=== PATIENT | male | born 1965 | race African-American/Black ===

== ENCOUNTER 2017-04-12 17:33 | Inpatient (IN) | payer MEDICAID, SELFPAY ==
[2017-04-12] VITALS (10 sets, daily range): BP systolic 148–202; BP diastolic 91–112; PULSE 58–74; RESP 14–17; TEMP 36.7; O2SAT 99; BMI 26.9; BMI 26.3
--- NOTE | 2017-04-12 17:58 | EKG12_ITS ---
Test Reason : CP Blood Pressure : / mmHG Vent. Rate : 074 BPM Atrial Rate : 074 BPM P-R Int : 180 ms QRS Dur : 100 ms QT Int : 406 ms P-R-T Axes : 053 004 128 degrees QTc Int : 450 ms Sinus rhythm with Premature atrial complexes in a pattern of bigeminy ST & T wave abnormality, consider lateral ischemia Abnormal ECG Confirmed by SILVIA ZENDEJAS ([id number]), supervising film or videotape editor MARYAM CATHERINE ([id number]) on 04/16/2017 1:00:53 PM Referred By: IVELISSE/RBIE Confirmed By:SILVIA ZENDEJAS
--- NOTE | 2017-04-12 17:59 | EKG12_ITS ---
Test Reason : REPEAT CP Blood Pressure : / mmHG Vent. Rate : 068 BPM Atrial Rate : 068 BPM P-R Int : 182 ms QRS Dur : 102 ms QT Int : 418 ms P-R-T Axes : 047 002 142 degrees QTc Int : 444 ms Sinus rhythm with marked sinus arrhythmia ST & T wave abnormality, consider lateral ischemia Abnormal ECG Confirmed by SILVIA ZENDEJAS ([id number]), market editor MARYAM CATHERINE ([id number]) on 04/16/2017 1:05:13 PM Referred By: IVELISSE Confirmed By:SILVIA ZENDEJAS
--- NOTE | 2017-04-12 18:00 | RAD_ITS ---
STUDY: X-RAY CHEST REASON FOR EXAM: Male, 51 years old. Chest pain TECHNIQUE: Frontal view of the chest COMPARISON: None. FINDINGS: The lungs are clear. There are no pleural effusions. There is no pneumothorax. The heart is normal in size. The visualized osseous structures are within normal limits. RAD/Chest 1 View (Portable) IMPRESSION: No acute thoracic pathology. Electronically Signed: Bam Wilson, at 18:28 EST Tel , Service support ,
[2017-04-12 18:08] LABS: Absolute Lymphocyte Count 1.59 X10^3/ul (0.83-4.51); Basophil# 0.02 X10^3/uL; Basophil% 0.2 % (0-1); Eosinophil# 0.17 X10^3/uL; Eosinophils% 2.1 % (0-5); Hematocrit 39.3 % (40-54); Hemoglobin 13.4 g/dl (13.0-16.5); Lymphocyte # 1.59 X10^3/ul (4.0); Lymphocyte % 19.2 % (19-41); Mean Corp Hgb Conc 34.1 g/gl (32-36); Mean Corpuscular Hgb 32.6 pg (27.0-32.0); Mean Corpuscular Volume 95.6 fL (80-94); Mean Platelet Vol. 11.8 fl (6.2-12.0); Monocyte# 0.47 X10^3/uL; Monocyte% 5.7 % (0-10); Neutrophil % 72.7 % (47-70); Platelet Count 173 K/mm3 (150-450); RBC Distribution Width CV 12.2 % (11.6-14.6); RBC Distribution Width SD 41.9 fl (35.1-43.9); Red Blood Count 4.11 M/mm3 (4.6-6.2); White Blood Count 8.3 K/mm3 (4.4-11.0)
[2017-04-12 18:09] LABS: POSITIVE COUNT NO; POSITIVE DIFFERENTIAL NO; POSITIVE MORPHOLOGY NO
[2017-04-12] MEDS: 0.9% Normal Saline 1,000 ML 150 ML IV (18:25)
[2017-04-12 18:26] LABS: Anion Gap 7 (5-15); BUN 17 mg/dL (7-18); BUN/Creat Ratio 13.6 RATIO (10-20); Calcium,Total 8.5 mg/dL (8.5-10.1); Chloride 102 mmol/L (98-107); Creatinine, Serum 1.25 mg/dL (0.70-1.30); EST Glomerular Filtration Rate 65 mL/min (>60); Est Glom Filt Rate - Afr Amer 78 mL/min (>60); Estimated Creatinine Clearance 81.29 ml/min; Glucose 185 mg/dL (74-106); Potassium 3.5 mmol/L (3.5-5.1); Sodium Level 138 mmol/L (136-145)
--- NOTE | 2017-04-12 19:26 | ED.RN ---
PT WITH CONTINUED HYPERTENSION, DR. OVIEDO INFORMED. AWAITING FURTHER ORDERS.
[2017-04-12] MEDS: cloNIDine HCl 0.1 MG Tablet PO (19:31)
--- NOTE | 2017-04-12 19:31 | ED.VISSUMM ---
- ER Visit Summary Date of Service: 04/12/17 Chief Complaint: Chest pain History of Present Illness: The patient is a 51 M with history of prior stroke, [place], diabetes, hypertension, and high cholesterol. He has 2 prior cardiac stents placed in 2010 in [place]. Patient states that he developed chest pain after climbing steps today. He also had a headache. He does report recent problems with hypertension and was seen at the right was starts him in clinic yesterday. His medications were changed at that time. Patient states he has been having some intermittent chest pain but today started after exertion. EMS was called. Patient states chest pain had resolved prior to being given aspirin and nitroglycerin. On arrival here he denies chest pain but does continue to have headache. Physical Examination: Blood pressure is 190/112, temperature 98.1, heart rate 74, respiratory rate 16, pulse ox 99% on room air. Patient sitting upright in bed no acute distress. Head neck examination is normal. Heart is regular rate and rhythm. Lung sounds are clear. Abdomen is soft nontender. Neuro exam is normal. Test Results: Chest x-ray reveals no acute thoracic pathology. EKG is sinus at 74 with lateral T inversions and 1/[address] depression. Repeat EKG is unchanged. CBC and chemistry studies are significant only for glucose of 185. Troponin is 0.05. Emergency Department Course and Treatment: Patient was ordered morphine and Zofran here but declined. As advised by nursing staff that blood pressure has remained elevated with systolic pressures in the 180s. At this time he is ordered clonidine 0.1 mg. He will be admitted for further treatment and cardiac evaluation. Treatment Plan: [] Disposition: Admit Impression: 1. Chest pain 2. Hypertension This note was generated with [employer] dictation software. It may contain incorrect words, spelling, and punctuation that were not noted in review of the chart prior to signing ED Disposition - Plan for ED Patient: Chief Complaint: Chest Pain Referrals: Korina Brown [Primary Care Provider] -
--- NOTE | 2017-04-12 19:34 | ED.DCSUM_ITS ---
- ER Visit Summary Date of Service: 04/12/17 Chief Complaint: Chest pain History of Present Illness: The patient is a 51 M with history of prior stroke, [place], diabetes, hypertension, and high cholesterol. He has 2 prior cardiac stents placed in 2010 in [place]. Patient states that he developed chest pain after climbing steps today. He also had a headache. He does report recent problems with hypertension and was seen at the right was starts him in clinic yesterday. His medications were changed at that time. Patient states he has been having some intermittent chest pain but today started after exertion. EMS was called. Patient states chest pain had resolved prior to being given aspirin and nitroglycerin. On arrival here he denies chest pain but does continue to have headache. Physical Examination: Blood pressure is 190/112, temperature 98.1, heart rate 74 , respiratory rate 16, pulse ox 99% on room air. Patient sitting upright in bed no acute distress. Head neck examination is normal. Heart is regular rate and rhythm. Lung sounds are clear. Abdomen is soft nontender. Neuro exam is normal. Test Results: Chest x-ray reveals no acute thoracic pathology. EKG is sinus at 74 with lateral T inversions and 1/[address] depression. Repeat EKG is unchanged. CBC and chemistry studies are significant only for glucose of 185. Troponin is 0.05. Emergency Department Course and Treatment: Patient was ordered morphine and Zofran here but declined. As advised by nursing staff that blood pressure has remained elevated with systolic pressures in the 180s. At this time he is ordered clonidine 0.1 mg. He will be admitted for further treatment and cardiac evaluation. Treatment Plan: [] Disposition: Admit Impression: 1. Chest pain 2. Hypertension This note was generated with [employer] dictation software. It may contain incorrect words, spelling, and punctuation that were not noted in review of the chart prior to signing ED Disposition - Plan for ED Patient: Chief Complaint: Chest Pain Referrals: Korina Brown [Primary Care Provider] -
--- NOTE | 2017-04-12 20:13 | PCM.HP.STD ---
Problem List (1) Chest pain Status: Acute (2) HTN (hypertension) Status: Chronic (3) DM II (diabetes mellitus, type II), controlled Status: Acute History of Present Illness Date of Admission: 04/12/17 Chief Complaint: Chest pain The patient is a 51 year old male w/ h/o stroke, DMII, HTN, and CAD admitted for chest pain. Pt has been having chest pain for the past few months. Chest pain would last for a few minutes and was associated with exertion. Today during lunch, pt went down stair to do the laundry and went to the rest room. After the restroom, he felt immediately diaphoretic, and had palpitation. He had tightness around his sternum and felt as if an elephant was sitting on his chest. Pain was severe and sudden. Nothing made it better or worse. No radiation of pain. Pain lasted until paramedics came and gave him nitro. He has no other complaint. Past Medical History Past Medical History (Chronic Problems): Chronic Problems HTN (hypertension) (Chronic) Allergies Sulfa (Sulfonamide Antibiotics) Allergy (Verified 04/12/17 17:34) Hives Home Medications: Ambulatory Orders Medication Instructions Recorded Amlodipine [Norvasc] 10 mg PO DAILY 04/12/17 Aspirin [Aspirin, Baby] 81 mg PO DAILY@0800 04/12/17 Metformin HCl 500 mg PO DAILY 04/12/17 Metoprolol Succinate 25 mg PO QHS 04/12/17 Lives: With Family Smoking Status: Light Smoker (<10/day) Alcohol: None Drugs: None - *Family History Maternal History Items: Heart Disease, Hypertension, Stroke Review of Systems Constitutional: Denies: Chills, Fever, Weight Change HEENT: Denies: Head Aches, Sinus Congestion, Sinus Drainage Cardiovascular: Reports: Chest Pain, Chest Pressure, Chest Tightness, Palpitations Respiratory: Denies: Cough, Shortness of breath at rest, Sputum production Gastrointestinal: Denies: Abdominal Pain, Nausea, Vomiting Genitourinary: Denies: Dysuria Musculoskeletal: Denies: Joint Pain, Joint Tenderness Skin: Denies: Rash, Wounds Neurological: Denies: Numbness, Tingling, Focal weakness Psychiatric: Denies: Anxiety, Depression, Homicidal Ideations, Suicidal Ideations Hematologic/ Lymphatic: Denies: Easy Bruising, Easy Bleeding VTE Information - Inpt Only VTE Present on Admission: No VTE Mechan Device Prophylaxis: SCD's VTE Pharm Prophylaxis ordered?: Yes Patient Problems: Active and Suspected Problems Chest pain (Acute) DM II (diabetes mellitus, type II), controlled (Acute) - Physical Exam General: Alert, Oriented x3, Cooperative HEENT: Atraumatic, PERRLA, EOMI, Normocephalic Neck: Supple, No JVD, Negative Carotid Bruits Lungs: Clear to auscultation, Normal air movement Cardiovascular: Regular rate, No murmurs Abdomen: Bowel Sounds Present, Soft, Non Tender Extremities: No edema, Capillary Refill Less than 3 Seconds Skin: No rashes, No breakdown Musculoskeletal: No Tenderness to Palpation of Joints or Extremities Neurological: Cranial nerves II-XII grossly intact Psych/Mental Status: Normal Affect, Appropriate Vital Signs Temp Pulse Resp BP Pulse Ox 98.1 F 64 17 188/103 H 99 04/12/17 19:38 04/12/17 19:38 04/12/17 19:38 04/12/17 19:38 04/12/17 19:38 Oxygen Delivery Method Room Air Weight: 95.2 kg Body Mass Index (BMI) 26.9 Laboratory Tests Past 24 Hrs 04/12/17 04/12/17 17:45 17:45 WBC 8.3 RBC 4.11 L Hgb 13.4 Hct 39.3 L MCV 95.6 H MCH 32.6 H MCHC 34.1 RDW 12.2 RDW Differential 41.9 Plt Count 173 MPV 11.8 Immature Gran % (Auto) 0.100 Neut % (Auto) 72.7 H Lymph % (Auto) 19.2 [place] % (Auto) 5.7 Eos % (Auto) 2.1 Baso % (Auto) 0.2 Absolute Neuts (auto) 6.0 Absolute Lymphs (auto) 1.59 Total Counted Not Reportable Sodium 138 Potassium 3.5 Chloride 102 Carbon Dioxide 29.0 Anion Gap 7 BUN 17 Creatinine 1.25 Estim Creat Clear Calc 81.29 Est GFR (MDRD) Af Amer 78 Est GFR (MDRD) Non-Af 65 BUN/Creatinine Ratio 13.6 Glucose 185 H Calcium 8.5 Troponin I 0.05 Assessment/Plan Active and Suspected Problems Chest pain (Acute) DM II (diabetes mellitus, type II), controlled (Acute) 51 year old male w/ h/o stroke, DMII, HTN, and CAD admitted for chest pain. 1) Chest pain: Heart score 6. H/o 2 prior cardiac stents placed in [place] in 2010. Mother had heart attack in her early 50s. First trop negative. EKG disclosed sinus with rate of 74 with lateral T wave inversion and 1/[address] depression. Will get serial trops. ECHO in AM. Stress test in AM. FLP and A1C pending. Start lipitor / PADDY. Resume home meds. 2) HTN: SBP 190s. Will resume home meds. Appears hypovolemic. Will get orthostatic. Will also start ACEI. Monitor. 3) DMII: Resume home meds. A1C pending. 4) Prophylaxis: SCD / heparin.
[2017-04-12] MEDS: Metoprolol(XL)Succ 25 MG Tablet PO (21:54)
[2017-04-12] MEDS: Acetaminophen 500 MG Tablet PO (21:54)
[2017-04-12] MEDS: Atorvastatin Calcium 40 MG Tablet PO (21:54)
[2017-04-12 22:55] LABS: Amphetamine Urine VISTA NEGATIVE (<1000 ng/mL); Barbiturate Urine VISTA NEGATIVE (< 200 ng/mL); Benzodiazepine Urine VISTA NEGATIVE (< 200 ng/mL); Cocaine Urine VISTA NEGATIVE (< 300 ng/mL); Ecstacy Urine VISTA NEGATIVE (< 500 ng/mL); Methadone Urine VISTA NEGATIVE (< 300 ng/mL); PCP Urine VISTA NEGATIVE (< 25 ng/mL); THC Urine VISTA NEGATIVE (< 50 ng/mL); Vista UDS pH Range 7
[2017-04-13] VITALS (15 sets, daily range): BP systolic 130–170; BP diastolic 60–103; PULSE 52–88; RESP 16; TEMP 36.6–36.9; O2SAT 95–98
[2017-04-13] MEDS: Acetaminophen 500 MG Tablet PO ×4 (02:19→21:15)
[2017-04-13] MEDS: 0.9% NaCl Peripheral Flush Adult/Peds IV ×2 (02:47→08:51)
[2017-04-13] MEDS: Aspirin 81 MG TAB.CHEW PO (05:36)
[2017-04-13] MEDS: Lisinopril 10 MG Tablet PO (05:36)
--- NOTE | 2017-04-13 05:55 | ECHOD_ITS ---
Reason For Study: CHEST PAIN Procedure This was a 2D Doppler, Color Flow transthoracic echocardiogram. Exam performed portable in patient room. Left Ventricle Severe concentric left ventricular hypertrophy. The estimated ejection fraction is 75 %. Stage 1 diastolic dysfunction. No regional wall motion abnormalities noted. Right Ventricle Normal size and thickness. Normal systolic function. Atria Normal left atrium. Normal right atrium. Normal atrial septum. Mitral Valve The mitral valve is structurally normal. No prolapse or stenosis seen. Tricuspid Valve Normal tricuspid valve. Trivial tricuspid valve insufficiency. Unable to estimate RV systolic pressure/pulmonary artery pressure due to technically difficult study. Aortic Valve Normal aortic valve. Trisinus/trileaflet aortic valve. Pulmonic Valve Normal pulmonic valve. Great Vessels Normal aortic root. Normal arch. Normal inferior vena cava. Inferior vena cava collapse with sniff. Pericardium/Pleural No pericardial effusion. MMode/2D Measurements & Calculations LVIDd: 4.6 cm IVSd: 1.7 cm Ao root diam: 3.2 cm LVIDs: 2.8 cm LVPWd: 1.7 cm LA dimension: 4.2 cm RVDd: 3.7 cm FS: 39.4 % LAV(MOD-bp): 71.1 ml LVAd ap4: 33.3 cm2 SV(MOD-sp4): 70.8 ml LAV(MOD-bp) Indexed: 32.4 ml/m2 EDV(MOD-sp4): 106.7 ml LAV(MOD-sp2): 61.8 ml EDV(sp4-el): 107.2 ml LAV(MOD-sp4): 69.9 ml LVAs ap4: 18.1 cm2 ESV(MOD-sp4): 36.0 ml ESV(sp4-el): 36.1 ml EF(MOD-sp4): 66.3 % EF(sp4-el): 66.4 % SV(sp4-el): 71.1 ml LA A4 area: 22.8 cm2 RA A4 area: 14.9 cm2 Doppler Measurements & Calculations MV E max nannette: 68.0 cm/sec Ao V2 max: 170.6 cm/sec LV V1 max: 109.4 cm/sec MV A max nannette: 83.1 cm/sec Ao max P.6 mmHg LV V1 max P.8 mmHg MV E/A: 0.82 Interpretation Summary Severe concentric left ventricular hypertrophy. The estimated ejection fraction is 75 %. Stage 1 diastolic dysfunction. Unable to estimate RV systolic pressure/pulmonary artery pressure due to technically difficult study. There is no comparison study available. Ordering Physician: Manuel Regan Referring Physician: YECENIA SAUCEDO [facility] Performed By: Isabella Corrigan RDCS, RVT
--- NOTE | 2017-04-13 05:55 | EKG12_ITS ---
Test Reason : AM EKG Blood Pressure : / mmHG Vent. Rate : 062 BPM Atrial Rate : 062 BPM P-R Int : 198 ms QRS Dur : 100 ms QT Int : 462 ms P-R-T Axes : 054 006 152 degrees QTc Int : 468 ms Normal sinus rhythm ST & T wave abnormality, consider lateral ischemia Prolonged QT Abnormal ECG When compared with ECG of 12-APR-2017 18:19, MANUAL COMPARISON REQUIRED, DATA IS UNCONFIRMED Confirmed by RAMILA CHATTERJEE, ARIELLE ([id number]), graphics editor MARYAM CATHERINE ([id number]) on 04/17/2017 2:41:00 PM Referred By: RIVERA HUNTER Confirmed By:ARIELLE MCGRATH MD
[2017-04-13 07:49] LABS: Absolute Lymphocyte Count 2.03 X10^3/ul (0.83-4.51); Absolute Neutrophil Count 5.1 X10^3/uL (2.0-7.7); Basophil# 0.03 X10^3/uL; Basophil% 0.4 % (0-1); Eosinophils% 2.5 % (0-5); Hematocrit 39.4 % (40-54); Hemoglobin 13.4 g/dl (13.0-16.5); Lymphocyte # 2.03 X10^3/ul (4.0); Lymphocyte % 25.8 % (19-41); Mean Corpuscular Hgb 32.4 pg (27.0-32.0); Mean Corpuscular Volume 95.4 fL (80-94); Mean Platelet Vol. 11.6 fl (6.2-12.0); Monocyte# 0.53 X10^3/uL; Monocyte% 6.7 % (0-10); Neutrophil # 5.06 X10^3/uL (2.7-7.7); Neutrophil % 64.5 % (47-70); POSITIVE COUNT NO; POSITIVE DIFFERENTIAL NO; POSITIVE MORPHOLOGY NO; Platelet Count 166 K/mm3 (150-450); RBC Distribution Width CV 12.4 % (11.6-14.6); RBC Distribution Width SD 42.7 fl (35.1-43.9); Red Blood Count 4.13 M/mm3 (4.6-6.2); White Blood Count 7.9 K/mm3 (4.4-11.0)
[2017-04-13 07:57] LABS: Prothrombin Time (Protime)PT. 12.9 SECONDS (11.7-14.9)
[2017-04-13 07:58] LABS: Partial Thromboplast Time 35.2 Seconds (24.1-36.2)
[2017-04-13 08:11] LABS: AST(SGOT) 12 U/L (15-37); Alanine Aminotransfer ALT/SGPT 29 U/L (16-61); Albumin, Serum 3.4 g/dL (3.2-5.0); Alkaline Phosphatase 81 U/L (45-117); Anion Gap 6 (5-15); BUN 12 mg/dL (7-18); BUN/Creat Ratio 11.9 RATIO (10-20); Calcium,Total 8.1 mg/dL (8.5-10.1); Chloride 105 mmol/L (98-107); Cholesterol 207 mg/dL (200); Creatinine, Serum 1.01 mg/dL (0.70-1.30); EST Glomerular Filtration Rate 83 mL/min (>60); Est Glom Filt Rate - Afr Amer 100 mL/min (>60); Globulin 3.3 g/dL (2.2-4.2); Glucose 153 mg/dL (74-106); High Density Lipoprotein 38 mg/dL; Potassium 3.7 mmol/L (3.5-5.1); Protein, Total 6.7 g/dL (6.4-8.2); Sodium Level 137 mmol/L (136-145); Thyroid Stim Hormone (TSH) 1.68 uIU/mL (0.358-3.74); Triglycerides 151 mg/dL; Very Low Density Lipoprotein 30 mg/dL (5-40)
--- NOTE | 2017-04-13 08:16 | PCM.PROGNOTE ---
Patient Problems: Active and Suspected Problems Chest pain (Acute) Subjective: Chief complaint: Follow-up after admission for chest pain with EKG changes, probable unstable angina as well as highly elevated blood pressure. Patient seen and examined. No acute events overnight. He has been complaining of headache, improved this morning. He has no more chest pain. He described it typical presentation of chest pain with left-sided chest pain, sharp, associated with shortness of breath, dizziness and sweating, lasted for 20 minutes. Overnight, blood pressure was highly elevated. This morning, he has been afebrile, blood pressure is down to 149/99, pulse ox is normal. - Physical Exam General: Alert, Oriented x3, Cooperative, No apparent distress HEENT: Atraumatic, PERRLA, EOMI Oral: Moist Mucosa, No Gingival or Mucosal Lesions/ Ulcerations Neck: Supple, No JVD, Negative Carotid Bruits, Trachea Midline, Thyroid Normal Size and Texture Lungs: Clear to auscultation, No rhonchi, No wheeze, No rales, Diminished Cardiovascular: Regular rate, Regular Rhythm, Normal S1, Normal S2, No murmurs, PMI Normal Abdomen: Bowel Sounds Present, Soft, Non Tender, Non-Distended, No Hepato-splenomegaly Extremities: No clubbing, No cyanosis, No edema Skin: No rashes, No breakdown Lymphatic: No Cervical, Supraclavicular, or Inguinal Adenopathy Neurological: Cranial nerves II-XII grossly intact, Motor Exam 5/5 strength throughout Psych/Mental Status: Normal Affect, Appropriate, Alert and oriented to time, place, person, mood and affect Vital Signs Temp Pulse Resp BP Pulse Ox 97.8 F 67 16 149/99 H 98 04/13/17 05:33 04/13/17 05:33 04/13/17 05:33 04/13/17 05:33 04/13/17 05:33 Oxygen Delivery Method Room Air Weight: 205 lb 4.006 oz Body Mass Index (BMI) 26.3 Orthostatic Vital Signs Start: 04/12/17 21:50 Freq: X1 Status: Active Protocol: Activity Type Activity Date Activity User E-Sign Co-Sign Detail Recorded Client Recorded Date Recorded By Document 04/12/17 22:05 ESTERK [id number] 04/12/17 22:05 JOSLYN 04/12/17 22:05 Orthostatic Vitals Standing -Blood Pressure (90/60-120/80) 160/91 H -Extremity Use Right Arm -Pulse Rate (60-100) 62 Sitting -Blood Pressure (90/60-120/80) 148/99 H -Extremity Use Right Arm -Pulse Rate (60-100) 60 Lying -Blood Pressure (90/60-120/80) 155/96 H -Extremity Use Right Arm -Pulse Rate (60-100) 58 L Intake and Output for Last 24 Hours 04/11/17 04/12/17 04/13/17 23:59 23:59 23:59 Intake Total 610 / 610 100 / 100 Balance 610 / 610 100 / 100 Laboratory Tests Past 24 Hrs 04/12/17 04/12/17 04/13/17 21:44 21:50 01:43 WBC RBC Hgb Hct MCV MCH MCHC RDW RDW Differential Plt Count MPV Immature Gran % (Auto) Neut % (Auto) Lymph % (Auto) [place] % (Auto) Eos % (Auto) Baso % (Auto) Absolute Neuts (auto) Absolute Lymphs (auto) Total Counted PT INR APTT Sodium Potassium Chloride Carbon Dioxide Anion Gap BUN Creatinine Estim Creat Clear Calc Est GFR (MDRD) Af Amer Est GFR (MDRD) Non-Af BUN/Creatinine Ratio Glucose Hemoglobin A1c Calcium Magnesium Total Bilirubin AST ALT Alkaline Phosphatase Troponin I 0.10 H 0.10 H Total Protein Albumin Globulin Albumin/Globulin Ratio Triglycerides Cholesterol LDL Cholesterol VLDL Cholesterol HDL Cholesterol TSH Urine Opiates Screen NEGATIVE Urine Methadone Screen NEGATIVE Ur Barbiturates Screen NEGATIVE Ur Phencyclidine Scrn NEGATIVE Ur Amphetamines Screen NEGATIVE U Methamphetamin-MDMA NEGATIVE U Benzodiazepines Scrn NEGATIVE Urine Cocaine Screen NEGATIVE U Cannabinoids Screen NEGATIVE Ur Drug Screen Comment 04/13/17 04/13/17 04/13/17 07:40 07:40 07:40 WBC 7.9 RBC 4.13 L Hgb 13.4 Hct 39.4 L MCV 95.4 H MCH 32.4 H MCHC 34.0 RDW 12.4 RDW Differential 42.7 Plt Count 166 MPV 11.6 Immature Gran % (Auto) 0.100 Neut % (Auto) 64.5 Lymph % (Auto) 25.8 [place] % (Auto) 6.7 Eos % (Auto) 2.5 Baso % (Auto) 0.4 Absolute Neuts (auto) 5.1 Absolute Lymphs (auto) 2.03 Total Counted Not Reportable PT INR APTT Sodium 137 Potassium 3.7 Chloride 105 Carbon Dioxide 26.0 Anion Gap 6 BUN 12 Creatinine 1.01 Estim Creat Clear Calc 100.60 Est GFR (MDRD) Af Amer 100 Est GFR (MDRD) Non-Af 83 BUN/Creatinine Ratio 11.9 Glucose 153 H Hemoglobin A1c Pending Calcium 8.1 L Magnesium 2.0 Total Bilirubin 0.60 AST 12 L ALT 29 Alkaline Phosphatase 81 Troponin I Total Protein 6.7 Albumin 3.4 Globulin 3.3 Albumin/Globulin Ratio 1.0 Triglycerides 151 Cholesterol 207 H LDL Cholesterol 139 H VLDL Cholesterol 30 HDL Cholesterol 38 L TSH 1.68 Urine Opiates Screen Urine Methadone Screen Ur Barbiturates Screen Ur Phencyclidine Scrn Ur Amphetamines Screen U Methamphetamin-MDMA U Benzodiazepines Scrn Urine Cocaine Screen U Cannabinoids Screen Ur Drug Screen Comment 04/13/17 04/13/17 07:40 07:40 WBC RBC Hgb Hct MCV MCH MCHC RDW RDW Differential Plt Count MPV Immature Gran % (Auto) Neut % (Auto) Lymph % (Auto) [place] % (Auto) Eos % (Auto) Baso % (Auto) Absolute Neuts (auto) Absolute Lymphs (auto) Total Counted PT 12.9 INR 1.0 APTT 35.2 Sodium Potassium Chloride Carbon Dioxide Anion Gap BUN Creatinine Estim Creat Clear Calc Est GFR (MDRD) Af Amer Est GFR (MDRD) Non-Af BUN/Creatinine Ratio Glucose Hemoglobin A1c Calcium Magnesium Total Bilirubin AST ALT Alkaline Phosphatase Troponin I 0.06 Total Protein Albumin Globulin Albumin/Globulin Ratio Triglycerides Cholesterol LDL Cholesterol VLDL Cholesterol HDL Cholesterol TSH Urine Opiates Screen Urine Methadone Screen Ur Barbiturates Screen Ur Phencyclidine Scrn Ur Amphetamines Screen U Methamphetamin-MDMA U Benzodiazepines Scrn Urine Cocaine Screen U Cannabinoids Screen Ur Drug Screen Comment Clinical Impression(s) from Imaging Studies Chest X-Ray 04/12/17 18:00 IMPRESSION: No acute thoracic pathology. Electronically Signed: Bam Wilson, at 18:28 EST Tel , Service support , Assessment/Plan Active and Suspected Problems Chest pain (Acute) This is a 51 years old male patient admitted because of chest pain, found to have EKG changes and indeterminate troponin and he is undergoing evaluation #1 chest pain/EKG changes/indeterminate troponin: This morning, patient is chest pain-free. EKG revealed T-wave inversion in lateral chest leads. Troponin is borderline elevated at 0.10. Blood pressure improved but still on the higher side. Other vital signs are stable. Chest x-ray showed no acute findings. Patient is on aspirin, statins, beta blockers and lisinopril. Plan: We will start Nitropaste, cardiology consult, cancel stress test this morning. #2 uncontrolled hypertension: Blood pressure has been very high, slightly improved this morning. Patient is on Norvasc, lisinopril and metoprolol as well as IV hydralazine as needed. Plan for close monitoring, adjust medication if needed. #3 type 2 diabetes mellitus: ADA diet, Accu-Cheks, start insulin sliding scale, keep holding metformin. #4 CAD: Status post stents. Plan as above, continue aspirin, statins, lisinopril and metoprolol. #5 DVT prophylaxis: Subcu heparin. This note was generated with [employer] dictation software. It may contain incorrect words, spelling, and punctuation that were not noted in checking the note before signing. Code Visit OBSV E&M: 87636 Subsequent observation care L2
[2017-04-13 08:31] LABS: Hemoglobin A1c 6.3 % (4.2-6.3)
[2017-04-13] MEDS: 0.9% Normal Saline 1,000 ML 75 ML IV ×2 (08:44→22:21)
[2017-04-13] MEDS: Clopidogrel Bisulfate 300 MG Tablet PO (09:57)
[2017-04-13] MEDS: Nitroglycerin Oint 1 INCH PACKET 0.5 INCH TRANSDERM. ×2 (10:00→22:23)
[2017-04-13] MEDS: amLODIPine 10 MG Tablet PO (10:46)
--- NOTE | 2017-04-13 11:45 | PCM.CONS.C ---
Problem List (1) Non-STEMI (non-ST elevated myocardial infarction) Status: Acute (2) Abnormal EKG Status: Acute (3) Coronary artery disease Status: Chronic Comment: Status post stents. (4) Chest pain Status: Acute (5) HTN (hypertension) Status: Chronic Reason for Consult Date of Consultation: 04/13/17 Reason for Consultation: Chest pain, non-STEMI, hypertension, coronary artery disease status post angioplasty and stenting History of Present Illness: The patient is a 51 year old M former smoker quit around 1 year ago after a [id number] smoking history, with diabetes type 2, hypertension, hypercholesterolemia, coronary artery disease status post what sounds like a ST elevation myocardial infarction in 2010. At that time the patient was located in [facility] and underwent emergent angioplasty and stenting ?2 to an unknown artery. 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 The patient recently relocated to the [facility], and has been seeing a PCP locally for blood pressure management. His blood pressure medicines have been adjusted by his PCP to optimize his hypertension. Patient remains on baby aspirin and was on Plavix for one years time and has been discontinued. Last evening the patient developed recurrent severe 9 out of 10 substernal chest pressure as if an elephant was on his chest, with associated diaphoresis, dizziness, and shortness of breath. Patient sought medical attention at [facility] ER where an EKG was performed which showed normal sinus rhythm with upright T waves. Patient was treated with sublingual nitroglycerin and admitted for rule out myocardial infarction. His initial troponin was 0.05, but then increased to 0.11?2 sets. In addition the patient complained of a severe headache which has improved with antihypertensive therapy. His initial blood pressure was found to be 190/112. His chest x-ray was negative. His EKG this morning demonstrates normal sinus rhythm with left ventricular hypertrophy and anterolateral T-wave inversion which is new. Echocardiogram today demonstrates moderate to severe left ventricular hypertrophy, hyperdynamic LV function with an EF of 75%, no valvular abnormalities. No regional wall motion abnormalities. Patient has remained chest pain-free. Telemetry this morning showed normal sinus rhythm, no ventricular ectopy. Stress test was canceled. Patient denies alcohol use, IV drug abuse, illicit substances, or [id number] medications. [] Past Medical History Allergies/Adverse Reactions: Allergies Sulfa (Sulfonamide Antibiotics) Allergy (Verified 04/12/17 17:34) Hives Home Medications: Ambulatory Orders Medication Instructions Recorded Amlodipine [Norvasc] 10 mg PO DAILY 04/12/17 Aspirin [Aspirin, Baby] 81 mg PO DAILY@0800 04/12/17 Metformin HCl 500 mg PO DAILY 04/12/17 Metoprolol Succinate 25 mg PO QHS 04/12/17 Past Medical History (Chronic Problems): Chronic Problems Coronary artery disease (Chronic) Status post stents. Type 2 diabetes mellitus (Chronic) HTN (hypertension) (Chronic) - *Family History Maternal History Items: Heart Disease, Hypertension, Stroke Lives: With Family Smoking Status: Light Smoker (<10/day) Alcohol: None Drugs: None Review of Systems - Review of Systems General: Denies: Fever, Night Sweats, Fatigue Cardiovascular: Reports: Chest Discomfort, Chest Discomfort at Rest, Shortness of Breath, Shortness of Breath at Rest, Lightheadedness, Dizziness. Denies: Orthopnea, PND, Peripheral Edema, Palpitations, Near Syncope, Syncope Respiratory: Denies: Cough, Sputum Production, Hemoptysis Gastrointestinal: Denies: Hematemesis, Hematochezia, Melena Genitourinary: Denies: Dysuria, Hematuria Skin: Denies: Rash Subjectve: Patient laying in bed, no acute distress. Objective: Vital Signs Temp Pulse Resp BP Pulse Ox 98.4 F 60 16 167/103 H 98 04/13/17 10:46 04/13/17 10:46 04/13/17 10:46 04/13/17 10:46 04/13/17 10:46 Oxygen Delivery Method Room Air Weight: 205 lb 4.006 oz Body Mass Index (BMI) 26.3 Orthostatic Vital Signs Start: 04/12/17 21:50 Freq: X1 Status: Active Protocol: Activity Type Activity Date Activity User E-Sign Co-Sign Detail Recorded Client Recorded Date Recorded By Document 04/12/17 22:05 JOSLYN [id number] 04/12/17 22:05 JOSLYN 04/12/17 22:05 Orthostatic Vitals Standing -Blood Pressure (90/60-120/80) 160/91 H -Extremity Use Right Arm -Pulse Rate (60-100) 62 Sitting -Blood Pressure (90/60-120/80) 148/99 H -Extremity Use Right Arm -Pulse Rate (60-100) 60 Lying -Blood Pressure (90/60-120/80) 155/96 H -Extremity Use Right Arm -Pulse Rate (60-100) 58 L Intake and Output for Last 24 Hours 04/11/17 04/12/17 04/13/17 23:59 23:59 23:59 Intake Total 610 / 610 100 / 100 Balance 610 / 610 100 / 100 General: Awake, Alert, Oriented x 3 HEENT: PERRL, EOMI, Sclera Non Icteric Neck: Supple, Good ROM, No Lymph Node Enlargement Lungs: Clear to auscultation Cardiovascular: Regular Rhythm, Normal S1, Normal S2, No Murmurs, No Rubs, No Gallops Vascular: No Carotid Bruits, Normal Femoral Pulses, Normal Radial Pulses, Normal Dorsalis Pedal Pulse, Normal Posterior Tibial Pulses Abdomen: Bowel Sounds Present, Soft, Non Tender, No HSM, No Organomegaly Extremities: No Cyanosis, No Clubbing, No edema Neurological: No Focal Motor or Sensory Deficit 04/12/17 21:50: Troponin I 0.10 H 04/13/17 01:43: Troponin I 0.10 H 04/13/17 07:40: WBC 7.9, RBC 4.13 L, Hgb 13.4, Hct 39.4 L, MCV 95.4 H, MCH 32.4 H, MCHC 34.0, RDW 12.4, RDW Differential 42.7, Plt Count 166, MPV 11.6, Immature Gran % (Auto) 0.100, Neut % (Auto) 64.5, Lymph % (Auto) 25.8, [place] % (Auto) 6.7, Eos % (Auto) 2.5, Baso % (Auto) 0.4, Absolute Neuts (auto) 5.1, Total Counted Not Reportable 04/13/17 07:40: Sodium 137, Potassium 3.7, Chloride 105, Carbon Dioxide 26.0, Anion Gap 6, BUN 12, Creatinine 1.01, Est GFR (MDRD) Af Amer 100, Est GFR (MDRD) Non-Af 83, BUN/Creatinine Ratio 11.9, Glucose 153 H, Calcium 8.1 L, Magnesium 2.0, Total Bilirubin 0.60, Triglycerides 151, Cholesterol 207 H, LDL Cholesterol 139 H, VLDL Cholesterol 30, HDL Cholesterol 38 L 04/13/17 07:40: Hemoglobin A1c 6.3 04/13/17 07:40: Troponin I 0.06 04/13/17 07:40: PT 12.9, INR 1.0, APTT 35.2 Rhythm: EKG: As above ECHO: As above Stress Test: Cardiac Cath: Pending PCI: CT Surgery: Holter monitor: EPS: PPM: CXR: Chest CT Scan: Assessment/Plan 1. Coronary artery disease: The patient presents with recurrent substernal chest pain approximately 7 years after his acute angioplasty and stenting in [facility]. The patient is maintained baby aspirin, and has been struggling with hypertensive blood pressure control over the last several weeks. He now presents with acute severe substernal chest pressure, with dynamic EKG changes and minimally elevated troponins. His LV function is intact by echocardiogram and his symptoms have resolved. This point I recommend continuing baby aspirin, loading him with Plavix 300 mg ?1 now followed by 75 mg a day, switching him from metoprolol to Coreg 6.25 mg p.o. twice daily, discontinuing his lisinopril and switching him to Hyzaar 50/12.5 mg p.o. daily prickly with respect to his high diastolic pressure. In addition I would not recommend stress testing at this time but would rather refer him for direct coronary catheterization this upcoming Saturday to determine if he has any recurrent coronary disease or in-stent restenosis to explain his symptoms. If his catheterization demonstrates widely patent coronaries and widely patent stent, and his symptoms are most likely due to severe uncontrolled hypertension. In addition recommend continuing nitroglycerin paste 1 inch every 6 hours to avoid recurrent hypertensive spikes and to maintain coronary vasodilatation. 2. Hyperlipidemia: His LDL is 139. Apparently he was not on antilipid therapy. I agree with Lipitor 40 mill grams p.o. nightly, and repeat lipid profile in 6 weeks time. 3. Consideration may want to be given to a urinary tox screen to make sure he is not illicit substance positive. 4. Thank you very much for the opportunity to participate in the cardiac care of your patient. Consultation time took place between 9 AM and 9:30 AM. Code Visit Inpatient E&M: [id number] Init Hosp L2
--- NOTE | 2017-04-13 11:55 | CON.PCM_ITS ---
Problem List (1) Non-STEMI (non-ST elevated myocardial infarction) Status: Acute (2) Abnormal EKG Status: Acute (3) Coronary artery disease Status: Chronic Comment: Status post stents. (4) Chest pain Status: Acute (5) HTN (hypertension) Status: Chronic Reason for Consult Date of Consultation: 04/13/17 Reason for Consultation: Chest pain, non-STEMI, hypertension, coronary artery disease status post angioplasty and stenting History of Present Illness: The patient is a 51 year old M former smoker quit around 1 year ago after a 30- pack-year smoking history, with diabetes type 2, hypertension, hypercholesterolemia, coronary artery disease status post what sounds like a ST elevation myocardial infarction in 2010. At that time the patient was located in [facility] and underwent emergent angioplasty and stenting ?2 to an unknown artery. 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 The patient recently relocated to the [facility], and has been seeing a PCP locally for blood pressure management. His blood pressure medicines have been adjusted by his PCP to optimize his hypertension. Patient remains on baby aspirin and was on Plavix for one years time and has been discontinued. Last evening the patient developed recurrent severe 9 out of 10 substernal chest pressure as if an elephant was on his chest, with associated diaphoresis, dizziness, and shortness of breath. Patient sought medical attention at [facility] ER where an EKG was performed which showed normal sinus rhythm with upright T waves. Patient was treated with sublingual nitroglycerin and admitted for rule out myocardial infarction. His initial troponin was 0.05, but then increased to 0.11?2 sets. In addition the patient complained of a severe headache which has improved with antihypertensive therapy. His initial blood pressure was found to be 190/112. His chest x-ray was negative. His EKG this morning demonstrates normal sinus rhythm with left ventricular hypertrophy and anterolateral T-wave inversion which is new. Echocardiogram today demonstrates moderate to severe left ventricular hypertrophy, hyperdynamic LV function with an EF of 75%, no valvular abnormalities. No regional wall motion abnormalities. Patient has remained chest pain-free. Telemetry this morning showed normal sinus rhythm, no ventricular ectopy. Stress test was canceled. Patient denies alcohol use, IV drug abuse, illicit substances, or over-the- counter medications. [] Past Medical History Allergies/Adverse Reactions: Allergies Sulfa (Sulfonamide Antibiotics) Allergy (Verified 04/12/17 17:34) Hives Home Medications: Ambulatory Orders Medication Instructions Recorded Amlodipine [Norvasc] 10 mg PO DAILY 04/12/17 Aspirin [Aspirin, Baby] 81 mg PO DAILY@0800 04/12/17 Metformin HCl 500 mg PO DAILY 04/12/17 Metoprolol Succinate 25 mg PO QHS 04/12/17 Past Medical History (Chronic Problems): Chronic Problems Coronary artery disease (Chronic) Status post stents. Type 2 diabetes mellitus (Chronic) HTN (hypertension) (Chronic) - *Family History Maternal History Items: Heart Disease, Hypertension, Stroke Lives: With Family Smoking Status: Light Smoker (<10/day) Alcohol: None Drugs: None Review of Systems - Review of Systems General: Denies: Fever, Night Sweats, Fatigue Cardiovascular: Reports: Chest Discomfort, Chest Discomfort at Rest, Shortness of Breath, Shortness of Breath at Rest, Lightheadedness, Dizziness. Denies: Orthopnea, PND, Peripheral Edema, Palpitations, Near Syncope, Syncope Respiratory: Denies: Cough, Sputum Production, Hemoptysis Gastrointestinal: Denies: Hematemesis, Hematochezia, Melena Genitourinary: Denies: Dysuria, Hematuria Skin: Denies: Rash Subjectve: Patient laying in bed, no acute distress. Objective: Vital Signs Temp Pulse Resp BP Pulse Ox 98.4 F 60 16 167/103 H 98 04/13/17 10:46 04/13/17 10:46 04/13/17 10:46 04/13/17 10:46 04/13/17 10:46 Oxygen Delivery Method Room Air Weight: 205 lb 4.006 oz Body Mass Index (BMI) 26.3 Orthostatic Vital Signs Start: 04/12/17 21:50 Freq: X1 Status: Active Protocol: Activity Type Activity Date Activity User E-Sign Co-Sign Detail Recorded Client Recorded Date Recorded By Document 04/12/17 22:05 JOSLYN [id number] 04/12/17 22:05 JOSLYN 04/12/17 22:05 Orthostatic Vitals Standing -Blood Pressure (90/60-120/80) 160/91 H -Extremity Use Right Arm -Pulse Rate (60-100) 62 Sitting -Blood Pressure (90/60-120/80) 148/99 H -Extremity Use Right Arm -Pulse Rate (60-100) 60 Lying -Blood Pressure (90/60-120/80) 155/96 H -Extremity Use Right Arm -Pulse Rate (60-100) 58 L Intake and Output for Last 24 Hours 04/11/17 04/12/17 04/13/17 23:59 23:59 23:59 Intake Total 610 / 610 100 / 100 Balance 610 / 610 100 / 100 General: Awake, Alert, Oriented x 3 HEENT: PERRL, EOMI, Sclera Non Icteric Neck: Supple, Good ROM, No Lymph Node Enlargement Lungs: Clear to auscultation Cardiovascular: Regular Rhythm, Normal S1, Normal S2, No Murmurs, No Rubs, No Gallops Vascular: No Carotid Bruits, Normal Femoral Pulses, Normal Radial Pulses, Normal Dorsalis Pedal Pulse, Normal Posterior Tibial Pulses Abdomen: Bowel Sounds Present, Soft, Non Tender, No HSM, No Organomegaly Extremities: No Cyanosis, No Clubbing, No edema Neurological: No Focal Motor or Sensory Deficit 04/12/17 21:50: Troponin I 0.10 H 04/13/17 01:43: Troponin I 0.10 H 04/13/17 07:40: WBC 7.9, RBC 4.13 L, Hgb 13.4, Hct 39.4 L, MCV 95.4 H, MCH 32.4 H, MCHC 34.0, RDW 12.4, RDW Differential 42.7, Plt Count 166, MPV 11.6, Immature Gran % (Auto) 0.100, Neut % (Auto) 64.5, Lymph % (Auto) 25.8, [place] % ( Auto) 6.7, Eos % (Auto) 2.5, Baso % (Auto) 0.4, Absolute Neuts (auto) 5.1, Total Counted Not Reportable 04/13/17 07:40: Sodium 137, Potassium 3.7, Chloride 105, Carbon Dioxide 26.0, Anion Gap 6, BUN 12, Creatinine 1.01, Est GFR (MDRD) Af Amer 100, Est GFR (MDRD ) Non-Af 83, BUN/Creatinine Ratio 11.9, Glucose 153 H, Calcium 8.1 L, Magnesium 2.0, Total Bilirubin 0.60, Triglycerides 151, Cholesterol 207 H, LDL Cholesterol 139 H, VLDL Cholesterol 30, HDL Cholesterol 38 L 04/13/17 07:40: Hemoglobin A1c 6.3 04/13/17 07:40: Troponin I 0.06 04/13/17 07:40: PT 12.9, INR 1.0, APTT 35.2 Rhythm: EKG: As above ECHO: As above Stress Test: Cardiac Cath: Pending PCI: CT Surgery: Holter monitor: EPS: PPM: CXR: Chest CT Scan: Assessment/Plan 1. Coronary artery disease: The patient presents with recurrent substernal chest pain approximately 7 years after his acute angioplasty and stenting in [facility]. The patient is maintained baby aspirin, and has been struggling with hypertensive blood pressure control over the last several weeks. He now presents with acute severe substernal chest pressure, with dynamic EKG changes and minimally elevated troponins. His LV function is intact by echocardiogram and his symptoms have resolved. This point I recommend continuing baby aspirin, loading him with Plavix 300 mg ? 1 now followed by 75 mg a day, switching him from metoprolol to Coreg 6.25 mg p.o. twice daily, discontinuing his lisinopril and switching him to Hyzaar 50/ 12.5 mg p.o. daily prickly with respect to his high diastolic pressure. In addition I would not recommend stress testing at this time but would rather refer him for direct coronary catheterization this upcoming Saturday to determine if he has any recurrent coronary disease or in-stent restenosis to explain his symptoms. If his catheterization demonstrates widely patent coronaries and widely patent stent, and his symptoms are most likely due to severe uncontrolled hypertension. In addition recommend continuing nitroglycerin paste 1 inch every 6 hours to avoid recurrent hypertensive spikes and to maintain coronary vasodilatation. 2. Hyperlipidemia: His LDL is 139. Apparently he was not on antilipid therapy. I agree with Lipitor 40 mill grams p.o. nightly, and repeat lipid profile in 6 weeks time. 3. Consideration may want to be given to a urinary tox screen to make sure he is not illicit substance positive. 4. Thank you very much for the opportunity to participate in the cardiac care of your patient. Consultation time took place between 9 AM and 9:30 AM. Code Visit Inpatient E&M: [id number] Init Hosp L2
[2017-04-13 12:51] LABS: Bedside Glucose 139 mg/dL (70-110)
--- NOTE | 2017-04-13 13:50 | CASEMGMT ---
Social Work Note - PCU Referral: Per RN CM, patient is self pay. Chart reviewed: Noted patient is connected with a congregational called [employer]. Reported social alcohol use, no reported drug use or mental health history. Met with patient in room, introducing to social work role and reason for visit. Summary: Patient reports to live with girlfriend, but reports this is about to end soon (per patient's choice) so will need to look for a new place to live. Patient reports will continue in same home situation until finds new housing. Patient connected with [facility], reportedly just approved for food stamps and patient believes medical as well. Patient has also applied for transportation assistance through [employer]. Patient reports has also signed up for work programs with [facility]. Denies and substance abuse or dependence issues. 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 Patient denying any needs for home going, denied need for food or meal listing for the area. Patient was interested in apartment lists this proposal writer offered, and accepted list. PLAN: Anticipate patient to return to usual living arrangements. Patient denies any needs or concerns for home going at this time. Patient reports belief that has medicaid. Updated RN CM to patient's reports. Social work does remain available should further needs arise. -ION Cao, VISUAL AND STOCK ASSOCIATE
[2017-04-13 16:35] LABS: Bedside Glucose 169 mg/dL (70-110)
[2017-04-13] MEDS: Atorvastatin Calcium 40 MG Tablet PO (22:22)
[2017-04-13] MEDS: Carvedilol 6.25 MG Tablet PO (22:29)
[2017-04-13 22:31] LABS: Bedside Glucose 178 mg/dL (70-110)
[2017-04-14] VITALS (13 sets, daily range): BP systolic 144–164; BP diastolic 77–91; PULSE 56–88; RESP 16–18; TEMP 36.6–37; O2SAT 97–100
[2017-04-14] MEDS: Acetaminophen 500 MG Tablet PO ×2 (03:31→16:45)
[2017-04-14] MEDS: 0.9% NaCl Peripheral Flush Adult/Peds IV (03:31)
--- NOTE | 2017-04-14 04:24 | NURSING ---
Pt expressed chest pain. Pt recently given tylenol for headache. Pt also recently given hydraulzine for bp over 160. BP under 160 - 145/89. Expressed tightness. Vitals taken and stable. SR on tele. Pt then had several large belches and denies further pressure/tightness. Will continue to monitor.
[2017-04-14 06:55] LABS: Bedside Glucose 184 mg/dL (70-110)
--- NOTE | 2017-04-14 07:56 | CT_ITS ---
STUDY: CT BRAIN WITHOUT CONTRAST REASON FOR EXAM: Male, 51 years old. Headaches RADIATION DOSAGE (If Supplied By Facility): CTDIvol = ( 44.99 ) mGy, DLP = ( 796.11 ) mGycm TECHNIQUE: Transaxial CT imaging of the brain was performed without administration of intravenous contrast material. Individualized dose optimization techniques were used for this CT. COMPARISON: None. FINDINGS: No evidence for shift of midline structures, mass effect or compression of the ventricles noted. No acute intra or extra-axial hemorrhage is seen. No abnormal intracranial fluid collection. Scattered foci of low-attenuation in the periventricular and subcortical white matter which are nonspecific in imaging appearance however likely related with chronic small vessel disease. Chronic left basal ganglia lacunar infarct. No discrete mass in the posterior fossa. The basal cisterns are patent. Asymmetric enlargement of the right medial rectus muscle. However this is not well assessed on the current exam. Calvarium is intact Chronic deformity of the medial right orbital wall Intracranial vascular calcifications. CT/Brain/Head without Contrast IMPRESSION: No evidence for acute intracranial hemorrhage, mass effect or acute large territory infarcts. Chronic small vessel disease. 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
--- NOTE | 2017-04-14 08:02 | PN_ITS ---
Patient Problems: Active and Suspected Problems Non-STEMI (non-ST elevated myocardial infarction) (Acute) Abnormal EKG (Acute) Chest pain (Acute) Subjective: Follow-up after admission for chest pain with EKG changes as well as uncontrolled hypertension. Patient seen and examined. Overnight, he had an episode of chest pain, became dizzy and had significant headache. This morning, he still complained of headache and dizziness. He was started on Nitropaste yesterday. He is afebrile , blood pressure has been on the higher side, other vital signs are stable. - Physical Exam General: Alert, Oriented x3, Cooperative, No apparent distress HEENT: Atraumatic, PERRLA, EOMI Oral: Moist Mucosa, No Gingival or Mucosal Lesions/ Ulcerations Neck: Supple, No JVD, Negative Carotid Bruits, Trachea Midline, Thyroid Normal Size and Texture Lungs: Clear to auscultation, No rhonchi, No wheeze, No rales, Diminished Cardiovascular: Regular rate, Regular Rhythm, Normal S1, Normal S2, No murmurs, PMI Normal Abdomen: Bowel Sounds Present, Soft, Non Tender, Non-Distended, No Hepato- splenomegaly Extremities: No clubbing, No cyanosis, No edema Skin: No rashes, No breakdown Lymphatic: No Cervical, Supraclavicular, or Inguinal Adenopathy Neurological: Cranial nerves II-XII grossly intact, Motor Exam 5/5 strength throughout Psych/Mental Status: Normal Affect, Appropriate, Alert and oriented to time, place, person, mood and affect Vital Signs Temp Pulse Resp BP Pulse Ox 98.5 F 88 18 145/89 H 98 04/14/17 04:06 04/14/17 04:06 04/14/17 04:06 04/14/17 04:23 04/14/17 04:06 Oxygen Delivery Method Room Air Weight: 205 lb 4.006 oz Body Mass Index (BMI) 26.3 Intake and Output for Last 24 Hours 04/12/17 04/13/17 04/14/17 23:59 23:59 23:59 Intake Total 610 / 610 1496 / 1496 18790 Balance 610 / 610 1496 / 1496 1879 Laboratory Tests Past 24 Hrs 04/13/17 04/13/17 04/13/17 07:40 07:40 07:40 PT INR APTT Sodium 137 Potassium 3.7 Chloride 105 Carbon Dioxide 26.0 Anion Gap 6 BUN 12 Creatinine 1.01 Estim Creat Clear Calc 100.60 Est GFR (MDRD) Af Amer 100 Est GFR (MDRD) Non-Af 83 BUN/Creatinine Ratio 11.9 Glucose 153 H Hemoglobin A1c 6.3 Calcium 8.1 L Magnesium 2.0 Total Bilirubin 0.60 AST 12 L ALT 29 Alkaline Phosphatase 81 Troponin I 0.06 Total Protein 6.7 Albumin 3.4 Globulin 3.3 Albumin/Globulin Ratio 1.0 Triglycerides 151 Cholesterol 207 H LDL Cholesterol 139 H VLDL Cholesterol 30 HDL Cholesterol 38 L TSH 1.68 04/13/17 07:40 PT 12.9 INR 1.0 APTT 35.2 Sodium Potassium Chloride Carbon Dioxide Anion Gap BUN Creatinine Estim Creat Clear Calc Est GFR (MDRD) Af Amer Est GFR (MDRD) Non-Af BUN/Creatinine Ratio Glucose Hemoglobin A1c Calcium Magnesium Total Bilirubin AST ALT Alkaline Phosphatase Troponin I Total Protein Albumin Globulin Albumin/Globulin Ratio Triglycerides Cholesterol LDL Cholesterol VLDL Cholesterol HDL Cholesterol TSH POC Glucose 04/14/17 04/13/17 04/13/17 06:45 22:18 16:31 POC Glucose 184 H 178 H 169 H 04/13/17 12:30 POC Glucose 139 H Assessment/Plan Active and Suspected Problems Non-STEMI (non-ST elevated myocardial infarction) (Acute) Abnormal EKG (Acute) Chest pain (Acute) This is a 51 years old male patient admitted because of chest pain, found to have EKG changes and indeterminate troponin and he is undergoing evaluation #1 chest pain/EKG changes/indeterminate troponin: He had an episode of chest pain last night. Troponin is back to normal. EKG revealed T-wave inversion in lateral chest leads. He was started on Nitropaste yesterday but he has been complaining of headache and dizziness before the Nitropaste. He is on aspirin, statins, Coreg, Plavix and Cozaar. Cardiology consulted, plan for cardiac catheterization tomorrow morning. #2 intractable headache/dizziness: Patient has been complaining of headache since yesterday, not improving. It was started because he was started on Nitropaste. Reported intermittent dizziness as well. Denies focal deficit. Blood pressure has been on the higher side. Plan: CT scan brain without contrast. #3 uncontrolled hypertension: Blood pressure has been fluctuating. He is on Norvasc, Coreg, HCTZ and Cozaar as well as IV hydralazine as needed. Plan for close monitoring. #4 type 2 diabetes mellitus: Blood sugar stable, continue ADA diet, Accu-Cheks, start insulin sliding scale, keep holding metformin. #5 CAD: Status post stents. Plan as above, continue aspirin, Plavix, statins, Cozaar and metoprolol. #6 DVT prophylaxis: Subcu heparin. This note was generated with [employer]altalk[employer] software. It may contain incorrect words, spelling, and punctuation that were not noted in checking the note before signing. Code Visit OBSV E&M: 95774 Subsequent observation care L2
[2017-04-14] MEDS: amLODIPine 10 MG Tablet PO (09:31)
[2017-04-14] MEDS: HYDROCHLOROTHIAZIDE 12.5 MG CAPSULE PO (09:31)
[2017-04-14] MEDS: Aspirin 81 MG TAB.CHEW PO (09:31)
[2017-04-14] MEDS: Losartan Potassium 50 MG Tablet PO (09:31)
[2017-04-14] MEDS: Clopidogrel Bisulfate 75 MG Tablet PO (09:31)
[2017-04-14] MEDS: Carvedilol 6.25 MG Tablet PO ×2 (09:31→22:23)
--- NOTE | 2017-04-14 09:38 | PN.CARD_ITS ---
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 Other than that no acute bleed. Telemetry overnight showed normal sinus rhythm with rare PVCs. No chest pain. Objective: Vital Signs Temp Pulse Resp BP Pulse Ox 98.5 F 88 18 145/89 H 98 04/14/17 04:06 04/14/17 04:06 04/14/17 04:06 04/14/17 04:23 04/14/17 04:06 Oxygen Delivery Method Room Air Weight: 205 lb 4.006 oz Body Mass Index (BMI) 26.3 Intake and Output for Last 24 Hours 04/12/17 04/13/17 04/14/17 23:59 23:59 23:59 Intake Total 610 / 610 1496 / 1496 1879 Balance 610 / 610 1496 / 1496 1879 General: Awake, Alert, Oriented x 3 HEENT: PERRL, EOMI, Sclera Non Icteric Neck: Supple, Good ROM, No Lymph Node Enlargement Lungs: Clear to auscultation Cardiovascular: Regular Rhythm, Normal S1, Normal S2, No Murmurs, No Rubs, No Gallops Vascular: No Carotid Bruits, Normal Femoral Pulses, Normal Radial Pulses, Normal Dorsalis Pedal Pulse, Normal Posterior Tibial Pulses Abdomen: Bowel Sounds Present, Soft, Non Tender, No HSM, No Organomegaly Extremities: No Cyanosis, No Clubbing, No edema Neurological: No Focal Motor or Sensory Deficit Rhythm: EKG: ECHO: Stress Test: Cardiac Cath: PCI: CT Surgery: Holter monitor: EPS: PPM: CXR: Chest CT Scan: Assessment/Plan 1. Coronary artery disease: The patient presents with recurrent substernal chest pain approximately 7 years after his acute angioplasty and stenting in [facility]. The patient is maintained baby aspirin, and has been struggling with hypertensive blood pressure control over the last several weeks. He now presents with acute severe substernal chest pressure, with dynamic EKG changes and minimally elevated troponins. His LV function is intact by echocardiogram and his symptoms have resolved. This point I recommend continuing baby aspirin,followed by 75 mg a day, switching him from metoprolol to Coreg 6.25 mg p.o. twice daily and titrating up from there, discontinuing his lisinopril and switching him to Hyzaar 50/12.5 mg p.o. daily prickly with respect to his high diastolic pressure. In addition I would not recommend stress testing at this time but would rather refer him for direct coronary catheterization Saturday to determine if he has any recurrent coronary disease or in-stent restenosis to explain his symptoms. If his catheterization demonstrates widely patent coronaries and widely patent stent, and his symptoms are most likely due to severe uncontrolled hypertension, and we can discontinue his Plavix and continue baby aspirin. Recommend discontinuation of nitroglycerin paste given his headache. 2. Hyperlipidemia: His LDL is 139. Apparently he was not on antilipid therapy. I agree with Lipitor 40 mill grams p.o. nightly, and repeat lipid profile in 6 weeks time. 3. Urine tox screen is negative for amphetamines and cocaine. 4. Thank you very much for the opportunity to participate in the cardiac care of your patient. Left her catheterization scheduled for tomorrow morning. Code Visit Inpatient E&M: 04199 Subs Hosp L2
[2017-04-14 12:10] LABS: Bedside Glucose 185 mg/dL (70-110)
[2017-04-14] MEDS: 0.9% Normal Saline 1,000 ML 75 ML IV (15:29)
[2017-04-14 17:05] LABS: Bedside Glucose 118 mg/dL (70-110)
[2017-04-14] MEDS: Atorvastatin Calcium 40 MG Tablet PO (22:24)
[2017-04-14 22:31] LABS: Bedside Glucose 172 mg/dL (70-110)
[2017-04-14 23:50] LABS: Bacteria 0 SEEN /hpf (None Seen); Mucous, Urine 0 SEEN /hpf (<or=2+); Red Blood Cells-Urine 0 SEEN /hpf (0-5); Squamous Epithelial Cells - UA 0 SEEN /hpf (0-5); White Blood Cells 0 SEEN /hpf (0-5)
[2017-04-15] VITALS (15 sets, daily range): BP systolic 137–160; BP diastolic 66–94; PULSE 62–73; RESP 16; TEMP 36.6–37.2; O2SAT 98–100
[2017-04-15 00:03] LABS: Color, Urine Straw (Yellow); Glucose, Dipstick 50 mg/dl (Normal); Ketone-Dipstick Negative (Negative); Leukocyte Esterase-Dipstick Negative /ul (Negative); Nitrite-Dipstick Negative (Negative); Occult Blood-Urine Negative /ul (Negative); Protein-Dipstick Negative (Negative); Specific Gravity, Urine 1.005 (1.002-1.030); Urine Bilirubin Dipstick Negative (Negative); Urine Clarity Clear (Clear); Urine Urobilinogen Normal (Normal)
[2017-04-15] MEDS: 0.9% NaCl Peripheral Flush Adult/Peds IV (00:08)
[2017-04-15] MEDS: 0.9% Normal Saline 1,000 ML 75 ML IV ×2 (02:41→16:25)
--- NOTE | 2017-04-15 05:55 | EKG12_ITS ---
Test Reason : AM EKG Blood Pressure : / mmHG Vent. Rate : 061 BPM Atrial Rate : 061 BPM P-R Int : 196 ms QRS Dur : 098 ms QT Int : 440 ms P-R-T Axes : 060 013 140 degrees QTc Int : 442 ms Normal sinus rhythm ST & T wave abnormality, consider lateral ischemia Abnormal ECG When compared with ECG of 13-APR-2017 05:02, MANUAL COMPARISON REQUIRED, DATA IS UNCONFIRMED Confirmed by RAMILA CHATTERJEE, ARIELLE ([id number]), editorial specialist MARYAM CATHERINE ([id number]) on 04/17/2017 2:44:00 PM Referred By: DANIELLA Confirmed By:ARIELLE MCGRATH MD
[2017-04-15 06:30] LABS: Absolute Neutrophil Count 4.7 X10^3/uL (2.0-7.7); Basophil# 0.03 X10^3/uL; Basophil% 0.4 % (0-1); Eosinophil# 0.32 X10^3/uL; Eosinophils% 4.2 % (0-5); Hematocrit 39.5 % (40-54); Hemoglobin 13.2 g/dl (13.0-16.5); Lymphocyte % 23.9 % (19-41); Mean Corp Hgb Conc 33.4 g/gl (32-36); Mean Corpuscular Hgb 32.1 pg (27.0-32.0); Mean Corpuscular Volume 96.1 fL (80-94); Mean Platelet Vol. 12.1 fl (6.2-12.0); Monocyte# 0.64 X10^3/uL; Monocyte% 8.5 % (0-10); Neutrophil # 4.73 X10^3/uL (2.7-7.7); Neutrophil % 62.9 % (47-70); Platelet Count 165 K/mm3 (150-450); RBC Distribution Width CV 12.3 % (11.6-14.6); RBC Distribution Width SD 42.4 fl (35.1-43.9); Red Blood Count 4.11 M/mm3 (4.6-6.2); White Blood Count 7.5 K/mm3 (4.4-11.0)
[2017-04-15 06:34] LABS: POSITIVE COUNT NO; POSITIVE DIFFERENTIAL NO; POSITIVE MORPHOLOGY NO
[2017-04-15] MEDS: Carvedilol 6.25 MG Tablet PO (06:34)
[2017-04-15] MEDS: Clopidogrel Bisulfate 75 MG Tablet PO (06:34)
[2017-04-15] MEDS: Aspirin 81 MG TAB.CHEW PO (06:34)
[2017-04-15] MEDS: Losartan Potassium 50 MG Tablet PO (06:34)
[2017-04-15] MEDS: amLODIPine 10 MG Tablet PO (06:35)
[2017-04-15] MEDS: DiphenhydrAMINE 25 MG Capsule 50 MG PO (06:41)
[2017-04-15 06:44] LABS: Prothrombin Time (Protime)PT. 12.8 SECONDS (11.7-14.9)
[2017-04-15 06:45] LABS: Partial Thromboplast Time 38.5 Seconds (24.1-36.2)
[2017-04-15 06:54] LABS: Anion Gap 8 (5-15); BUN 19 mg/dL (7-18); BUN/Creat Ratio 16.2 RATIO (10-20); Calcium,Total 8.3 mg/dL (8.5-10.1); Chloride 103 mmol/L (98-107); Creatinine, Serum 1.17 mg/dL (0.70-1.30); EST Glomerular Filtration Rate 70 mL/min (>60); Est Glom Filt Rate - Afr Amer 84 mL/min (>60); Estimated Creatinine Clearance 86.84 ml/min; Glucose 165 mg/dL (74-106); Potassium 3.9 mmol/L (3.5-5.1); Sodium Level 138 mmol/L (136-145)
[2017-04-15 06:56] LABS: Bedside Glucose 163 mg/dL (70-110)
--- NOTE | 2017-04-15 07:22 | NURSING ---
Called quality assurance lab technician and gave report on patient to Marcell at this time. Pt taken down by Jeannine Hughes at this time. Report given in room to KEE Perez.
--- NOTE | 2017-04-15 08:47 | CL.D_ITS ---
Patient Name: JONO MURRY Study Date: 04/15/2017 Performing: Juvenal Frausto MD Ht: 74.01 inches 188 cm : 1965 Wt: 205.03 lbs 93 kg Age: 51 Gender: male BSA: 2.2 PROCEDURE(S) PERFORMED FP85-CKP/COR/LV CLINICAL PROFILE AND INDICATIONS INDICATIONS: Unstable Angina Stress/Imaging Stress/Image Study Performed: No Angina Classification Anginal Classification w/in 2 Weeks: CCS IV CAD Presentations: Unstable angina. Non-STEMI. Symptom onset Date/Time: 04/12/2017 Time Not Availa ble Comorbidities/Risk Factors: Hypertension Dyslipidemia Prior PCI CONCLUSIONS Segmented LV systolic dysfunction- Moderate Non obstructive coronary arteries Single vessel CAD of the OM#1 RECOMMENDATIONS Elective PCI of OM#1 and distal LCX, possibly with bifucating stents once pt's BP has been optimized and pt demonstrates compliance with asa/plavix and anti-HTN meds. Increase cozaar to 100mg po daily, cont HCTZ, increase coreg to 12.5 mg bid. BP check in 2 weeks D/w Dr Gilbert. DESCRIPTION OF PROCEDURE The patient arrived to the procedure lab. The risks and benefits of the procedure as well as a full d escription of our services here and current unavailability of surgical backup were fully explained to the patient and/or their significant other prior to the catheterization. The Timeout was completed, verifying the correct patient and procedure. The patient's procedural site was prepped and draped in the usual fashion. Local anesthetic was given subcutaneously to right groin region with Lidocaine 2%. Using a modified Seldinger technique, arterial access was obtained via the right femoral artery, a 4 Fr sheath was inserted Left Coronary Artery selective angiography was performed in multiple views us ing a 4 Fr. JL5 catheter. Right Coronary Artery selective angiography was then performed in multiple views using a 4 Fr. 3DRC catheter. Left Ventriculography was performed in BAIRES projection using a 4 Fr . Pigtail catheter. LV to AO pullback pressures were then recorded.The arterial sheath was pulled and manual compression applied until hemostasis is achieved. CORONARY ANGIOGRAPHY DOMINANCE: Right Dominant LEFT HEART ASSESSMENT Left Ventricular Ejection Fraction: by LV Gram 50 % Inferior Mid Hypokinesis - Moderate Elevated Left Ventricular End Diastolic Pressure LEFT MAIN: Angiographically normal LEFT ANTERIOR DECENDING ARTERY: Mild luminal irregularities less than 30% DIAGONAL 1: Proximal - 60 prox, 80% distal % Stenosis CIRCUMFLEX ARTERY: PROX CIRC: Mild luminal irregularities less than 30% DISTAL CIRC: 60 % Stenosis OM 1: Proximal - 75 % Stenosis RIGHT CORONARY ARTERY: MID RCA: 60 % Stenosis RT PDA: Ostial - Moderate luminal irregularities up to 50% COMPLICATIONS No Complications PROCEDURE MEDICATIONS Oxygen: 2 L/min via nasal cannula SUMMARY OF HEMODYNAMIC DATA Time AIR REST AO 159/94 (123) SA 08:19:32 LV 173/-9, 20 08:27:17 LVp 174/-14, 19 08:28:40 AOp 170/82 (116) 08:28:45 Signed By Juvenal Frausto MD On 04/15/2017 8:47:26 AM Juvenal Frausto MD
[2017-04-15] MEDS: HYDROCHLOROTHIAZIDE 12.5 MG CAPSULE PO (10:18)
[2017-04-15] MEDS: Carvedilol 12.5 MG Tablet PO (10:18)
[2017-04-15] MEDS: Losartan Potassium 100 MG Tablet PO (10:18)
--- NOTE | 2017-04-15 13:21 | NURSING ---
Patient's bedrest complete at 1245. He has two visitors and has requested to ambulate when they are done visiting.
--- NOTE | 2017-04-15 14:10 | PCM.PN.HOSP ---
Patient Problems: Active and Suspected Problems Non-STEMI (non-ST elevated myocardial infarction) (Acute) Abnormal EKG (Acute) Chest pain (Acute) Subjective: 51-year-old gentleman admitted with chest pain with indeterminate troponin. Underwent left heart catheterization by Dr. Frausto on 04/15/2017 significant findings included a 75% lesion in his obtuse marginal 04/15/2017: Patient seen currently denies chest pain blood pressure however still remains significantly elevated Objective: GENERAL:coperative HEENT: Clear conjunctiva, NECK; supple, normal thyroid, CHEST: Diminished to auscultation bilaterally, HEART: Regular S1 S2, no audible murmurs ABDOMEN: soft, normoactive bowel sounds, RECTAL: deferred EXTREMITIES: No edema, no clubbing, no cyanosis. [employer]: Awake, no lateralizing signs. SKIN: No rash Vitals/I&O's: Vital Signs Temp Pulse Resp BP Pulse Ox 98.2 F 73 16 144/83 H 100 04/15/17 12:45 04/15/17 12:45 04/15/17 12:45 04/15/17 12:45 04/15/17 12:45 Oxygen Delivery Method Room Air Weight: 93.1 kg Body Mass Index (BMI) 26.3 Intake and Output for Last 24 Hours 04/13/17 04/14/17 04/15/17 23:59 23:59 23:59 Intake Total 1496 / 1496 3640 / 3640 2298 / 2298 Output Total 2850 / 2850 Balance 1496 / 1496 3640 / 3640 -552 / -552 Laboratory Results 04/14/17 16:35: POC Glucose 118 H 04/14/17 22:14: Urine Color Straw, Urine Clarity Clear, Urine pH 7.0, Ur Specific [place] 1.005, Urine Protein Negative, Urine Glucose (UA) 50 H, Urine Ketones Negative, Urine Occult Blood Negative, Urine Nitrite Negative, Urine Bilirubin Negative, Urine Urobilinogen Normal, Ur Leukocyte Esterase Negative, Urine RBC 0 SEEN, Urine WBC 0 SEEN, Ur Squamous Epith Cells 0 SEEN, Urine Bacteria 0 SEEN, Urine Mucus 0 SEEN 04/14/17 22:20: POC Glucose 172 H 04/15/17 05:43: WBC 7.5, RBC 4.11 L, Hgb 13.2, Hct 39.5 L, MCV 96.1 H, MCH 32.1 H, MCHC 33.4, RDW 12.3, RDW Differential 42.4, Plt Count 165, MPV 12.1 H, Immature Gran % (Auto) 0.100, Neut % (Auto) 62.9, Lymph % (Auto) 23.9, [place] % (Auto) 8.5, Eos % (Auto) 4.2, Baso % (Auto) 0.4, Absolute Neuts (auto) 4.7, Absolute Lymphs (auto) 1.80, Total Counted Not Reportable 04/15/17 05:43: PT 12.8, INR 1.0, APTT 38.5 H 04/15/17 05:43: Sodium 138, Potassium 3.9, Chloride 103, Carbon Dioxide 27.0, Anion Gap 8, BUN 19 H, Creatinine 1.17, Estim Creat Clear Calc 86.84, Est GFR (MDRD) Af Amer 84, Est GFR (MDRD) Non-Af 70, BUN/Creatinine Ratio 16.2, Glucose 165 H, Calcium 8.3 L 04/15/17 06:43: POC Glucose 163 H Current Medications Acetaminophen (Tylenol) 500 mg PO Q4H PRN PRN PRN Reason: PAIN Last Admin: 04/14/17 16:45 Dose: 500 mg Amlodipine Besylate (Norvasc) 10 mg PO DAILY [facility] Last Admin: 04/15/17 06:35 Dose: 10 mg Aspirin (Aspirin, Baby) 81 mg PO DAILY@0800 [facility] Last Admin: 04/15/17 06:34 Dose: 81 mg Atorvastatin Calcium (Lipitor) 40 mg PO QHS [facility] Last Admin: 04/14/17 22:24 Dose: 40 mg Carvedilol (Coreg) 12.5 mg PO BID [facility] Last Admin: 04/15/17 10:18 Dose: 12.5 mg Clopidogrel Bisulfate (Plavix) 75 mg PO DAILY [facility] Last Admin: 04/15/17 06:34 Dose: 75 mg Dextrose (D50w Syringe) 0 gm IV X1 PRN; Protocol PRN Reason: Hypoglycemia Glucagon () 1 mg IM .X1 PRN PRN Reason: Hypoglycemia Heparin Sodium (Porcine) (Heparin Na) 5,000 unit SC Q8 [facility] Last Admin: 04/15/17 11:11 Dose: Not Given Hydralazine HCl (Apresoline) 10 mg IV Q4H PRN PRN PRN Reason: hypertension Last Admin: 04/14/17 03:32 Dose: 10 mg Hydrochlorothiazide (Hydrochlorothiazide) 12.5 mg PO DAILY [facility] Last Admin: 04/15/17 10:18 Dose: 12.5 mg Sodium Chloride () 1,000 mls @ 75 mls/hr IV .[id number] [facility] Last Admin: 04/15/17 02:41 Dose: 75 mls/hr Sodium Chloride () 1,000 mls @ 15 mls/hr IV .Q48H JOVANNY PRN Reason: KVO Last Admin: 04/15/17 07:54 Dose: Not Given Insulin Aspart (Novolog Flexpen (Bkc)) 0 units SC ACHS JOVANNY PRN Reason: Protocol Last Admin: 04/15/17 11:08 Dose: 1 units Losartan Potassium (Cozaar) 100 mg PO DAILY [facility] Last Admin: 04/15/17 10:18 Dose: 100 mg Morphine Sulfate (Morphine) 1 mg IV Q4H PRN PRN PRN Reason: SEVERE PAIN (6-10/10) Sodium Chloride () 5 - 30 ml IV UD PRN PRN Reason: SALINE FLUSH Last Admin: 04/15/17 00:08 Dose: 10 ml Assessment/Plan Active and Suspected Problems Non-STEMI (non-ST elevated myocardial infarction) (Acute) Abnormal EKG (Acute) Chest pain (Acute) 51-year-old gentleman admitted with chest pain with indeterminate troponin. Underwent left heart catheterization by Dr. Frausto on 04/15/2017 significant findings included a 75% lesion in his obtuse marginal 1. Unstable angina: Underwent left heart catheterization by Dr. Frausto on 04/15/2017 significant findings included a 75% lesion in his obtuse marginal Jett recommended optimization of medical therapy for patient to be brought back in 3 weeks once his blood pressure control is optimal for intervention of his lesion 2. Acute hypertensive crisis did continue with home medications with doses adjusted as needed 3. Diabetes mellitus type 2 continue with home regimen in addition to Accu-Cheks before meals and at bedtime with sliding scale coverage 4. CAD with previous stent placement 5. DVT prophylaxis SC heparin Code Visit Inpatient E&M: 84302 Subs Hosp L2
--- NOTE | 2017-04-15 14:20 | NURSING ---
Patient did large lap around hallway without complication. No s/s of bleeding.
[2017-04-15 16:36] LABS: Bedside Glucose 214 mg/dL (70-110)
--- NOTE | 2017-04-15 17:01 | DCINST_ITS ---
- Discharge Diagnoses Current Active Problems: Current Active and Chronic Problems Non-STEMI (non-ST elevated myocardial infarction) (Acute) Abnormal EKG (Acute) Coronary artery disease (Chronic) Status post stents. Type 2 diabetes mellitus (Chronic) Chest pain (Acute) HTN (hypertension) (Chronic) You will use the following diet at home:: Calorie/Carbohydrate Controlled ( specify 1200, 1400, etc) - 1800, Cardiac Your food should be the consistency of: Regular Discharge Activity: Return to Normal Activity Allergies/Adverse Reactions: Allergies Sulfa (Sulfonamide Antibiotics) Allergy (Verified 04/12/17 17:34) Hives Medications to take at Discharge Amlodipine [Norvasc] 10 mg PO DAILY 04/12/17 Aspirin [Aspirin, Baby] 81 mg PO DAILY@0800 04/12/17 Atorvastatin Calcium [Lipitor] 40 mg PO QHS #60 tab 04/15/17 Carvedilol [Coreg (Beta Yonny)] 12.5 mg PO BID #120 tab 04/15/17 Clopidogrel Bisulfate [Plavix] 75 mg PO DAILY #60 tab 04/15/17 Hydrochlorothiazide 12.5 mg PO DAILY #60 cap 04/15/17 Losartan Potassium [Cozaar] 100 mg PO DAILY #60 tab 04/15/17 Metformin HCl 500 mg PO DAILY #0 04/15/17 The following prescriptions were given: Atorvastatin Calcium [Lipitor] 40 mg PO QHS #60 tab Carvedilol [Coreg (Beta Yonny)] 12.5 mg PO BID #120 tab Clopidogrel Bisulfate [Plavix] 75 mg PO DAILY #60 tab Hydrochlorothiazide 12.5 mg PO DAILY #60 cap Losartan Potassium [Cozaar] 100 mg PO DAILY #60 tab Primary Care Physician: Korina Brown [Primary Care Provider] - Please Follow Up With: Juvenal Frausto MD When: please call office for appt and scheduling for intervention Proposed Discharge Date: 04/15/17
--- NOTE | 2017-04-15 17:03 | PCM.DC.SUM ---
Discharge Date and Diagnosis - Problem List Patient Problems: Active and Suspected Problems Non-STEMI (non-ST elevated myocardial infarction) (Acute) Abnormal EKG (Acute) Chest pain (Acute) Date of Admission: 04/12/17 Date of Discharge: 04/15/17 - Primary Discharge Diagnosis Active and Suspected Problems Non-STEMI (non-ST elevated myocardial infarction) (Acute) Abnormal EKG (Acute) Chest pain (Acute) - Secondary Discharge Diagnosis Chronic Problems Coronary artery disease (Chronic) Status post stents. Type 2 diabetes mellitus (Chronic) HTN (hypertension) (Chronic) Hospital Course and Treatment Imaging Results: Clinical Impression(s) from Imaging Studies Chest X-Ray 04/12/17 18:00 IMPRESSION: No acute thoracic pathology. Electronically Signed: Bam Wilson, at 18:28 EST Tel , Service support , Brain CT 04/14/17 07:56 IMPRESSION: No evidence for acute intracranial hemorrhage, mass effect or acute large territory infarcts. Chronic small vessel disease. 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 Underwent left heart catheterization by Dr. Frausto on 04/15/2017 significant findings included a 75% lesion in his obtuse marginal 1. Acute NSTEMI : Underwent left heart catheterization by Dr. Frausto on 04/15/2017 significant findings included a 75% lesion in his obtuse marginal Jett recommended optimization of medical therapy for patient to be brought back in 3 weeks once his blood pressure control is optimal for intervention of his lesion 2. Acute hypertensive crisis did continue with home medications with doses adjusted as needed 3. Diabetes mellitus type 2 continue with home regimen in addition to Accu-Cheks before meals and at bedtime with sliding scale coverage 4. CAD with previous stent placement 5. DVT prophylaxis SC heparin Discharge Diet: Low fat/ Low Cholesterol, 1800 Calorie Control Diet Discharge Activity: Return to Normal Activity Home Medications: Medications to take at Discharge Amlodipine [Norvasc] 10 mg PO DAILY 04/12/17 Aspirin [Aspirin, Baby] 81 mg PO DAILY@0800 04/12/17 Atorvastatin Calcium [Lipitor] 40 mg PO QHS #60 tab 04/15/17 Carvedilol [Coreg (Beta Yonny)] 12.5 mg PO BID #120 tab 04/15/17 Clopidogrel Bisulfate [Plavix] 75 mg PO DAILY #60 tab 04/15/17 Hydrochlorothiazide 12.5 mg PO DAILY #60 cap 04/15/17 Losartan Potassium [Cozaar] 100 mg PO DAILY #60 tab 04/15/17 Metformin HCl 500 mg PO DAILY #0 04/15/17 Following Prescrptions Were Given to Patient: Atorvastatin Calcium [Lipitor] 40 mg PO QHS #60 tab Carvedilol [Coreg (Beta Yonny)] 12.5 mg PO BID #120 tab Clopidogrel Bisulfate [Plavix] 75 mg PO DAILY #60 tab Hydrochlorothiazide 12.5 mg PO DAILY #60 cap Losartan Potassium [Cozaar] 100 mg PO DAILY #60 tab Primary Care Physician: Korina Brown [Primary Care Provider] - Please Follow Up With: Juvenal Frausto MD When: please call office for appt and scheduling for intervention Disposition: Home Minutes spent on discharge:: 45 Patient Condition:: Stable Meaningful Use Info Meaningful Use Diagnoses (Choose all that apply): AMI - AMI Aspirin given w/in 24hrs of arrival?: Yes ASA at discharge?: Yes Statins at discharge?: Yes Trent/ARB at discharge?: Yes Beta Yonny at discharge?: Yes Done w/ Acute CA measure.: Yes Code Visit Inpatient E&M: 86629 Disch Hosp
--- NOTE | 2017-04-15 17:07 | DS.PCM_ITS ---
Discharge Date and Diagnosis - Problem List Patient Problems: Active and Suspected Problems Non-STEMI (non-ST elevated myocardial infarction) (Acute) Abnormal EKG (Acute) Chest pain (Acute) Date of Admission: 04/12/17 Date of Discharge: 04/15/17 - Primary Discharge Diagnosis Active and Suspected Problems Non-STEMI (non-ST elevated myocardial infarction) (Acute) Abnormal EKG (Acute) Chest pain (Acute) - Secondary Discharge Diagnosis Chronic Problems Coronary artery disease (Chronic) Status post stents. Type 2 diabetes mellitus (Chronic) HTN (hypertension) (Chronic) Hospital Course and Treatment Imaging Results: Clinical Impression(s) from Imaging Studies Chest X-Ray 04/12/17 18:00 IMPRESSION: No acute thoracic pathology. Electronically Signed: Bam Wilson, at 18:28 EST Tel , Service support , Brain CT 04/14/17 07:56 IMPRESSION: No evidence for acute intracranial hemorrhage, mass effect or acute large territory infarcts. Chronic small vessel disease. 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 Underwent left heart catheterization by Dr. Frausto on 04/15/2017 significant findings included a 75% lesion in his obtuse marginal 1. Acute NSTEMI : Underwent left heart catheterization by Dr. Frausto on 2017 significant findings included a 75% lesion in his obtuse marginal Jett recommended optimization of medical therapy for patient to be brought back in 3 weeks once his blood pressure control is optimal for intervention of his lesion 2. Acute hypertensive crisis did continue with home medications with doses adjusted as needed 3. Diabetes mellitus type 2 continue with home regimen in addition to Accu- Cheks before meals and at bedtime with sliding scale coverage 4. CAD with previous stent placement 5. DVT prophylaxis SC heparin Discharge Diet: Low fat/ Low Cholesterol, 1800 Calorie Control Diet Discharge Activity: Return to Normal Activity Home Medications: Medications to take at Discharge Amlodipine [Norvasc] 10 mg PO DAILY 04/12/17 Aspirin [Aspirin, Baby] 81 mg PO DAILY@0800 04/12/17 Atorvastatin Calcium [Lipitor] 40 mg PO QHS #60 tab 04/15/17 Carvedilol [Coreg (Beta Yonny)] 12.5 mg PO BID #120 tab 04/15/17 Clopidogrel Bisulfate [Plavix] 75 mg PO DAILY #60 tab 04/15/17 Hydrochlorothiazide 12.5 mg PO DAILY #60 cap 04/15/17 Losartan Potassium [Cozaar] 100 mg PO DAILY #60 tab 04/15/17 Metformin HCl 500 mg PO DAILY #0 04/15/17 Following Prescrptions Were Given to Patient: Atorvastatin Calcium [Lipitor] 40 mg PO QHS #60 tab Carvedilol [Coreg (Beta Yonny)] 12.5 mg PO BID #120 tab Clopidogrel Bisulfate [Plavix] 75 mg PO DAILY #60 tab Hydrochlorothiazide 12.5 mg PO DAILY #60 cap Losartan Potassium [Cozaar] 100 mg PO DAILY #60 tab Primary Care Physician: Korina Brown [Primary Care Provider] - Please Follow Up With: Juvenal Frausto MD When: please call office for appt and scheduling for intervention Disposition: Home Minutes spent on discharge:: 45 Patient Condition:: Stable Meaningful Use Info Meaningful Use Diagnoses (Choose all that apply): AMI - AMI Aspirin given w/in 24hrs of arrival?: Yes ASA at discharge?: Yes Statins at discharge?: Yes Trent/ARB at discharge?: Yes Beta Yonny at discharge?: Yes Done w/ Acute CT measure.: Yes Code Visit Inpatient E&M: 35621 Disch Hosp
[2017-04-15 21:06] LABS: Bedside Glucose 184 mg/dL (70-110)
== END 2017-04-15 18:35 | disposition home or self-care (01) | DRG 281 ==
LOC: ED 19:21 → PCU 20:19
PROVIDERS: Hospitalist; Internal Medicine Cardiovascular Disease; Admitting Provider Internal Medicine; Emergency Provider Emergency Medicine; Visit Provider Internal Medicine
DX: I21.4 Non-ST elevation (NSTEMI) myocardial infarction (principal); I16.9 Hypertensive crisis, unspecified; E11.9 Type 2 diabetes mellitus without complications; I25.110 Atherosclerotic heart disease of native coronary artery with unstable angina pectoris; Z95.5 Presence of coronary angioplasty implant and graft; I10 Essential (primary) hypertension; F17.210 Nicotine dependence, cigarettes, uncomplicated; Z79.84 Long term (current) use of oral hypoglycemic drugs; Z79.899 Other long term (current) drug therapy
CPT/HCPCS: 36415; 70450; 71045; 80048; 80053; 80061; 80307; 81001; 82962; 83036; 83735; 84443; 84484; 85025; 85610; 85730; 93005; 93306; 93458; 99285; 99406; J7030; A4216; C1769; C1894; J2405; Q9967

== ENCOUNTER → 2017-11-18 21:31 | Emergency (ER) | payer MEDICAID, SELFPAY ==
[2017-11-18 21:32] VITALS: BP 143/87; PULSE 76; RESP 18; TEMP 36.9; O2SAT 99; BMI 25.7
== END ==
DX: R69 Illness, unspecified (principal)

== ENCOUNTER 2018-03-31 21:48 | Inpatient (IN) | payer MEDICAID, SELFPAY ==
[2018-03-31 21:49] VITALS: BP 194/124; PULSE 104; RESP 23; TEMP 36.8; O2SAT 94; BMI 27.1
--- NOTE | 2018-03-31 22:02 | ED.RN ---
RN CALLED FOR EKG, UNABLE TO PRINT OLD EKGS FOR
[2018-03-31 22:03] VITALS: BP 174/108; PULSE 99; RESP 20; O2SAT 98
--- NOTE | 2018-03-31 22:07 | EKG12_ITS ---
Test Reason : CP Blood Pressure : / mmHG Vent. Rate : 098 BPM Atrial Rate : 098 BPM P-R Int : 154 ms QRS Dur : 094 ms QT Int : 386 ms P-R-T Axes : 020 -03 081 degrees QTc Int : 492 ms Normal sinus rhythm Possible Left atrial enlargement Inferior infarct , age undetermined Lateral injury pattern Abnormal ECG Confirmed by RAMILA CHATTERJEE, ARIELLE ([id number]), brands editor MARYAM CATHERINE ([id number]) on 04/04/2018 8:41:06 AM Referred By: Chris Meredith Confirmed By:ARIELLE MCGRATH MD
[2018-03-31 22:09] LABS: Bedside Glucose 268 mg/dL (70-110)
[2018-03-31] MEDS: Ondansetron 4 MG/2 ML Vial IV (22:09)
--- NOTE | 2018-03-31 22:13 | ED.RN ---
pt had two large emesis
[2018-03-31 22:14] LABS: Absolute Lymphocyte Count 2.63 X10^3/ul (0.83-4.51); Absolute Neutrophil Count 6.8 X10^3/uL (2.0-7.7); Basophil# 0.04 X10^3/uL; Basophil% 0.4 % (0-1); Eosinophil# 0.16 X10^3/uL; Eosinophils% 1.6 % (0-5); Hemoglobin 14.2 g/dl (13.0-16.5); Lymphocyte # 2.63 X10^3/ul (4.0); Lymphocyte % 25.9 % (19-41); Mean Corpuscular Hgb 32.3 pg (27.0-32.0); Mean Corpuscular Volume 97.9 fL (80-94); Mean Platelet Vol. 11.3 fl (6.2-12.0); Monocyte# 0.45 X10^3/uL; Monocyte% 4.4 % (0-10); Neutrophil # 6.82 X10^3/uL (2.7-7.7); Neutrophil % 67.3 % (47-70); Platelet Count 193 K/mm3 (150-450); RBC Distribution Width CV 13.2 % (11.6-14.6); RBC Distribution Width SD 47.2 fl (35.1-43.9); Red Blood Count 4.39 M/mm3 (4.6-6.2); White Blood Count 10.1 K/mm3 (4.4-11.0)
[2018-03-31 22:15] LABS: POSITIVE COUNT NO; POSITIVE DIFFERENTIAL NO; POSITIVE MORPHOLOGY NO
--- NOTE | 2018-03-31 22:22 | EKG12_ITS ---
Test Reason : CP REPEAT Blood Pressure : / mmHG Vent. Rate : 099 BPM Atrial Rate : 099 BPM P-R Int : 182 ms QRS Dur : 100 ms QT Int : 362 ms P-R-T Axes : 057 -08 126 degrees QTc Int : 464 ms Normal sinus rhythm ST & T wave abnormality, consider lateral ischemia Prolonged QT Abnormal ECG Confirmed by RAMILA CHATTERJEE, ARIELLE ([id number]), general expeditor MARYAM CATHERINE ([id number]) on 04/04/2018 8:37:57 AM Referred By: Chris Meredith Confirmed By:ARIELLE MCGRATH MD
[2018-03-31] MEDS: proMETHazine 25 MG/ML Syringe 12.5 MG IV (22:27)
[2018-03-31] MEDS: Morphine 4 MG/ML Syringe IV ×2 (22:27→23:11)
[2018-03-31 22:28] VITALS: BP 188/114; PULSE 99; RESP 24; O2SAT 97
--- NOTE | 2018-03-31 22:29 | ED.RN ---
pt had 2 additional large emesis with small amount of blood in each
[2018-03-31 22:30] LABS: Anion Gap 11 (5-15); BUN 12 mg/dL (7-18); BUN/Creat Ratio 8.2 RATIO (10-20); Calcium,Total 7.8 mg/dL (8.5-10.1); Chloride 99 mmol/L (98-107); Creatinine, Serum 1.46 mg/dL (0.70-1.30); EST Glomerular Filtration Rate 54 mL/min (>60); Est Glom Filt Rate - Afr Amer 65 mL/min (>60); Estimated Creatinine Clearance 70.74 ml/min; Glucose 262 mg/dL (74-106); Potassium 3.3 mmol/L (3.5-5.1); Sodium Level 135 mmol/L (136-145)
--- NOTE | 2018-03-31 22:30 | RAD_ITS ---
STUDY: X-RAY CHEST REASON FOR EXAM: Male, 52 years old. Chest pain and headache. TECHNIQUE: Single AP portable view of the chest. COMPARISON: 04/12/2017. FINDINGS: There are hypoventilatory changes. Nodular changes are seen in the left perihilar region likely representing vessels seen end on. No focal infiltrate is seen. There is no demonstrated pleural abnormality. There is mild cardiac enlargement. Normal mediastinum and mathew. Normal visualized pulmonary arteries. There is atherosclerotic tortuosity of the aortic arch and descending thoracic aorta. The thoracic spine is obscured. Normal visualized ribs, clavicles, and shoulders. There is no demonstrated abnormality of the visualized soft tissue structures of the upper abdomen. RAD/Chest 1 View (Portable) IMPRESSION: Mild cardiomegaly. No active pulmonary disease. Electronically Signed: Noel Bach MD at 23:01 EST Tel , Service support ,
--- NOTE | 2018-03-31 22:35 | CT_ITS ---
STUDY: CTA OF THE ABDOMINAL AORTA AND BILATERAL LOWER EXTREMITIES REASON FOR EXAM: Male, 52 years old. Chest pain and shortness of breath. Possible aneurysm. RADIATION DOSAGE (If Supplied By Facility): CTDIvol = ( 18.39 ) mGy, DLP = ( 1056.00 ) mGycm TECHNIQUE: Axial CT angiography multi-detector data acquisition was obtained from the the thoracic to the the common iliac arteries following intravenous administration of 100 ml of Isovue 370 contrast. Axial images and MIP images were reconstructed from the axial data set. Post-processing of the angiographic images was performed, with multiplanar reformation. Individualized dose optimization techniques were used for this CT. TECHNICAL QUALITY: Good COMPARISON: None. Descriptors of Narrowing: None (0%) Mild (< 50%) Moderate (50-70%) Severe (70-90%) Subtotal/Total Occlusion (90-100%) Non-Evaluable (technically non-diagnostic FINDINGS: Abdominal aorta: Mild tortuosity of the abdominal aorta. There is no evidence of dissection. Celiac and superior mesenteric arteries: No demonstrated narrowing. Inferior mesenteric artery: No demonstrated narrowing. Right renal artery(arteries): No demonstrated narrowing. Left renal artery(arteries): No demonstrated narrowing. No focal lesion is seen in the liver on this examination although there is suboptimal enhancement due to arterial phase of scanning. The spleen is unremarkable. The pancreas is within normal limits. There is minimal prominence of the pancreatic duct. The adrenal glands are normal. Both kidneys appear unremarkable without evidence of hydronephrosis. There is no evidence of gallstones. The stomach is somewhat distended. The small bowel loops are normal in caliber. There is fecal retention. The appendix is questionably visualized and appears to be unremarkable. The retroperitoneum demonstrates no evidence of adenopathy. The inferior vena cava is unremarkable. There is a very small umbilical hernia containing fat. The pelvic region is not included on this exam. The bony structures demonstrate mild degenerative changes. CT/CTA Abdomen W/WO Contrast IMPRESSION: 1. No evidence of aortic dissection or aneurysm. 2. No demonstrated acute process. Electronically Signed: Neol Bach MD at 23:14 EST Tel , Service support ,
--- NOTE | 2018-03-31 22:35 | CT_ITS ---
STUDY: CTA CHEST REASON FOR EXAM: Male, 52 years old. Shortness of breath and chest pain. Possible aneurysm. RADIATION DOSAGE (If Supplied By Facility): CTDIvol = ( 18.39 ) mGy, DLP = ( 1056.00 ) mGycm TECHNIQUE: The examination was performed with the intravenous administration of 100 ml of Isovue 370 contrast material. Post-processing of the angiographic images was performed, with multiplanar reformation and 3D reconstruction. Individualized dose optimization techniques were used for this CT. COMPARISON: None. FINDINGS: There is limited enhancement of the main pulmonary artery and right and left pulmonary arteries. There is limited enhancement of the bilateral peripheral pulmonary arteries. The examination is not tailored to rule out pulmonary embolism. There is atherosclerotic tortuosity of the aortic arch and descending thoracic aorta. There is no demonstrated aortic dissection. The heart is mildly enlarged. There may be trace of pericardial effusion. There are few small normal size nodes in the aortopulmonic window. Normal hilar regions. Normal visualized trachea and bronchi. The lungs are well expanded. There is hazy groundglass opacities in the lower lungs which could reflect early pulmonary edema or due to hypoventilation. No focal infiltrate is seen There are no pleural effusions. Normal chest wall structures. There is no demonstrated acute osseous changes. The upper abdomen is reported separately. No acute process is seen. CT/CTA Chest W/WO Contrast IMPRESSION: 1. No evidence of aortic dissection. 2. Mild hazy groundglass opacity/early pulmonary edema in the lower lungs. 3. No focal infiltrate is seen. 4. Mild cardiomegaly. Electronically Signed: Noel Bach MD at 23:18 EST Tel , Service support ,
[2018-03-31 22:39] LABS: Lipase 172 U/L (73-393)
[2018-03-31 22:43] LABS: AST(SGOT) 18 U/L (15-37); Alanine Aminotransfer ALT/SGPT 35 U/L (16-61); Alkaline Phosphatase 81 U/L (45-117); Bilirubin, Direct 0.15 mg/dL (0.00-0.30); Globulin 3.8 g/dL (2.2-4.2); Protein, Total 7.8 g/dL (6.4-8.2)
[2018-03-31 22:48] LABS: Prothrombin Time (Protime)PT. 12.7 SECONDS (11.7-14.9)
[2018-03-31] MEDS: 0.9% Normal Saline 1,000 ML 999 ML IV (23:03)
[2018-03-31 23:11] VITALS: BP 183/107; PULSE 94; RESP 16; O2SAT 94
--- NOTE | 2018-03-31 23:12 | ED.DCSUM_ITS ---
- ER Visit Summary Date of Service: 03/31/18 Chief Complaint: Chest pain History of Present Illness: The patient is a 52 M with history of hypertension, hyperlipidemia, prior coronary vascular disease with stents, and prior stroke presents to the emergency department chest pain, nausea, and vomiting. Patient states he was in his normal state of health. He states that he ate some [place] Citizen. Shortly thereafter, he got a sharp pain in his mid chest that radiated to his back. He states he became acutely nauseated and started to vomit. He states he was also drinking alcohol tonight. He states he does not drink alcohol every day just socially. The patient does admit to noncompliance with his medications. He called squad. On squad arrival, the patient was complaining of chest pain and was vomiting. He was also agitated toward squad. He was brought in for further evaluation. Physical Examination: Vital signs reviewed General: Well-nourished, well-developed Head: Normocephalic, atraumatic Eyes: Pupils equal and reactive, extraocular muscles intact Neck, supple, no lymphadenopathy Heart: Regular rate and rhythm Respiratory: No distress, clear bilaterally Abdomen: Soft, nontender, nondistended, no peritoneal signs Back: Nontender Extremities: Nontender, no edema, no cords Skin: Normal color no rash Neuro: Alert and oriented, no focal or lateralizing deficits Test Results: [] Emergency Department Course and Treatment: The patient was uncomfortable on arrival. His initial EKG and computer over read as a STEMI, but he had significant artifact inferiorly and there was no reciprocal change. The patient was given medications for pain and nausea. Once he was more comfortable, EKG was repeated. He does have some lateral ST changes, but this is unchanged compared to his EKG from a year ago. Patient did have a heart catheterization about a year ago which did show some diffuse disease and he had PCI done. He was to follow-up with Dr. Frausto, but has not followed up. On the patient's last episode of vomiting, he did have some specks of blood in the emesis. There is no further hematemesis. It was not gross blood. My suspicion is that this is likely Allison-Mercer. Screening labs do show mildly indeterminate troponin, but this does appear to be the patient's baseline. His pain was addressed and was improved. I did obtain a CTA of his chest and abdomen to rule out dissection given his hypertension pain. I discussed the patient with Dr. Bah. He is in agreement with plan for admission for cardiac rule out. The patient was discussed with the hospitalist. Treatment Plan: [] Disposition: Admission Impression: 1. Chest pain with history of coronary vascular disease 2. Hypertension 3. Indeterminate troponin III. Nausea and vomiting This note was generated with [employer]AP[employer] dictation software. It may contain incorrect words, spelling, and punctuation that were not noted in review of the chart prior to signing ED Disposition - Plan for ED Patient: Referrals: Grecia Hampton,Korina Gonzales [Primary Care Provider] -
--- NOTE | 2018-03-31 23:33 | PCM.HP.STD ---
Problem List (1) Type 2 diabetes mellitus Status: Chronic (2) Chest pain Status: Acute (3) HTN (hypertension) Status: Chronic (4) Non-STEMI (non-ST elevated myocardial infarction) Status: Inactive (5) Abnormal EKG Status: Chronic History of Present Illness Date of Admission: 03/31/18 Chief Complaint: CHEST PAIN History was predominant taken from emergency department doctor because at the time of history taking patient appeared lethargic and was not answering questions except that he said he came in with a chest pain. The patient is a 52 year old M with a significant history of hypertension; diabetes mellitus; CAD status post stents in March 2017 in his obtuse marginal; alcohol dependency who presented because of chest pain. Per ED doctor patient had some drinks and had [place] food. He had chest pain, nausea and vomiting. At the emergency department patient had high alcohol level and vomited multiple times. After the fourth of episode of vomiting, 3 specks of blood was found in his vomitus. He received Protonix. He was typed and screened. His troponin was found in the intermediate range at 0.49. His EKG was shown to have T wave inversion in the lateral leads but is also unchanged from EKG in March 2017. Past Medical History Past Medical History (Chronic Problems): Chronic Problems Abnormal EKG (Chronic) Coronary artery disease (Chronic) Status post stents. Type 2 diabetes mellitus (Chronic) HTN (hypertension) (Chronic) Allergies latex Allergy (Verified 11/18/17 21:34) Swelling Sulfa (Sulfonamide Antibiotics) Allergy (Verified 11/18/17 21:34) Hives Home Medications: Ambulatory Orders Medication Instructions Recorded Amlodipine [Norvasc] 10 mg PO DAILY 04/12/17 Aspirin [Aspirin, Baby] 81 mg PO DAILY@0800 04/12/17 Atorvastatin Calcium [Lipitor] 40 mg PO QHS #60 tab 04/15/17 Carvedilol [Coreg (Beta Yonny)] 12.5 mg PO BID #120 tab 04/15/17 Clopidogrel Bisulfate [Plavix] 75 mg PO DAILY #60 tab 04/15/17 Losartan Potassium [Cozaar] 100 mg PO DAILY #60 tab 04/15/17 Metformin HCl 500 mg PO DAILY #0 04/15/17 hydroCHLOROthiazide 12.5 mg PO DAILY #60 cap 04/15/17 [Hydrochlorothiazide] Surgical History: - - Coronary stents Lives: - - Unable to obtain because patient is lethargic and is not providing information. Smoking Status: Unknown if ever smoked - lethargic and is not providing information. - *Family History Maternal History Items: Heart Disease, Hypertension, Stroke Review of Systems Unable to obtain accurate/complete ROS d/t: lethargic and is not providing information. VTE Information - Inpt Only VTE Present on Admission: No VTE Mechan Device Prophylaxis: SCD's VTE Pharm Prophylaxis ordered?: No - Physical Exam General: Lethargic HEENT: Atraumatic, - - Lethargic and is not following instructions. Neck: Supple, Trachea Midline Lungs: Clear to auscultation, Normal air movement Cardiovascular: Regular rate, No murmurs Abdomen: Bowel Sounds Present, Soft, Non Tender Extremities: No edema, Capillary Refill Less than 3 Seconds Skin: No rashes, No breakdown Musculoskeletal: No Tenderness to Palpation of Joints or Extremities Neurological: - - Lethargic and is not following instructions. Psych/Mental Status: - - Lethargic and is not following instructions. Vital Signs Temp Pulse Resp BP Pulse Ox 98.3 F 94 16 183/107 H 94 03/31/18 21:49 03/31/18 23:11 03/31/18 23:11 03/31/18 23:11 03/31/18 23:11 Oxygen Delivery Method Room Air Weight: 98.5 kg Body Mass Index (BMI) 27.1 Laboratory Tests Past 24 Hrs 03/31/18 03/31/18 03/31/18 21:55 21:55 21:55 WBC 10.1 RBC 4.39 L Hgb 14.2 Hct 43.0 MCV 97.9 H MCH 32.3 H MCHC 33.0 RDW 13.2 RDW Differential 47.2 H Plt Count 193 MPV 11.3 Immature Gran % (Auto) 0.400 Neut % (Auto) 67.3 Lymph % (Auto) 25.9 Woodson % (Auto) 4.4 Eos % (Auto) 1.6 Baso % (Auto) 0.4 Absolute Neuts (auto) 6.8 Absolute Lymphs (auto) 2.63 Total Counted Not Reportable PT 12.7 INR 1.0 Sodium 135 L Potassium 3.3 L Chloride 99 Carbon Dioxide 25.0 Anion Gap 11 BUN 12 Creatinine 1.46 H Estim Creat Clear Calc 70.74 Est GFR (MDRD) Af Amer 65 Est GFR (MDRD) Non-Af 54 L BUN/Creatinine Ratio 8.2 L Glucose 262 H Calcium 7.8 L Total Bilirubin Direct Bilirubin AST ALT Alkaline Phosphatase Troponin I 0.049 H Total Protein Albumin Globulin Lipase Ethyl Alcohol Blood Type Antibody Screen 03/31/18 03/31/18 03/31/18 21:55 21:55 21:55 WBC RBC Hgb Hct MCV MCH MCHC RDW RDW Differential Plt Count MPV Immature Gran % (Auto) Neut % (Auto) Lymph % (Auto) Woodson % (Auto) Eos % (Auto) Baso % (Auto) Absolute Neuts (auto) Absolute Lymphs (auto) Total Counted PT INR Sodium Potassium Chloride Carbon Dioxide Anion Gap BUN Creatinine Estim Creat Clear Calc Est GFR (MDRD) Af Amer Est GFR (MDRD) Non-Af BUN/Creatinine Ratio Glucose Calcium Total Bilirubin 0.50 Direct Bilirubin 0.15 AST 18 ALT 35 Alkaline Phosphatase 81 Troponin I Total Protein 7.8 Albumin 4.0 Globulin 3.8 Lipase 172 Ethyl Alcohol 223.0 Blood Type Antibody Screen 03/31/18 22:30 WBC RBC Hgb Hct MCV MCH MCHC RDW RDW Differential Plt Count MPV Immature Gran % (Auto) Neut % (Auto) Lymph % (Auto) Woodson % (Auto) Eos % (Auto) Baso % (Auto) Absolute Neuts (auto) Absolute Lymphs (auto) Total Counted PT INR Sodium Potassium Chloride Carbon Dioxide Anion Gap BUN Creatinine Estim Creat Clear Calc Est GFR (MDRD) Af Amer Est GFR (MDRD) Non-Af BUN/Creatinine Ratio Glucose Calcium Total Bilirubin Direct Bilirubin AST ALT Alkaline Phosphatase Troponin I Total Protein Albumin Globulin Lipase Ethyl Alcohol Blood Type O POSITIVE Antibody Screen NEGATIVE POC Glucose 03/31/18 22:01 POC Glucose 268 H Assessment/Plan All Active Problems Chest pain (Acute) The patient is a 52 year old M with a significant history of hypertension; diabetes mellitus; CAD status post stents in March 2017 in his obtuse marginal; alcohol dependency who presented because of chest pain; and was found to have severely elevated alcohol level and appeared intoxicated with noted hematemesis; and elevated troponin. Chest pain Admit to a monitored bed on PCU CXR independently reviewed confirms no acute cardiopulmonary process. EKG independently reviewed confirms t-wave inversion Old records reviewed showed T-wave inversion in March 2017 Patient received aspirin prior to admission. Because of probable Allison-Mercer tear will hold off aspirin at this time. SL NTG 0.4 mg prn as needed for chest pain Morphine as needed for pain We will check lipid panel. High intensity statin x1 dose ordered. Serial cardiac enzymes Stat EKG as needed for chest pain Cardiology consulted. Hypertension On admission his blood pressure was not within goal. On his unverified home medication list is amlodipine; HCTZ; and losartan. Unsure whether patient would will be able to take p.o. at this time due to lethargy. Amlodipine ordered. Labetalol as needed for systolic blood pressure more than 160. In any case we will hold losartan because of [place] I. MARIA DEL CARMEN Creatinine on admission was 1.46 His baseline creatinine is about 1.05. BUN over creatinine is less than 20. Likely prerenal from dehydration or ATN. Gentle IV hydration Avoid nephrotoxic's. We will hold losartan. Trend BMP. Alcohol intoxication Will place on CIWA protocol with thiamine; multivitamins and folic acid. Probable Allison-Mercer tear Repeat H&H Protonix IV twice daily ordered. Hypokalemia On admission he his potassium was mildly elevated at 3.3 Potassium IV replacement and lactated Ringer's infusion. Trend BMP Check Magnesium level Diabetes mellitus on presentation his blood glucose was uncontrolled. On his unverified home med list is metformin. Will hold metformin at this time. Correction scale insulin ordered. DVT prophylaxis No chemoprophylaxis because of hematemesis SCD ordered. Code Visit Inpatient E&M: 05623 Init Hosp L3
[2018-03-31 23:44] VITALS: BP 152/93; PULSE 87; RESP 18; O2SAT 94
[2018-04-01] VITALS (54 sets, daily range): BP systolic 119–171; BP diastolic 64–98; PULSE 65–104; RESP 12–22; TEMP 36.6–37.5; O2SAT 93–98; BMI 26.4; BMI 26.5
--- NOTE | 2018-04-01 00:51 | NURSING ---
Pt arrived to floor combative and yelling. Unable to do admission questions at this time. Pt is intoxicated, uncooperative in answering, and wants to sleep.
--- NOTE | 2018-04-01 01:38 | EKG12_ITS ---
Test Reason : CP ADMIT Blood Pressure : / mmHG Vent. Rate : 068 BPM Atrial Rate : 068 BPM P-R Int : 186 ms QRS Dur : 098 ms QT Int : 442 ms P-R-T Axes : 053 -15 139 degrees QTc Int : 469 ms Normal sinus rhythm Possible Left atrial enlargement ST & T wave abnormality, consider lateral ischemia Prolonged QT Abnormal ECG When compared with ECG of 15-APR-2017 05:19, No significant change was found Confirmed by RAMILA CHATTERJEE, ARIELLE ([id number]), managing editor MARYAM CATHERINE ([id number]) on 04/04/2018 9:25:48 AM Referred By: Chris Meredith Confirmed By:ARIELLE MCGRATH MD
[2018-04-01] MEDS: Lactated Ringers 1,000 ML 100 ML IV (01:50)
[2018-04-01] MEDS: 0.9% NaCl Peripheral Flush Adult/Peds IV (01:50)
[2018-04-01] MEDS: Potassium Chloride 10mEq/100mL 10 MEQ/100 ML IV.SOLN. 100 MEQ IV BOLUS ×4 (01:58→05:06)
[2018-04-01 02:11] LABS: Bedside Glucose 147 mg/dL (70-110)
[2018-04-01 02:16] LABS: Magnesium 1.9 mg/dL (1.6-2.6)
[2018-04-01 05:05] LABS: Hematocrit 39.6 % (40-54); Hemoglobin 13.1 g/dl (13.0-16.5)
[2018-04-01 05:19] LABS: Anion Gap 12 (5-15); BUN 11 mg/dL (7-18); BUN/Creat Ratio 9.3 RATIO (10-20); Calcium,Total 7.4 mg/dL (8.5-10.1); Chloride 107 mmol/L (98-107); Creatinine, Serum 1.18 mg/dL (0.70-1.30); EST Glomerular Filtration Rate 69 mL/min (>60); Est Glom Filt Rate - Afr Amer 83 mL/min (>60); Estimated Creatinine Clearance 85.14 ml/min; Glucose 171 mg/dL (74-106); Potassium 4.1 mmol/L (3.5-5.1); Sodium Level 142 mmol/L (136-145)
[2018-04-01 05:21] LABS: Cholesterol 155 mg/dL (200); High Density Lipoprotein 37 mg/dL; Triglycerides 162 mg/dL; Very Low Density Lipoprotein 32 mg/dL (5-40)
[2018-04-01 06:06] LABS: Bedside Glucose 167 mg/dL (70-110)
[2018-04-01] MEDS: Insulin Lispro 100 UNIT/ML INSULN.PEN SQ ×3 (06:09→21:41)
[2018-04-01] MEDS: Atorvastatin Calcium 80 MG Tablet PO ×2 (06:43→21:41)
--- NOTE | 2018-04-01 08:36 | ECHOD_ITS ---
Reason For Study: CHEST PAIN Procedure This was a 2D Doppler, Color Flow transthoracic echocardiogram. Exam performed portable in ICU/CCU. Left Ventricle Severe concentric left ventricular hypertrophy. The estimated ejection fraction is 75 %. Stage 1 diastolic dysfunction. No regional wall motion abnormalities noted. Right Ventricle Normal size and thickness. Normal systolic function. Atria The left atrium is moderately enlarged. Normal right atrium. Normal atrial septum. Mitral Valve The mitral valve is structurally normal. No prolapse or stenosis seen. Trivial mitral valve insufficiency. Tricuspid Valve Normal tricuspid valve. Trivial tricuspid valve insufficiency. Right ventricular systolic pressure estimated to be 18 mmHg. Aortic Valve Normal aortic valve. Trisinus/trileaflet aortic valve. Pulmonic Valve Normal pulmonic valve. Great Vessels Normal aortic root. Normal arch. Normal inferior vena cava. Inferior vena cava collapse with sniff. Pericardium/Pleural Trivial pericardial effusion. There are no echocardiographic indications of cardiac tamponade. MMode/2D Measurements & Calculations LVIDd: 4.8 cm IVSd: 1.8 cm Ao root diam: 3.0 cm LVIDs: 2.9 cm LVPWd: 1.8 cm RVDd: 3.9 cm FS: 38.3 % LAV(MOD-bp): 83.9 ml LA A4 area: 24.4 cm2 LA dimension(2D): 4.5 cm LAV(MOD-bp) Indexed: 38.1 ml/m2 LAV(MOD-sp2): 78.1 ml LAV(MOD-sp4): 78.4 ml RA A4 area: 17.4 cm2 Time Measurements MV dec time: 0.28 sec Doppler Measurements & Calculations MV E max yong: 69.3 cm/sec Lat Peak E' Yong: 4.5 cm/sec Med Peak E' Yong: 5.9 cm/sec MV A max yong: 82.2 cm/sec E/E' lat: 15.3 E/E' med: 11.8 MV E/A: 0.84 Ao V2 max: 202.8 cm/sec LV V1 max: 135.4 cm/sec PA V2 max: 99.3 cm/sec Ao max P.5 mmHg LV V1 max P.3 mmHg TR max yong: 178.5 cm/sec TR max P.7 mmHg Interpretation Summary Severe concentric left ventricular hypertrophy. The estimated ejection fraction is 75 %. Stage 1 diastolic dysfunction. The left atrium is moderately enlarged. Trivial mitral valve insufficiency. Trivial tricuspid valve insufficiency. Right ventricular systolic pressure estimated to be 18 mmHg. Compared to echo report dated 04/13/2017, no appreciable changes noted. Ordering Physician: Juvenal Frausto Referring Physician: YECENIA CHAVEZ [facility] Performed By: Isabella Corrigan, OBINNA, RVT
[2018-04-01] MEDS: Clopidogrel Bisulfate 75 MG Tablet PO (08:48)
[2018-04-01] MEDS: Aspirin 81 MG TAB.CHEW PO (08:48)
[2018-04-01] MEDS: amLODIPine 10 MG Tablet PO (08:49)
--- NOTE | 2018-04-01 09:27 | CASEMGMT ---
According to the [facility] website, the following are in-network tertiary facilities: [facility], [facility], [facility], [facility], and . [facility]
--- NOTE | 2018-04-01 10:32 | CL.I_ITS ---
Patient Name: JONO MURRY Study Date: 04/01/2018 Performing: Juvenal Frausto MD Ht: 74.02 inches 188 cm : 1965 Wt: 207.23 lbs 94 kg Age: 52 Gender: male BSA: 2.21 PROCEDURE(S) PERFORMED BX47-DRK/COR/LV TW23-WFW W OR WO PTCA, SINGLE CORONARY ARTERY CLINICAL PROFILE AND CO-MORBIDITIES Patient presents with NSTEMI for urgent cardiac cath Indications: ACS <= 24 hrs, New Onset Angina <= 2 months, Stable Known CAD Heart Failure: None Stress/Imaging Stress/Image Study Performed: No Angina Classification Anginal Classification w/in 2 Weeks: CCS IV CAD Presentations: Unstable angina. Non-STEMI. 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 Pt had identical symptoms during stent d eployment as he had at home. RECOMMENDATIONS Referred for immediate PCI Risk factor modification Management as per referring Medical Equipment Sales Elective PCI of distal RCA, ostial PDA and mid PL branch in 3 weeks. Highly recommend quitting all tobacco products Follow up with primary statistical geneticist Risk factor modification ASA Indefinitley Plavix for at least 12 months Routine post interventional care Refer for Outpatient Cardiac Rehab Manual sheath removal per protocol Follow up with Dr. Frausto Elective complex PCI of distal RCA, ostial PDA and PL branch in 3 weeks. Unable to Mynx close due to shallow groin. PPI therapy. DESCRIPTION OF PROCEDURE The patient arrived to the procedure lab. The risks and benefits of the procedure as well as a full d escription of our services here and lack of surgical backup were fully explained to the patient and/o r their significant other prior to the catheterization. The Timeout was completed, verifying the yeison ect patient and procedure. The patient's procedural site was prepped and draped in the usual fashion. Local anesthetic was given subcutaneously to right groin region with Lidocaine 2%. Using a modified Seldinger technique, arterial access was obtained via the right femoral artery, a 4Fr sheath was inse rted. Left Coronary Artery selective angiography was performed in multiple views using a 4 Fr. JL5 c atheter. Right Coronary Artery selective angiography was then performed in multiple views using a 4 F r. 3DRC catheter. Left Ventriculography was performed in BAIRES projection using a 4 Fr. Pigtail cathete r. LV to AO pullback pressures were then recordedThe images were reviewed and options discussed. A decision was then made to proceed with an Intervention, IVUS or other adjunct procedure. Arterial sheath was exchanged for a 6 Fr Sheath. ebu 3.75 Guide catheter was inserted and engaged into the LCA. bmw Guide wire was advanced to the Circumflex. Angiogram performed pre balloon dilatat ion. emerge 2.00 x 12 Balloon catheter was advanced across lesion in the posterior lateral distal PT CA balloon inflated at 8 atms for 10 secs. Angiogram performed post balloon dilatation. synergy 2.5 x 16 Drug Eluting stent was advanced across the lesion in the posterior lateral distal Angiogram perf ormed pre stent deployment. synergy 2.5 x 8 Drug Eluting stent was advanced across the lesion in the left distal posterior lateral distal Angiogram performed post stent deployment. The arterial sheat h was sutured in place and capped CORONARY ANGIOGRAPHY DOMINANCE: Right Dominant LEFT HEART ASSESSMENT Left Ventricular Ejection Fraction: by LV Gram 75 % LVEDP: 30 mmHg Elevated Left Ventricular End Diastolic Pressure Normal LV wall motion LEFT MAIN: Angiographically normal LEFT ANTERIOR DECENDING ARTERY: Mild luminal irregularities less than 30% DISTAL LAD: 75 % Stenosis, at apex; not amenable to PCI. DIAGONAL 1: Proximal - Moderate luminal irregularities up to 50% CIRCUMFLEX ARTERY: MID CIRC: Moderate luminal irregularities up to 50% OM 1: Proximal - is occluded 1ST LEFT PLV: 85 % Stenosis RIGHT CORONARY ARTERY: MID RCA: Previously placed stent is patent DISTAL RCA: Instent restenosis 75% RT PLV: 75 % Stenosis mid, small vessel. RT PDA: Ostial - Non-obstructive, Ostial - Post PCI, OCT showed adequate coverage with desired stent opposition INTERVENTION INFORMATION LESION SITE: PL (1st) Lesion Complexity: Non-High/Non-C, lesion at bifurcation: Yes, thrombus present: No, culprit lesion: Yes Pre Stenosis: 85 % Pre intervention VI flow: 3 Post Stenosis: 0 % Post intervention VI flow: 3 Lesion Devices: Medtronic 6 Fr EBU3.75 100cm Guide Catheter Ledbetter .014 [employer] [place] Straight 190cm Sylvester Sci EMERGE MR 2.00x12 BALLOON Sylvester Sci Synergy MR CASSIE 2.50x16 Sylvester Sci Synergy MR CASSIE 2.50x08 COMPLICATIONS No Complications PROCEDURE MEDICATIONS Fentanyl 25 mcg IV Oxygen: 2 L/min via nasal cannula Heparin 6000 unit(s) IV 04/01/2018 09:36:44 Nitro 200 mcg IC 04/01/2018 09:38:32 Nitro drip started @5mcg/hr ^FreeText^ 04/01/2018 09:39:06 Nitro 200 mcg IC 04/01/2018 09:43:33 Nitro drip increased to 10 mcg ^FreeText^ 04/01/2018 09:52:28 Pepcid 20 mg IV 04/01/2018 10:31:11 SUMMARY OF HEMODYNAMIC DATA Time AIR REST ECG 09:11:34 AO 187/95 (128) SA 09:27:15 LV 180/7, 35 09:34:26 LV 177/-1, 27 09:34:32 LVp 166/0, 21 09:34:38 AOp 195/104 (143) 09:34:43 Signed By Juvenal Frausto MD On 04/22/2018 10:26:44 Juvenal Frausto MD
--- NOTE | 2018-04-01 10:38 | EKG12_ITS ---
Test Reason : CHEST PAIN Blood Pressure : / mmHG Vent. Rate : 100 BPM Atrial Rate : 100 BPM P-R Int : 172 ms QRS Dur : 104 ms QT Int : 364 ms P-R-T Axes : 065 -14 128 degrees QTc Int : 469 ms Normal sinus rhythm ST & T wave abnormality, consider lateral ischemia Prolonged QT Abnormal ECG No previous ECGs available Confirmed by RAMILA CHATTERJEE, ARIELLE ([id number]), index editor MARYAM CATHERINE ([id number]) on 04/04/2018 9:47:21 AM Referred By: Chris Meredith Confirmed By:ARIELLE MCGRATH MD
[2018-04-01 10:41] LABS: ACT Activated Clotting Time 180 sec (74-137)
--- NOTE | 2018-04-01 11:20 | CRPHASE1 ---
Patient Data/Charges Phase II Referral:: [facility] Start Phase II:: FOLLOWING OFFICE VISIT WITH CLIENT PROJECT COORDINATOR Risk Factors/Lifestyle Smoking Status: Former smoker Hx Hypertension: Yes Hx Diabetes Mellitus Type 1: No Hx Diabetes Mellitus Type 2: Yes Hx Metabolic Disorders: Yes Hx Dyslipidemia: Yes Hx Obesity: No Height: 6 ft 2 in - BMI 27.1 Stress: Home/Family ETOH: Yes Risk Factor for Sedentary Lifestyle: Moderate Risk Past Cardiac Illness: Coronary Artery Disease, Previous PCI w/Stent Laboratory Values: Cardiac Rehab Phase I Labs Triglycerides 162 mg/dL (-199) 04/01/18 04:56 Cholesterol 155 mg/dL (200) 04/01/18 04:56 LDL Cholesterol 86 mg/dL (0-130) 04/01/18 04:56 HDL Cholesterol 37 mg/dL (40-) L 04/01/18 04:56 Phase I Education Given On:: Diabetes - Type II Issues Affecting Care:: None Knowledge of Condition:: Yes Learning Preferences: Verbal, Written Hospital Course Presenting Symptoms:: CHEST PAIN Medical/Surgical History [place]:: No CAD:: Yes Diabetes:: Yes Diabetes Type II:: Yes Hypertension:: Yes Dyslipidemia:: Yes PTCA:: Yes - MAR 2017 Discharge/Home/Social Eval Discharge Disposition: Home
[2018-04-01] MEDS: 0.9% Normal Saline 1,000 ML 150 ML IV (11:22)
--- NOTE | 2018-04-01 11:23 | CRPHASE1_ITS ---
Patient Data/Charges Phase II Referral:: [facility] Start Phase II:: FOLLOWING OFFICE VISIT WITH POWER HAIR CLIPPER Risk Factors/Lifestyle Smoking Status: Former smoker Hx Hypertension: Yes Hx Diabetes Mellitus Type 1: No Hx Diabetes Mellitus Type 2: Yes Hx Metabolic Disorders: Yes Hx Dyslipidemia: Yes Hx Obesity: No Height: 6 ft 2 in - BMI 27.1 Stress: Home/Family ETOH: Yes Risk Factor for Sedentary Lifestyle: Moderate Risk Past Cardiac Illness: Coronary Artery Disease, Previous PCI w/Stent Laboratory Values: Cardiac Rehab Phase I Labs Triglycerides 162 mg/dL (-199) 04/01/18 04:56 Cholesterol 155 mg/dL (200) 04/01/18 04:56 LDL Cholesterol 86 mg/dL (0-130) 04/01/18 04:56 HDL Cholesterol 37 mg/dL (40-) L 04/01/18 04:56 Phase I Education Given On:: Diabetes - Type II Issues Affecting Care:: None Knowledge of Condition:: Yes Learning Preferences: Verbal, Written Hospital Course Presenting Symptoms:: CHEST PAIN Medical/Surgical History [place]:: No CAD:: Yes Diabetes:: Yes Diabetes Type II:: Yes Hypertension:: Yes Dyslipidemia:: Yes PTCA:: Yes - MAR 2017 Discharge/Home/Social Eval Discharge Disposition: Home
--- NOTE | 2018-04-01 11:23 | CRPH1.INSTRU ---
General Education CAD and cardiac anatomy and function:: Patient communicates acknowledgment Explanation of diagnoses and procedures:: Patient communicates acknowledgment Sign/Symptoms of NV:: Patient communicates acknowledgment Antiplatelet therapy: Patient communicates acknowledgment Proper use of NTG-SL: Not instructed Emergency procedures and activation of EMS: Patient communicates acknowledgment Compliance of all prescribed medications: Patient communicates acknowledgment Smoking Patient Nicotine/Smoking Risk Factors Are:: Cigarettes Recommendations Include:: Previous smoker; encourage continued cessation Nicotine/Smoking Response Code:: Patient communicates acknowledgment Dyslipidemia Patient Dyslipidemia Risk Factors Are:: Total Cholesterol, Triglycerides, HDL, LDL Recommendations Include:: Lipid profile provided, Reviewed NCEP/ATP guidelines, Therapeutic Lifestyle Change dietary guidelines Dyslipidemia Response Code:: Patient communicates acknowledgment Overweight/Obesity Patient Overweight/Obesity Risk Factors Are:: Overweight = 26-29 Recommendations Include:: Weight loss of 5-10%, Reduced calorie diet, Exercise 5-7 times/week Overweight/Obesity:: Patient communicates acknowledgment Hypertension Recommendations Include:: BP <130/80 if diabetic, DASH dietary guidelines, Decrease/maintain normal body weight, Moderation of ETOH Hypertension:: Patient communicates acknowledgment Heart Disease Patient Heart Disease Risk Factors Are:: Previous cardiac event Heart Disease Response Code:: Patient communicates acknowledgment Diabetes Patient Diabetes Risk Factors Are:: Elevated blood sugars Recommendations Include:: Maintain fasting blood sugars 70-110 md/dL, Maintain HgbA1c of 6% or less, Monitor blood sugar as prescribed, Diabetic dietary guidelines, Decrease/maintain body weight Diabetes:: Patient communicates acknowledgment Metabolic Syndrome Patient Metabolic Syndrome Risk Factors Are [3 of 5]:: Fasting blood sugar > 100 mg/dL, Waist circumference > 35 [female] or 40 [male], High triglyceride >150, Hypertension, Low HDL <40 [male] or < 50 [female] Recommendations Include:: Reinforce compliance to risk factor modifications, Patient is diabetic, Encouraged follow-up with Primary Care Physician Metabolic Syndrome Response Code:: Patient communicates acknowledgment Sedentary Patient Sedentary Risk Factors Are:: Lack of regular exercise Recommendations Include:: Aerobic exercise 5-7 times/week for 20-30 minutes continuously, Benefits of regular exercise, Discussed home walking program, Monitored Outpatient Cardiac Rehab Sedentary Response Code:: Patient communicates acknowledgment Stress Recommendations Include:: Identification of stressors, and assessment of coping skills, Stress management techniques Stress Response Code:: Patient communicates acknowledgment
[2018-04-01 11:31] LABS: Bedside Glucose 108 mg/dL (70-110)
--- NOTE | 2018-04-01 11:53 | CON.PCM_ITS ---
Problem List (1) Non-STEMI (non-ST elevated myocardial infarction) Status: Inactive (2) Abnormal EKG Status: Chronic (3) Coronary artery disease Status: Chronic Comment: Status post stents. (4) Chest pain Status: Acute (5) HTN (hypertension) Status: Chronic Reason for Consult Date of Consultation: 04/01/18 Reason for Consultation: Chest pain, coronary disease, hypertension, diabetes, non-STEMI History of Present Illness: The patient is a 52 year old M, previously seen by me in February 2017, at which time he underwent a left heart catheterization which showed significant disease and a long tapered area of his obtuse marginal #1 as well as disease in his RCA. Patient has a history of known coronary disease status post angioplasty and stenting to his right coronary artery in July 2010 at [facility]. At the time and February 2017 he was supposed to demonstrate medical compliance with baby aspirin and Plavix, followed by elective angioplasty and stenting of his left circumflex however he never returned for follow-up. Patient reports that he continues to smoke tobacco, but states he has been medically compliant with both his aspirin, Plavix, and antihypertensive medications. Patient states that after eating [place] food last evening developed midsternal chest pain, with associated belching. When it did not improve he came to [facility] ER for medical evaluation. His EKG in the emergency room showed normal sinus rhythm, with new inferior lateral ST segment depression and T wave inversion. Patient was treated medically for his hypertension, given aspirin and Plavix, and his symptoms improved. Initial troponin was 0.05, and increased to max of 0.25. Patient underwent repeat left heart catheterization this morning by myself, and demonstrated occlusion of his previously stenosed obtuse marginal branch. He had significant disease in his left codominant posterior lateral branch and underwent angioplasty and drug-eluting stenting x2 to the left posterior lateral branch. We attempted to get access with a wire down his obtuse marginal, however unsuccessful indicating this is most likely now a chronic total occlusion. In addition he had probably significant ostial PDA disease, distal right coronary artery disease, widely patent RCA stents, and probable disease in his mid posterior lateral branch of the right coronary artery. This was left for elective angioplasty several weeks from now. Past Medical History Allergies/Adverse Reactions: Allergies latex Allergy (Verified 04/01/18 03:35) Swelling Sulfa (Sulfonamide Antibiotics) Allergy (Verified 04/01/18 03:35) Hives Home Medications: Ambulatory Orders Medication Instructions Recorded Amlodipine [Norvasc] 10 mg PO DAILY 04/12/17 Aspirin [Aspirin, Baby] 81 mg PO DAILY@0800 04/12/17 Metformin HCl 500 mg PO DAILY #0 04/15/17 Carvedilol [Coreg (Beta Yonny)] 12.5 mg PO BID 04/01/18 Clopidogrel Bisulfate [Plavix] 75 mg PO DAILY 04/01/18 Losartan Potassium [Cozaar] 100 mg PO DAILY 04/01/18 hydroCHLOROthiazide 12.5 mg PO DAILY 04/01/18 [Hydrochlorothiazide] Past Medical History (Chronic Problems): Chronic Problems Abnormal EKG (Chronic) Coronary artery disease (Chronic) Status post stents. Type 2 diabetes mellitus (Chronic) HTN (hypertension) (Chronic) Surgical History: - - Coronary stents - *Family History Maternal History Items: Heart Disease, Hypertension, Stroke Lives: - - Unable to obtain because patient is lethargic and is not providing information. Smoking Status: Former smoker Review of Systems - Review of Systems General: Denies: Fever, Night Sweats, Fatigue Cardiovascular: Reports: Chest Tightness, Chest Heaviness, Shortness of Breath. Denies: Chest Discomfort, Orthopnea, PND, Peripheral Edema, Palpitations, Lightheadedness, Dizziness, Near Syncope, Syncope Respiratory: Denies: Cough, Sputum Production, Hemoptysis Gastrointestinal: Denies: Hematemesis, Hematochezia, Melena Genitourinary: Denies: Dysuria, Hematuria Skin: Denies: Rash Subjectve: Patient asymptomatic at this time. Objective: Vital Signs Temp Pulse Resp BP Pulse Ox 99.5 F H 67 16 140/84 H 97 04/01/18 08:34 04/01/18 08:34 04/01/18 08:34 04/01/18 11:26 04/01/18 08:34 Oxygen Delivery Method Room Air Weight: 206 lb 5.643 oz Body Mass Index (BMI) 26.4 Intake and Output for Last 24 Hours 03/30/18 03/31/18 04/01/18 23:59 23:59 23:59 Intake Total 981 / 981 Output Total 2125 / 2125 Balance -1144 / -1144 General: Awake, Alert, Oriented x 3 HEENT: PERRL, EOMI, Sclera Non Icteric Neck: Supple, Good ROM, No Lymph Node Enlargement Lungs: Clear to auscultation Cardiovascular: Regular Rhythm, Normal S1, Normal S2, No Murmurs, No Rubs, No Gallops Vascular: No Carotid Bruits, Normal Femoral Pulses, Normal Radial Pulses, Normal Dorsalis Pedal Pulse, Normal Posterior Tibial Pulses Abdomen: Bowel Sounds Present, Soft, Non Tender, No HSM, No Organomegaly Extremities: No Cyanosis, No Clubbing, No edema Neurological: No Focal Motor or Sensory Deficit 03/31/18 21:55: WBC 10.1, RBC 4.39 L, Hgb 14.2, Hct 43.0, MCV 97.9 H, MCH 32.3 H , MCHC 33.0, RDW 13.2, RDW Differential 47.2 H, Plt Count 193, MPV 11.3, Immature Gran % (Auto) 0.400, Neut % (Auto) 67.3, Lymph % (Auto) 25.9, [place] % (Auto) 4.4, Eos % (Auto) 1.6, Baso % (Auto) 0.4, Absolute Neuts (auto) 6.8, Total Counted Not Reportable 03/31/18 21:55: PT 12.7, INR 1.0 03/31/18 21:55: Sodium 135 L, Potassium 3.3 L, Chloride 99, Carbon Dioxide 25.0, Anion Gap 11, BUN 12, Creatinine 1.46 H, Est GFR (MDRD) Af Amer 65, Est GFR (MDRD) Non-Af 54 L, BUN/Creatinine Ratio 8.2 L, Glucose 262 H, Calcium 7.8 L, Troponin I 0.049 H 03/31/18 21:55: Total Bilirubin 0.50, Direct Bilirubin 0.15 04/01/18 01:31: Magnesium 1.9, Troponin I 0.093 H 04/01/18 04:56: Troponin I 0.254 H, Triglycerides 162, Cholesterol 155, LDL Cholesterol 86, VLDL Cholesterol 32, HDL Cholesterol 37 L 04/01/18 04:56: Sodium 142, Potassium 4.1, Chloride 107, Carbon Dioxide 23.0, Anion Gap 12, BUN 11, Creatinine 1.18, Est GFR (MDRD) Af Amer 83, Est GFR (MDRD) Non-Af 69, BUN/Creatinine Ratio 9.3 L, Glucose 171 H, Calcium 7.4 L 04/01/18 04:56: Hgb 13.1, Hct 39.6 L Rhythm: EKG:as above ECHO:pending Stress Test: Cardiac Cath: PCI: CT Surgery: Holter monitor: EPS: PPM: CXR: Chest CT Scan: Assessment/Plan 1. Coronary artery disease: The patient had is admitted with acute coronary syndrome, non-STEMI, dynamic EKG changes superimposed on known coronary artery disease. His repeat catheterization demonstrated an occluded obtuse marginal branch with left to left collaterals, a successful angioplasty and drug-eluting stenting x2 to the posterior lateral branch of the distal left circumflex, nonobstructive disease of his LAD and diagonal, and an ostial 85% stenosis of his PDA. At this point I would recommend continuing baby aspirin, Plavix, Coreg, nitroglycerin drip in order to get the sheath out safely, and aggressive antihypertensive therapy with Lipitor 80 mg p.o. nightly. Assuming the patient demonstrates medical compliance, I would have him return in 3 weeks time for elective angioplasty and stenting of his ostial PDA and distal right coronary artery and possibly balloon angioplasty of the midportion of his right posterior lateral branch. 2. Hyperlipidemia: Recommend obtaining a fasting lipid profile. Continue Lipitor 80 mg p.o. nightly and repeat lipid profile in 6 weeks time. 3. Tobacco cessation: I had a long thorough discussion with the patient regarding tobacco cessation, and strongly encouraged him to discontinue all tobacco products. 4. Medical noncompliance: I addressed the patient's medical noncompliance has now caused him to lose his obtuse marginal branch and if he does not follow-up accurately and consistently, he may suffer the same fate and his other coronary arteries. Patient is voiced understanding and has redouble his efforts to maintain medical compliance. 5. Thank you very much for the opportunity to put dissipate in the cardiac care of your patient. Discussed with Dr. Gilbert. Consultation time took place between 845 and 9:15 AM. Code Visit Inpatient E&M: 80461 Init Hosp L2
[2018-04-01 12:25] LABS: ACT Activated Clotting Time 142 sec (74-137)
[2018-04-01] MEDS: Thiamine Hydrochloride 100 MG Tablet PO (14:06)
[2018-04-01] MEDS: Folic Acid 1 MG Tablet PO (14:06)
[2018-04-01] MEDS: hydroCHLOROthiazide 12.5mg 12.5 MG PO (14:06)
[2018-04-01] MEDS: Multivitamins,Ther W-Minerals Tablet 1 TABLET PO (14:06)
[2018-04-01] MEDS: Losartan Potassium 100 MG Tablet PO (14:07)
--- NOTE | 2018-04-01 14:34 | PN_ITS ---
<RamyaAbdoulaye - Last Filed: 04/01/18 14:28> Subjective: Pt seen and examined prior to heart cath. In bed supine NAD. Agreeable to heart cath. No chest pain, palp, LH, dizziness. Hx angioplasty. - Physical Exam General: Alert, Oriented x3, Cooperative HEENT: Atraumatic, PERRLA, EOMI, Normocephalic Neck: Supple, No JVD, Negative Carotid Bruits Lungs: Clear to auscultation, Normal air movement Cardiovascular: Regular rate, Murmur - sytolic 2/6 best at RSB 2nd IC space Abdomen: Bowel Sounds Present, Soft, Non Tender Extremities: No edema, Capillary Refill Less than 3 Seconds Skin: No rashes, No breakdown Musculoskeletal: No Tenderness to Palpation of Joints or Extremities Neurological: Cranial nerves II-XII grossly intact Psych/Mental Status: Normal Affect, Appropriate, Alert and oriented to time, place, person, mood and affect Vital Signs Temp Pulse Resp BP Pulse Ox 98.5 F 75 14 150/80 H 97 04/01/18 12:00 04/01/18 14:15 04/01/18 14:15 04/01/18 14:15 04/01/18 14:15 Oxygen Flow Rate (L/min) 2 Oxygen Delivery Method Room Air Weight: 206 lb 5.643 oz Body Mass Index (BMI) 26.4 Intake and Output for Last 24 Hours 03/30/18 03/31/18 04/01/18 23:59 23:59 23:59 Intake Total 981 / 981 Output Total 2125 / 2125 Balance -1144 / -1144 Laboratory Tests Past 24 Hrs 03/31/18 03/31/18 03/31/18 21:55 21:55 21:55 WBC 10.1 RBC 4.39 L Hgb 14.2 Hct 43.0 MCV 97.9 H MCH 32.3 H MCHC 33.0 RDW 13.2 RDW Differential 47.2 H Plt Count 193 MPV 11.3 Immature Gran % (Auto) 0.400 Neut % (Auto) 67.3 Lymph % (Auto) 25.9 [place] % (Auto) 4.4 Eos % (Auto) 1.6 Baso % (Auto) 0.4 Absolute Neuts (auto) 6.8 Absolute Lymphs (auto) 2.63 Total Counted Not Reportable PT 12.7 INR 1.0 Activated Clotting Time Sodium 135 L Potassium 3.3 L Chloride 99 Carbon Dioxide 25.0 Anion Gap 11 BUN 12 Creatinine 1.46 H Estim Creat Clear Calc 70.74 Est GFR (MDRD) Af Amer 65 Est GFR (MDRD) Non-Af 54 L BUN/Creatinine Ratio 8.2 L Glucose 262 H Calcium 7.8 L Magnesium Total Bilirubin Direct Bilirubin AST ALT Alkaline Phosphatase Troponin I 0.049 H Total Protein Albumin Globulin Triglycerides Cholesterol LDL Cholesterol VLDL Cholesterol HDL Cholesterol Lipase Ethyl Alcohol Blood Type Antibody Screen 03/31/18 03/31/18 03/31/18 21:55 21:55 21:55 WBC RBC Hgb Hct MCV MCH MCHC RDW RDW Differential Plt Count MPV Immature Gran % (Auto) Neut % (Auto) Lymph % (Auto) [place] % (Auto) Eos % (Auto) Baso % (Auto) Absolute Neuts (auto) Absolute Lymphs (auto) Total Counted PT INR Activated Clotting Time Sodium Potassium Chloride Carbon Dioxide Anion Gap BUN Creatinine Estim Creat Clear Calc Est GFR (MDRD) Af Amer Est GFR (MDRD) Non-Af BUN/Creatinine Ratio Glucose Calcium Magnesium Total Bilirubin 0.50 Direct Bilirubin 0.15 AST 18 ALT 35 Alkaline Phosphatase 81 Troponin I Total Protein 7.8 Albumin 4.0 Globulin 3.8 Triglycerides Cholesterol LDL Cholesterol VLDL Cholesterol HDL Cholesterol Lipase 172 Ethyl Alcohol 223.0 Blood Type Antibody Screen 03/31/18 04/01/18 04/01/18 22:30 01:31 04:56 WBC RBC Hgb Hct MCV MCH MCHC RDW RDW Differential Plt Count MPV Immature Gran % (Auto) Neut % (Auto) Lymph % (Auto) [place] % (Auto) Eos % (Auto) Baso % (Auto) Absolute Neuts (auto) Absolute Lymphs (auto) Total Counted PT INR Activated Clotting Time Sodium Potassium Chloride Carbon Dioxide Anion Gap BUN Creatinine Estim Creat Clear Calc Est GFR (MDRD) Af Amer Est GFR (MDRD) Non-Af BUN/Creatinine Ratio Glucose Calcium Magnesium 1.9 Total Bilirubin Direct Bilirubin AST ALT Alkaline Phosphatase Troponin I 0.093 H 0.254 H Total Protein Albumin Globulin Triglycerides 162 Cholesterol 155 LDL Cholesterol 86 VLDL Cholesterol 32 HDL Cholesterol 37 L Lipase Ethyl Alcohol Blood Type O POSITIVE Antibody Screen NEGATIVE 04/01/18 04/01/18 04/01/18 04:56 04:56 09:59 WBC RBC Hgb 13.1 Hct 39.6 L MCV MCH MCHC RDW RDW Differential Plt Count MPV Immature Gran % (Auto) Neut % (Auto) Lymph % (Auto) [place] % (Auto) Eos % (Auto) Baso % (Auto) Absolute Neuts (auto) Absolute Lymphs (auto) Total Counted PT INR Activated Clotting Time 180 H Sodium 142 Potassium 4.1 Chloride 107 Carbon Dioxide 23.0 Anion Gap 12 BUN 11 Creatinine 1.18 Estim Creat Clear Calc 85.14 Est GFR (MDRD) Af Amer 83 Est GFR (MDRD) Non-Af 69 BUN/Creatinine Ratio 9.3 L Glucose 171 H Calcium 7.4 L Magnesium Total Bilirubin Direct Bilirubin AST ALT Alkaline Phosphatase Troponin I Total Protein Albumin Globulin Triglycerides Cholesterol LDL Cholesterol VLDL Cholesterol HDL Cholesterol Lipase Ethyl Alcohol Blood Type Antibody Screen 04/01/18 12:13 WBC RBC Hgb Hct MCV MCH MCHC RDW RDW Differential Plt Count MPV Immature Gran % (Auto) Neut % (Auto) Lymph % (Auto) [place] % (Auto) Eos % (Auto) Baso % (Auto) Absolute Neuts (auto) Absolute Lymphs (auto) Total Counted PT INR Activated Clotting Time 142 H Sodium Potassium Chloride Carbon Dioxide Anion Gap BUN Creatinine Estim Creat Clear Calc Est GFR (MDRD) Af Amer Est GFR (MDRD) Non-Af BUN/Creatinine Ratio Glucose Calcium Magnesium Total Bilirubin Direct Bilirubin AST ALT Alkaline Phosphatase Troponin I Total Protein Albumin Globulin Triglycerides Cholesterol LDL Cholesterol VLDL Cholesterol HDL Cholesterol Lipase Ethyl Alcohol Blood Type Antibody Screen POC Glucose 04/01/18 04/01/18 04/01/18 11:25 06:01 02:02 POC Glucose 108 167 H 147 H 03/31/18 22:01 POC Glucose 268 H Medical Necessity - Tobacco Use Smoking Status: Former smoker Assessment/Plan All Active Problems Chest pain (Acute) 1. Non-STEMI, chest pain 2/2 CAD - heart cath this AM per Dr. Frausto - angioplasty/CASSIE x2 left posterior lateral branch, chronic total occlusion of obtuse marginal. Continue aspirin, statin, Coreg, losartan. Troponin peaked at 0.254. 2. Nicotine abuse-ongoing, cessation encouraged. 3. Type 2 diabetes-Metformin, held for cath, restart in 3 days. 4. Hypertension-mildly elevated, continue to trend and adjust as needed. 5. Hyperlipidemia-statin 6. Hypokalemia-resolved. Mag normal 7. alcohol abuse-ethanol level 223 at admission, continue CIWA protocol with Ativan, Protonix, thiamine and folate. DVT prophylaxis: Held for cath. DC planning likely home tomorrow if no complications. This patient was seen by Abdoulaye Bui PA-C under the supervision of Doctor Vladimir. <Lionel Gilbert - Last Filed: 04/01/18 15:27> - Physical Exam Vital Signs Temp Pulse Resp BP Pulse Ox 98.5 F 75 14 150/80 H 97 04/01/18 12:00 04/01/18 14:15 04/01/18 14:15 04/01/18 14:15 04/01/18 14:15 Oxygen Flow Rate (L/min) 2 Oxygen Delivery Method Room Air Weight: 93.6 kg Body Mass Index (BMI) 26.4 Intake and Output for Last 24 Hours 03/30/18 03/31/18 04/01/18 23:59 23:59 23:59 Intake Total 981 / 981 Output Total 2125 / 2125 Balance -1144 / -1144 Laboratory Tests Past 24 Hrs 03/31/18 03/31/18 03/31/18 21:55 21:55 21:55 WBC 10.1 RBC 4.39 L Hgb 14.2 Hct 43.0 MCV 97.9 H MCH 32.3 H MCHC 33.0 RDW 13.2 RDW Differential 47.2 H Plt Count 193 MPV 11.3 Immature Gran % (Auto) 0.400 Neut % (Auto) 67.3 Lymph % (Auto) 25.9 [place] % (Auto) 4.4 Eos % (Auto) 1.6 Baso % (Auto) 0.4 Absolute Neuts (auto) 6.8 Absolute Lymphs (auto) 2.63 Total Counted Not Reportable PT 12.7 INR 1.0 Activated Clotting Time Sodium 135 L Potassium 3.3 L Chloride 99 Carbon Dioxide 25.0 Anion Gap 11 BUN 12 Creatinine 1.46 H Estim Creat Clear Calc 70.74 Est GFR (MDRD) Af Amer 65 Est GFR (MDRD) Non-Af 54 L BUN/Creatinine Ratio 8.2 L Glucose 262 H Calcium 7.8 L Magnesium Total Bilirubin Direct Bilirubin AST ALT Alkaline Phosphatase Troponin I 0.049 H Total Protein Albumin Globulin Triglycerides Cholesterol LDL Cholesterol VLDL Cholesterol HDL Cholesterol Lipase Ethyl Alcohol Blood Type Antibody Screen 03/31/18 03/31/18 03/31/18 21:55 21:55 21:55 WBC RBC Hgb Hct MCV MCH MCHC RDW RDW Differential Plt Count MPV Immature Gran % (Auto) Neut % (Auto) Lymph % (Auto) [place] % (Auto) Eos % (Auto) Baso % (Auto) Absolute Neuts (auto) Absolute Lymphs (auto) Total Counted PT INR Activated Clotting Time Sodium Potassium Chloride Carbon Dioxide Anion Gap BUN Creatinine Estim Creat Clear Calc Est GFR (MDRD) Af Amer Est GFR (MDRD) Non-Af BUN/Creatinine Ratio Glucose Calcium Magnesium Total Bilirubin 0.50 Direct Bilirubin 0.15 AST 18 ALT 35 Alkaline Phosphatase 81 Troponin I Total Protein 7.8 Albumin 4.0 Globulin 3.8 Triglycerides Cholesterol LDL Cholesterol VLDL Cholesterol HDL Cholesterol Lipase 172 Ethyl Alcohol 223.0 Blood Type Antibody Screen 03/31/18 04/01/18 04/01/18 22:30 01:31 04:56 WBC RBC Hgb Hct MCV MCH MCHC RDW RDW Differential Plt Count MPV Immature Gran % (Auto) Neut % (Auto) Lymph % (Auto) [place] % (Auto) Eos % (Auto) Baso % (Auto) Absolute Neuts (auto) Absolute Lymphs (auto) Total Counted PT INR Activated Clotting Time Sodium Potassium Chloride Carbon Dioxide Anion Gap BUN Creatinine Estim Creat Clear Calc Est GFR (MDRD) Af Amer Est GFR (MDRD) Non-Af BUN/Creatinine Ratio Glucose Calcium Magnesium 1.9 Total Bilirubin Direct Bilirubin AST ALT Alkaline Phosphatase Troponin I 0.093 H 0.254 H Total Protein Albumin Globulin Triglycerides 162 Cholesterol 155 LDL Cholesterol 86 VLDL Cholesterol 32 HDL Cholesterol 37 L Lipase Ethyl Alcohol Blood Type O POSITIVE Antibody Screen NEGATIVE 04/01/18 04/01/18 04/01/18 04:56 04:56 09:59 WBC RBC Hgb 13.1 Hct 39.6 L MCV MCH MCHC RDW RDW Differential Plt Count MPV Immature Gran % (Auto) Neut % (Auto) Lymph % (Auto) [place] % (Auto) Eos % (Auto) Baso % (Auto) Absolute Neuts (auto) Absolute Lymphs (auto) Total Counted PT INR Activated Clotting Time 180 H Sodium 142 Potassium 4.1 Chloride 107 Carbon Dioxide 23.0 Anion Gap 12 BUN 11 Creatinine 1.18 Estim Creat Clear Calc 85.14 Est GFR (MDRD) Af Amer 83 Est GFR (MDRD) Non-Af 69 BUN/Creatinine Ratio 9.3 L Glucose 171 H Calcium 7.4 L Magnesium Total Bilirubin Direct Bilirubin AST ALT Alkaline Phosphatase Troponin I Total Protein Albumin Globulin Triglycerides Cholesterol LDL Cholesterol VLDL Cholesterol HDL Cholesterol Lipase Ethyl Alcohol Blood Type Antibody Screen 04/01/18 12:13 WBC RBC Hgb Hct MCV MCH MCHC RDW RDW Differential Plt Count MPV Immature Gran % (Auto) Neut % (Auto) Lymph % (Auto) [place] % (Auto) Eos % (Auto) Baso % (Auto) Absolute Neuts (auto) Absolute Lymphs (auto) Total Counted PT INR Activated Clotting Time 142 H Sodium Potassium Chloride Carbon Dioxide Anion Gap BUN Creatinine Estim Creat Clear Calc Est GFR (MDRD) Af Amer Est GFR (MDRD) Non-Af BUN/Creatinine Ratio Glucose Calcium Magnesium Total Bilirubin Direct Bilirubin AST ALT Alkaline Phosphatase Troponin I Total Protein Albumin Globulin Triglycerides Cholesterol LDL Cholesterol VLDL Cholesterol HDL Cholesterol Lipase Ethyl Alcohol Blood Type Antibody Screen POC Glucose 04/01/18 04/01/18 04/01/18 11:25 06:01 02:02 POC Glucose 108 167 H 147 H 03/31/18 22:01 POC Glucose 268 H Assessment/Plan This patient was seen in conjunction with Abdoulaye uBi PA-C . I have independently interviewed and examined the patient and reviewed pertinent historical, laboratory, and other data. Please refer to Abdoulaye Bui PA-C note for details of this patient's presentation, findings, and recommendations. I have reviewed Abdoulaye Bui PA-C note and concur with documented findings. In brief, patient is a 2-year-old gentleman with known CAD apparently noncompliant with therapy who presented with chest pain with elevated enzymes consistent with acute non-STEMI admitted to monitored bed cardiology consulted underwent left heart catheterization on 04/01/2018 with PCI/CASSIE Physical Examination: GENERAL: cooperative HEENT: Atraumatic; EYES; Anicteric, NECK; supple, RESPIRATORY: Diminished to auscultation bilaterally, CARDIOVASCULAR: Regular S1 S2, MUSCULOSKELETAL: No Joint Tenderness; PSYCH; Normal affect Assessment: 1. Acute non-STEMI 2. Diabetes mellitus type 2 3. Essential hypertension 4. Dyslipidemia 5. Hypokalemia 6. Chronic alcohol use 7. Tobacco dependence Recommendations: 1. I have discussed the results of my overview and impressions with the patient 2. Options for management were reviewed Code Visit Inpatient E&M: 44518 Subs Hosp L3
[2018-04-01] MEDS: Carvedilol 12.5 MG Tablet PO (16:49)
[2018-04-01 16:56] LABS: Bedside Glucose 199 mg/dL (70-110)
[2018-04-01 21:56] LABS: Bedside Glucose 209 mg/dL (70-110)
[2018-04-02] VITALS (13 sets, daily range): BP systolic 102–172; BP diastolic 53–103; PULSE 61–73; RESP 12–19; TEMP 36.6–36.9; O2SAT 94–98
[2018-04-02 01:06] LABS: Bedside Glucose 137 mg/dL (70-110)
[2018-04-02] MEDS: Labetalol 20 MG/4 ML Vial 10 MG IV (03:46)
[2018-04-02] MEDS: 0.9% NaCl Peripheral Flush Adult/Peds IV ×2 (03:47→03:54)
[2018-04-02 04:08] LABS: Hematocrit 38.8 % (40-54); Mean Corp Hgb Conc 33.5 g/gl (32-36); Mean Corpuscular Hgb 33.2 pg (27.0-32.0); Mean Platelet Vol. 11.2 fl (6.2-12.0); Platelet Count 146 K/mm3 (150-450); RBC Distribution Width SD 46.4 fl (35.1-43.9); Red Blood Count 3.92 M/mm3 (4.6-6.2); White Blood Count 10.9 K/mm3 (4.4-11.0)
[2018-04-02 04:10] LABS: Scan Indicated on CBC? Y/N NO
[2018-04-02 04:24] LABS: ALB/GLOB Ratio 1.1 RATIO (0.9-2.4); AST(SGOT) 16 U/L (15-37); Alanine Aminotransfer ALT/SGPT 26 U/L (16-61); Albumin, Serum 3.3 g/dL (3.2-5.0); Alkaline Phosphatase 65 U/L (45-117); Anion Gap 8 (5-15); BUN 15 mg/dL (7-18); BUN/Creat Ratio 11.4 RATIO (10-20); Calcium,Total 7.8 mg/dL (8.5-10.1); Chloride 107 mmol/L (98-107); Creatinine, Serum 1.32 mg/dL (0.70-1.30); EST Glomerular Filtration Rate 60 mL/min (>60); Est Glom Filt Rate - Afr Amer 73 mL/min (>60); Estimated Creatinine Clearance 76.11 ml/min; Glucose 132 mg/dL (74-106); Potassium 3.7 mmol/L (3.5-5.1); Protein, Total 6.3 g/dL (6.4-8.2); Sodium Level 142 mmol/L (136-145)
[2018-04-02] MEDS: Carvedilol 12.5 MG Tablet PO (04:45)
[2018-04-02] MEDS: amLODIPine 10 MG Tablet PO (04:45)
[2018-04-02] MEDS: chlordiazePOXIDE 25 MG Capsule 50 MG PO (04:45)
[2018-04-02] MEDS: hydroCHLOROthiazide 12.5mg 12.5 MG PO (04:45)
[2018-04-02 07:10] LABS: Bedside Glucose 180 mg/dL (70-110)
[2018-04-02] MEDS: Aspirin 81 MG TAB.CHEW PO (07:50)
[2018-04-02] MEDS: Folic Acid 1 MG Tablet PO (07:50)
[2018-04-02] MEDS: Insulin Lispro 100 UNIT/ML INSULN.PEN SQ (07:50)
[2018-04-02] MEDS: Thiamine Hydrochloride 100 MG Tablet PO (07:50)
[2018-04-02] MEDS: Multivitamins,Therapeutic Tablet 1 TABLET PO (07:50)
[2018-04-02] MEDS: Losartan Potassium 100 MG Tablet PO (07:51)
--- NOTE | 2018-04-02 08:07 | PCM.PN.CARD ---
Subjectve: Patient doing very well this morning, no further chest pain. Does complain of abdominal gassy bloating, relieved with Tums. Right groin is clean/dry/intact, no thrills, bruits or hematoma. EKG shows normal sinus rhythm with resolved lateral T wave inversion. Telemetry negative. Hemoglobin and creatinine within nominal limits. Objective: Vital Signs Temp Pulse Resp BP Pulse Ox 98.2 F 62 14 169/92 H 97 04/02/18 04:00 04/02/18 06:00 04/02/18 06:00 04/02/18 06:00 04/02/18 06:00 Oxygen Flow Rate (L/min) 2 Oxygen Delivery Method Room Air Weight: 206 lb 5.643 oz Body Mass Index (BMI) 26.4 Intake and Output for Last 24 Hours 03/31/18 04/01/18 04/02/18 23:59 23:59 23:59 Intake Total 2228 / 2228 475 / 475 Output Total 2575 / 2575 800 / 800 Balance -347 / -347 -325 / -325 General: Awake, Alert, Oriented x 3 HEENT: PERRL, EOMI, Sclera Non Icteric Neck: Supple, Good ROM, No Lymph Node Enlargement Lungs: Clear to auscultation Cardiovascular: Regular Rhythm, Normal S1, Normal S2, No Murmurs, No Rubs, No Gallops Vascular: No Carotid Bruits, Normal Femoral Pulses, Normal Radial Pulses, Normal Dorsalis Pedal Pulse, Normal Posterior Tibial Pulses Abdomen: Bowel Sounds Present, Soft, Non Tender, No HSM, No Organomegaly Extremities: No Cyanosis, No Clubbing, No edema Neurological: No Focal Motor or Sensory Deficit 04/02/18 04:00: WBC 10.9, RBC 3.92 L, Hgb 13.0, Hct 38.8 L, MCV 99.0 H, MCH 33.2 H, MCHC 33.5, RDW 13.0, RDW Differential 46.4 H, Plt Count 146 L, MPV 11.2 04/02/18 04:00: Sodium 142, Potassium 3.7, Chloride 107, Carbon Dioxide 27.0, Anion Gap 8, BUN 15, Creatinine 1.32 H, Est GFR (MDRD) Af Amer 73, Est GFR (MDRD) Non-Af 60, BUN/Creatinine Ratio 11.4, Glucose 132 H, Calcium 7.8 L, Total Bilirubin 0.90 Rhythm: EKG: ECHO: Stress Test: Cardiac Cath: PCI: CT Surgery: Holter monitor: EPS: PPM: CXR: Chest CT Scan: Medical Necessity - Tobacco Use Smoking Status: Former smoker Assessment/Plan 1. Coronary artery disease: The patient had is admitted with acute coronary syndrome, non-STEMI, dynamic EKG changes superimposed on known coronary artery disease. His repeat catheterization demonstrated an occluded obtuse marginal branch with left to left collaterals, a successful angioplasty and drug-eluting stenting x2 to the posterior lateral branch of the distal left circumflex, nonobstructive disease of his LAD and diagonal, and an ostial 85% stenosis of his PDA. At this point I would recommend continuing baby aspirin, Plavix, Coreg, and aggressive antihypertensive therapy with Lipitor 40 mg p.o. nightly. Assuming the patient demonstrates medical compliance, I would have him return in 3 weeks time for elective angioplasty and stenting of his ostial PDA and distal right coronary artery and possibly balloon angioplasty of the midportion of his right posterior lateral branch. He has been successfully weaned off his nitroglycerin drip. 2. Hyperlipidemia: Recommend obtaining a fasting lipid profile. Continue Lipitor 40 mg p.o. nightly and repeat lipid profile in 6 weeks time. 3. Tobacco cessation: I had a long thorough discussion with the patient regarding tobacco cessation, and strongly encouraged him to discontinue all tobacco products. 4. Medical noncompliance: I addressed the patient's medical noncompliance has now caused him to lose his obtuse marginal branch and if he does not follow-up accurately and consistently, he may suffer the same fate and his other coronary arteries. Patient is voiced understanding and has redouble his efforts to maintain medical compliance. 5. Thank you very much for the opportunity to put dissipate in the cardiac care of your patient. Patient may be discharged home. Code Visit Inpatient E&M: 59911 Subs Hosp L2
[2018-04-02] MEDS: Pantoprazole Sodium 40 MG Tablet PO (09:57)
[2018-04-02] MEDS: Clopidogrel Bisulfate 75 MG Tablet PO (09:57)
--- NOTE | 2018-04-02 10:00 | EKG12_ITS ---
Test Reason : AM EKG Blood Pressure : / mmHG Vent. Rate : 065 BPM Atrial Rate : 065 BPM P-R Int : 188 ms QRS Dur : 098 ms QT Int : 434 ms P-R-T Axes : 034 -13 137 degrees QTc Int : 451 ms Normal sinus rhythm ST & T wave abnormality, consider lateral ischemia Abnormal ECG When compared with ECG of 01-APR-2018 10:29, MANUAL COMPARISON REQUIRED, DATA IS UNCONFIRMED Confirmed by RAMILA CHATTERJEE, ARIELLE ([id number]), offline editor MARYAM CATHERINE ([id number]) on 04/04/2018 9:31:56 AM Referred By: Chris Meredith Confirmed By:ARIELLE MCGRATH MD
--- NOTE | 2018-04-02 10:21 | CASEMGMT ---
RN CM Assessment Presentation: PCI. Pt presented with chest pain, to heart cath. PCI x 2 Intro role of CM and purpose of RN CM assessment to patient in room. Pt is alert, oriented and able to participate in RN CM assessment. PCP: Korina darling. Pt stated he would like to establish with PCP locally. List of local physicians innetwork with [facility] given to pt who is able to initiate call. Discussed importance of follow up with cardiology on discharge. 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 Specialists: Dr. Frausto, Cardiology. Preferred Pharmacy: [facility] Insurance: [facility] Prescription Benefit: yes, through [employer]. Plan is for Plavix on discharge. LNOK: Patsam Ty, significant other Living Arrangements: lives independently, no assistance needed with ADL's. Transportation: pt does not have license to drive. Uses taxi or [employer] for transportation needs. DME: none HHC: none SW Consult: pt voiced concerns over financial difficulties related to his rent. SW consult. DC PLAN: anticipate home on dc. Aidee LOZANO RN ACM
--- NOTE | 2018-04-02 10:28 | DCINST_ITS ---
- Discharge Diagnoses Current Active Problems: Current Active and Chronic Problems (Last Updated 04/01/18 @ 18:21 by Aishwarya William) Stented coronary artery (Chronic 04/01/18) CASSIE of LPL branch: 2.5 X16 Promus Synergy followed immediatley by 2.5 X 8 Promus Synergy. OM1 is occluded. To have staged procedure in 3 weeks for complex PCI of distal RCA, ostial PDA, and PL branch. Atherosclerotic heart disease of [place] coronary artery without angina pectoris (Chronic) CASSIE of LPL branch: 2.5 X16 Promus Synergy followed immediatley by 2.5 X 8 Promus Synergy. OM1 is occluded. To have staged procedure in 3 weeks for complex PCI of distal RCA, ostial PDA, and PL branch. You will use the following diet at home:: Calorie/Carbohydrate Controlled (specify 1200, 1400, etc) - 1800, Cardiac Your food should be the consistency of: Regular Discharge Activity: Return to Normal Activity Allergies/Adverse Reactions: Allergies latex Allergy (Verified 04/01/18 03:35) Swelling Sulfa (Sulfonamide Antibiotics) Allergy (Verified 04/01/18 03:35) Hives Medications to take at Discharge Metformin HCl 500 mg PO DAILY #0 04/15/17 Amlodipine [Norvasc] 10 mg PO DAILY #90 tablet 04/02/18 Aspirin [Aspirin, Baby] 81 mg PO DAILY@0800 #90 tab.chew 04/02/18 Atorvastatin Calcium [Lipitor] 80 mg PO QHS #90 tablet 04/02/18 Carvedilol [Coreg (Beta Yonny)] 12.5 mg PO BID #180 tablet 04/02/18 Clopidogrel Bisulfate [Plavix] 75 mg PO DAILY #90 tablet 04/02/18 Losartan Potassium [Cozaar] 100 mg PO DAILY #90 tablet 04/02/18 Nitroglycerin [Nitrostat] 0.4 mg SUBLINGUAL Q5M PRN #30 tablet 04/02/18 Pantoprazole Sodium [Protonix] 40 mg PO DAILY #90 tablet 04/02/18 hydroCHLOROthiazide [Hydrochlorothiazide] 12.5 mg PO DAILY #90 capsule 04/02/18 The following prescriptions were given: Amlodipine [Norvasc] 10 mg PO DAILY #90 tablet Aspirin [Aspirin, Baby] 81 mg PO DAILY@0800 #90 tab.chew Atorvastatin Calcium [Lipitor] 80 mg PO QHS #90 tablet Carvedilol [Coreg (Beta Yonny)] 12.5 mg PO BID #180 tablet Clopidogrel Bisulfate [Plavix] 75 mg PO DAILY #90 tablet hydroCHLOROthiazide [Hydrochlorothiazide] 12.5 mg PO DAILY #90 capsule Losartan Potassium [Cozaar] 100 mg PO DAILY #90 tablet Nitroglycerin [Nitrostat] 0.4 mg SUBLINGUAL Q5M PRN #30 tablet PRN Reason: Cardiac/Chest Pain Pantoprazole Sodium [Protonix] 40 mg PO DAILY #90 tablet Orders to be completed after discharge: Phase II, Outpatient Cardiac Rehab Location: None Selected Primary Care Physician: Korina Brown [Primary Care Provider] - Test Results: Test results from this visit will be discussed in further detail at your follow- up appointment, if applicable. Please Follow Up With: Juvenal Frausto MD Proposed Discharge Date: 04/02/18
--- NOTE | 2018-04-02 10:42 | DS.PCM_ITS ---
Discharge Date and Diagnosis Date of Admission: 03/31/18 Date of Discharge: 04/02/18 - Primary Discharge Diagnosis Acute non-STEMI - Secondary Discharge Diagnosis Chronic Problems (Last Updated 04/01/18 @ 18:21 by Aishwarya William) Stented coronary artery (Chronic 04/01/18) CASSIE of LPL branch: 2.5 X16 Promus Synergy followed immediatley by 2.5 X 8 Promus Synergy. OM1 is occluded. To have staged procedure in 3 weeks for complex PCI of distal RCA, ostial PDA, and PL branch. Atherosclerotic heart disease of [place] coronary artery without angina pectoris (Chronic) CASSIE of LPL branch: 2.5 X16 Promus Synergy followed immediatley by 2.5 X 8 Promus Synergy. OM1 is occluded. To have staged procedure in 3 weeks for complex PCI of distal RCA, ostial PDA, and PL branch. Abnormal EKG (Chronic) Type 2 diabetes mellitus (Chronic) HTN (hypertension) (Chronic) Hospital Course and Treatment Summary of Care Provided: The patient is a 52 year old M with known history significant CAD who presented with chest pain 1. Acute non-STEMI. Admitted to a monitored bed managed per protocol. Patient underwent left heart catheterization on 03/01/2018 which demonstrate an occluded obtuse marginal branch with left to left collaterals, patient had a successful angioplasty and drug-eluting stenting x2 to the posterior lateral branch of the distal left circumflex, nonobstructive disease of his LAD and diagonal, and an ostial 85% stenosis of his PDA by Dr. Frausto. Patient was advised by Dr. Frausto to return in 3 weeks for elective angioplasty and stenting of his ostial PDA and distal right coronary artery and possibly balloon angioplasty of the midportion of his right posterior lateral branch. 2. Hypertension patient blood pressure control remains labile in the hospital meds were adjusted 3. Diabetes mellitus type II: Controlled patient's oral hypoglycemics held. Placed on Accu-Cheks a.c. and at bedtime and covered with sliding scale insulin 4. Dyslipidemia-patient is on statin therapy, continued at home dose - Physical Exam General: Alert HEENT: Atraumatic Neck: Supple, No JVD Lungs: Clear to auscultation, Normal air movement Cardiovascular: Regular rate, Regular Rhythm Neurological: Neuro grossly intact Psych/Mental Status: Appropriate Vital Signs Temp Pulse Resp BP Pulse Ox 98.2 F 69 15 102/53 L 94 04/02/18 04:00 04/02/18 09:00 04/02/18 09:00 04/02/18 09:00 04/02/18 09:00 Oxygen Flow Rate (L/min) 2 Oxygen Delivery Method Room Air Weight: 93.6 kg Body Mass Index (BMI) 26.4 Intake and Output for Last 24 Hours 03/31/18 04/01/18 04/02/18 23:59 23:59 23:59 Intake Total 2228 / 2228 475 / 475 Output Total 2575 / 2575 800 / 800 Balance -347 / -347 -325 / -325 Laboratory Tests Past 24 Hrs 04/01/18 04/02/18 04/02/18 12:13 04:00 04:00 WBC 10.9 RBC 3.92 L Hgb 13.0 Hct 38.8 L MCV 99.0 H MCH 33.2 H MCHC 33.5 RDW 13.0 RDW Differential 46.4 H Plt Count 146 L MPV 11.2 Activated Clotting Time 142 H Sodium 142 Potassium 3.7 Chloride 107 Carbon Dioxide 27.0 Anion Gap 8 BUN 15 Creatinine 1.32 H Estim Creat Clear Calc 76.11 Est GFR (MDRD) Af Amer 73 Est GFR (MDRD) Non-Af 60 BUN/Creatinine Ratio 11.4 Glucose 132 H Calcium 7.8 L Total Bilirubin 0.90 AST 16 ALT 26 Alkaline Phosphatase 65 Total Protein 6.3 L Albumin 3.3 Globulin 3.0 Albumin/Globulin Ratio 1.1 POC Glucose 04/02/18 04/02/18 04/01/18 07:05 00:57 21:40 POC Glucose 180 H 137 H 209 H 04/01/18 04/01/18 16:45 11:25 POC Glucose 199 H 108 Discharge Diet: Low fat/ Low Cholesterol, 1800 Calorie Control Diet Discharge Activity: Return to Normal Activity Home Medications: Medications to take at Discharge Metformin HCl 500 mg PO DAILY #0 04/15/17 Amlodipine [Norvasc] 10 mg PO DAILY #90 tab 04/02/18 Aspirin [Aspirin, Baby] 81 mg PO DAILY@0800 #90 tab.chew 04/02/18 Atorvastatin Calcium [Lipitor] 80 mg PO QHS #90 tab 04/02/18 Carvedilol [Coreg (Beta Yonny)] 12.5 mg PO BID #180 tab 04/02/18 Clopidogrel Bisulfate [Plavix] 75 mg PO DAILY #90 tab 04/02/18 Losartan Potassium [Cozaar] 100 mg PO DAILY #90 tab 04/02/18 Nitroglycerin [Nitrostat] 0.4 mg SUBLINGUAL Q5M PRN #30 tab 04/02/18 Pantoprazole Sodium [Protonix] 40 mg PO DAILY #90 tab 04/02/18 hydroCHLOROthiazide [Hydrochlorothiazide] 12.5 mg PO DAILY #90 cap 04/02/18 Following Prescrptions Were Given to Patient: Amlodipine [Norvasc] 10 mg PO DAILY #90 tab Aspirin [Aspirin, Baby] 81 mg PO DAILY@0800 #90 tab.chew Atorvastatin Calcium [Lipitor] 80 mg PO QHS #90 tab Carvedilol [Coreg (Beta Yonny)] 12.5 mg PO BID #180 tab Clopidogrel Bisulfate [Plavix] 75 mg PO DAILY #90 tab hydroCHLOROthiazide [Hydrochlorothiazide] 12.5 mg PO DAILY #90 cap Losartan Potassium [Cozaar] 100 mg PO DAILY #90 tab Nitroglycerin [Nitrostat] 0.4 mg SUBLINGUAL Q5M PRN #30 tab PRN Reason: Cardiac/Chest Pain Pantoprazole Sodium [Protonix] 40 mg PO DAILY #90 tab Other Amb Orders: Phase II, Outpatient Cardiac Rehab Location: None Selected Primary Care Physician: Korina Brown [Primary Care Provider] - Please Follow Up With: Juvenal Frausto MD Disposition: Home Minutes spent on discharge:: 35 Patient Condition:: Stable Medical Necessity - Tobacco Use Smoking Status: Former smoker Meaningful Use Info Meaningful Use Diagnoses (Choose all that apply): AMI - AMI Aspirin given w/in 24hrs of arrival?: Yes ASA at discharge?: Yes Statins at discharge?: Yes Trent/ARB at discharge?: Yes Beta Yonny at discharge?: Yes Done w/ Acute IA measure.: Yes Code Visit Inpatient E&M: 15218 Disch Hosp
--- NOTE | 2018-04-02 12:06 | CASEMGMT ---
SW received referral to see pt regarding finances. SW went to ICU and pt had been discharged and left for home prior to SW arrival. JUAN DIEGO Good
== END 2018-04-02 12:00 | disposition home or self-care (01) | DRG 174 ==
LOC: ED 23:27 → PCU 23:52 → ICU 04-01 10:03
PROVIDERS: Internal Medicine Cardiovascular Disease; Admitting Provider Hospitalist; Emergency Provider Emergency Medicine; Referring Provider Hospitalist; Visit Provider Internal Medicine
DX: I21.4 Non-ST elevation (NSTEMI) myocardial infarction (principal); I25.10 Atherosclerotic heart disease of native coronary artery without angina pectoris; E78.5 Hyperlipidemia, unspecified; I10 Essential (primary) hypertension; E11.9 Type 2 diabetes mellitus without complications; E87.6 Hypokalemia; K22.6 Gastro-esophageal laceration-hemorrhage syndrome; F10.10 Alcohol abuse, uncomplicated; Y90.7 Blood alcohol level of 200-239 mg/100 ml; T82.858A Stenosis of other vascular prosthetic devices, implants and grafts, initial encounter; Z95.5 Presence of coronary angioplasty implant and graft; Z79.899 Other long term (current) drug therapy; F17.200 Nicotine dependence, unspecified, uncomplicated; Z79.84 Long term (current) use of oral hypoglycemic drugs
CPT/HCPCS: 36415; 71045; 71275; 74175; 80048; 80053; 80061; 80076; 80320; 82962; 83690; 83735; 84484; 85014; 85018; 85025; 85027; 85347; 85610; 86850; 86900; 92928; 93005; 93306; 93458; 97802; 99285; 99406; J7030; J7040; J7120; Q9967; A4216; C1725; C1769; C1874; C1887; C1894; C9600; G0480; J2405; J3490

== ENCOUNTER 2018-04-23 09:05 | Day surgery (SDC) | payer MEDICAID, SELFPAY ==
[2018-04-01 00:41] VITALS: BMI 26.4
[2018-04-17 14:47] VITALS: BMI 26.8
[2018-04-22 10:35] VITALS: BMI 26.8
[2018-04-23] VITALS (24 sets, daily range): BP systolic 132–193; BP diastolic 77–105; PULSE 54–86; RESP 12–20; TEMP 36.8–37.6; O2SAT 93–100; BMI 26.3
[2018-04-23 10:25] LABS: Bedside Glucose 125 mg/dL (70-110)
[2018-04-23 11:36] LABS: ACT Activated Clotting Time 191 sec (74-137)
--- NOTE | 2018-04-23 11:40 | EKG12_ITS ---
Test Reason : POST PCI Blood Pressure : / mmHG Vent. Rate : 055 BPM Atrial Rate : 055 BPM P-R Int : 194 ms QRS Dur : 100 ms QT Int : 464 ms P-R-T Axes : 056 008 138 degrees QTc Int : [address] & T wave abnormality, consider lateral ischemia Abnormal ECG When compared with ECG of 02-APR-2018 05:39, No significant change was found Confirmed by RAMILA CHATTERJEE, ARIELLE ([id number]), book editor MARYAM CATHERINE ([id number]) on 04/25/2018 1:54:42 PM Referred By: Juvenal Frausto Confirmed By:ARIELLE MCGRATH MD
--- NOTE | 2018-04-23 11:50 | CL.I_ITS ---
Patient Name: JONO MURRY Study Date: 04/23/2018 Performing: Juvenal Frausto MD Ht: 74.01 inches 188 cm : 1965 Wt: 209.44 lbs 95 kg Age: 53 Gender: male BSA: 2.22 PROCEDURE(S) PERFORMED [id number] W OR WO PTCA, SINGLE CORONARY ARTERY [id number] W OR WO PTCA, EACH ADD'L ARTERY, SAME MAJOR [id number], EACH ADD'L CORONARY ART, SAME MAJOR CLINICAL PROFILE AND CO-MORBIDITIES Indications: New Onset Angina <= 2 months, Stable Known CAD Heart Failure: None Stress/Imaging Stress/Image Study Performed: No Angina Classification Anginal Classification w/in 2 Weeks: CCS I CAD Presentations: Unstable angina. Comorbidities/Risk Factors: Current/Recent Smoker (< 1year) Hypertension Dyslipidemia Prior PCI CONCLUSIONS Successful PCI with PTCA to the mid PL branch of RCA with a 2.0 x 8 balloon; 85%--30%, no dissection or perforation. Successful PTCA/CASSIE ostial PDA with a 2.25 x 12 Promus Synergy; 85%-->0%, no dissection. Successful PTCA/CASSIE to distal RCA with a 2.5 x 24 Promus Synergy; post dilated with a 3.0 x 12 NC bal loon; 75%-->0%, no dissection. RECOMMENDATIONS Highly recommend quitting all tobacco products Follow up with primary delivery agent Risk factor modification ASA Indefinitley Plavix for at least 12 months Routine post interventional care Refer for Outpatient Cardiac Rehab Manual sheath removal per protocol Manual sheath removal; Medical management of mid DIAG branch. DESCRIPTION OF PROCEDURE The patient arrived to the procedure lab. The risks and benefits of the procedure as well as a full d escription of our services here and current unavailability of surgical backup were fully explained to the patient and/or their significant other prior to the catheterization. The Timeout was completed, verifying the correct patient and procedure. The patient's procedural site was prepped and draped in the usual fashion. Local anesthetic was given subcutaneously to right groin region with Lidocaine 2%. Using a modified Seldinger technique, arterial access was obtained via the right femoral artery, a 6 Fr sheath was inserted.. HS II Guide catheter was inserted and engaged into the RCA. BMW (1) Guide wire was advanced to th e Right PDA. BMW (2) Guide wire was advanced to the RPL. 2.0 x 8 Emerge Balloon catheter was inserted . Balloon catheter was advanced across lesion in the RPL mid PTCA balloon inflated at 4 atms for 10 secs. Angiogram performed pre balloon dilatation. PTCA balloon inflated at 6 atms for 22 secs. Angiog eric performed post balloon dilatation. 2.0 x 8 Emerge Balloon catheter was inserted. Balloon catheter was advanced across lesion in the posterior descending, ostial. Angiogram performed pre balloon dila tation. PTCA balloon inflated at 8 atms for 37 secs. Angiogram performed post balloon dilatation. 2.2 5 x 8 Synergy Drug Eluting stent was inserted. Drug Eluting stent was advanced across the lesion in t he posterior descending, ostial. Angiogram performed pre stent deployment. Drug Eluting stent was rem jovany intact, failed to cross lesion 2.25 x 12 Synergy Drug Eluting stent was inserted. Drug Eluting stent was advanced across the lesion in the posterior descending, ostial. Angiogram perf ormed pre stent deployment. Angiogram performed post stent deployment. 2.0 x 8 Emerge Balloon cathete r was inserted. Balloon catheter was advanced across lesion in the RPL Mid Angiogram performed pre b alloon dilatation. PTCA balloon inflated at 8 atms for 12 secs. PTCA balloon inflated at 10 atms for 8 secs. 2.5 x 24 Synergy Drug Eluting stent was inserted. Drug Eluting stent was advanced across the lesion in the right coronary, distal. Angiogram performed pre stent deployment. Angiogram performed p ost stent deployment. 3.0 x 12 NC Emerge Balloon catheter was inserted. Balloon catheter was inserted post stent Distal RCA. Angiogram performed pre balloon dilatation. Angiogram performed post balloon dilatation. The arterial sheath was exchanged to a standard sheath and left inplace to be pulled in the holding area. The arterial sheath was sutured in place and capped INTERVENTION INFORMATION LESION SITE: RPL (1st) Lesion Complexity: Non-High/Non-C, lesion at bifurcation: No, thrombus present: No, lesion length: 8 mm, culprit lesion: No Pre Stenosis: 75 % Pre intervention VI flow: 3 PROCEDURE: Balloon Angioplasty Post Stenosis: 30 % Post intervention VI flow: 3 Lesion Devices: Ledbetter .014 BMW [place] Straight 190cm Medtronic 6 Fr HSII 100cm Guide Catheter Sylvester Sci EMERGE MR 2.00x08 BALLOON LESION SITE: RT PDA (Ostial) Lesion Complexity: High/C, lesion at bifurcation: Yes, thrombus present: No, culprit lesion: Yes Pre Stenosis: 85 % Pre intervention VI flow: 3 Post Stenosis: 0 % Post intervention VI flow: 3 Lesion Devices: Medtronic 6 Fr HSII 100cm Guide Catheter Ledbetter .014 BMW [place] Straight 190cm Sylvester Sci EMERGE MR 2.00x08 BALLOON Sylvester Sci Synergy MR CASSIE 2.25x12 LESION SITE: RCA (Distal) Lesion Complexity: High/C, lesion at bifurcation: No, thrombus present: No, lesion length: 24 mm, cul prit lesion: No Pre Stenosis: 75 % Pre intervention VI flow: 3 PROCEDURE: Drug Eluting Stent with post dilatation 0 % Lesion Devices: Medtronic 6 Fr HSII 100cm Guide Catheter Ledbetter .014 BMW [place] Straight 190cm Sylvester Sci Synergy MR CASSIE 2.50x24 Sylvester Sci NC EMERGE MR 3.00x12 BALLOON COMPLICATIONS No Complications PROCEDURE MEDICATIONS Oxygen: 2 L/min via nasal cannula Heparin 6000 unit(s) IV 04/23/2018 10:39:47 Nitro 200 mcg IC 04/23/2018 10:41:40 Nitro 200 mcg IC 04/23/2018 10:41:40 Nitro 200 mcg IC 04/23/2018 10:50:11 Nitro 200 mcg IC 04/23/2018 11:04:16 Plavix 75 mg PO 04/23/2018 09:30:19 IV Fluids: .9 NaCl increased to WO ml/hr 04/23/2018 10:42:27 IV Fluids: .9 NaCl decreased to 150 ml/hr 04/23/2018 11:06:25 SUMMARY OF HEMODYNAMIC DATA Time AIR REST ECG 09:31:57 AO 156/80 (112) SA 10:40:47 Signed By Juvenal Frausto MD On 04/23/2018 11:49:09 Juvenal Frausto MD
[2018-04-23] MEDS: 0.9% Normal Saline 1,000 ML 150 ML IV (11:51)
[2018-04-23] MEDS: amLODIPine 10 MG Tablet PO (12:51)
[2018-04-23] MEDS: hydroCHLOROthiazide 12.5mg 12.5 MG PO (12:52)
[2018-04-23] MEDS: Losartan Potassium 100 MG Tablet PO (13:23)
[2018-04-23] MEDS: Carvedilol 12.5 MG Tablet PO ×2 (13:24→21:02)
[2018-04-23 13:51] LABS: ACT Activated Clotting Time 153 sec (74-137)
[2018-04-23] MEDS: Labetalol 100 MG/20 ML Vial IV (13:52)
--- NOTE | 2018-04-23 13:54 | CRPHASE1 ---
Patient Data/Charges Phase I Charge:: Level I - Education - SEEN ON PRIOR ADMISSION IN MAR 2018.
--- NOTE | 2018-04-23 13:56 | CRPH1.INSTRU ---
General Education CAD and cardiac anatomy and function:: Patient communicates acknowledgment - SEEN ON PRIOR ADMISSION MAR 2018.
[2018-04-23 17:41] LABS: Bedside Glucose 80 mg/dL (70-110)
[2018-04-23] MEDS: Atorvastatin Calcium 80 MG Tablet PO (21:02)
[2018-04-23 21:35] LABS: Bedside Glucose 162 mg/dL (70-110)
[2018-04-24] VITALS (11 sets, daily range): BP systolic 119–148; BP diastolic 62–85; PULSE 55–65; RESP 13–16; TEMP 36.8–37.2; O2SAT 92–100
[2018-04-24 03:45] LABS: Hematocrit 38.1 % (40-54); Hemoglobin 12.7 g/dl (13.0-16.5); Mean Corp Hgb Conc 33.3 g/gl (32-36); Mean Corpuscular Hgb 32.6 pg (27.0-32.0); Mean Corpuscular Volume 97.7 fL (80-94); Mean Platelet Vol. 11.3 fl (6.2-12.0); Platelet Count 191 K/mm3 (150-450); RBC Distribution Width CV 12.2 % (11.6-14.6); RBC Distribution Width SD 43.1 fl (35.1-43.9); Scan Indicated on CBC? Y/N NO; White Blood Count 9.5 K/mm3 (4.4-11.0)
[2018-04-24 03:51] LABS: Bedside Glucose 157 mg/dL (70-110)
[2018-04-24 04:07] LABS: Anion Gap 10 (5-15); BUN 20 mg/dL (7-18); BUN/Creat Ratio 13.9 RATIO (10-20); Calcium,Total 8.3 mg/dL (8.5-10.1); Chloride 103 mmol/L (98-107); Cholesterol 129 mg/dL (200); Creatinine, Serum 1.44 mg/dL (0.70-1.30); EST Glomerular Filtration Rate 55 mL/min (>60); Est Glom Filt Rate - Afr Amer 66 mL/min (>60); Estimated Creatinine Clearance 68.98 ml/min; Glucose 167 mg/dL (74-106); High Density Lipoprotein 38 mg/dL; Potassium 3.7 mmol/L (3.5-5.1); Sodium Level 140 mmol/L (136-145); Triglycerides 88 mg/dL; Very Low Density Lipoprotein 18 mg/dL (5-40)
[2018-04-24 07:50] LABS: Bedside Glucose 163 mg/dL (70-110)
--- NOTE | 2018-04-24 08:17 | PCM.DC.CCA ---
Discharge Diet: No Restrictions - You may continue your normal diet. Return to work on:: 04/28/18 May shower in (days): 1 May resume sexual activity in: 1 week - if no groin problems occur. Lifting Restrictions: 10 pounds and also avoid any pushing or pulling for 3 days after your test. Call your doctor if your incision/area has: Increased Pain/ Swelling, Increased Redness, Foul Smelling Discharge, Swelling at the incision site Call your doctor if you observe: Fever of 101 or Higher Remove Dressing in (days):: 1 Additional Dressing/Incision Instructions:: Keep the dressing (bandage) on until the next morning. You may then shower, but do not take a tub bath for 5 days after your test. It is normal to have some tenderness and discomfort at the puncture site. Sometimes bruising also occurs. However, if pain, numbness, or coldness occurs below the puncture site (in your leg, toes, arms or fingers) call your doctor at once. You may have a small, marble sized knot at the puncture site. This is normal. Do not rub it. It will go away in 4-6 weeks. Bleeding can occur from the area where the puncture was done. Blood may spurt or drip from the site. If blood spurts, apply pressure right away to stop bleeding and call 911. Although rare, bleeding into the tissue (hematoma) can also occur. If this happens, a large, firm area goose egg under the skin will appear. If any of these occur, lie down as flat as you can and have someone apply firm pressure to the cath site with a gauze pad or a clean washcloth for 10-15 minutes. Call 911 or go to the Emergency Department. Allergies/Adverse Reactions: Allergies latex Allergy (Verified 04/17/18 14:57) Hives Sulfa (Sulfonamide Antibiotics) Allergy (Verified 04/10/18 14:40) Hives Medications to take at Discharge RX: Metformin HCl 500 mg PO DAILY #0 04/15/17 RX: Nitroglycerin [Nitrostat] 0.4 mg SUBLINGUAL Q5M PRN #30 tab 04/02/18 aspirin 81 mg chewable tablet 81 mg PO DAILY@0800 #90 tab.chew 04/17/18 pantoprazole 40 mg tablet,delayed release 40 mg PO DAILY #90 tab 04/17/18 amlodipine 10 mg tablet 10 mg PO DAILY #90 tab 04/24/18 atorvastatin 80 mg tablet 80 mg PO QHS #90 tab 04/24/18 carvedilol 12.5 mg tablet 12.5 mg PO BID #180 tab 04/24/18 clopidogrel 75 mg tablet 75 mg PO DAILY #90 tab 04/24/18 hydrochlorothiazide 12.5 mg capsule 12.5 mg PO DAILY #90 cap 04/24/18 losartan 100 mg tablet 100 mg PO DAILY #90 tab 04/24/18 Primary Care Physician: Korina Brown [Primary Care Provider] - Test Results: Test results from this visit will be discussed in further detail at your follow-up appointment, if applicable. Please Follow Up With: Dali Lewis PA When: 05/09/18 at 0930 Cardiac Rehabilitation Info Cardiac Rehabilitation Program Information: Cardiac Rehabilitation is important for patients like you who are recovering from a heart problem. Cardiac rehabilitation programs are recognized as integral to the continued care of the patient with coronary heart disease. The cardiac rehabilitation program is designed to optimize a patient's physical, psychological, and social functioning. Health pharmacist critical care work in cardiac rehabilitation programs and assist you with getting the treatments you need to get stronger and healthier - like exercise, healthy eating habits, and medications. Cardiac rehabilitation has been show to help people with heart problems live longer and have better life enjoyment than people who do not go to cardiac rehabilitation. Please contact the Cardiac Rehabilitation Program at [facility] at in two weeks if you have not heard from them.
--- NOTE | 2018-04-24 08:20 | DCINST_ITS ---
Discharge Diet: No Restrictions - You may continue your normal diet. Return to work on:: 04/28/18 May shower in (days): 1 May resume sexual activity in: 1 week - if no groin problems occur. Lifting Restrictions: 10 pounds and also avoid any pushing or pulling for 3 days after your test. Call your doctor if your incision/area has: Increased Pain/ Swelling, Increased Redness, Foul Smelling Discharge, Swelling at the incision site Call your doctor if you observe: Fever of 101 or Higher Remove Dressing in (days):: 1 Additional Dressing/Incision Instructions:: Keep the dressing (bandage) on until the next morning. You may then shower, but do not take a tub bath for 5 days after your test. It is normal to have some tenderness and discomfort at the puncture site. Sometimes bruising also occurs. However, if pain, numbness, or coldness occurs below the puncture site (in your leg, toes, arms or fingers) call your doctor at once. You may have a small, marble sized knot at the puncture site. This is normal. Do not rub it. It will go away in 4-6 weeks. Bleeding can occur from the area where the puncture was done. Blood may spurt or drip from the site. If blood spurts, apply pressure right away to stop bleeding and call 911. Although rare, bleeding into the tissue (hematoma) can also occur. If this happens, a large, firm area goose egg under the skin will appear. If any of these occur, lie down as flat as you can and have someone apply firm pressure to the cath site with a gauze pad or a clean washcloth for 10-15 minutes. Call 911 or go to the Emergency Department. Allergies/Adverse Reactions: Allergies latex Allergy (Verified 04/17/18 14:57) Hives Sulfa (Sulfonamide Antibiotics) Allergy (Verified 04/10/18 14:40) Hives Medications to take at Discharge RX: Metformin HCl 500 mg PO DAILY #0 04/15/17 RX: Nitroglycerin [Nitrostat] 0.4 mg SUBLINGUAL Q5M PRN #30 tab 04/02/18 aspirin 81 mg chewable tablet 81 mg PO DAILY@0800 #90 tab.chew 04/17/18 pantoprazole 40 mg tablet,delayed release 40 mg PO DAILY #90 tab 04/17/18 amlodipine 10 mg tablet 10 mg PO DAILY #90 tab 04/24/18 atorvastatin 80 mg tablet 80 mg PO QHS #90 tab 04/24/18 carvedilol 12.5 mg tablet 12.5 mg PO BID #180 tab 04/24/18 clopidogrel 75 mg tablet 75 mg PO DAILY #90 tab 04/24/18 hydrochlorothiazide 12.5 mg capsule 12.5 mg PO DAILY #90 cap 04/24/18 losartan 100 mg tablet 100 mg PO DAILY #90 tab 04/24/18 Primary Care Physician: Korina Brown [Primary Care Provider] - Test Results: Test results from this visit will be discussed in further detail at your follow- up appointment, if applicable. Please Follow Up With: Dali Lewis PA When: 05/09/18 at 0930 Cardiac Rehabilitation Info Cardiac Rehabilitation Program Information: Cardiac Rehabilitation is important for patients like you who are recovering from a heart problem. Cardiac rehabilitation programs are recognized as integral to the continued care of the patient with coronary heart disease. The cardiac rehabilitation program is designed to optimize a patient's physical, psychological, and social functioning. Health health care specialist work in cardiac rehabilitation programs and assist you with getting the treatments you need to get stronger and healthier - like exercise, healthy eating habits, and medications. Cardiac rehabilitation has been show to help people with heart problems live longer and have better life enjoyment than people who do not go to cardiac rehabilitation. Please contact the Cardiac Rehabilitation Program at [facility] at in two weeks if you have not heard from them.
--- NOTE | 2018-04-24 10:00 | EKG12_ITS ---
Test Reason : AM EKG Blood Pressure : / mmHG Vent. Rate : 057 BPM Atrial Rate : 057 BPM P-R Int : 214 ms QRS Dur : 104 ms QT Int : 454 ms P-R-T Axes : 027 006 139 degrees QTc Int : 441 ms Sinus bradycardia with 1st degree A-V block with Premature atrial complexes ST & T wave abnormality, consider lateral ischemia Abnormal ECG When compared with ECG of 23-APR-2018 11:43, MANUAL COMPARISON REQUIRED, DATA IS UNCONFIRMED Confirmed by RAMILA CHATTERJEE, ARIELLE ([id number]), photographic editor MARYAM CATHERINE ([id number]) on 04/25/2018 1:54:11 PM Referred By: Juvenal Frausto Confirmed By:ARIELLE MCGRATH MD
--- NOTE | 2018-04-24 11:18 | PCM.PN.CARD ---
Subjectve: Patient doing very well overnight, in fact feels much better. No chest pain or anginal symptoms. Right groin is clean/dry/intact, no thrills, bruits or hematoma. Telemetry negative. Hemoglobin and creatinine within nominal limits. EKG shows normal sinus rhythm with old unchanged lateral T wave inversion. Objective: Vital Signs Temp Pulse Resp BP Pulse Ox 98.3 F 65 15 119/80 97 04/24/18 09:56 04/24/18 09:56 04/24/18 09:56 04/24/18 09:56 04/24/18 09:56 Oxygen Delivery Method Room Air Weight: 205 lb Body Mass Index (BMI) 26.3 Intake and Output for Last 24 Hours 04/22/18 04/23/18 04/24/18 23:59 23:59 23:59 Intake Total 1950 / 1950 200 / 200 Output Total 1100 / 1100 Balance 850 / 850 200 / 200 04/24/18 03:35: Sodium 140, Potassium 3.7, Chloride 103, Carbon Dioxide 27.0, Anion Gap 10, BUN 20 H, Creatinine 1.44 H, Est GFR (MDRD) Af Amer 66, Est GFR (MDRD) Non-Af 55 L, BUN/Creatinine Ratio 13.9, Glucose 167 H, Calcium 8.3 L, Triglycerides 88, Cholesterol 129, LDL Cholesterol 73, VLDL Cholesterol 18, HDL Cholesterol 38 L 04/24/18 03:35: WBC 9.5, RBC 3.90 L, Hgb 12.7 L, Hct 38.1 L, MCV 97.7 H, MCH 32.6 H, MCHC 33.3, RDW 12.2, RDW Differential 43.1, Plt Count 191, MPV 11.3 Rhythm: EKG: ECHO: Stress Test: Cardiac Cath: PCI: CT Surgery: Holter monitor: EPS: PPM: CXR: Chest CT Scan: Medical Necessity - Tobacco Use Smoking Status: Former smoker Assessment/Plan 1. Coronary artery disease: Patient is status post angioplasty and drug-eluting stenting to the ostium of the PDA, as well as a distal right coronary artery. In addition he underwent balloon angioplasty only of the midportion of the posterior lateral branch, too small for stenting. This is superimposed on recent angioplasty and stenting of his distal left circumflex artery. Patient will maintain on baby aspirin and Plavix going forward. He will be discharged home to follow-up with us in the office. He will then be enrolled in cardiac rehab once his groin is healed from his previous procedures. In addition he will continue his amlodipine, losartan, and Coreg for hypertension control. His blood pressure is optimized at this time. 2. Hyperlipidemia: Continue statin based medications. Repeat lipid profile in 6 weeks time. 3. Patient may be discharged home and follow-up with Dr. Frausto going forward. Code Visit Inpatient E&M: 28113 Subs Hosp L2
== END 2018-04-24 12:00 | disposition home or self-care (01) ==
LOC: CLSP 09:07 → ICU 10:49
PROVIDERS: Referring Provider Internal Medicine Cardiovascular Disease; Visit Provider Internal Medicine Cardiovascular Disease
DX: I25.10 Atherosclerotic heart disease of native coronary artery without angina pectoris (principal); E78.5 Hyperlipidemia, unspecified; I10 Essential (primary) hypertension; Z95.5 Presence of coronary angioplasty implant and graft; Z87.891 Personal history of nicotine dependence; Z79.899 Other long term (current) drug therapy; Z79.82 Long term (current) use of aspirin; Z79.02 Long term (current) use of antithrombotics/antiplatelets; Z79.84 Long term (current) use of oral hypoglycemic drugs; R94.31 Abnormal electrocardiogram [ECG] [EKG]; E11.9 Type 2 diabetes mellitus without complications
CPT/HCPCS: 80048; 80061; 82962; 85027; 85347; 92921; 92928; 92929; 93005; J7030; J7040; A4216; C1725; C1769; C1874; C1887; C1894; C9600; C9601; Q9967

== ENCOUNTER 2019-01-06 12:44 | Emergency (ER) | payer MEDICAID, SELFPAY ==
[2018-04-23 11:52] VITALS: BMI 26.3
[2019-01-06 12:44] VITALS: BP 124/87; PULSE 79; RESP 15; TEMP 36.6; O2SAT 97; BMI 25.6
--- NOTE | 2019-01-06 13:24 | ED.DCSUM_ITS ---
History of Present Illness Chief Complaint: GI Bleed Informant: Patient Onset: Yesterday Narrative: Notes rectal pain yesterday blood on wiping. He does take baby aspirin. No abdominal pain. Reports eating red meat lately and stools are harder. [place] hemorrhoid. No history of colonoscopies. No family history of colon cancer. States get referred to a PCP here soon. Prior similar symptoms: No Past Medical History - Allergies and Home Meds Allergies/Adverse Reactions: Allergies latex Allergy (Verified 01/06/19 12:47) Hives Sulfa (Sulfonamide Antibiotics) Allergy (Verified 01/06/19 12:47) Hives Primary Care Physician: Korina Brown [Primary Care Provider] - Surgical History: - - Coronary stents Smoking Status: Current some day smoker - Family History Maternal Family History: Reports: Heart Disease, Hypertension, Stroke Review of Systems General: Denies: Chills, Fever, Sweats Eyes: Denies: Visual changes - bilaterally, Diplopia ENT: Denies: Rhinorrhea, Sore throat Cardiovascular: Denies: Chest pain, Palpitations Respiratory: Denies: Dyspnea, Cough, Dyspnea on exertion Gastrointestinal: Denies: Abdominal pain, Nausea, Vomiting, Diarrhea, Melena, Hematochezia Genitourinary: Denies: Dysuria, Hematuria, Frequency Musculoskeletal: Denies: Back pain, Extremity Pain Skin: Denies: Rash, Wounds Neurological: Denies: Headache, Weakness, Numbness Physical Exam Vital Signs/Narrative: Vital Signs Temp Pulse Resp BP Pulse Ox 01/06/19 12:44 97.9 F 79 15 124/87 H 97 Inital Vital Signs reviewed: Yes General: Well nourished, Well developed, No Acute Distress Head: Normocephalic, Atraumatic Eyes: Perrl, EOMI ENT: Moist mucous membranes, No rhinorrhea Neck: Supple, Nontender Cardiovascular: Regular rate, Regular rhythm, No murmurs Respiratory: No distress, CTA bilaterally, Chest nontender Abdomen: Soft, Nontender, Nondistended, Normal bowel sounds Rectal: - - Nonthrombosed hemorrhoid on right lateral with scabbing there is no active bleeding. Back: Nontender, Normal Inspection Extremities: Nontender, No edema Skin: Normal color, No rash Neurological: Alert, Oriented x3, Cranial nerves II-XII grossly intact, Normal Strength, Normal Sensation Psychological: Normal affect, Normal Mood Diagnostic/Tx/Re-eval - Medical Decision Making Exam with hemorrhoid nonbleeding nonthrombosed. We placed on Colace and Proctofoam. Discussed need to follow-up PCP with his age for screening colonoscopy. All questions were answered. ED Disposition - Plan for ED Patient: Disposition: Home or Assisted Living Diagnosis: Hemorrhoid Instructions: Hemorrhoids Prescriptions: Docusate Sodium [Colace] 100 mg PO BID #60 capsule Hydrocortisone/Pramoxine [Proctofoam-Hc Foam] 10 gm RC BID #1 foam Referrals: Free Korina Hampton [Primary Care Provider] - 5-7 Days
== END 2019-01-06 13:46 | disposition home or self-care (01) ==
PROVIDERS: Emergency Provider Emergency Medicine
DX: K64.9 Unspecified hemorrhoids (principal); Z79.82 Long term (current) use of aspirin; F17.200 Nicotine dependence, unspecified, uncomplicated
CPT/HCPCS: 99282

== ENCOUNTER 2019-01-21 12:43 | Emergency (ER) | payer MEDICAID, SELFPAY ==
--- NOTE | 2019-01-21 12:44 | ED.RN ---
pt rude, disrespectful, more interested in tv. short with staff when answering questions. doesnt know why we are doing an EKG, testing etc.
[2019-01-21 12:45] VITALS: BP 139/83; PULSE 70; RESP 14; TEMP 36.7; O2SAT 97; BMI 25.9
--- NOTE | 2019-01-21 13:06 | EKG12_ITS ---
Test Reason : CP Blood Pressure : / mmHG Vent. Rate : 072 BPM Atrial Rate : 072 BPM P-R Int : 182 ms QRS Dur : 096 ms QT Int : 400 ms P-R-T Axes : 039 -22 138 degrees QTc Int : 438 ms Normal sinus rhythm Possible Left atrial enlargement ST & T wave abnormality, consider lateral ischemia Abnormal ECG Confirmed by SANTINO CHATTERJEE, EBEN ([id number]), research editor MARYAM CATHERINE ([id number]) on 01/25/2019 9:49:30 AM Referred By: IVELISSE Confirmed By:BERYL DE MD
--- NOTE | 2019-01-21 13:12 | ED.DCSUM_ITS ---
History of Present Illness Chief Complaint: Chest Other Informant: Patient Onset: Days Current Severity: Mild Narrative: The patient was sent over from the [facility] for evaluation. Indicates he has history of heart disease cardiac stents IN, he is followed by Dr. Frausto, indicates on Saturday he had chest discomfort that lasted for an hour or 2 resolved spontaneously he is taking all his medications. He had a scheduled appointment today with his [facility] physicians, he presented there when he explained the above to him them he was sent to the emergency department Has not had chest pain since last Saturday he has no complaints now he is not been ill with fever cough normal bowel bladder habits Past Medical History - Allergies and Home Meds Allergies/Adverse Reactions: Allergies latex Allergy (Verified 01/06/19 12:47) Hives Sulfa (Sulfonamide Antibiotics) Allergy (Verified 01/06/19 12:47) Hives Primary Care Physician: Korina Brown [Primary Care Provider] - Past Medical History: - - Cardiac stents IN stroke Surgical History: - - Coronary stents Smoking Status: Current some day smoker - Family History Maternal Family History: Reports: Heart Disease, Hypertension, Stroke Review of Systems General: Reports: - - As above he has no current complaints. Denies: Chills, Fever, Sweats Eyes: Denies: Visual changes - bilaterally, Diplopia ENT: Denies: Rhinorrhea, Sore throat Cardiovascular: Denies: Chest pain, Palpitations Respiratory: Denies: Dyspnea, Cough, Dyspnea on exertion Gastrointestinal: Denies: Abdominal pain, Nausea, Vomiting, Diarrhea, Melena, Hematochezia Genitourinary: Denies: Dysuria, Hematuria, Frequency Musculoskeletal: Denies: Back pain, Extremity Pain Skin: Denies: Rash, Wounds Neurological: Denies: Headache, Weakness, Numbness Physical Exam Vital Signs/Narrative: Vital Signs Temp Pulse Resp BP Pulse Ox 01/21/19 12:45 98.1 F 70 14 139/83 H 97 General: Well nourished, Well developed, No Acute Distress Head: Normocephalic, Atraumatic Eyes: Perrl, EOMI ENT: Moist mucous membranes, No rhinorrhea Neck: Supple, Nontender Cardiovascular: Regular rate, Regular rhythm, No murmurs Respiratory: No distress, CTA bilaterally, Chest nontender Abdomen: Soft, Nontender, Nondistended, Normal bowel sounds Back: Nontender, Normal Inspection Extremities: Nontender, No edema Skin: Normal color, No rash Neurological: Alert, Oriented x3, Cranial nerves II-XII grossly intact, Normal Strength, Normal Sensation Psychological: Normal affect, Normal Mood Diagnostic/Tx/Re-eval - Medical Decision Making Given all of the above and his history screening labs are obtained EKG shows a sinus rhythm there is some flattening of the T waves laterally that are not significantly changed from prior EKG April 08 there is no signs of acute STEMI screening labs are obtained work-up ED Disposition - Plan for ED Patient: Referrals: Grecia Hampton,Korina Gonzales [Primary Care Provider] -
[2019-01-21] MEDS: Aspirin 81 MG TAB.CHEW 324 MG PO (13:13)
--- NOTE | 2019-01-21 13:15 | RAD_ITS ---
STUDY: X-RAY CHEST REASON FOR EXAM: Male, 53 years old. Chest pain TECHNIQUE: Single AP portable view of the chest. COMPARISON: 03/31/2018 FINDINGS: The lungs are clear and expanded. There is no demonstrated pleural abnormality. Normal size heart. Normal mediastinum and mathew. Normal visualized pulmonary arteries. Normal visualized aortic arch and descending thoracic aorta. Normal visualized thoracic spine. Normal visualized ribs, clavicles, and shoulders. There is no demonstrated abnormality of the visualized soft tissue structures of the upper abdomen. RAD/Chest 1 View (Portable) IMPRESSION: Normal x-ray examination of the chest. Electronically Signed: Amado Jimenez MD at 13:29 EST Tel , Service support ,
[2019-01-21 13:24] VITALS: BP 137/82; O2SAT 98
[2019-01-21 13:30] LABS: Basophil% 0.4 % (0-1); Eosinophils% 2.3 % (0-5); Hematocrit 46.4 % (40-54); Hemoglobin 15.7 g/dL (13.0-16.5); Lymphocyte % 17.1 % (19-41); Mean Corp Hgb Conc 33.8 g/dL (32-36); Mean Corpuscular Hgb 33.2 pg (27.0-32.0); Mean Corpuscular Volume 98.1 fL (80-94); Mean Platelet Vol. 11.1 fl (6.2-12.0); Monocyte% 5.8 % (0-10); Platelet Count 192 K/mm3 (150-450); RBC Distribution Width CV 12.5 % (11.6-14.6); RBC Distribution Width SD 45.1 fl (35.1-43.9); Red Blood Count 4.73 M/mm3 (4.6-6.2); White Blood Count 10.6 K/mm3 (4.4-11.0)
[2019-01-21 13:31] LABS: Absolute Lymphocyte Count 1.81 X10^3/uL (0.83-4.51); Absolute Neutrophil Count 7.8 X10^3/uL (2.0-7.7); Basophil# 0.04 X10^3/uL; Eosinophil# 0.24 X10^3/uL; Lymphocyte # 1.81 X10^3/ul (4.0); Monocyte# 0.61 X10^3/uL; NRBC Flagged by Analyzer 0 % (0-5); Neutrophil # 7.82 X10^3/uL (2.7-7.7)
[2019-01-21 13:46] LABS: Anion Gap 4 (5-15); BUN 23 mg/dL (7-18); BUN/Creat Ratio 14.6 RATIO (10-20); Calcium,Total 8.7 mg/dL (8.5-10.1); Chloride 99 mmol/L (98-107); Creatinine, Serum 1.58 mg/dL (0.70-1.30); EST Glomerular Filtration Rate 49 mL/min (>60); Est Glom Filt Rate - Afr Amer 59 mL/min (>60); Estimated Creatinine Clearance 64.62 ml/min; Glucose 212 mg/dL (74-106); Potassium 4.1 mmol/L (3.5-5.1); Sodium Level 136 mmol/L (136-145)
[2019-01-21 13:58] LABS: BNP,B-Type NATRIURETIC PEPTIDE 43.8 pg/mL (0-100)
--- NOTE | 2019-01-21 13:59 | EKG12_ITS ---
Test Reason : CP REPEAT Blood Pressure : / mmHG Vent. Rate : 078 BPM Atrial Rate : 078 BPM P-R Int : 180 ms QRS Dur : 094 ms QT Int : 384 ms P-R-T Axes : 042 -16 131 degrees QTc Int : 437 ms Normal sinus rhythm Possible Left atrial enlargement ST & T wave abnormality, consider lateral ischemia Abnormal ECG Confirmed by SANTINO CHATTERJEE, EBEN ([id number]), newspaper editor managing MARYAM CATHERINE ([id number]) on 01/25/2019 9:49:42 AM Referred By: BENIGNO Confirmed By:BERYL DE MD
--- NOTE | 2019-01-21 14:02 | ED.DEP ---
ED Disposition - Plan for ED Patient: Diagnosis: Chest pain, Stented coronary artery Instructions: CHEST PAIN, Uncertain Cause Referrals: [facility] Memo,Korina Gonzales [NON-STAFF] - Juvenal Frausto MD [STAFF PHYSICIAN] -
[2019-01-21 15:17] VITALS: BP 152/88; PULSE 70; RESP 20
--- NOTE | 2019-01-21 15:28 | NURSING ---
DR ZENDEJAS PAGED AND RETURNED CALL
--- NOTE | 2019-01-21 15:42 | ED.RN ---
per pt called girlfriend Torie to update her on his condition. torie's number [phone].
[2019-01-21 16:24] VITALS: BP 142/83; PULSE 64; RESP 16; O2SAT 97
== END 2019-01-21 16:25 | disposition home or self-care (01) ==
LOC: ED 13:23
PROVIDERS: Emergency Provider Emergency Medicine
DX: R07.89 Other chest pain (principal); I25.10 Atherosclerotic heart disease of native coronary artery without angina pectoris; I25.2 Old myocardial infarction; Z95.5 Presence of coronary angioplasty implant and graft; Z86.73 Personal history of transient ischemic attack (TIA), and cerebral infarction without residual deficits; Z79.82 Long term (current) use of aspirin; Z79.84 Long term (current) use of oral hypoglycemic drugs; Z79.899 Other long term (current) drug therapy; F17.200 Nicotine dependence, unspecified, uncomplicated
CPT/HCPCS: 71045; 80048; 83880; 84484; 85025; 93005; 99285; A4216

== ENCOUNTER → 2019-02-05 13:19 | Outpatient (CLI) | payer MEDICAID, SELFPAY ==
[2019-01-21 12:45] VITALS: BMI 25.9
--- NOTE | 2019-02-05 13:20 | STE_ITS ---
Reason For Study: CHEST PAIN Stress Results Protocol: Stress Echocardiogram Maximum Predicted HR: 167 bpm Target HR: 142 bpm % Maximum Predicted HR: 77 % DurationHeart Rate Stage (mm:ss) (bpm) BP Comment BASELINE 70 154/90T WAVE INVERSION BRAVO PROTOCOL- STAGE 1 3:00 108 148/844/10 CHEST TIGHTNESS, SL SOB BRAVO PROTOCOL- STAGE 2 3:00 129 154/866/10 CHEST TIGHTNESS, SOB, FATIGUE RECOVERY 75 140/98CHEST TIGHTNESS SUBSIDED Stress Duration: 6:00 mm:ss Maximum Stress HR: 129 bpm Baseline Echocardiogram Findings The estimated ejection fraction is 65 %. Stress Echo Wall motion Data Resting WM Intermediate WM Stress WM Resting Wall Motion Wall Motion Stress No regional wall motion Basal anteroseptal: Mildly abnormalities noted. hypokinetic. Mid-Anterior : Mildly hypokinetic. EKG Data The baseline ECG displays normal sinus rhythm. The patient exercised according to the regular Bravo protocol for a total duration of 6:05. The maximum heart rate attained was 129 beats per minute. This was 77% of maximum predicted heart rate. The patient exercised into stage 3 of the Bravo protocol. During stress, there were no ST or T wave changes noted to suggest ischemia. Interpretation Summary The estimated ejection fraction is 65 %. Basal anteroseptal: Mildly hypokinetic Mid-Anterior : Mildly hypokinetic Normal, submaximal treadmill echocardiogram. Positive for ischemia by echocardiographic anterior. The patient appeared to develop mid anterior, septal, and lateral hypokinesis at peak exercise. In addition the patient developed chest tightness and the test was discontinued due to chest pain and fatigue. Hypertensive blood pressure response to exercise with a peak blood pressure of 200/104 2 minutes into recovery. Rare PVCs noted. The symptoms abated by 7 minutes into recovery. Below average exercise capacity for age. Final LVEF of 55%. Test terminated due to chest pain, fatigue, dyspnea. Patient tolerated the procedure well. Ordering Physician: Juvenal Frausto Referring Physician: Juvenal Frausto Performed By: Annette Fortune, OBINNA, RVT
== END ==
PROVIDERS: Referring Provider Internal Medicine Cardiovascular Disease; Visit Provider Internal Medicine Cardiovascular Disease
DX: I25.10 Atherosclerotic heart disease of native coronary artery without angina pectoris (principal); R07.9 Chest pain, unspecified; Z95.5 Presence of coronary angioplasty implant and graft
CPT/HCPCS: 93017; 93350

== ENCOUNTER 2019-02-24 06:14 | Day surgery (SDC) | payer MEDICAID, SELFPAY ==
[2019-02-23 10:04] VITALS: BMI 26.9
[2019-02-24] VITALS (30 sets, daily range): BP systolic 122–199; BP diastolic 60–124; PULSE 58–79; RESP 10–20; TEMP 36.6–36.9; O2SAT 96–100; BMI 26.8
--- NOTE | 2019-02-24 08:26 | PCM.HP.BLA ---
Problem List (1) Abnormal stress echo Status: Acute (2) Atherosclerotic heart disease of [place] coronary artery without angina pectoris Status: Chronic Comment: Status post angioplasty and stenting to his right coronary artery in July 2010 at [facility]. CASSIE of LPL branch: 2.5 X16 Promus Synergy followed immediatley by 2.5 X 8 Promus Synergy. OM1 is occluded. 04/23/2018:Successful PCI with PTCA to the mid PL branch of RCA with a 2.0 x 8 balloon; 85%--30%, no dissection or perforation. Successful PTCA/CASSIE ostial PDA with a 2.25 x 12 Promus Synergy; 85%-->0%, no dissection. Successful PTCA/CASSIE to distal RCA with a 2.5 x 24 Promus Synergy; post dilated with a 3.0 x 12 NC balloon; 75%-->0%, no dissection. History and Physical Date of Admission: 02/24/19 This is a 53-year-old gentleman that presents here today for diagnostic heart catheterization for an abnormal stress test and an abnormal EKG. Patient has a history of coronary artery disease with angioplasty and stenting to his RCA in 2010. In March 2018 he had a repeat heart catheterization which demonstrated occlusion of his previously stenosed obtuse marginal branch. He had significant disease in his left codominant posterior lateral branch and underwent angioplasty and stenting of his left posterior lateral branch x2. It was attempted to cross his obtuse marginal however they were unsuccessful with this and it was felt that this was likely a chronic total occlusion. It was felt that he probably had significant disease of the ostial PDA, distal RCA with widely patent RCA stents and probable disease in the mid posterior lateral branch of his right coronary. In April she did undergo PCI of his mid posterior lateral branch of the RCA. He had successful stenting to the ostial PDA and distal RCA. Medical management of his mid diagonal branch was recommended. His stress echocardiogram was done in January for an abnormal EKG. Stress echocardiogram demonstrated an ejection fraction of 65%. Basal anterior septal was mildly hypokinetic, mid anterior was mildly hypokinetic. He had a submaximal treadmill echocardiogram. It was positive for ischemia on echocardiographic anteriorly. Patient appeared to develop mid anterior, septal and lateral hypokinesis at peak exercise. Because of this he is here today to proceed with a diagnostic heart catheterization. Patient states that he is not symptomatic cardiac rock. He does not have any chest pain or worsening shortness of breath. Intake Vital Signs See Chart Allergies latex Allergy (Verified 04/17/18 14:57) Hives Sulfa (Sulfonamide Antibiotics) Allergy (Verified 04/10/18 14:40) Hives Medications See Chart [facility] Medical History Atherosclerotic heart disease of [place] coronary artery without angina pectoris (Chronic) Non-STEMI (non-ST elevated myocardial infarction) (Acute 03/31/18) Abnormal EKG (Chronic) Type 2 diabetes mellitus (Chronic) HTN (hypertension) (Chronic) Surgical History Stented coronary artery (Chronic 04/01/18) Social History Smoking Status: Former smoker ROS Const Const: Positive for other (Coronary stent Apr 01: staged PCI on 04/23/18.No chest pain, feels well); negative for fatigue, weakness, body ache, fever(s), headache(s), chills, frequent falls, night sweats, daytime sleepiness, difficulty sleeping, excessive sweating, weight gain, weight loss, increased appetite, poor appetite or anorexia Eyes Eyes: Negative for blind spots, loss of peripheral vision, transient loss of vision, blurry vision, change in vision, double vision, floaters, tunnel vision or other ENT ENT: Negative for headache(s), dizziness, hearing loss, tinnitus, Nosebleed/epistaxis, balance problems, post nasal drip, lip swelling, tongue swelling, bleeding gums, hoarseness, neck pain, dry mouth or other Cardio Chest Pain: No Palpitations: No Edema: None Muscle aches with walking: None Resp Respiratory: Negative for SOB with activity, SOB at rest, SOB orthopnea\SOB lying down, Cough, Coughing up blood/hemoptysis, chest congestion, pain on inspiration, snoring, stridor, wheezing, crackles, paroxysmal nocturnal dyspnea or other GI GI: Negative nausea, vomiting, heartburn, constipation, belching, bloating, cramping, vomiting blood/hematemesis, bright, red blood in stools, black,tarry stools, loose stools, Difficulty Swallowing or other : Negative for hematuria, frequent nighttime urination/ nocturia, erectile dysfunction or abnormal vaginal bleeding Musc Musc: Negative for muscle aches/ myalgia, muscle weakness, joint pain or balance problems Skin Skin: Negative redness, non-healing lesions, rash, unusual bruising, skin ulcer, wounds, jaundice or other Neuro Neuro: Negative for dizziness, lightheadedness, near syncope, syncope, orthostatic symptoms, frequent falls, headache(s), weakness, confusion, memory loss, restless legs, blurry vision, double vision, vertigo, seizures, lack of coordination or other Deangelo Hematologic/Lymphatic: Negative for easy bleeding, easy bruising, enlarged lymph nodes or other Endo Endo: Negative for fatigue, cold intolerance, heat intolerance, excessive sweating, flushing, increased thirst/drinking, increased hunger, hair loss, hair growth or other Psych Psych: Negative for anxiety, depression, thoughts of harming anyone, thoughts of harming yourself, visual hallucinations, panic attacks or audible hallucinations Allergy Allergy/Immunology: Negative for throat swelling, Negative for tongue swelling, Negative for hives, Negative for rash, Negative for lip swelling Cardiology Exam Const Appearance: cooperative, healthy appearing and no acute distress Nutritional Appearance: well nourished Orientation: alert, oriented x3 and oriented to person Head Head: normal to inspection, normocephalic and atraumatic Nose: external nose normal Face and Sinus: face symmetric Mouth: oral mucosae normal Eyes General: appearance normal, both eyes and all related structures Eyelids: eyelids normal Conjunctivae: conjunctivae normal Pupils: PERRL and normal by confrontation EOM: EOM intact bilaterally Neck Neck: normal visual inspection and full ROM Carotids: normal carotid upstroke Chest Chest inspection: normal inspection of the chest Auscultation: Bilateral: Clear to Auscultation Cardio Palpation: normal PMI Rate: regular rate Rhythm: regular rhythm Heart sounds: S1 normal and S2 normal GI GI: normal to inspection, no hepatosplenomegaly and bowel sounds present Neuro General: alert, awake, oriented x3, CN's II-XI intact bilaterally and moves all extremities Skin Skin: no rashes or lesions noted Extremities Pulses: Normal: Right Femoral Pulse, Left Femoral Pulse, Right Dorsalis Pedis Pulse, Left Dorsalis Pedis Pulse, Right Posterior Tibial Pulse, Left Posterior Tibial Pulse, Right Radial Pulse, Left Radial Pulse Lower Extremity Edema: None: Bilateral Psych Psychological: normal affect Assessment & Plan 1. Atherosclerotic heart disease of [place] coronary artery without angina pectoris I25.10 Status post angioplasty and stenting to his right coronary artery in July 2010 at [facility]. CASSIE of LPL branch: 2.5 X16 Promus Synergy followed immediatley by 2.5 X 8 Promus Synergy. OM1 is occluded. To have staged procedure in 3 weeks for complex PCI of distal RCA, ostial PDA, and PL branch. Plan Patient will proceed with a diagnostic heart catheterization. Based upon these findings follow-up will be scheduled from there. In the meantime he will continue with aggressive medical management. He is on aspirin, Plavix, Coreg, losartan and hydrochlorothiazide.
--- NOTE | 2019-02-24 09:44 | CL.I_ITS ---
Patient Name: JONO MURRY Study Date: 02/24/2019 Performing: Juvenal Frausto MD Ht: 74.01 inches 188 cm : 1965 Wt: 202.78 lbs 91.98 kg Age: 53 Gender: male BSA: 2.19 PROCEDURE(S) PERFORMED [id number]/LV [id number] W OR WO PTCA, SINGLE CORONARY ARTERY CLINICAL PROFILE AND CO-MORBIDITIES Indications: Worsening Angina, Stable Known CAD Heart Failure: None Stress/Imaging Date: 02/05/2019 Stress Echocardiogram: Positive Low Risk Angina Classification Anginal Classification w/in 2 Weeks: CCS III CAD Presentations: Unstable angina. Comorbidities/Risk Factors: Current/Recent Smoker (< 1year) Hypertension Dyslipidemia Prior PCI Diabetes Mellitus: Diabetes Therapy: Oral CONCLUSIONS Normal Left Ventricular systolic function Normal LV size, wall motion,and systolic function LVEF: by LV gram 65 % Elevated Left Ventricular End Diastolic Pressure Single vessel CAD of the DIAG#1 Widely patent stents to proximal and distal RCA, ostial PDA and distal LCX. Successful PTCA/CASSIE To mid diagonal #1 utilizing a 2.25X 32 Promus Synergy stent, postdilated proxima lly with a 2.25 X12 noncompliant balloon at 17 sarah, 85% to 0%, no complications or dissections. Successful PCI with to inferior branch of DIAG#1 with a 1.5 x 8 balloon; 90%--30%, VI 3 flow at con clusion of procedure. Pt had similar chest pain with signficant belching with balloon occlusion of DIAG#1. RECOMMENDATIONS Referred for immediate PCI Highly recommend quitting all tobacco products Follow up with primary independent marketing consultant Risk factor modification ASA Indefinitley Plavix for at least 12 months Routine post interventional care Refer for Outpatient Cardiac Rehab Manual sheath removal per protocol Follow up with Dr. Frausto Manual sheath removal as pt is too thin for Mynx closure. Start IMDUR 30mg po daily to promot coronary vasodilation and optimize BP. DESCRIPTION OF PROCEDURE The patient arrived to the procedure lab. The risks and benefits of the procedure as well as a full d escription of our services here and lack of surgical backup were fully explained to the patient and/o r their significant other prior to the catheterization. The Timeout was completed, verifying the yeison ect patient and procedure. The patient's procedural site was prepped and draped in the usual fashion. Local anesthetic was given subcutaneously to right groin region with Lidocaine 2%. Using a modified Seldinger technique, arterial access was obtained via the right femoral artery, a 4Fr sheath was inse rted. Left Coronary Artery selective angiography was performed in multiple views using a 4 Fr. JL5 c atheter. Right Coronary Artery selective angiography was then performed in multiple views using a 4 F r. 3DRC catheter. Left Ventriculography was performed in BAIRES projection using a 4 Fr. Pigtail cathete r. LV to AO pullback pressures were then recorded Arterial sheath was exchanged for a 6 Fr Sheath. EBU 3.75 Guide catheter was inserted and engaged into the LCA. [employer] Guide wire was advanced to the 1st Diagonal. Emerge 1.5 x 8 Balloon cath eter was inserted. Balloon catheter was advanced across lesion in the first diagonal, mid. PTCA ballo on inflated at 6 atms for 13 secs. PTCA balloon inflated at 6 atms for 10 secs. PTCA balloon inflated at 6 atms for 10 secs. PTCA balloon inflated at 8 atms for 16 secs. [employer] [place] Guide wire was ins erted as a michelet wire in the superior branch Emerge 2.0 x 12 Balloon catheter was inserted. Balloon c atheter was advanced across lesion in the first diagonal, mid. PTCA balloon inflated at 6 atms for 8 secs. PTCA balloon inflated at 6 atms for 10 secs. PTCA balloon inflated at 6 atms for 7 secs. PTCA b alloon inflated at 6 atms for 8 secs. Synergy 2.25 x 32 Drug Eluting stent was inserted on the superi or wire. Drug Eluting stent was advanced across the lesion in the first diagonal, mid. NC Emerge 2.25 x 12 Balloon catheter was inserted. Balloon catheter was advanced across lesion in the fi rst diagonal, mid. NC Emerge 2.25 x 12 Balloon catheter was reinserted Balloon catheter was advanced across lesion in the first diagonal, mid. The arterial sheath was sutured in place and capped CORONARY ANGIOGRAPHY DOMINANCE: Right Dominant LEFT HEART ASSESSMENT Left Ventricular Ejection Fraction: by LV Gram 65 % Normal Left Ventricular systolic function LVEDP: 20 mmHg Elevated Left Ventricular End Diastolic Pressure Normal LV wall motion LEFT MAIN: Angiographically normal LEFT ANTERIOR DESCENDING ARTERY: PROX LAD: Mild luminal irregularities less than 30% MID LAD: Mild luminal irregularities less than 30% DIAGONAL 1: Mid - 85 % Stenosis CIRCUMFLEX ARTERY: MID CIRC: Mild luminal irregularities less than 30% DISTAL CIRC: Previously placed stent is patent RIGHT CORONARY ARTERY: PROX RCA: Previously placed stent has an instent 20 % restenosis DISTAL RCA: Previously placed stent is patent RT PDA: Ostial - Previously placed stent is patent INTERVENTION INFORMATION LESION SITE: 1st Diagonal (Mid) Lesion Complexity: High/C, lesion at bifurcation: Yes, thrombus present: No, lesion length: 32 mm, cu lprit lesion: Yes Pre Stenosis: 85 % Pre intervention VI flow: 3 PROCEDURE: Drug Eluting Stent with pre and post dilatation Post Stenosis: 0 % Post intervention VI flow: 3 Lesion Devices: Reviews42 6 Fr EBU3.75 100cm Guide Catheter Ledbetter .014 [employer] Straight 190cm Sylvester Sci EMERGE MR 1.50x08 BALLOON Ledbetter .014 [employer] [place] Straight 190cm Sylvester Sci EMERGE MR 2.00x12 BALLOON Sylvester Sci Synergy MR CASSIE 2.25x32 Sylvester Sci NC EMERGE MR 2.25x12 BALLOON COMPLICATIONS No Complications PROCEDURE MEDICATIONS Versed 1 mg IV Oxygen: 2 L/min via nasal cannula Baby Aspirin (81mg) 1 Tabs PO @ 02/24/2019 07:13:40 Heparin 6000 unit(s) IV 02/24/2019 08:56:05 Nitro 200 mcg IC 02/24/2019 08:46:34 Nitro 200 mcg IC 02/24/2019 08:46:34 Nitro 200 mcg IC 02/24/2019 08:57:50 IV Bolus: .9 NaCl 450 ml total 02/24/2019 08:56:12 SUMMARY OF HEMODYNAMIC DATA Time AIR REST ECG 07:14:06 AO 141/89 (113) SA 08:45:40 LV 156/-8, 22 08:52:59 LV 165/-7, 26 08:53:06 LVp 149/-7, 16 08:53:59 AOp 143/83 (107) 08:54:04 Signed By Juvenal Frausto MD On 02/24/2019 9:44:05 AM Juvenal Frausto MD
[2019-02-24 09:51] LABS: ACT Activated Clotting Time 208 sec (74-137)
[2019-02-24] MEDS: 0.9% Normal Saline 1,000 ML 150 ML IV (10:00)
--- NOTE | 2019-02-24 10:11 | EKG12_ITS ---
Test Reason : POST HEART CATH Blood Pressure : / mmHG Vent. Rate : 058 BPM Atrial Rate : 058 BPM P-R Int : 184 ms QRS Dur : 096 ms QT Int : 446 ms P-R-T Axes : 036 -24 134 degrees QTc Int : [address] & T wave abnormality, consider lateral ischemia Abnormal ECG When compared with ECG of 21-JAN-2019 14:39, No significant change was found Confirmed by SILVIA FRAUSTO ([id number]), map editor MARYAM CATHERINE ([id number]) on 02/26/2019 11:26:10 AM Referred By: Silvia Frausto Confirmed By:SILVIA FRAUSTO
--- NOTE | 2019-02-24 10:31 | CRPHASE1 ---
Patient Communication Former Patient:: Phase I - 04/01/2018 and 04/23/2018, Phase II PHII Cardiac Rehab Discussed with Patient:: Yes Guide to Cardiac Rehab Given to Patient:: Yes Cardiac Rehab Facility Choice List Given to Patient:: Yes Choice Program [facility] PHII:: Communication Given to CR, Refer to [facility] Licensed Staff Mft:: Juvenal Frausto Refer Phase II Cardiac Rehab:: Yes Sessions:: 36 sessions - 3 days/wk, 12 weeks - Patient previously received A Guide to Your Cardiac Rehab booklet on previous interventions and did not want another booklet. Risk Factors/Lifestyle Smoking Status: Current some day smoker Hx Hypertension: Yes Hx Diabetes Mellitus Type 2: Yes Hx Dyslipidemia: Yes Hx Obesity: No - BMI 26 Height: 6 ft 2 in Weight:: 209 lb BMI: 26.8 Caffeine: Yes Substance Abuse: No Hospital Course Presenting Symptoms:: abnormal EKG, abnormal stress echo, previous ASHD, previous stents, NSTEMI 03/2018 Medical/Surgical History NC:: Yes - 03/31/2018 CAD:: Yes Diabetes Type II:: Yes Hypertension:: Yes Dyslipidemia:: Yes PTCA:: Yes - 04/01/2018, 04/23/2018, today. Cardiac Rehabilitation Info Cardiac Rehabilitation Program Information: Cardiac Rehabilitation is important for patients like you who are recovering from a heart problem. Cardiac rehabilitation programs are recognized as integral to the continued care of the patient with coronary heart disease. The cardiac rehabilitation program is designed to optimize a patient's physical, psychological, and social functioning. Health intensive care anaesthetist work in cardiac rehabilitation programs and assist you with getting the treatments you need to get stronger and healthier - like exercise, healthy eating habits, and medications. Cardiac rehabilitation has been show to help people with heart problems live longer and have better life enjoyment than people who do not go to cardiac rehabilitation. Please contact the Cardiac Rehabilitation Program at [facility] at in two weeks if you have not heard from them.
--- NOTE | 2019-02-24 10:36 | CRPH1.INST_ITS ---
General Education CAD and cardiac anatomy and function:: Patient communicates acknowledgment Explanation of diagnoses and procedures:: Patient communicates acknowledgment Sign/Symptoms of NE:: Patient communicates acknowledgment Antiplatelet therapy: Patient communicates acknowledgment Proper use of NTG-SL: Patient communicates acknowledgment Emergency procedures and activation of EMS: Patient communicates acknowledgment Compliance of all prescribed medications: Patient communicates acknowledgment Smoking Patient Nicotine/Smoking Risk Factors Are:: Cigarettes Recommendations Include:: Smoking cessation strategies/Smoking packet, Second- hand smoke recommendation, Participation in a smoking cessation program Nicotine/Smoking Response Code:: Patient communicates acknowledgment Dyslipidemia Patient Dyslipidemia Risk Factors Are:: Total Cholesterol - 129, Triglycerides - 88, HDL - 38, LDL - 73 Recommendations Include:: Lipid profile provided Dyslipidemia Response Code:: Patient communicates acknowledgment Overweight/Obesity Patient Overweight/Obesity Risk Factors Are:: BMI Normal [18-25 & < 65 years old] - BMI 26.8 Recommendations Include:: Reduced calorie diet, Exercise 5-7 times/week Overweight/Obesity:: Patient communicates acknowledgment Hypertension Recommendations Include:: Maintain BP <130/85, BP <130/80 if diabetic, DASH dietary guidelines, Decrease/maintain normal body weight Hypertension:: Patient communicates acknowledgment Heart Disease Patient Heart Disease Risk Factors Are:: Family history of heart disease < 65 years old, Previous cardiac event Recommendations Include:: Educated family members of their risk, Educated family members of importance of prevention of heart disease Heart Disease Response Code:: Patient communicates acknowledgment Diabetes Patient Diabetes Risk Factors Are:: Elevated blood sugars Date of HgbA1c:: 04/13/18 - 6.3 Recommendations Include:: Maintain fasting blood sugars 70-110 md/dL, Maintain HgbA1c of 6% or less, Monitor blood sugar as prescribed, Diabetic dietary guidelines, Decrease/maintain body weight Diabetes:: Patient communicates acknowledgment
[2019-02-24 11:05] LABS: ACT Activated Clotting Time 158 sec (74-137)
[2019-02-24 12:01] LABS: Bedside Glucose 147 mg/dL (70-110)
[2019-02-24] MEDS: hydroCHLOROthiazide 12.5mg 12.5 MG PO (12:06)
[2019-02-24] MEDS: Isosorbide Mononitrate 30 MG Tablet PO (12:06)
[2019-02-24] MEDS: Pantoprazole Sodium 40 MG Tablet PO (12:06)
[2019-02-24 17:15] LABS: Bedside Glucose 169 mg/dL (70-110)
[2019-02-24] MEDS: Acetaminophen 325 MG Tablet 650 MG PO (19:28)
[2019-02-24] MEDS: Carvedilol 12.5 MG Tablet PO (21:17)
[2019-02-24] MEDS: Atorvastatin Calcium 80 MG Tablet PO (21:17)
[2019-02-24] MEDS: Insulin Lispro 100 UNIT/ML INSULN.PEN SC (21:25)
[2019-02-24 21:35] LABS: Bedside Glucose 218 mg/dL (70-110)
[2019-02-25] VITALS (13 sets, daily range): BP systolic 141–174; BP diastolic 65–99; PULSE 59–71; RESP 12–20; TEMP 36.6; O2SAT 95–99
[2019-02-25 04:55] LABS: Hemoglobin 12.5 g/dL (13.0-16.5); Mean Corp Hgb Conc 33.8 g/dL (32-36); Mean Corpuscular Hgb 32.9 pg (27.0-32.0); Mean Corpuscular Volume 97.4 fL (80-94); Mean Platelet Vol. 11.2 fl (6.2-12.0); Platelet Count 155 K/mm3 (150-450); RBC Distribution Width CV 12.5 % (11.6-14.6); RBC Distribution Width SD 44.8 fl (35.1-43.9); White Blood Count 9.3 K/mm3 (4.4-11.0)
[2019-02-25 05:12] LABS: AST(SGOT) 18 U/L (15-37); Alanine Aminotransfer ALT/SGPT 32 U/L (16-61); Albumin, Serum 3.1 g/dL (3.2-5.0); Alkaline Phosphatase 75 U/L (45-117); Anion Gap 5 (5-15); BUN 17 mg/dL (7-18); BUN/Creat Ratio 13.3 RATIO (10-20); Calcium,Total 7.8 mg/dL (8.5-10.1); Chloride 104 mmol/L (98-107); Cholesterol 174 mg/dL (200); Creatinine, Serum 1.28 mg/dL (0.70-1.30); EST Glomerular Filtration Rate 62 mL/min (>60); Est Glom Filt Rate - Afr Amer 75 mL/min (>60); Globulin 3.2 g/dL (2.2-4.2); Glucose 204 mg/dL (74-106); High Density Lipoprotein 38 mg/dL; Potassium 3.6 mmol/L (3.5-5.1); Protein, Total 6.3 g/dL (6.4-8.2); Sodium Level 137 mmol/L (136-145); Triglycerides 99 mg/dL; Very Low Density Lipoprotein 20 mg/dL (5-40)
[2019-02-25] MEDS: Aspirin 81 MG TAB.CHEW PO (07:14)
[2019-02-25] MEDS: Carvedilol 12.5 MG Tablet PO (07:15)
[2019-02-25] MEDS: Isosorbide Mononitrate 30 MG Tablet PO (07:15)
[2019-02-25] MEDS: amLODIPine 10 MG Tablet PO (07:15)
[2019-02-25] MEDS: Insulin Lispro 100 UNIT/ML INSULN.PEN SC (07:59)
--- NOTE | 2019-02-25 08:04 | DCINST_ITS ---
Discharge Diet: Low fat/ Low Cholesterol Discharge Activity: Return to Normal Activity May shower in (days): 1 Lifting Restrictions: 10 pounds and also avoid any pushing or pulling for 3 days after your test. Call your doctor if your incision/area has: Continuous Slow Oozing, Sudden Increased Bleeding, Increased Pain/ Swelling, Increased Redness, Foul Smelling Discharge, Swelling at the incision site Call your doctor if you observe: Fever of 101 or Higher, Shortness of breath, Chest pain Remove Dressing in (days):: 1 Additional Dressing/Incision Instructions:: Keep the dressing (bandage) on until the next morning. You may then shower, but do not take a tub bath for 5 days after your test. It is normal to have some tenderness and discomfort at the puncture site. Sometimes bruising also occurs. However, if pain, numbness, or coldness occurs below the puncture site (in your leg, toes, arms or fingers) call your doctor at once. You may have a small, marble sized knot at the puncture site. This is normal. Do not rub it. It will go away in 4-6 weeks. Bleeding can occur from the area where the puncture was done. Blood may spurt or drip from the site. If blood spurts, apply pressure right away to stop bleeding and call 911. Although rare, bleeding into the tissue (hematoma) can also occur. If this happens, a large, firm area goose egg under the skin will appear. If any of these occur, lie down as flat as you can and have someone apply firm pressure to the cath site with a gauze pad or a clean washcloth for 10-15 minutes. Call 911 or go to the Emergency Department. Additional Instructions: You need to stay on Plavix at least one year before it is stopped. You were started on a long acting nitrate for BP control called Isosorbide at 30 mg daily. Please monitor your BP readings at home a few times a week. We will see if we need to make any adjustments in the office. When I see you in the office we can further discuss cardiac rehab. Allergies/Adverse Reactions: Allergies latex Allergy (Verified 01/06/19 12:47) Hives Sulfa (Sulfonamide Antibiotics) Allergy (Verified 01/06/19 12:47) Hives Medications to take at Discharge Metformin HCl 500 mg PO DAILY #0 04/15/17 Nitroglycerin (INPATIENT USE) [Nitrostat] 0.4 mg SUBLINGUAL Q5M PRN #30 tab 04/02/18 aspirin 81 mg chewable tablet 81 mg PO DAILY@0800 #90 tab.chew 04/17/18 pantoprazole 40 mg tablet,delayed release 40 mg PO DAILY #90 tab 04/17/18 Docusate Sodium [Colace] 100 mg PO BID #60 cap 01/06/19 Hydrocortisone/Pramoxine [Proctofoam-Hc 1%-1% Foam] 10 gm UT BID #1 foam 01/06/19 Amlodipine [Norvasc] 10 mg PO DAILY #90 tab 02/25/19 Atorvastatin Calcium [Lipitor] 80 mg PO QHS #90 tab 02/25/19 Carvedilol [Coreg (Beta Yonny)] 12.5 mg PO BID #180 tab 02/25/19 Clopidogrel Bisulfate [Plavix] 75 mg PO DAILY #90 tab 02/25/19 Insulin Lispro [Humalog KwikPen] See Protocol SUBCUT ACHS insuln.pen 02/25/19 Isosorbide Mononitrate [Imdur] 30 mg PO DAILY #90 tab 02/25/19 Losartan Potassium [Cozaar] 100 mg PO DAILY #90 tab 02/25/19 hydroCHLOROthiazide [Hydrochlorothiazide] 12.5 mg PO DAILY #90 cap 02/25/19 The following prescriptions were given: Carvedilol [Coreg (Beta Yonny)] 12.5 mg PO BID #180 tab Transmission Status: Pending to [facility] Losartan Potassium [Cozaar] 100 mg PO DAILY #90 tab Transmission Status: Pending to [facility] hydroCHLOROthiazide [Hydrochlorothiazide] 12.5 mg PO DAILY #90 cap Transmission Status: Pending to [facility] Isosorbide Mononitrate [Imdur] 30 mg PO DAILY #90 tab Transmission Status: Pending to [facility] Atorvastatin Calcium [Lipitor] 80 mg PO QHS #90 tab Transmission Status: Pending to [facility] Amlodipine [Norvasc] 10 mg PO DAILY #90 tab Transmission Status: Pending to [facility] Clopidogrel Bisulfate [Plavix] 75 mg PO DAILY #90 tab Transmission Status: Pending to [facility] Orders to be completed after discharge: Phase II, Outpatient Cardiac Rehab Location: None Selected Primary Care Physician: ORTIZ KOEHLER [Other] Test Results: Test results from this visit will be discussed in further detail at your follow- up appointment, if applicable. Please Follow Up With: Dail Lewis PA When: 03/11/2019 at 1530 Cardiac Rehabilitation Info Cardiac Rehabilitation Program Information: Cardiac Rehabilitation is important for patients like you who are recovering from a heart problem. Cardiac rehabilitation programs are recognized as integral to the continued care of the patient with coronary heart disease. The cardiac rehabilitation program is designed to optimize a patient's physical, psychological, and social functioning. Health certified caregiver work in cardiac rehabilitation programs and assist you with getting the treatments you need to get stronger and healthier - like exercise, healthy eating habits, and medications. Cardiac rehabilitation has been show to help people with heart problems live longer and have better life enjoyment than people who do not go to cardiac rehabilitation. Please contact the Cardiac Rehabilitation Program at [facility] at in two weeks if you have not heard from them.
[2019-02-25 08:06] LABS: Bedside Glucose 184 mg/dL (70-110)
[2019-02-25] MEDS: Clopidogrel Bisulfate 75 MG Tablet PO (09:49)
[2019-02-25] MEDS: Losartan Potassium 100 MG Tablet PO (09:49)
[2019-02-25] MEDS: hydroCHLOROthiazide 12.5mg 12.5 MG PO (09:49)
[2019-02-25] MEDS: Docusate Sodium 100 MG Capsule PO (09:49)
[2019-02-25] MEDS: Pantoprazole Sodium 40 MG Tablet PO (09:49)
--- NOTE | 2019-02-25 10:00 | EKG12_ITS ---
Test Reason : AM Blood Pressure : / mmHG Vent. Rate : 063 BPM Atrial Rate : 063 BPM P-R Int : 198 ms QRS Dur : 098 ms QT Int : 428 ms P-R-T Axes : 052 -09 128 degrees QTc Int : 437 ms Normal sinus rhythm T wave abnormality, consider lateral ischemia Abnormal ECG When compared with ECG of 24-FEB-2019 09:57, MANUAL COMPARISON REQUIRED, DATA IS UNCONFIRMED Confirmed by SILVIA FRAUSTO ([id number]), editor city MARYAM CATHERINE ([id number]) on 02/26/2019 11:26:28 AM Referred By: Silvia Frausto Confirmed By:SILVIA FRAUSTO
--- NOTE | 2019-02-25 10:13 | PN.CARD_ITS ---
Subjectve: Patient doing very well this morning, no chest pain. No 24-hour events. Telemetry negative. EKG shows normal sinus rhythm with left ventricle hyper trophy and old lateral T wave inversion. No acute changes noted. Right is clean/dry/intact, without evidence of thrills, bruits or hematoma. Objective: Vital Signs Temp Pulse Resp BP Pulse Ox 97.9 F 71 20 H 142/85 H 99 02/25/19 08:00 02/25/19 09:51 02/25/19 09:51 02/25/19 09:51 02/25/19 09:51 Oxygen Delivery Method Room Air Weight: 210 lb 8.663 oz Body Mass Index (BMI) 26.9 Intake and Output for Last 24 Hours 02/23/19 02/24/19 02/25/19 23:59 23:59 23:59 Intake Total 2220 / 2220 120 / 120 Output Total 1680 / 1680 950 / 950 Balance 540 / 540 -830 / -830 General: Awake, Alert, Oriented x 3 HEENT: PERRL, EOMI, Sclera Non Icteric Neck: Supple, Good ROM, No Lymph Node Enlargement Lungs: Clear to auscultation Cardiovascular: Regular Rhythm, Normal S1, Normal S2, No Murmurs, No Rubs, No Gallops Vascular: No Carotid Bruits, Normal Femoral Pulses, Normal Radial Pulses, Normal Dorsalis Pedal Pulse, Normal Posterior Tibial Pulses Abdomen: Bowel Sounds Present, Soft, Non Tender, No HSM, No Organomegaly Extremities: No Cyanosis, No Clubbing, No edema Neurological: No Focal Motor or Sensory Deficit 02/25/19 04:40: WBC 9.3, RBC 3.80 L, Hgb 12.5 L, Hct 37.0 L, MCV 97.4 H, MCH 32.9 H, MCHC 33.8, Plt Count 155, MPV 11.2 02/25/19 04:40: Sodium 137, Potassium 3.6, Chloride 104, Carbon Dioxide 28.0, Anion Gap 5, BUN 17, Creatinine 1.28, Est GFR (MDRD) Af Amer 75, Est GFR (MDRD) Non-Af 62, BUN/Creatinine Ratio 13.3, Glucose 204 H, Calcium 7.8 L, Total Bilirubin 0.50, Triglycerides 99, Cholesterol 174, LDL Cholesterol 116, VLDL Cholesterol 20, HDL Cholesterol 38 L Rhythm: EKG: ECHO: Stress Test: Cardiac Cath: PCI: CT Surgery: Holter monitor: EPS: PPM: CXR: Chest CT Scan: Medical Necessity - Tobacco Use Smoking Status: Current some day smoker Assessment/Plan 1. Coronary artery disease: Patient status post angioplasty and drug-eluting stent to his diagonal #1 with an excellent result result. No chest pain overnight. Antihypertensive therapy modified by adding Imdur 30 mg p.o. daily to his antihypertensive regimen. I recommended the patient be discharged home. The patient continue on baby aspirin for life given his multitude of stents and progression of coronary disease. I strongly encouraged the patient discontinue all tobacco products. In addition he will be discharged home on amlodipine, Coreg, losartan. 2. Hyperlipidemia: Continue Lipitor. Repeat lipid profile after cardiac rehab. 3. Patient be discharged home and follow-up with Dr. Frausto going forward. Code Visit Inpatient E&M: [id number] Subs Hosp L2
== END 2019-02-25 10:39 | disposition home or self-care (01) ==
LOC: CLSP 06:18 → ICU 02-25 11:28
PROVIDERS: Referring Provider Internal Medicine Cardiovascular Disease; Visit Provider Internal Medicine Cardiovascular Disease
DX: I25.10 Atherosclerotic heart disease of native coronary artery without angina pectoris (principal); I25.2 Old myocardial infarction; E11.9 Type 2 diabetes mellitus without complications; I10 Essential (primary) hypertension; E78.5 Hyperlipidemia, unspecified; Z95.5 Presence of coronary angioplasty implant and graft; Z79.4 Long term (current) use of insulin; Z79.82 Long term (current) use of aspirin; Z79.84 Long term (current) use of oral hypoglycemic drugs; Z79.02 Long term (current) use of antithrombotics/antiplatelets; Z79.899 Other long term (current) drug therapy; Z87.891 Personal history of nicotine dependence
CPT/HCPCS: 80053; 80061; 82962; 85027; 85347; 92928; 93005; 93458; 99152; 99153; J7030; J7040; Q9967; C1725; C1769; C1874; C1887; C1894; C9600

== ENCOUNTER → 2019-12-02 10:55 | Outpatient (CLI) | payer MEDICAID, SELFPAY ==
[2019-02-24 10:36] VITALS: BMI 26.8
[2019-12-02 10:12] VITALS: BMI 24.5
[2019-12-02 11:32] LABS: Absolute Lymphocyte Count 1.69 X10^3/uL (0.83-4.51); Absolute Neutrophil Count 5.7 X10^3/uL (2.0-7.7); Basophil# 0.07 X10^3/uL; Basophil% 0.8 % (0-1); Eosinophil# 0.27 X10^3/uL; Eosinophils% 3.2 % (0-5); Hematocrit 46.2 % (40-54); Hemoglobin 15.3 g/dL (13.0-16.5); Lymphocyte # 1.69 X10^3/ul (4.0); Lymphocyte % 20.1 % (19-41); Mean Corp Hgb Conc 33.1 g/dL (32-36); Mean Corpuscular Hgb 33.3 pg (27.0-32.0); Mean Corpuscular Volume 100.7 fL (80-94); Mean Platelet Vol. 11.4 fl (6.2-12.0); Monocyte% 7.2 % (0-10); NRBC Flagged by Analyzer 0 % (0-5); Neutrophil # 5.74 X10^3/uL (2.7-7.7); Neutrophil % 68.5 % (47-70); Platelet Count 197 K/mm3 (150-450); RBC Distribution Width CV 12.7 % (11.6-14.6); RBC Distribution Width SD 47.5 fl (35.1-43.9); Red Blood Count 4.59 M/mm3 (4.6-6.2); White Blood Count 8.4 K/mm3 (4.4-11.0)
[2019-12-02 11:49] LABS: AST(SGOT) 14 U/L (15-37); Alanine Aminotransfer ALT/SGPT 27 U/L (16-61); Albumin, Serum 3.8 g/dL (3.2-5.0); Alkaline Phosphatase 78 U/L (45-117); Anion Gap 4 (5-15); BUN 19 mg/dL (7-18); BUN/Creat Ratio 14.2 RATIO (10-20); Calcium,Total 8.8 mg/dL (8.5-10.1); Chloride 100 mmol/L (98-107); Cholesterol 174 mg/dL (200); Creatinine, Serum 1.34 mg/dL (0.70-1.30); EST Glomerular Filtration Rate 59 mL/min (>60); Est Glom Filt Rate - Afr Amer 71 mL/min (>60); Glucose 195 mg/dL (74-106); High Density Lipoprotein 47 mg/dL; Protein, Total 7.8 g/dL (6.4-8.2); Sodium Level 137 mmol/L (136-145); Triglycerides 145 mg/dL; Very Low Density Lipoprotein 29 mg/dL (5-40)
== END ==
PROVIDERS: Referring Provider Physician Assistant Medical; Visit Provider Physician Assistant Medical
DX: I10 Essential (primary) hypertension (principal); I25.10 Atherosclerotic heart disease of native coronary artery without angina pectoris
CPT/HCPCS: 36415; 80053; 80061; 85025

== ENCOUNTER 2020-07-02 23:32 | Emergency (ER) | payer MEDICAID, SELFPAY ==
[2019-02-24 10:36] VITALS: BMI 26.8
[2019-12-02 10:12] VITALS: BMI 24.5
[2020-07-02 23:33] VITALS: BP 138/85; PULSE 69; RESP 14; TEMP 36.6; O2SAT 95; BMI 28.4
--- NOTE | 2020-07-03 00:24 | CT_ITS ---
History: altered ms EXAMINATION: CT Head or Brain W/O Contrast Injection .Sagittal and coronal 2-D reformats TECHNIQUE: Multiple axial images were obtained of the head without intravenous contrast. A radiation dose optimization technique was used for this scan. IV Contrast dosage and agent: None 254 COMPARISON: April 14, 2017 FINDINGS: BRAIN PARENCHYMA: No intra- or extra-axial hemorrhage. No evidence of acute infarct. No intracranial mass or mass effect. There is preservation of the mcmahon/white matter interface. Posterior fossa structures are unremarkable. CSF SPACES: Appropriate for age. No hydrocephalus. Basal cisterns are patent. CALVARIUM, SKULL BASE, PARANASAL SINUSES AND MASTOID AIR CELLS: Old right lamina papyracea fracture. Some calcific plaque within the cavernous ICAs. Paranasal sinuses are clear. No discrete lytic or blastic abnormalities. ORBITS: Both globes, extraocular muscles, optic nerves and retrobulbar fat appear unremarkable. ASPECTS Score for Acute Strokes: 10 CT/Brain/Head without Contrast IMPRESSION: Negative Brain CT without contrast. Individualized dose optimization techniques were used for this CT. at 0124 Reported and signed by: Jeancarlos Ash MD Electronically Signed: Jeancarlos Ash MD at 1:22 EDT Tel , Service support ,
--- NOTE | 2020-07-03 00:25 | EDS_ITS ---
HPI History of Present Illness Chief Complaint: ETOH Intox Narrative Narrative: Reported that the patient was found on the floor at a bar intoxicated. Patient cannot give a history. He is resting in the bed sleeping slurring his words consistent with intoxication. He is on a baby aspirin. No reported history of injury. EMS brought the patient in for further evaluation. They did not see any outward evidence of trauma. [facility] Medical History Abnormal EKG Abnormal stress echo Atherosclerotic heart disease of [place] coronary artery without angina pectoris HTN (hypertension) Non-STEMI (non-ST elevated myocardial infarction) (03/31/18) PVC's (premature ventricular contractions) Type 2 diabetes mellitus Home Medications nitroglycerin 0.4 mg SUBLINGUAL Q5M PRN #30 tab 04/02/18 [Rx Last Taken Unknown] aspirin 81 mg chewable tablet 81 mg PO DAILY@0800 #90 tab.chew 04/17/18 [Rx Last Taken 02/24/19] pantoprazole 40 mg tablet,delayed release 40 mg PO DAILY #90 tab 04/17/18 [Rx Last Taken Unknown] losartan 100 mg PO DAILY #90 tab 02/25/19 [Rx Last Taken Unknown] clopidogrel 75 mg tablet 75 mg PO DAILY #30 tab 10/13/19 [Rx Last Taken Unknown] amlodipine 10 mg tablet 10 mg PO DAILY #90 tab 11/16/19 [Rx Last Taken Unknown] metformin 500 mg tablet 500 mg PO BID tab 12/02/19 [History Last Taken Unknown] atorvastatin 80 mg tablet 80 mg PO QHS #90 tab 03/01/20 [Rx Last Taken Unknown] carvedilol 12.5 mg tablet 12.5 mg PO BID #180 tab 03/21/20 [Rx Last Taken Unknown] hydrochlorothiazide 12.5 mg capsule 12.5 mg PO DAILY #90 cap 03/21/20 [Rx Last Taken Unknown] Allergy/AdvReac Type Severity Reaction Status Date / Time latex Allergy Hives Verified 12/02/19 10:11 Sulfa (Sulfonamide Allergy Hives Verified 12/02/19 10:11 Antibiotics) Surgical History Stented coronary artery (02/24/19) Social History Smoking Status: Current some day smoker ROS ROS ED ROS Narrative Unable to obtain secondary to the patient intoxicated EXAM Physical Exam Narrative Exam Narrative: Vital signs reviewed General: Well-nourished well-developed Head: Normocephalic atraumatic Eyes: Pupils equal round and reactive to light extraocular movements intact ENT: TMs clear no hemotympanum no trauma Neck: Nontender full range of motion Cardiovascular: Regular rate rhythm no murmurs normal S1-S2 Respiratory: No distress clear to auscultation bilaterally chest nontender Abdomen: Soft nontender nondistended normal bowel sounds no masses Back: Nontender no CVA tenderness Extremities: Nontender active range of motion ?4 extremities no trauma Skin: Normal color no trauma Neuro patient appears intoxicated with alcohol cranial nerves II through XII intact normal strength sensation reflexes Const Vital Signs: 07/02/20 23:33 07/03/20 00:39 07/03/20 00:57 Temperature 98 F Temperature Source Temporal Pulse Rate 69 62 60 Respiratory Rate 14 16 16 Blood Pressure 138/85 H 120/77 126/79 H Blood Pressure Mean 102 91 94 Pulse Ox 95 93 88 Oxygen Delivery Method Room Air Room Air Room Air Oxygen Flow Rate (L/min) 07/03/20 01:01 07/03/20 03:03 Temperature Temperature Source Pulse Rate 75 Respiratory Rate 16 14 Blood Pressure 137/83 H Blood Pressure Mean 101 Pulse Ox 98 98 Oxygen Delivery Method Nasal Cannula Room Air Oxygen Flow Rate (L/min) 2 MDM MDM MDM Narrative Medical decision making narrative: Monitored in the emergency department. CT h ead obtained. CT head showed nothing acute. Patient will be monitored until sobriety in the morning. Ambulate in the department woke up at 6:00. Will be discharged upon sobriety Radiography Diagnostic Testing: Radiology Impression Brain CT 07/03/20 00:24 IMPRESSION: Negative Brain CT without contrast. Individualized dose optimization techniques were used for this CT. at 0124 Reported and signed by: Jeancarlos Ash MD Electronically Signed: Jeancarlos Ash MD at 1:22 EDT Tel , Service support , Discharge Plan Triage Chief Complaint: ETOH Intox ED Provider: Arthur Bales Dx/Rx/DC Orders Clinical Impression: Alcohol intoxication Instructions: ED Alcohol Abuse Prescriptions: No Action pantoprazole 40 mg tablet,delayed release (DR/EC) 40 mg PO DAILY Qty: 90 RF: 3 aspirin 81 mg tablet,chewable 81 mg PO DAILY@0800 Qty: 90 RF: 3 metformin 500 mg tablet 500 mg PO BID RF: 0 nitroglycerin 0.4 MG tablet 0.4 mg SUBLINGUAL Q5M PRN (Reason: Cardiac/Chest Pain) Qty: 30 RF: 0 losartan 100 mg tablet 100 mg PO DAILY Qty: 90 RF: 3 clopidogrel 75 mg tablet 75 mg PO DAILY Qty: 30 RF: 12 amlodipine 10 mg tablet 10 mg PO DAILY Qty: 90 RF: 3 atorvastatin 80 mg tablet 80 mg PO QHS Qty: 90 RF: 3 hydrochlorothiazide 12.5 mg capsule 12.5 mg PO DAILY Qty: 90 RF: 3 carvedilol 12.5 mg tablet 12.5 mg PO BID Qty: 180 RF: 3 Primary Care Provider: Care Physician,No Primary Referrals: Care Physician,No Primary [Primary Care Provider] - Disposition Disposition: Home, self care
[2020-07-03 00:39] VITALS: BP 120/77; PULSE 62; RESP 16; O2SAT 93
[2020-07-03 00:57] VITALS: BP 126/79; PULSE 60; RESP 16; O2SAT 88
[2020-07-03 01:01] VITALS: RESP 16; O2SAT 98
[2020-07-03 03:03] VITALS: BP 137/83; PULSE 75; RESP 14; O2SAT 98
[2020-07-03 06:21] VITALS: PULSE 68; RESP 14; O2SAT 98
== END 2020-07-03 06:22 | disposition home or self-care (01) ==
PROVIDERS: Emergency Provider Emergency Medicine
DX: F10.129 Alcohol abuse with intoxication, unspecified (principal); Y90.9 Presence of alcohol in blood, level not specified; I10 Essential (primary) hypertension; E11.9 Type 2 diabetes mellitus without complications; I25.2 Old myocardial infarction; I25.10 Atherosclerotic heart disease of native coronary artery without angina pectoris; Z79.82 Long term (current) use of aspirin; Z79.84 Long term (current) use of oral hypoglycemic drugs; Z79.899 Other long term (current) drug therapy; F17.200 Nicotine dependence, unspecified, uncomplicated
CPT/HCPCS: 70450; 99285

== ENCOUNTER 2021-06-17 02:43 | Emergency (ER) | payer MEDICAID, SELFPAY ==
[2019-02-24 10:36] VITALS: BMI 26.8
[2021-06-17] VITALS (7 sets, daily range): BP systolic 156–230; BP diastolic 90–127; PULSE 81–100; RESP 14–24; TEMP 36.4–37.1; O2SAT 98–100; BMI 24.4
--- NOTE | 2021-06-17 02:48 | ED.RN ---
patient in the room yelling at cursing at nursing staff and supervisory cbp officer at this time patient not willing to answer questions and dago keeps cussing out nursing staff
--- NOTE | 2021-06-17 02:49 | CT_ITS ---
INDICATION: chest pain. History of hypertension, diabetes, CAD, IA, GERD, smoker EXAMINATION: CTA CHEST, ABDOMEN AND PELVIS WITH CONTRAST - TECHNIQUE: A CTA of the chest, abdomen, and pelvis is obtained with sagittal and coronal reconstructed MIP views. Three-dimensional surface rendered sequence of the thoracic and abdominal aorta was obtained. A radiation dose optimization technique was used for this scan. 100 mL of Isovue-370. Oral contrast: None. COMPARISON; portable chest x-ray 06/17/2021. 01/21/2019. 03/31/2018. CTA chest 03/31/2018. FINDINGS: CT CHEST: THORACIC AORTA: No aneurysmal changes or dissection. ABDOMINAL AORTA: No aneurysm or dissection. No significant atheromatous disease. The iliac arteries are unremarkable. There is atheromatous wall thickening, minimal calcification at the bilateral left greater than right renal artery, proximal superior mesenteric artery course, origin of the celiac trunk,, atherosclerosis of the pelvic arteries right common iliac, bilateral internal iliac arteries. LUNGS: The lungs are well-expanded without acute or chronic changes. No effusions or pneumothorax. MEDIASTINUM: The thyroid gland is normal. No mediastinal or hilar adenopathy. HEART: Heart is enlarged. No pericardial effusion. There is CAD and trace pericardial fluid.. CT ABDOMEN AND PELVIS: LIVER: The liver enhances homogeneously. No masses identified. GALLBLADDER: The CBD is normal. Normal gallbladder. SPLEEN: Normal. PANCREAS: No masses or inflammation. ADRENAL GLANDS: Normal. KIDNEYS AND URETERS: The kidneys both enhance appropriately. There are normal size and shape. No hydronephrosis or nephrolithiasis. No renal masses or cysts. STOMACH: Normal. SMALL BOWEL: No abnormal distention of the small bowel. MESENTERY: No mesenteric inflammation. No ascites. COLON: No significant diverticulosis, masses or inflammation. The colon otherwise is normal. There is a large fatty ileocecal valve. APPENDIX: The appendix is visualized and normal. IVC: Normal. RETROPERITONEUM: No retroperitoneal lymphadenopathy. PELVIC STRUCTURES: Normal bladder. SOFT TISSUES ABDOMEN: The anterior abdominal wall is normal. SOFT TISSUE CHEST: The extrathoracic soft tissues are normal. BONES: Stable left first costochondral junction disruption. No fractures or significant degenerative disease. CT/CTA Chst, Abd, Pel W and/or WO IMPRESSION: No thoracic or abdominal aortic aneurysm, leak or dissection. No pulmonary embolus. Atherosclerosis and coronary artery disease, cardiac enlargement, trace pericardial fluid, age-appropriate degenerative changes as above. No pulmonary edema, congestive heart failure or confluent pneumonia. There is no acute abdomen and pelvic pathology. Electronically Signed: Lyndsey Encarnacion MD at 5:04 EDT Reading Location ID and State: , Service support ,
--- NOTE | 2021-06-17 02:49 | EKG12_ITS ---
Test Reason : CP Blood Pressure : / mmHG Vent. Rate : 086 BPM Atrial Rate : 086 BPM P-R Int : 192 ms QRS Dur : 098 ms QT Int : 404 ms P-R-T Axes : 059 -37 111 degrees QTc Int : 483 ms Normal sinus rhythm Left axis deviation ST & T wave abnormality, consider lateral ischemia Prolonged QT Abnormal ECG Confirmed by EMEKA CHATTERJEE, VALERIA ([id number]), department editor JIMBO GONZALES ([id number]) on 06/19/2021 11:31:00 AM Referred By: LEVON Confirmed By:VALERIA HENDRICKSON MD
--- NOTE | 2021-06-17 02:54 | ED.RN ---
patient refusing blood work at this time
[2021-06-17 03:18] LABS: Absolute Lymphocyte Count 1.83 X10^3/uL (0.83-4.51); Absolute Neutrophil Count 5.7 X10^3/uL (2.0-7.7); Basophil# 0.05 X10^3/uL; Basophil% 0.6 % (0-1); Eosinophil# 0.33 X10^3/uL; Eosinophils% 3.9 % (0-5); Hemoglobin 15.1 g/dL (13.0-16.5); Lymphocyte # 1.83 X10^3/ul (0.83-4.51); Lymphocyte % 21.4 % (19-41); Mean Corp Hgb Conc 34.3 g/dL (32-36); Mean Corpuscular Volume 96.1 fL (80-94); Mean Platelet Vol. 10.7 fl (6.2-12.0); Monocyte# 0.61 X10^3/uL; Monocyte% 7.1 % (0-10); NRBC Flagged by Analyzer 0 % (0-5); Neutrophil # 5.69 X10^3/uL (2.7-7.7); Neutrophil % 66.6 % (47-70); Platelet Count 182 K/mm3 (150-450); RBC Distribution Width CV 13.2 % (11.6-14.6); RBC Distribution Width SD 46.5 fl (35.1-43.9); Red Blood Count 4.58 M/mm3 (4.6-6.2); White Blood Count 8.5 K/mm3 (4.4-11.0)
[2021-06-17] MEDS: hydrALAZINE 20 MG/ML Vial 10 MG IV (03:22)
[2021-06-17 03:41] LABS: Anion Gap 8 (5-15); BUN 16 mg/dL (7-18); BUN/Creat Ratio 12.7 RATIO (10-20); Calcium,Total 8.9 mg/dL (8.5-10.1); Chloride 102 mmol/L (98-107); Creatinine, Serum 1.26 mg/dL (0.70-1.30); EST Glomerular Filtration Rate 63 mL/min (>60); Est Glom Filt Rate - Afr Amer 76 mL/min (>60); Estimated Creatinine Clearance 71.85 ml/min; Glucose 159 mg/dL (74-106); Potassium 3.9 mmol/L (3.5-5.1); Sodium Level 138 mmol/L (136-145); Troponin-I HS (w/2H Reflex) 46 pg/mL (3.0-78.0)
--- NOTE | 2021-06-17 03:52 | ED.VIS.CHEST ---
HPI History of Present Illness Chief Complaint: Chest Pain Narrative Narrative: 56-year-old male with history of NSTEMI, CAD, coronary artery stents x7, type 2 diabetes, hypertension presenting with chest pain which she states is achy, pressure-like, squeezing. The pain does not radiate. The onset of his chest pain was 2 hours ago. He states he called EMS and they recommended transport to the ER however the patient became belligerent with EMS and stated that he would not tell them his name. On arrival to the ER he is belligerent and cussing at all nursing staff and refuses IV initially. He did have a delay in getting an EKG because he refused EKG initially. We had trouble obtaining his name and his Social Security number because he was so hostile. It was reported that he is drinking alcohol tonight. His blood pressure on arrival was 230/127. He states his blood pressure is always high although he does take his medications at home. He states he recently saw Dr. Amador and had refills of his amlodipine, atorvastatin, carvedilol, Plavix, hydrochlorothiazide, losartan, metformin. Patient denies fever, chills, cough. [facility] Medical History Abnormal EKG Abnormal stress echo Atherosclerotic heart disease of [place] coronary artery without angina pectoris HTN (hypertension) Non-STEMI (non-ST elevated myocardial infarction) (03/31/18) PVC's (premature ventricular contractions) Type 2 diabetes mellitus Home Medications nitroglycerin 0.4 mg SUBLINGUAL Q5M PRN #30 tab 04/02/18 [Rx Last Taken Unknown] aspirin 81 mg chewable tablet 81 mg PO DAILY@0800 #90 tab.chew 04/17/18 [Rx Last Taken 02/24/19] pantoprazole 40 mg tablet,delayed release 40 mg PO DAILY #90 tab 04/17/18 [Rx Last Taken Unknown] losartan 100 mg PO DAILY #90 tab 02/25/19 [Rx Last Taken Unknown] metformin 500 mg tablet 500 mg PO BID tab 12/02/19 [History Last Taken Unknown] carvedilol 12.5 mg tablet 12.5 mg PO BID #180 tab 03/21/20 [Rx Last Taken Unknown] amlodipine 10 mg tablet 10 mg PO DAILY #90 tab 10/06/20 [Rx Last Taken Unknown] clopidogrel 75 mg tablet 75 mg PO DAILY #90 tab 10/06/20 [Rx Last Taken Unknown] atorvastatin 80 mg tablet 80 mg PO QHS #90 tab 01/30/21 [Rx Last Taken Unknown] hydrochlorothiazide 12.5 mg capsule 12.5 mg PO DAILY #90 cap 03/06/21 [Rx Last Taken Unknown] Allergy/AdvReac Type Severity Reaction Status Date / Time latex Allergy Hives Verified 06/17/21 02:44 Sulfa (Sulfonamide Allergy Hives Verified 06/17/21 02:44 Antibiotics) Surgical History Stented coronary artery (02/24/19) Social History Smoking Status: Current some day smoker tobacco type: cigarettes ROS ROS ED Constitutional Constitutional ED: Denies chills or fever(s) Eyes Eyes: Denies blurry vision or change in vision ENT ENT ED: Denies rhinorrhea or sore throat Cardiovascular Cardiovascular: Reports as per HPI Respiratory/Chest Respiratory/Chest: Denies cough, dyspnea or sputum Gastrointestinal Gastrointestinal: Denies abdominal pain, nausea or vomiting Genitourinary Genitourinary ED: Denies dysuria or hematuria Musculoskeletal Musculoskeletal: Denies arthralgias or myalgias Integumentary Denies rash Neurologic Neurologic: Denies headache(s) or weakness Psychiatric Psychiatric: Denies anxiety or depression EXAM Physical Exam Const Vital Signs: 06/17/21 02:45 06/17/21 02:50 06/17/21 02:51 Temperature 97.6 F L Temperature Source Temporal Pulse Rate 100 Respiratory Rate 19 H Respiratory Pattern Normal Blood Pressure 230/127 H Blood Pressure Mean 161 Pulse Ox 98 98 Oxygen Delivery Method Room Air Room Air Oxygen Flow Rate (L/min) 06/17/21 04:26 06/17/21 04:42 06/17/21 05:33 Temperature Temperature Source Pulse Rate 96 87 81 Respiratory Rate 24 H 14 16 Respiratory Pattern Blood Pressure 156/90 H 182/100 H 173/95 H Blood Pressure Mean 112 127 121 Pulse Ox 98 100 100 Oxygen Delivery Method Room Air Nasal Cannula Nasal Cannula Oxygen Flow Rate (L/min) 2 2 06/17/21 06:14 Temperature Temperature Source Pulse Rate 86 Respiratory Rate 16 Respiratory Pattern Blood Pressure 169/99 H Blood Pressure Mean 122 Pulse Ox 98 Oxygen Delivery Method Room Air Oxygen Flow Rate (L/min) Positive well nourished General Appearance ED: NAD; Negative for pallor HEENT normocephalic and atraumatic Eyes PERRL and EOMs intact bilaterally Neck no lymphadenopathy, supple and no JVD Chest Wall inspection of chest normal and palpation of chest normal Resp normal respiratory effort Effort and Inspection: respiratory distress Cardio regular rate and regular rhythm GI normal to inspection, nondistended, normoactive bowel sounds Extremity normal to inspection General Extremety ED: Negative for edema or tenderness General Extremity: Negative for edema Neuro oriented x3 and CN's II-XII intact bilaterally Sensorium / Orientation: awake and alert Motor Exam: strength 5/5 throughout Psych Psych Narrative: Aggressive and yelling at staff. Attitude: agitated Skin General Skin Exam: Negative for jaundice or pallor Heart Score History: Slightly/Non-Suspicious ECG: Normal Age: >45 - <65 years Risk Factors: >/= 3 Risk Factors or History of CAD Troponin: </= Normal Limit Score: 3 MDM MDM MDM Narrative Medical decision making narrative: GIPatient presenting with retrosternal chest pain which she described as aching, squeezing, tightness. Has been on going for about 2 hours. Eventually was obtained after the patient allowed us to obtain this as he was quite agitated and belligerent with staff on arrival. On my interpretation this is a sinus rhythm with a ventricular rate of 86 bpm. Comparison with previous EKG shows that the T wave inversions previously noted in February 2019 in leads V6 have improved. Lead V4 and V5 unchanged. Leads I and aVL have similar T wave inversions as I did at that point. Leads II and III have a significant amount of artifact but there does not appear to be any ischemic change to the best my ability to interpret this. CBC is within normal limits. Renal function electrolytes are normal. High-sensitivity troponin initially is 46. Patient's blood pressure initially 230/120 70 was given 10 mg of hydralazine. He states that his blood pressure is always high even though he states he does take his medications. 169/99. CBC and BMP are unremarkable. Urine drug screen is negative. EtOH 26. High-sensitivity troponin is initially 46. Delta troponin is 169. Patient given 224 mg of baby aspirin. I discussed the case with Dr. Spivey who recommended admission and blood pressure control. He also recommended trending the patient's cardiac enzymes. Patient was discussed with the hospitalist for admission. Impression: 1. Chest pain 2. NSTEMI 3. Uncontrolled hypertension Lab Data Labs: Laboratory Results - last 24 hr 06/17/21 06/17/21 06/17/21 03:15 03:15 04:07 WBC 8.5 RBC 4.58 L Hgb 15.1 Hct 44.0 MCV 96.1 H MCH 33.0 H MCHC 34.3 RDW Std Deviation 46.5 H RDW Coeff of Zehra 13.2 Plt Count 182 MPV 10.7 Immature Gran % (Auto) 0.400 Neut % (Auto) 66.6 Lymph % (Auto) 21.4 [place] % (Auto) 7.1 Eos % (Auto) 3.9 Baso % (Auto) 0.6 Absolute Neuts (auto) 5.7 Absolute Lymphs (auto) 1.83 Nucleated RBC % 0 Sodium 138 Potassium 3.9 Chloride 102 Carbon Dioxide 28.0 Anion Gap 8 BUN 16 Creatinine 1.26 Estim Creat Clear Calc 71.85 Est GFR (MDRD) Af Amer 76 Est GFR (MDRD) Non-Af 63 BUN/Creatinine Ratio 12.7 Glucose 159 H Calcium 8.9 Troponin I High Sens 46 Urine Opiates Screen NEGATIVE Urine Methadone Screen NEGATIVE Ur Barbiturates Screen NEGATIVE Ur Phencyclidine Scrn NEGATIVE Ur Amphetamines Screen NEGATIVE MDMA (Ecstasy) Screen NEGATIVE U Benzodiazepines Scrn NEGATIVE Urine Cocaine Screen NEGATIVE U Cannabinoids Screen NEGATIVE Ur Drug Screen Comment Ethyl Alcohol POC Glucose 06/17/21 06/17/21 06/17/21 04:37 05:16 05:16 WBC RBC Hgb Hct MCV MCH MCHC RDW Std Deviation RDW Coeff of Zehra Plt Count MPV Immature Gran % (Auto) Neut % (Auto) Lymph % (Auto) [place] % (Auto) Eos % (Auto) Baso % (Auto) Absolute Neuts (auto) Absolute Lymphs (auto) Nucleated RBC % Sodium Potassium Chloride Carbon Dioxide Anion Gap BUN Creatinine Estim Creat Clear Calc Est GFR (MDRD) Af Amer Est GFR (MDRD) Non-Af BUN/Creatinine Ratio Glucose Calcium Troponin I High Sens Cancelled Urine Opiates Screen Urine Methadone Screen Ur Barbiturates Screen Ur Phencyclidine Scrn Ur Amphetamines Screen MDMA (Ecstasy) Screen U Benzodiazepines Scrn Urine Cocaine Screen U Cannabinoids Screen Ur Drug Screen Comment Ethyl Alcohol Cancelled POC Glucose 146 H 06/17/21 06/17/21 06/17/21 05:16 06:00 06:00 WBC RBC Hgb Hct MCV MCH MCHC RDW Std Deviation RDW Coeff of Zehra Plt Count MPV Immature Gran % (Auto) Neut % (Auto) Lymph % (Auto) [place] % (Auto) Eos % (Auto) Baso % (Auto) Absolute Neuts (auto) Absolute Lymphs (auto) Nucleated RBC % Sodium Potassium Chloride Carbon Dioxide Anion Gap BUN Creatinine Estim Creat Clear Calc Est GFR (MDRD) Af Amer Est GFR (MDRD) Non-Af BUN/Creatinine Ratio Glucose Calcium Troponin I High Sens Cancelled 169 H* Urine Opiates Screen Urine Methadone Screen Ur Barbiturates Screen Ur Phencyclidine Scrn Ur Amphetamines Screen MDMA (Ecstasy) Screen U Benzodiazepines Scrn Urine Cocaine Screen U Cannabinoids Screen Ur Drug Screen Comment Ethyl Alcohol 26.0 POC Glucose Radiography Diagnostic Testing: Clinical Impression(s) from Imaging Studies Chest/Abdomen/Pelvis CTA 06/17/21 02:49 IMPRESSION: No thoracic or abdominal aortic aneurysm, leak or dissection. No pulmonary embolus. Atherosclerosis and coronary artery disease, cardiac enlargement, trace pericardial fluid, age-appropriate degenerative changes as above. No pulmonary edema, congestive heart failure or confluent pneumonia. There is no acute abdomen and pelvic pathology. Electronically Signed: Lyndsey Encarnacion MD at 5:04 EDT Reading Location ID and State: , Service support , Chest X-Ray 06/17/21 04:20 IMPRESSION: Stable cardiomegaly. No pulmonary edema, congestive heart failure or confluent pneumonia. Electronically Signed: Lyndsey Encarnacion MD at 4:48 EDT Reading Location ID and State: , Service support , Discharge Plan Triage Chief Complaint: Chest Pain ED Provider: Kolby Simon Dx/Rx/DC Orders Prescriptions: No Action pantoprazole 40 mg tablet,delayed release (DR/EC) 40 mg PO DAILY Qty: 90 RF: 3 aspirin 81 mg tablet,chewable 81 mg PO DAILY@0800 Qty: 90 RF: 3 metformin 500 mg tablet 500 mg PO BID RF: 0 nitroglycerin 0.4 MG tablet 0.4 mg SUBLINGUAL Q5M PRN (Reason: Cardiac/Chest Pain) Qty: 30 RF: 0 losartan 100 mg tablet 100 mg PO DAILY Qty: 90 RF: 3 carvedilol 12.5 mg tablet 12.5 mg PO BID Qty: 180 RF: 3 amlodipine 10 mg tablet 10 mg PO DAILY Qty: 90 RF: 3 clopidogrel 75 mg tablet 75 mg PO DAILY Qty: 90 RF: 3 atorvastatin 80 mg tablet 80 mg PO QHS Qty: 90 RF: 3 hydrochlorothiazide 12.5 mg capsule 12.5 mg PO DAILY Qty: 90 RF: 3 Primary Care Provider: Care Physician,No Primary
[2021-06-17] MEDS: Mag Hydrox/Al Hydrox/Simeth 30 ML UDC PO (04:02)
--- NOTE | 2021-06-17 04:20 | RAD_ITS ---
STUDY: X-RAY CHEST REASON FOR EXAM: Male, 56 years old. Chest pain TECHNIQUE: Single AP portable view of the chest. COMPARISON: 01/2019 FINDINGS: There are superimposed monitor leads. The lungs are clear and expanded. There is no demonstrated pleural abnormality. There is mild cardiac enlargement. Normal mediastinum and mathew. Normal visualized pulmonary arteries. There is atherosclerotic calcification of the aortic arch with tortuosity. There are degenerative changes of the visualized thoracic spine. There is degenerative osteoarthritis of the bilateral shoulders. There is no demonstrated abnormality of the visualized soft tissue structures of the upper abdomen. RAD/Chest 1 View (Portable) IMPRESSION: Stable cardiomegaly. No pulmonary edema, congestive heart failure or confluent pneumonia. Electronically Signed: Lyndsey Encarnacion MD at 4:48 EDT Reading Location ID and State: , Service support ,
[2021-06-17 04:35] LABS: Amphetamine Urine VISTA NEGATIVE (<1000 ng/mL); Barbiturate Urine VISTA NEGATIVE (< 200 ng/mL); Benzodiazepine Urine VISTA NEGATIVE (< 200 ng/mL); Cocaine Urine VISTA NEGATIVE (< 300 ng/mL); Ecstacy Urine VISTA NEGATIVE (< 500 ng/mL); Methadone Urine VISTA NEGATIVE (< 300 ng/mL); PCP Urine VISTA NEGATIVE (< 25 ng/mL); THC Urine VISTA NEGATIVE (< 50 ng/mL); Vista UDS pH Range 7
--- NOTE | 2021-06-17 04:40 | ED.RN ---
patient thinks having allergic reaction to CT dye, nurse in the room, patient assessment completed. vitals obtained, dr. bill in the room, no rash noted or other signs of reaction, bgl obtained, patient placed on oxygen per request
[2021-06-17] MEDS: Acetaminophen 500 MG Tablet 1000 MG PO (04:44)
[2021-06-17 04:51] LABS: Bedside Glucose 146 mg/dL (74-106)
[2021-06-17 05:16] LABS: Reflex Troponin-HS? (from REC) Y
[2021-06-17 06:44] LABS: Troponin-I HS 169 pg/mL (3.0-78.0)
--- NOTE | 2021-06-17 06:58 | ED.RN ---
patients friend will pick him up [phone]
[2021-06-17] MEDS: Aspirin 81 MG TAB.CHEW 324 MG PO (07:01)
--- NOTE | 2021-06-17 07:06 | HP.PCM.HOS_ITS ---
HPI - General HPI Narrative JONO MURRY, is a 56 M who presents [facility], [facility] Medical History Abnormal EKG Abnormal stress echo Atherosclerotic heart disease of [place] coronary artery without angina pectoris HTN (hypertension) Non-STEMI (non-ST elevated myocardial infarction) (03/31/18) PVC's (premature ventricular contractions) Type 2 diabetes mellitus Home Medications nitroglycerin 0.4 mg SUBLINGUAL Q5M PRN #30 tab 04/02/18 [Rx Last Taken Unknown] aspirin 81 mg chewable tablet 81 mg PO DAILY@0800 #90 tab.chew 04/17/18 [Rx Last Taken 02/24/19] pantoprazole 40 mg tablet,delayed release 40 mg PO DAILY #90 tab 04/17/18 [Rx Last Taken Unknown] losartan 100 mg PO DAILY #90 tab 02/25/19 [Rx Last Taken Unknown] metformin 500 mg tablet 500 mg PO BID tab 12/02/19 [History Last Taken Unknown] carvedilol 12.5 mg tablet 12.5 mg PO BID #180 tab 03/21/20 [Rx Last Taken Unknown] amlodipine 10 mg tablet 10 mg PO DAILY #90 tab 10/06/20 [Rx Last Taken Unknown] clopidogrel 75 mg tablet 75 mg PO DAILY #90 tab 10/06/20 [Rx Last Taken Unknown] atorvastatin 80 mg tablet 80 mg PO QHS #90 tab 01/30/21 [Rx Last Taken Unknown] hydrochlorothiazide 12.5 mg capsule 12.5 mg PO DAILY #90 cap 03/06/21 [Rx Last Taken Unknown] Allergy/AdvReac Type Severity Reaction Status Date / Time latex Allergy Hives Verified 06/17/21 02:44 Sulfa (Sulfonamide Allergy Hives Verified 06/17/21 02:44 Antibiotics) Surgical History Stented coronary artery (02/24/19) Social History Smoking Status: Current some day smoker tobacco type: cigarettes Vital Signs Vital Signs Vital Signs: 06/17/21 02:45 06/17/21 02:50 06/17/21 02:51 Temperature 97.6 F L Temperature Source Temporal Pulse Rate 100 Respiratory Rate 19 H Respiratory Pattern Normal Blood Pressure 230/127 H Blood Pressure Mean 161 Pulse Ox 98 98 Oxygen Delivery Method Room Air Room Air Oxygen Flow Rate (L/min) 06/17/21 04:26 06/17/21 04:42 06/17/21 05:33 Temperature Temperature Source Pulse Rate 96 87 81 Respiratory Rate 24 H 14 16 Respiratory Pattern Blood Pressure 156/90 H 182/100 H 173/95 H Blood Pressure Mean 112 127 121 Pulse Ox 98 100 100 Oxygen Delivery Method Room Air Nasal Cannula Nasal Cannula Oxygen Flow Rate (L/min) 2 2 06/17/21 06:14 Temperature Temperature Source Pulse Rate 86 Respiratory Rate 16 Respiratory Pattern Blood Pressure 169/99 H Blood Pressure Mean 122 Pulse Ox 98 Oxygen Delivery Method Room Air Oxygen Flow Rate (L/min) Weight Weight: 81.647 kg Body Mass Index (BMI) 24.4 Results Lab / Micro Data Result Diagrams: 06/17/21 03:15 06/17/21 03:15 Labs: Laboratory Results - last 24 hr 06/17/21 03:15: WBC 8.5, RBC 4.58 L, Hgb 15.1, Hct 44.0, MCV 96.1 H, MCH 33.0 H, MCHC 34.3, RDW Std Deviation 46.5 H, RDW Coeff of Zehra 13.2, Plt Count 182, MPV 10.7, Immature Gran % (Auto) 0.400, Neut % (Auto) 66.6, Lymph % (Auto) 21.4, Crosby % (Auto) 7.1, Eos % (Auto) 3.9, Baso % (Auto) 0.6, Absolute Neuts (auto) 5.7, Absolute Lymphs (auto) 1.83, Nucleated RBC % 0 06/17/21 03:15: Sodium 138, Potassium 3.9, Chloride 102, Carbon Dioxide 28.0, Anion Gap 8, BUN 16, Creatinine 1.26, Estim Creat Clear Calc 71.85, Est GFR (MDRD) Af Amer 76, Est GFR (MDRD) Non-Af 63, BUN/Creatinine Ratio 12.7, Glucose 159 H, Calcium 8.9, Troponin I High Sens 46 06/17/21 04:07: Urine Opiates Screen NEGATIVE, Urine Methadone Screen NEGATIVE, Ur Barbiturates Screen NEGATIVE, Ur Phencyclidine Scrn NEGATIVE, Ur Amphetamines Screen NEGATIVE, MDMA (Ecstasy) Screen NEGATIVE, U Benzodiazepines Scrn NEGATIVE, Urine Cocaine Screen NEGATIVE, U Cannabinoids Screen NEGATIVE, Ur Drug Screen Comment 06/17/21 04:37: POC Glucose 146 H 06/17/21 05:16: Ethyl Alcohol Cancelled 06/17/21 05:16: Troponin I High Sens Cancelled 06/17/21 05:16: Troponin I High Sens Cancelled 06/17/21 06:00: Ethyl Alcohol 26.0 06/17/21 06:00: Troponin I High Sens 169 H* Radiology Impression Chest/Abdomen/Pelvis CTA 06/17/21 02:49 IMPRESSION: No thoracic or abdominal aortic aneurysm, leak or dissection. No pulmonary embolus. Atherosclerosis and coronary artery disease, cardiac enlargement, trace pericardial fluid, age-appropriate degenerative changes as above. No pulmonary edema, congestive heart failure or confluent pneumonia. There is no acute abdomen and pelvic pathology. Electronically Signed: Lyndsey Encarnacion MD at 5:04 EDT , Chest X-Ray 06/17/21 04:20 IMPRESSION: Stable cardiomegaly. No pulmonary edema, congestive heart failure or confluent pneumonia. Electronically Signed: Lyndsey Encarnacion MD at 4:48 EDT ,
--- NOTE | 2021-06-17 07:45 | NURSING ---
This RN had a long conversation with patient in regards to risk of leaving AMA. Pt demonstrated understanding of risks. AMA papers signed.
[2021-06-17 07:47] LABS: Hemoglobin A1c 5.2 % (3.8-5.6)
== END 2021-06-17 07:58 | disposition left against medical advice (07) ==
PROVIDERS: Internal Medicine; Emergency Provider Student in an Organized Health Care Education/Training Program; Visit Provider Student in an Organized Health Care Education/Training Program
DX: R07.89 Other chest pain (principal); E11.9 Type 2 diabetes mellitus without complications; I10 Essential (primary) hypertension; I25.10 Atherosclerotic heart disease of native coronary artery without angina pectoris; Z79.84 Long term (current) use of oral hypoglycemic drugs; F17.210 Nicotine dependence, cigarettes, uncomplicated; I25.2 Old myocardial infarction; Z79.82 Long term (current) use of aspirin; Z79.899 Other long term (current) drug therapy; Z95.5 Presence of coronary angioplasty implant and graft; Z53.29 Procedure and treatment not carried out because of patient's decision for other reasons
CPT/HCPCS: 71045; 71275; 74174; 80048; 80307; 82077; 82962; 83036; 84484; 85025; 93005; 96374; 99285; J7030; Q9967

== ENCOUNTER → 2021-07-07 | Outpatient (CLI) | payer MEDICAID, SELFPAY ==
[2021-06-23 09:18] VITALS: BMI 26.8
--- NOTE | 2021-07-07 12:32 | STRESSREP_ITS ---
Stress Test Report Pharmacologic myocardial perfusion stress test. 56-year-old male with a history of chest pain. Stress protocol: Resting EKG demonstrates sinus bradycardia with a rate of 51 bpm T wave inversions are noted in lead II, V5 and V6. 0.4 mg of regadenoson was infused per usual protocol followed by rapid intravenous saline flush injection continu ous EKG monitoring was performed. 0.4 mg of regadenoson was infused per usual protocol. Continuous EKG monitoring was performed. At rest T wave inversions were noted as above. At peak infusion there was accentuation of the T wave inversions as noted above. No chest pain was noted. The resting blood pressure is 138/90 with a final blood pressure being the same. Myocardial perfusion protocol. 11.9 mCi of technetium 99m sestamibi was injected at rest. 0.4 mg of regadenoson was infused per usual protocol. At peak infusion 32.2 mCi of technetium 99m sestamibi was injected stress images were obtained stress and rest images were reconstructed and compared in the short axis vertical long and horizontal long axis. Gated images were also obtained. Perfusion SPECT analysis: Review of the stress images demonstrate a defect noted in the anterior septal wall and a small defect noted in the lateral wall. The resting images demonstrate improvement of perfusion noted in the anterior septal wall and lateral wall suggestive of ischemia. No previous infarct is noted. Gated SPECT analysis: The gated ejection fraction is 47%. Conclusion: Abnormal pharmacologic stress test with evidence of anteroseptal and lateral ischemia. Mild cardiomyopathy.
== END | disposition home or self-care (01) ==
LOC: CVS 06:45
PROVIDERS: Referring Provider Physician Assistant Medical; Visit Provider Physician Assistant Medical
DX: I25.10 Atherosclerotic heart disease of native coronary artery without angina pectoris (principal); R07.9 Chest pain, unspecified; I10 Essential (primary) hypertension
CPT/HCPCS: 78452; 93017; A9500; A4216; J2785

== ENCOUNTER 2021-07-18 06:45 | Day surgery (SDC) | payer MEDICAID, SELFPAY ==
[2021-06-23 09:18] VITALS: BMI 26.8
[2021-07-14 09:07] VITALS: BMI 21.9
--- NOTE | 2021-07-18 09:33 | CL.D_ITS ---
Patient Name: JONO MURRY Study Date: 07/18/2021 Performing: Osbaldo Bah MD Ht: 75.19 inches 191 cm : 1965 Wt: 176.37 lbs 80 kg Age: 56 Gender: male BSA: 2.08 PROCEDURE(S) PERFORMED DC01-([id number])LHC/COR/LV CLINICAL PROFILE AND INDICATIONS Indications: New Onset Angina <= 2 months Heart Failure: None Stress/Imaging Date: 07/07/21Stress Test with SPECT MPI: Positive Intermediate Risk CAD Presentations: Unstable angina. CONCLUSIONS Multivessel disease involving the circumflex artery and the diagonal vessel and moderate disease invo lving the mid left anterior descending artery and severe disease of the distal left anterior descendi ng artery. RECOMMENDATIONS We will consider staged PCI as per patient's schedule. We will consider FFR of the LAD. DESCRIPTION OF PROCEDURE The patient arrived to the procedure lab. The risks and benefits of the procedure as well as a full d escription of our services here and current unavailability of surgical backup were fully explained to the patient and/or their significant other prior to the catheterization. The Timeout was completed, verifying the correct patient and procedure. The patient's procedural site was prepped and draped in the usual fashion. Local anesthetic was given subcutaneously to right radial region with Lidocaine 2% . Using a modified Seldinger technique, arterial access was obtained via the right radial artery, a 6 Fr sheath was inserted. Left Coronary Artery selective angiography was performed in multiple views u sing a 5 Fr. 4.0 Stanley catheter. Right Coronary Artery selective angiography was then performed in mu ltiple views using a 5 Fr. 4.0 Stanley catheter. Left Ventriculography was performed in BAIRES projection using a 5 Fr. Pigtail catheter. LV to AO pullback pressures were then recorded.The arterial sheath was pulled and a TR Band was applied for hemostasis w/ 11ml air CORONARY ANGIOGRAPHY DOMINANCE: Right Dominant LEFT HEART ASSESSMENT Left Ventricular Ejection Fraction: by LV Gram 60 % Normal LV wall motion Normal Left Ventricular systolic function LEFT MAIN: Mild calcification, No significant disease noted LEFT ANTERIOR DESCENDING ARTERY: PROX LAD: 40 % Stenosis MID LAD: Moderate luminal irregularities up to 50% DISTAL LAD: 80 % Stenosis DIAGONAL 1: Mid - Previously placed stent has an instent 70 % restenosis CIRCUMFLEX ARTERY: PROX CIRC: 60 % Stenosis MID CIRC: 80 % Stenosis OM 1: Ostial - is occluded OM 3: Mid - 80 % Stenosis RIGHT CORONARY ARTERY: Previously placed stent has an instent 50 % restenosis COLLATERAL FLOW: Collateral flow from Left to Left COMPLICATIONS No Complications PROCEDURE MEDICATIONS Versed 1 mg IV Fentanyl 50 mcg IV Baby Aspirin (81mg) 1 Tabs PO @ 07/18/2021 07:05:05 Heparin given IA 07/18/2021 08:55:33 Verapamil 2.5mg, Ntg 100mcgs, 3000 units of Heparin given IA 07/18/2021 08:55:33 SUMMARY OF HEMODYNAMIC DATA Time AIR REST ECG 07:05:16 AO 110/73 (91) SA 08:59:49 LV 127/14, 21 09:08:17 LV 130/12, 21 09:08:25 LV 130/15, 24 09:09:00 LV 128/13, 22 09:09:09 LVp 127/12, 20 09:09:14 AOp 0/-27 (49) 09:09:21 Signed By Osbaldo Bah MD On 07/18/2021 09:32:57 Osbaldo Bah MD
== END 2021-07-18 10:46 | disposition home or self-care (01) ==
LOC: CLSP 06:47
PROVIDERS: PCP Nurse Practitioner Family; Referring Provider Internal Medicine Cardiovascular Disease; Visit Provider Internal Medicine Cardiovascular Disease
DX: I25.10 Atherosclerotic heart disease of native coronary artery without angina pectoris (principal); E11.9 Type 2 diabetes mellitus without complications; I10 Essential (primary) hypertension; I25.2 Old myocardial infarction; Z79.82 Long term (current) use of aspirin; Z79.02 Long term (current) use of antithrombotics/antiplatelets; Z79.84 Long term (current) use of oral hypoglycemic drugs; Z79.899 Other long term (current) drug therapy; Z95.5 Presence of coronary angioplasty implant and graft; F17.210 Nicotine dependence, cigarettes, uncomplicated
CPT/HCPCS: 93458; 99152; 99153; J7030; Q9967; C1769; C1894

== ENCOUNTER 2021-07-20 07:13 | Day surgery (SDC) | payer MEDICAID, SELFPAY ==
[2021-06-23 09:18] VITALS: BMI 26.8
[2021-07-19 09:02] VITALS: BMI 21.9
[2021-07-20] VITALS (13 sets, daily range): BP systolic 136–158; BP diastolic 74–98; PULSE 44–61; RESP 12–18; TEMP 36.6–36.8; O2SAT 98–100; BMI 22.2
[2021-07-20 07:32] LABS: Hematocrit 40.1 % (40-54); Hemoglobin 13.3 g/dL (13.0-16.5); Mean Corp Hgb Conc 33.2 g/dL (32-36); Mean Corpuscular Hgb 32.3 pg (27.0-32.0); Mean Corpuscular Volume 97.3 fL (80-94); Mean Platelet Vol. 11.3 fl (6.2-12.0); Platelet Count 189 K/mm3 (150-450); RBC Distribution Width CV 12.6 % (11.6-14.6); RBC Distribution Width SD 45.5 fl (35.1-43.9); Red Blood Count 4.12 M/mm3 (4.6-6.2); White Blood Count 8.1 K/mm3 (4.4-11.0)
[2021-07-20 07:51] LABS: Anion Gap 6 (5-15); BUN 27 mg/dL (7-18); BUN/Creat Ratio 22.1 RATIO (10-20); Calcium,Total 8.3 mg/dL (8.5-10.1); Chloride 107 mmol/L (98-107); Creatinine, Serum 1.22 mg/dL (0.70-1.30); EST Glomerular Filtration Rate 65 mL/min (>60); Est Glom Filt Rate - Afr Amer 79 mL/min (>60); Estimated Creatinine Clearance 76.34 ml/min; Glucose 143 mg/dL (74-106); Potassium 4.1 mmol/L (3.5-5.1); Sodium Level 139 mmol/L (136-145)
[2021-07-20 08:09] LABS: International Normalized Ratio 1.1; Prothrombin Time (Protime)PT. 13.7 SECONDS (11.7-14.9)
[2021-07-20 08:10] LABS: Partial Thromboplast Time 34.2 Seconds (24.1-36.2)
--- NOTE | 2021-07-20 13:00 | EKG12_ITS ---
Test Reason : AM EKG Blood Pressure : / mmHG Vent. Rate : 052 BPM Atrial Rate : 052 BPM P-R Int : 204 ms QRS Dur : 098 ms QT Int : 462 ms P-R-T Axes : 056 -23 132 degrees QTc Int : [address] & T wave abnormality, consider lateral ischemia Abnormal ECG When compared with ECG of 20-JUL-2021 13:08, MANUAL COMPARISON REQUIRED, DATA IS UNCONFIRMED Confirmed by RAMILA CHATTERJEE, ARIELLE ([id number]), fan mail editor JIMBO GONZALES ([id number]) on 07/24/2021 1:08:00 PM Referred By: Charles Early Confirmed By:ARIELLE MCGRATH MD
--- NOTE | 2021-07-20 13:09 | CL.I_ITS ---
Patient Name: JONO MURRY Study Date: 07/20/2021 Performing: Miranda Early MD Ht: 75.19 inches 191 cm : 1965 Wt: 176.37 lbs 80 kg Age: 56 Gender: male BSA: 2.08 PROCEDURE(S) PERFORMED IC12-([id number])CASSIE W/WO PTCA, SINGLE CORONARY ARTERY IC12-([id number])CASSIE W/WO PTCA, SINGLE CORONARY ARTERY IC13-([id number])CASSIE W/WO PTCA, EACH ADD'L ART, SAME MAJOR CLINICAL PROFILE AND CO-MORBIDITIES Heart Failure: None CAD Presentations: Other: Staged PCI of known disease at the time of cardiac cath earlier this we ek CONCLUSIONS Successful PCI of mid Diagonal 1 (ISR), proximal OM3 and mid LCx with CASSIE RECOMMENDATIONS DESCRIPTION OF PROCEDURE The patient arrived to the procedure lab. The risks and benefits of the procedure as well as a full d escription of our services here and current unavailability of surgical backup were fully explained to the patient and/or their significant other prior to the catheterization. The Timeout was completed, verifying the correct patient and procedure. The patient's procedural site was prepped and draped in the usual fashion. Local anesthetic was given subcutaneously to right radial region with Lidocaine 2% . Using a modified Seldinger technique, arterial access was obtained via the right radial artery, a 6 Fr sheath was inserted.. XB 3.0 Guide catheter was inserted and engaged into the LCA. Guide wire was inserted, FFR wire Em erge 2.00x12 Balloon catheter was inserted. PTCA balloon inflated at 10 atms for 20 secs. PTCA balloo n inflated at 10 atms for 12 secs. Angiogram performed post balloon dilatation. Orsiro 2.25x9 Drug El uting stent was inserted. Angiogram performed post balloon dilatation. BMW Guide wire was advanced to the Circumflex. Emerge 2.50x8 Balloon catheter was inserted. PTCA balloon inflated at 6 atms for 15 secs. Angiogram performed post balloon dilatation. Orsiro 2.5x13 Drug Eluting stent was inserted. Ang iogram performed post stent deployment. Orsiro 4.0x18 Drug Eluting stent was inserted. Angiogram perf ormed post stent deployment. The arterial sheath was pulled and a TR Band was applied for hemostasis w/ 11ml air INTERVENTION INFORMATION LESION SITE: 1st Diagonal (Mid) Lesion Complexity: High/C, chronic total occlusion: No, lesion at bifurcation: Yes, thrombus present: No, lesion length: 8 mm, culprit lesion: Yes, Previously treated lesion: Yes, In-stent restenosis: Y es, Timeframe of previous treatment: Time unknown, In-stent Thrombosis: No, Previously treated with a stent: Yes Stent Type: with stent type unknown Pre Stenosis: 80 % Pre intervention VI flow: 3 PROCEDURE: Drug Eluting Stent with pre dilatation. Post Stenosis: 0 % Post intervention VI flow: 3 Lesion Devices: Cardinal 6 Fr XB3.0 100cm Guide Catheter Blyk MR 2.00x12 BALLOON Take5 [place] MR CASSIE 2.25x9 LESION SITE: 3rd OM (Proximal) Lesion Complexity: High/C, chronic total occlusion: No, lesion at bifurcation: No, thrombus present: No, lesion length: 10 mm, culprit lesion: Yes, Previously treated lesion: No Pre Stenosis: 80 % Pre intervention VI flow: 3 PROCEDURE: Drug Eluting Stent with pre dilatation. Post Stenosis: 0 % Post intervention VI flow: 3 Lesion Devices: Cardinal 6 Fr XB3.0 100cm Guide Catheter Ledbetter .014 BMW Weidman Straight 190cm Blyk MR 2.50x08 BALLOON Take5 [place] MR CASSIE 2.5x13 LESION SITE: Circumflex (Mid) Lesion Complexity: High/C, chronic total occlusion: No, lesion at bifurcation: No, thrombus present: No, lesion length: 15 mm, culprit lesion: Yes, Previously treated lesion: No Pre Stenosis: 80 % Pre intervention VI flow: 3 PROCEDURE: Drug Eluting Stent 0 % Post intervention VI flow: 3 Lesion Devices: Cardinal 6 Fr XB3.0 100cm Guide Catheter Ledbetter .014 BMW Weidman Straight 190cm Take5 [place] MR CASSIE 4.0x18 COMPLICATIONS No Complications PROCEDURE MEDICATIONS Versed 1 mg IV Fentanyl 50 mcg IV Oxygen: 2 L/min via nasal cannula Baby Aspirin (81mg) 1 Tabs PO @ 07/20/2021 07:41:34 Heparin given IA 07/20/2021 11:35:58 Heparin 4000 unit(s) IV 07/20/2021 11:36:35 Nitro 100 mcg IC 07/20/2021 12:18:07 Nitro 100 mcg IC 07/20/2021 12:18:07 Verapamil 1.25mg, Ntg 100mcgs, 3000 units of Heparin given IA 07/20/2021 11:35:58 SUMMARY OF HEMODYNAMIC DATA Time AIR REST ECG 07:40:42 AO 116/74 (93) SA 11:36:41 RM AIR REST 13:02:58 Signed By Miranda Early MD On 07/20/2021 13:08:07 Miranda Early MD
--- NOTE | 2021-07-20 13:32 | CRPHASE1_ITS ---
Patient Communication Former Patient:: Phase I PHII Cardiac Rehab Discussed with Patient:: Yes Guide to Cardiac Rehab Given to Patient:: Yes Cardiac Rehab Facility Choice List Given to Patient:: Yes Choice Program [facility] CR PHII:: Communication Given to CR Lease Operator:: Charles Early Refer Phase II Cardiac Rehab:: Yes Sessions:: 36 sessions - 3 days/wk, 12 weeks Cardiac Rehabilitation Info Cardiac Rehabilitation Program Information: Cardiac Rehabilitation is important for patients like you who are recovering from a heart problem. Cardiac rehabilitation programs are recognized as integral to the continued care of the patient with coronary heart disease. The cardiac rehabilitation program is designed to optimize a patient's physical, psychological, and social functioning. Health healthcare administrator work in cardiac rehabilitation programs and assist you with getting the treatments you need to get stronger and healthier - like exercise, healthy eating habits, and medications. Cardiac rehabilitation has been show to help people with heart problems live longer and have better life enjoyment than people who do not go to cardiac rehabilitation. Please contact the Cardiac Rehabilitation Program at [facility] at in two weeks if you have not heard from them.
--- NOTE | 2021-07-20 13:33 | CRPH1.INSTRU ---
General Education CAD and cardiac anatomy and function:: Patient communicates acknowledgment Explanation of diagnoses and procedures:: Patient communicates acknowledgment Sign/Symptoms of KS:: Patient communicates acknowledgment Antiplatelet therapy: Patient communicates acknowledgment Proper use of NTG-SL: Patient communicates acknowledgment Emergency procedures and activation of EMS: Patient communicates acknowledgment Compliance of all prescribed medications: Patient communicates acknowledgment Smoking Patient Nicotine/Smoking Risk Factors Are:: Cigarettes Recommendations Include:: Participation in a smoking cessation program Nicotine/Smoking Response Code:: Patient communicates acknowledgment Dyslipidemia Patient Dyslipidemia Risk Factors Are:: Total Cholesterol, Triglycerides, HDL, LDL Recommendations Include:: Lipid profile not available, Reviewed NCEP/ATP guidelines, Therapeutic Lifestyle Change dietary guidelines Dyslipidemia Response Code:: Patient communicates acknowledgment Overweight/Obesity Patient Overweight/Obesity Risk Factors Are:: BMI Normal [18-25 & < 65 years old] Recommendations Include:: Weight loss of 5-10%, Reduced calorie diet, Exercise 5-7 times/week Overweight/Obesity:: Patient communicates acknowledgment, Family communicates acknowledgment Hypertension Recommendations Include:: BP <130/80 if diabetic, DASH dietary guidelines, Decrease/maintain normal body weight, Moderation of ETOH Hypertension:: Patient communicates acknowledgment Heart Disease Patient Heart Disease Risk Factors Are:: Previous cardiac event Recommendations Include:: Educated family members of their risk Heart Disease Response Code:: Patient communicates acknowledgment Diabetes Patient Diabetes Risk Factors Are:: Elevated blood sugars Recommendations Include:: Maintain fasting blood sugars 70-110 md/dL, Maintain HgbA1c of 6% or less, Monitor blood sugar as prescribed, Diabetic dietary guidelines, Decrease/maintain body weight Diabetes:: Patient communicates acknowledgment Sedentary Patient Sedentary Risk Factors Are:: Lack of regular exercise Recommendations Include:: Aerobic exercise 5-7 times/week for 20-30 minutes continuously, Benefits of regular exercise, Discussed home walking program, Monitored Outpatient Cardiac Rehab Sedentary Response Code:: Patient communicates acknowledgment Stress Patient Stress Risk Factors Are:: Patient denies stress as a risk factor Recommendations Include:: Stress management techniques Stress Response Code:: Patient communicates acknowledgment
[2021-07-20] MEDS: 0.9% Normal Saline 1,000 ML 70 ML IV (13:37)
[2021-07-20] MEDS: Doxazosin 1 MG Tablet PO (21:24)
[2021-07-20] MEDS: Atorvastatin Calcium 80 MG Tablet PO (21:24)
[2021-07-20] MEDS: Gabapentin 300 MG Capsule PO (21:34)
[2021-07-21] VITALS (7 sets, daily range): BP systolic 133–154; BP diastolic 78–90; PULSE 49–60; RESP 14–18; TEMP 36.6–36.8; O2SAT 95–99
[2021-07-21 03:51] LABS: Hematocrit 35.1 % (40-54); Hemoglobin 11.6 g/dL (13.0-16.5); Mean Corpuscular Hgb 32.6 pg (27.0-32.0); Mean Corpuscular Volume 98.6 fL (80-94); Mean Platelet Vol. 11.7 fl (6.2-12.0); Platelet Count 168 K/mm3 (150-450); RBC Distribution Width CV 12.7 % (11.6-14.6); RBC Distribution Width SD 46.7 fl (35.1-43.9); Red Blood Count 3.56 M/mm3 (4.6-6.2); White Blood Count 9.1 K/mm3 (4.4-11.0)
[2021-07-21 04:15] LABS: AST(SGOT) 18 U/L (15-37); Alanine Aminotransfer ALT/SGPT 33 U/L (16-61); Alkaline Phosphatase 58 U/L (45-117); Anion Gap 7 (5-15); BUN 30 mg/dL (7-18); BUN/Creat Ratio 24.8 RATIO (10-20); Calcium,Total 8.2 mg/dL (8.5-10.1); Chloride 107 mmol/L (98-107); Creatinine, Serum 1.21 mg/dL (0.70-1.30); EST Glomerular Filtration Rate 66 mL/min (>60); Est Glom Filt Rate - Afr Amer 80 mL/min (>60); Glucose 157 mg/dL (74-106); Potassium 3.9 mmol/L (3.5-5.1); Sodium Level 138 mmol/L (136-145)
[2021-07-21] MEDS: amLODIPine 10 MG Tablet PO (08:19)
[2021-07-21] MEDS: hydroCHLOROthiazide 12.5mg 12.5 MG PO (08:19)
[2021-07-21] MEDS: Losartan Potassium 100 MG Tablet PO (08:20)
[2021-07-21] MEDS: Aspirin 81 MG TAB.CHEW PO (08:20)
[2021-07-21] MEDS: Clopidogrel Bisulfate 75 MG Tablet PO (08:20)
--- NOTE | 2021-07-21 12:02 | DCINST_ITS ---
Discharge Instructions Follow Up Care Test Results: Test results from this visit will be discussed in further detail at your follow-up appointment, if applicable. Discharge Plan Admission Primary Reason for Your Visit: PCI Attending Provider: Charles Early Primary Care Provider: Shweta Amador NP Instructions Additional Instructions / Restrictions: Do not lift anything greater than 10 lbs for 3 days. If you have any pain/swelling/oozing from you cath site call the [facility] You can NOT stop your plavix for any reason for at least one year. If you are asked to do so please call the [facility] Restart your metformin Saturday Discharge Orders/Prescriptions Prescriptions: Continued aspirin 81 mg tablet,chewable 81 mg PO DAILY@0800 Qty: 90 RF: 3 metformin 500 mg tablet 500 mg PO BID RF: 0 terazosin 1 mg tablet 1 mg PO QHS RF: 0 gabapentin 300 mg capsule 300 mg PO QHS RF: 0 cholecalciferol (vitamin D3) 1,250 mcg (50,000 unit) capsule 50,000 unit PO QWEEK RF: 0 losartan 100 mg tablet 100 mg PO DAILY Qty: 90 RF: 3 clopidogrel 75 mg tablet 75 mg PO DAILY Qty: 90 RF: 3 carvedilol 12.5 mg tablet 12.5 mg PO BID Qty: 180 RF: 3 amlodipine 10 mg tablet 10 mg PO DAILY Qty: 90 RF: 3 atorvastatin 80 mg tablet 80 mg PO QHS Qty: 90 RF: 3 hydrochlorothiazide 12.5 mg capsule 12.5 mg PO DAILY Qty: 90 RF: 3 nitroglycerin 0.4 MG tablet 0.4 mg SUBLINGUAL Q5M PRN (Reason: Cardiac/Chest Pain) Qty: 30 RF: 0 Referrals / Follow Up: Shweta Amador NP, NURSING TECHN-C [Primary Care Provider] - Dali Lewis, PA [PHYSICIAN HEARING AID ASSISTANT] - (Keep you appt with Dali Lewis on 08/08/2021 at 1030) Disposition Disposition (needs filled in before D/C Order can be placed): Home, Self Care
--- NOTE | 2021-07-21 13:00 | EKG12_ITS ---
Test Reason : PCI Blood Pressure : / mmHG Vent. Rate : 043 BPM Atrial Rate : 043 BPM P-R Int : 216 ms QRS Dur : 094 ms QT Int : 490 ms P-R-T Axes : 030 -28 136 degrees QTc Int : 414 ms Marked sinus bradycardia with 1st degree A-V block ST & T wave abnormality, consider lateral ischemia Abnormal ECG Confirmed by RAMILA CHATTERJEE, ARIELLE ([id number]), movie editor JIMBO GONZALES ([id number]) on 07/24/2021 1:08:16 PM Referred By: Charles Early Confirmed By:ARIELLE MCGRATH MD
== END 2021-07-21 13:16 | disposition home or self-care (01) ==
LOC: CLSP 07:16 → PCU 07-21 03:43
PROVIDERS: Internal Medicine Cardiovascular Disease; PCP Nurse Practitioner Family; Referring Provider Specialist; Visit Provider Specialist
DX: I25.10 Atherosclerotic heart disease of native coronary artery without angina pectoris (principal); E11.9 Type 2 diabetes mellitus without complications; E78.5 Hyperlipidemia, unspecified; I10 Essential (primary) hypertension; Z79.82 Long term (current) use of aspirin; Z79.899 Other long term (current) drug therapy; Z79.84 Long term (current) use of oral hypoglycemic drugs; I25.2 Old myocardial infarction; Z95.5 Presence of coronary angioplasty implant and graft; F17.210 Nicotine dependence, cigarettes, uncomplicated
CPT/HCPCS: 92928; 92929; 36415; 80048; 80053; 85027; 85610; 85730; 93005; 99152; 99153; C1874; J7030; Q9967; C1725; C1769; C1887; C9600; C9601

== ENCOUNTER 2021-10-16 13:02 | Emergency (ER) | payer MEDICAID, SELFPAY ==
[2021-06-23 09:18] VITALS: BMI 26.8
[2021-10-16 13:03] VITALS: BP 177/116; PULSE 68; RESP 16; TEMP 37; O2SAT 98; BMI 22.4
--- NOTE | 2021-10-16 13:45 | EDS_ITS ---
HPI History of Present Illness Chief Complaint: Chest Pain Informant: patient Onset/Context/Timing Onset: Today Activity at onset: sudden Timing: Intermittent and Lasts (15 to 20 minutes) Quality: Positive for Sharp and Tightness Location: Substernal Worsened By: Nothing Relieved By: Antacids and - (Twila tien) Associated Symptoms: Positive for Lightheadedness; Negative for Nausea, Vomiting, Diaphoresis, Dyspnea, Cough, Fever, Acid Reflux or Palpitations Narrative Narrative: Patient presents with chest pain that began approximately 1 and half hours prior to arrival. Patient states that last approximately 15 to 20 minutes and then resolved. Patient describes it as sharp and tightness in his chest. Patient states it is over the substernal area. Patient states it got better with twila tien and Tums. Patient admits to some lightheadedness with the pain. Patient denies any nausea or vomiting. Patient denies any diaphoresis. Patient denies any shortness of breath. [facility] Medical History Alcohol intoxication Atherosclerotic heart disease of [place] coronary artery without angina pectoris Essential hypertension Non-STEMI (non-ST elevated myocardial infarction) (03/31/18) PVC's (premature ventricular contractions) Tobacco abuse Type 2 diabetes mellitus Home Medications nitroglycerin 0.4 mg sublingual tablet 0.4 mg sublingual Q5M PRN Cardiac/Chest Pain #30 tabs 04/02/18 [Rx Last Taken Unknown] aspirin 81 mg chewable tablet 81 mg PO DAILY@0800 health maintenance ##90 04/17/18 [Rx Last Taken 07/20/21] metformin 500 mg tablet 500 mg PO BID diabetes 12/02/19 [History Last Taken Unknown] amlodipine 10 mg tablet 10 mg PO DAILY blood pressure #90 tabs 06/28/21 [Rx Last Taken 07/20/21] atorvastatin 80 mg tablet 80 mg PO QHS #90 tabs 06/28/21 [Rx Last Taken 07/19/21] cholecalciferol (vitamin D3) 1,250 mcg (50,000 unit) capsule 50,000 unit PO QWEEK 06/28/21 [History Last Taken 07/17/21] clopidogrel 75 mg tablet 75 mg PO DAILY heart health #90 tabs 06/28/21 [Rx Last Taken 07/20/21] gabapentin 300 mg capsule 300 mg PO QHS 06/28/21 [History Last Taken 07/19/21] hydrochlorothiazide 12.5 mg capsule 12.5 mg PO DAILY BP #90 caps 06/28/21 [Rx Last Taken 07/19/21] losartan 100 mg tablet 100 mg PO DAILY BP #90 tabs 06/28/21 [Rx Last Taken 04/11] terazosin 1 mg tablet 1 mg PO QHS 06/28/21 [History Last Taken Unknown] carvedilol 12.5 mg tablet 6.25 mg PO BID bp #180 tabs 07/21/21 [Rx Last Taken 07/20/21] Allergy/AdvReac Type Severity Reaction Status Date / Time latex Allergy Hives Verified 06/28/21 10:40 Sulfa (Sulfonamide Allergy Hives Verified 06/28/21 10:40 Antibiotics) Surgical History History of coronary artery stent placement (07/20/21) History of left heart catheterization (07/18/21) Social History Smoking Status: Current some day smoker tobacco type: cigarettes ROS ROS ED Constitutional Constitutional ED: Denies chills or fever(s) Eyes Eyes: Denies blurry vision or change in vision ENT ENT ED: Denies rhinorrhea or sore throat Cardiovascular Cardiovascular: Reports chest pain; Denies palpitations Respiratory/Chest Respiratory/Chest: Denies cough or dyspnea Gastrointestinal Gastrointestinal: Denies abdominal pain, nausea or vomiting Genitourinary Genitourinary ED: Reports urinary frequency; Denies dysuria or hematuria Musculoskeletal Musculoskeletal: Denies back pain or neck pain Integumentary Denies abscess or rash Neurologic Neurologic: Reports headache(s); Denies weakness Allergic/Immunologic Allergic/Immunologic ED: Denies mouth swelling or urticaria EXAM Physical Exam Const Vital Signs: 10/16/21 13:03 10/16/21 13:58 Temperature 98.6 F Temperature Source Temporal Pulse Rate 68 Respiratory Rate 16 Blood Pressure 177/116 H Blood Pressure Mean 136 Pulse Ox 98 97 Oxygen Delivery Method Room Air Room Air Positive well nourished and well developed General Appearance ED: well developed and NAD HEENT normocephalic and atraumatic Eyes PERRL and EOMs intact bilaterally Neck supple and no JVD Chest Wall palpation of chest normal Resp normal respiratory effort and clear to auscultation bilaterally Effort and Inspection: Negative for respiratory distress Cardio regular rate, regular rhythm and no murmurs GI normal to inspection, nondistended, normoactive bowel sounds, soft to palpation, non-tender and non-distended Extremity normal to inspection General Extremety ED: Negative for edema or tenderness General Extremity: Negative for edema Neuro oriented x3, CN's II-XII intact bilaterally and no sensory deficits noted Sensorium / Orientation: awake and alert Motor Exam: strength 5/5 throughout Psych mental status grossly normal Heart Score History: Slightly/Non-Suspicious ECG: Nonspecific Repolarization Age: >45 - <65 years Risk Factors: >/= 3 Risk Factors or History of CAD Troponin: </= Normal Limit Score: 4 MDM MDM MDM Narrative Medical decision making narrative: EKG was obtained. On my interpretation, it showed a normal sinus rhythm with a rate of 68. [place] interval, QRS interval, and QTc intervals were all normal. There is left axis deviation at -50. There are nonspecific ST-T wave changes. Portable 1 view chest x-ray was obtained. On my interpretation, lung ordoñez are clear. There is normal cardiac silhouette. Bony thorax is normal. There is no acute process noted. Radiologist also interpreted the x-ray and agrees. CBC and was within normal limits. Basic metabolic profile showed a slightly el evated creatinine of 1.40. This is only slightly increased from previous results. High-sensitivity troponin was 47 initially. 2-hour repeat high- sensitivity troponin was obtained and is pending. Patient states this pain is different than the pain he had prior to his stents. Patient states that this feels more like a gas pain. Patient has a HEART score of 4. However he does not feel this is similar to the pain from his coronary artery disease. He has been pain-free since arrival here in the emergency department. If his 2-hour repeat troponin is within normal limits, I feel he would be safe to be discharged home. The patient will be signed out to the oncoming physician pending repeat troponin. Lab Data Labs: Laboratory Results - last 24 hr 10/16/21 10/16/21 12:50 12:50 WBC 8.6 RBC 4.29 L Hgb 13.8 Hct 41.2 MCV 96.0 H MCH 32.2 H MCHC 33.5 RDW Std Deviation 44.2 H RDW Coeff of Zehra 12.5 Plt Count 194 MPV 11.6 Immature Gran % (Auto) 0.200 Neut % (Auto) 73.5 H Lymph % (Auto) 18.4 L [place] % (Auto) 5.2 Eos % (Auto) 2.2 Baso % (Auto) 0.5 Absolute Neuts (auto) 6.3 Absolute Lymphs (auto) 1.58 Nucleated RBC % 0 Sodium 140 Potassium 3.2 L Chloride 104 Carbon Dioxide 30.0 Anion Gap 6 BUN 15 Creatinine 1.40 H Estim Creat Clear Calc 67.83 Est GFR (MDRD) Af Amer 67 Est GFR (MDRD) Non-Af 56 L BUN/Creatinine Ratio 10.7 Glucose 104 Calcium 9.3 Troponin I High Sens 47 Radiography Chest X-Ray - ED: 1 View, Read by ED Physician, Read by Radiologist and No Acute Disease Diagnostic Testing: Clinical Impression(s) from Imaging Studies Chest X-Ray 10/16/21 14:08 IMPRESSION: No acute abnormality is seen. Electronically Signed: Herson Rivera MD at 14:23 EDT , EKG Initial EKG: Attestation: I personally reviewed and interpreted this EKG as follows: Interpretation: Sinus Rhythm (68) and Non-Specific ST Changes Prior EKG tracings: available for review Prior: Unchanged (07/21/2021) Discharge Plan Triage Chief Complaint: Chest Pain ED Provider: Jose Hutchins Dx/Rx/DC Orders Clinical Impression: Chest pain, Essential hypertension, Tobacco abuse Instructions: ED Chest Pain, Uncertain Cause Prescriptions: No Action aspirin 81 mg tablet,chewable 81 mg PO DAILY@0800 Qty: 90 3RF metformin 500 mg tablet 500 mg PO BID terazosin 1 mg tablet 1 mg PO QHS gabapentin 300 mg capsule 300 mg PO QHS cholecalciferol (vitamin D3) 1,250 mcg (50,000 unit) capsule 50,000 unit PO QWEEK losartan 100 mg tablet 100 mg PO DAILY Qty: 90 3RF clopidogrel 75 mg tablet 75 mg PO DAILY Qty: 90 3RF amlodipine 10 mg tablet 10 mg PO DAILY Qty: 90 3RF atorvastatin 80 mg tablet 80 mg PO QHS Qty: 90 3RF hydrochlorothiazide 12.5 mg capsule 12.5 mg PO DAILY Qty: 90 3RF nitroglycerin 0.4 MG tablet 0.4 mg SUBLINGUAL Q5M PRN (Reason: Cardiac/Chest Pain) Qty: 30 0RF carvedilol 12.5 mg tablet 6.25 mg PO BID Qty: 180 3RF Primary Care Provider: Shweta Amador NP Referrals: Shweta Amador NP, [employer]PER[employer]OR[employer] [Primary Care Provider] - 3-5 Days Disposition Disposition: Home, Self Care
[2021-10-16 13:58] VITALS: O2SAT 97
[2021-10-16] MEDS: Aspirin 81 MG TAB.CHEW 324 MG PO (13:59)
[2021-10-16 14:08] LABS: Absolute Lymphocyte Count 1.58 X10^3/uL (0.83-4.51); Absolute Neutrophil Count 6.3 X10^3/uL (2.0-7.7); Basophil# 0.04 X10^3/uL; Basophil% 0.5 % (0-1); Eosinophil# 0.19 X10^3/uL; Eosinophils% 2.2 % (0-5); Hematocrit 41.2 % (40-54); Hemoglobin 13.8 g/dL (13.0-16.5); Lymphocyte # 1.58 X10^3/ul (0.83-4.51); Lymphocyte % 18.4 % (19-41); Mean Corp Hgb Conc 33.5 g/dL (32-36); Mean Corpuscular Hgb 32.2 pg (27.0-32.0); Mean Platelet Vol. 11.6 fl (6.2-12.0); Monocyte# 0.45 X10^3/uL; Monocyte% 5.2 % (0-10); NRBC Flagged by Analyzer 0 % (0-5); Neutrophil # 6.33 X10^3/uL (2.7-7.7); Neutrophil % 73.5 % (47-70); Platelet Count 194 K/mm3 (150-450); RBC Distribution Width CV 12.5 % (11.6-14.6); RBC Distribution Width SD 44.2 fl (35.1-43.9); Red Blood Count 4.29 M/mm3 (4.6-6.2); White Blood Count 8.6 K/mm3 (4.4-11.0)
--- NOTE | 2021-10-16 14:08 | RAD_ITS ---
STUDY: X-RAY CHEST REASON FOR EXAM: Male, 56 years old. Sudden onset of chest pain. TECHNIQUE: Single AP portable view of the chest. COMPARISON: Comparison is made with prior study 06/17/2021. FINDINGS: The lungs are clear and expanded. There is no demonstrated pleural abnormality. Normal size heart. Normal mediastinum and mathew. Normal visualized pulmonary arteries. There is atherosclerotic tortuosity of the aortic arch and descending thoracic aorta. There are degenerative changes of the visualized thoracic spine. Normal visualized ribs, clavicles, and shoulders. There is no demonstrated abnormality of the visualized soft tissue structures of the upper abdomen. RAD/Chest 1 View (Portable) IMPRESSION: No acute abnormality is seen. Electronically Signed: Herson Rivera MD at 14:23 EDT ,
[2021-10-16 14:26] LABS: Anion Gap 6 (5-15); BUN 15 mg/dL (7-18); BUN/Creat Ratio 10.7 RATIO (10-20); Calcium,Total 9.3 mg/dL (8.5-10.1); Chloride 104 mmol/L (98-107); EST Glomerular Filtration Rate 56 mL/min (>60); Est Glom Filt Rate - Afr Amer 67 mL/min (>60); Estimated Creatinine Clearance 67.83 ml/min; Glucose 104 mg/dL (74-106); Potassium 3.2 mmol/L (3.5-5.1); Sodium Level 140 mmol/L (136-145); Troponin-I HS (w/2H Reflex) 47 pg/mL (3.0-78.0)
[2021-10-16 16:06] LABS: Reflex Troponin-HS? (from REC) Y
[2021-10-16] MEDS: Potassium Chloride Oral Tablet 20 MEQ 40 MEQ PO (16:19)
[2021-10-16 16:24] LABS: Troponin-I HS 60 pg/mL (3.0-78.0)
--- NOTE | 2021-10-16 18:43 | ED.RN ---
Dr. Torrez informed this RN that patient wanted to leave AMA. AMA formed signed and copy given to patient.
== END 2021-10-16 18:45 | disposition left against medical advice (07) ==
PROVIDERS: Emergency Provider Emergency Medicine; PCP Nurse Practitioner Family; Visit Provider Emergency Medicine
DX: R07.89 Other chest pain (principal); E11.9 Type 2 diabetes mellitus without complications; I25.10 Atherosclerotic heart disease of native coronary artery without angina pectoris; F17.210 Nicotine dependence, cigarettes, uncomplicated; I10 Essential (primary) hypertension; I25.2 Old myocardial infarction; Z79.82 Long term (current) use of aspirin; Z79.899 Other long term (current) drug therapy; Z79.84 Long term (current) use of oral hypoglycemic drugs; Z53.29 Procedure and treatment not carried out because of patient's decision for other reasons; R42 Dizziness and giddiness
CPT/HCPCS: 71045; 80048; 84484; 85025; 99285

== ENCOUNTER 2021-10-17 06:32 | Observation (INO) | payer MEDICAID, SELFPAY ==
[2021-06-23 09:18] VITALS: BMI 26.8
[2021-10-17] VITALS (23 sets, daily range): BP systolic 120–174; BP diastolic 76–108; PULSE 48–73; RESP 16–18; TEMP 36.2–36.6; O2SAT 98–100; BMI 22.0; BMI 21.9
--- NOTE | 2021-10-17 07:17 | EDS_ITS ---
HPI History of Present Illness Chief Complaint: Dizziness Informant: patient Onset/Context/Timing Onset: Today Context: Sudden Onset Timing: Continuous Quality: Pressure Location: Behind his eyes Worsened by: Nothing Relieved by: Nothing Narrative Narrative: Cecelia with dizziness that began today. Patient states that he woke up and felt pressure behind his eyes. Patient states he also felt lightheaded. Patient states nothing makes it better and nothing makes it worse. Patient states it has been constant. Patient was seen here yesterday for chest pain. Patient signed out AGAINST MEDICAL ADVICE at that time. Patient states he still has some gas pain in his chest. Patient admits to some shortness of breath and palpitations. Patient denies any fevers or chills. Patient denies any nausea or vomiting. [facility] Medical History Alcohol intoxication Atherosclerotic heart disease of [place] coronary artery without angina pectoris Essential hypertension Non-STEMI (non-ST elevated myocardial infarction) (03/31/18) PVC's (premature ventricular contractions) Tobacco abuse Type 2 diabetes mellitus Home Medications nitroglycerin 0.4 mg sublingual tablet 0.4 mg sublingual Q5M PRN Cardiac/Chest Pain #30 tabs 04/02/18 [Rx Last Taken Unknown] aspirin 81 mg chewable tablet 81 mg PO DAILY@0800 health maintenance ##90 04/17/18 [Rx Last Taken 07/20/21] metformin 500 mg tablet 500 mg PO BID diabetes 12/02/19 [History Last Taken Unknown] amlodipine 10 mg tablet 10 mg PO DAILY blood pressure #90 tabs 06/28/21 [Rx Last Taken 07/20/21] atorvastatin 80 mg tablet 80 mg PO QHS #90 tabs 06/28/21 [Rx Last Taken 07/19/21] cholecalciferol (vitamin D3) 1,250 mcg (50,000 unit) capsule 50,000 unit PO QWEEK 06/28/21 [History Last Taken 07/17/21] clopidogrel 75 mg tablet 75 mg PO DAILY heart health #90 tabs 06/28/21 [Rx Last Taken 07/20/21] gabapentin 300 mg capsule 300 mg PO QHS 06/28/21 [History Last Taken 07/19/21] hydrochlorothiazide 12.5 mg capsule 12.5 mg PO DAILY BP #90 caps 06/28/21 [Rx Last Taken 07/19/21] losartan 100 mg tablet 100 mg PO DAILY BP #90 tabs 06/28/21 [Rx Last Taken 07/20/21] terazosin 1 mg tablet 1 mg PO QHS 06/28/21 [History Last Taken Unknown] carvedilol 12.5 mg tablet 6.25 mg PO BID bp #180 tabs 07/21/21 [Rx Last Taken 07/20/21] Allergy/AdvReac Type Severity Reaction Status Date / Time latex Allergy Hives Verified 06/28/21 10:40 Sulfa (Sulfonamide Allergy Hives Verified 06/28/21 10:40 Antibiotics) Surgical History History of coronary artery stent placement (07/20/21) History of left heart catheterization (07/18/21) Social History Smoking Status: Current some day smoker tobacco type: cigarettes ROS ROS ED Constitutional Constitutional ED: Denies chills or fever(s) Eyes Eyes: Denies blurry vision or change in vision ENT ENT ED: Denies rhinorrhea or sore throat Cardiovascular Cardiovascular: Reports chest pain and palpitations Respiratory/Chest Respiratory/Chest: Reports dyspnea; Denies cough Gastrointestinal Gastrointestinal: Denies nausea or vomiting Genitourinary Genitourinary ED: Reports urinary frequency; Denies dysuria or hematuria Musculoskeletal Musculoskeletal: Denies back pain or neck pain Integumentary Denies abscess or rash Neurologic Neurologic: Reports headache(s); Denies weakness Allergic/Immunologic Allergic/Immunologic ED: Denies mouth swelling or urticaria EXAM Physical Exam Const Vital Signs: 10/17/21 06:33 10/17/21 06:54 10/17/21 07:36 Temperature 97.2 F L Temperature Source Temporal Pulse Rate 73 Respiratory Rate 16 Respiratory Effort Normal Non-Labored Respiratory Pattern Normal Blood Pressure 166/105 H Blood Pressure Mean 125 Pulse Ox 99 Oxygen Delivery Method Room Air Room Air Positive well nourished and well developed General Appearance ED: well developed and NAD HEENT Reports moist mucous membranes Neck supple and no JVD Resp normal respiratory effort and clear to auscultation bilaterally Cardio regular rate, regular rhythm and no murmurs GI normal to inspection, nondistended, normoactive bowel sounds and non-tender Palpation: soft Extremity normal to inspection General Extremety ED: Negative for edema or tenderness General Extremity: Negative for edema Neuro oriented x3, CN's II-XII intact bilaterally and no sensory deficits noted Sensorium / Orientation: alert Motor Exam: strength 5/5 throughout Psych mental status grossly normal Skin no rashes or lesions noted MDM MDM MDM Narrative Medical decision making narrative: Patient was given aspirin and sublingual nitroglycerin here. EKG was obtained. On my interpretation, it showed a normal sinus rhythm with a rate of 62. [place] interval, QRS interval, and QTc intervals were all normal. There is left axis deviation at -48. There are nonspecific ST-T wave changes. There is a left anterior fascicular block noted. Portable 1 view chest x-ray was obtained. On my interpretation, lung ordoñez are clear. There is borderline cardiomegaly. Bony thorax is normal. There is no acute process noted. Radiologist also interpreted the x-ray and agrees. CBC was within normal limits. Basic metabolic profile was within normal limits. High-sensitivity troponin was normal at 53. Patient denies any chest pain at the present time. Patient only complains of a throbbing headache in the frontal area. Patient was given a dose of Tylenol for this. Patient has a HEART score of 4. Case was discussed with the hospitalist. He will admit the patient for observation. Patient understood and was agreeable with the plan. All questions were answered. Lab Data Attestation: I reviewed the patient's lab results. Labs: Laboratory Results - last 24 hr 10/17/21 10/17/21 06:45 06:45 WBC 9.1 RBC 4.22 L Hgb 13.4 Hct 40.9 MCV 96.9 H MCH 31.8 MCHC 32.8 RDW Std Deviation 44.4 H RDW Coeff of Zehra 12.5 Plt Count 196 MPV 12.1 H Immature Gran % (Auto) 0.200 Neut % (Auto) 69.2 Lymph % (Auto) 18.3 L [place] % (Auto) 7.0 Eos % (Auto) 4.6 Baso % (Auto) 0.7 Absolute Neuts (auto) 6.3 Absolute Lymphs (auto) 1.66 Nucleated RBC % 0 Sodium 140 Potassium 3.7 Chloride 103 Carbon Dioxide 27.0 Anion Gap 10 BUN 18 Creatinine 1.27 Estim Creat Clear Calc 73.58 Est GFR (MDRD) Af Amer 75 Est GFR (MDRD) Non-Af 62 BUN/Creatinine Ratio 14.2 Glucose 117 H Calcium 9.2 Troponin I High Sens 53 Radiography Chest X-Ray - ED: 1 View, Read by ED Physician, Read by Radiologist and No Acute Disease Diagnostic Testing: Clinical Impression(s) from Imaging Studies Chest X-Ray 10/17/21 07:22 IMPRESSION: Borderline cardiomegaly. The lungs are clear. Electronically Signed: Herson Rivera MD at 8:00 EDT , EKG Initial EKG: Attestation: I personally reviewed and interpreted this EKG as follows: Interpretation: Sinus Rhythm (62), LAFB and Non-Specific ST Changes Prior EKG tracings: available for review Prior: Unchanged (07/21/2021) Discharge Plan Triage Chief Complaint: Dizziness ED Provider: Jose Hutchins Dx/Rx/DC Orders Clinical Impression: Chest pain, Essential hypertension, Type 2 diabetes mellitus, Atherosclerotic heart disease of [place] coronary artery without angina pectoris Prescriptions: No Action aspirin 81 mg tablet,chewable 81 mg PO DAILY@0800 Qty: 90 3RF metformin 500 mg tablet 500 mg PO BID terazosin 1 mg tablet 1 mg PO QHS gabapentin 300 mg capsule 300 mg PO QHS cholecalciferol (vitamin D3) 1,250 mcg (50,000 unit) capsule 50,000 unit PO QWEEK losartan 100 mg tablet 100 mg PO DAILY Qty: 90 3RF clopidogrel 75 mg tablet 75 mg PO DAILY Qty: 90 3RF amlodipine 10 mg tablet 10 mg PO DAILY Qty: 90 3RF atorvastatin 80 mg tablet 80 mg PO QHS Qty: 90 3RF hydrochlorothiazide 12.5 mg capsule 12.5 mg PO DAILY Qty: 90 3RF nitroglycerin 0.4 MG tablet 0.4 mg SUBLINGUAL Q5M PRN (Reason: Cardiac/Chest Pain) Qty: 30 0RF carvedilol 12.5 mg tablet 6.25 mg PO BID Qty: 180 3RF Primary Care Provider: Shweta Amador NP Referrals: Shweta Amador NP, FIELD ENUMERATOR-C [Primary Care Provider] - Disposition Disposition: Acute Care [facility]
--- NOTE | 2021-10-17 07:22 | RAD_ITS ---
STUDY: X-RAY CHEST REASON FOR EXAM: Male, 56 years old. Chest pain TECHNIQUE: Single AP portable view of the chest. COMPARISON: Comparison is made with prior study 10/16/2021. FINDINGS: EKG electrodes are seen. The lungs are clear and expanded. There is no demonstrated pleural abnormality. There is borderline cardiomegaly. Normal mediastinum and mathew. Normal visualized pulmonary arteries. There is atherosclerotic tortuosity of the aortic arch and descending thoracic aorta. There are degenerative changes of the visualized thoracic spine. Normal visualized ribs, clavicles, and shoulders. There is no demonstrated abnormality of the visualized soft tissue structures of the upper abdomen. RAD/Chest 1 View (Portable) IMPRESSION: Borderline cardiomegaly. The lungs are clear. Electronically Signed: Herson Rivera MD at 8:00 EDT ,
--- NOTE | 2021-10-17 07:22 | EKG12_ITS ---
Test Reason : DIZZINESS Blood Pressure : / mmHG Vent. Rate : 062 BPM Atrial Rate : 062 BPM P-R Int : 182 ms QRS Dur : 098 ms QT Int : 426 ms P-R-T Axes : 054 -48 120 degrees QTc Int : 432 ms Normal sinus rhythm Left anterior fascicular block Minimal voltage criteria for LVH, may be normal variant ( Myles product ) ST & T wave abnormality, consider lateral ischemia Abnormal ECG Confirmed by EMEKA CHATTERJEE, VALERIA ([id number]), film editor supervisor JIMBO GONZALES ([id number]) on 10/19/2021 8:17:30 AM Referred By: ERIC Confirmed By:VALERIA HENDRICKSON MD
[2021-10-17 07:34] LABS: Absolute Lymphocyte Count 1.66 X10^3/uL (0.83-4.51); Absolute Neutrophil Count 6.3 X10^3/uL (2.0-7.7); Basophil# 0.06 X10^3/uL; Basophil% 0.7 % (0-1); Eosinophil# 0.42 X10^3/uL; Eosinophils% 4.6 % (0-5); Hematocrit 40.9 % (40-54); Hemoglobin 13.4 g/dL (13.0-16.5); Lymphocyte # 1.66 X10^3/ul (0.83-4.51); Lymphocyte % 18.3 % (19-41); Mean Corp Hgb Conc 32.8 g/dL (32-36); Mean Corpuscular Hgb 31.8 pg (27.0-32.0); Mean Corpuscular Volume 96.9 fL (80-94); Mean Platelet Vol. 12.1 fl (6.2-12.0); Monocyte# 0.63 X10^3/uL; NRBC Flagged by Analyzer 0 % (0-5); Neutrophil # 6.27 X10^3/uL (2.7-7.7); Neutrophil % 69.2 % (47-70); Platelet Count 196 K/mm3 (150-450); RBC Distribution Width CV 12.5 % (11.6-14.6); RBC Distribution Width SD 44.4 fl (35.1-43.9); Red Blood Count 4.22 M/mm3 (4.6-6.2); White Blood Count 9.1 K/mm3 (4.4-11.0)
[2021-10-17] MEDS: Aspirin 81 MG TAB.CHEW 324 MG PO (07:35)
[2021-10-17 07:48] LABS: Anion Gap 10 (5-15); BUN 18 mg/dL (7-18); BUN/Creat Ratio 14.2 RATIO (10-20); Calcium,Total 9.2 mg/dL (8.5-10.1); Chloride 103 mmol/L (98-107); Creatinine, Serum 1.27 mg/dL (0.70-1.30); EST Glomerular Filtration Rate 62 mL/min (>60); Est Glom Filt Rate - Afr Amer 75 mL/min (>60); Estimated Creatinine Clearance 73.58 ml/min; Glucose 117 mg/dL (74-106); Potassium 3.7 mmol/L (3.5-5.1); Sodium Level 140 mmol/L (136-145); Troponin-I HS (w/2H Reflex) 53 pg/mL (3.0-78.0)
[2021-10-17] MEDS: Acetaminophen 500 MG Tablet 1000 MG PO (08:14)
--- NOTE | 2021-10-17 09:07 | HP.PCM.HOS_ITS ---
HPI - General General Date of Admission: 10/17/21 Date of Service: 10/17/21 Chief Complaint: chest pain HPI Narrative JONO MURRY, is a 56 M who presents for 2nd time in 2 days w chest pain. 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 He developed midsternal chest pain that radiated up his neck with associated dizziness and right sided headache. He presented to the ED and was worked up. Troponins went up slightly from 47 to 60. He was advised to be admitted, but at that time his chest pain resolved and left AMA. He developed the same symptoms while at home and returned to the ED. He received ASA and nitroglycerin. Chest pain is since resolved, but still with headache. These admission symptoms are similar to chest pain that he has had with his prior cardiac events. [facility] Medical History Alcohol intoxication Atherosclerotic heart disease of [place] coronary artery without angina pectoris Essential hypertension Non-STEMI (non-ST elevated myocardial infarction) (03/31/18) PVC's (premature ventricular contractions) Tobacco abuse Type 2 diabetes mellitus Home Medications nitroglycerin 0.4 mg sublingual tablet 0.4 mg sublingual Q5M PRN Cardiac/Chest Pain #30 tabs 04/02/18 [Rx Last Taken Unknown] aspirin 81 mg chewable tablet 81 mg PO DAILY@0800 health maintenance ##90 04/17/18 [Rx Last Taken 07/20/21] metformin 500 mg tablet 500 mg PO BID diabetes 12/02/19 [History Last Taken Unknown] amlodipine 10 mg tablet 10 mg PO DAILY blood pressure #90 tabs 06/28/21 [Rx Last Taken 07/20/21] atorvastatin 80 mg tablet 80 mg PO QHS #90 tabs 06/28/21 [Rx Last Taken 07/19/21] cholecalciferol (vitamin D3) 1,250 mcg (50,000 unit) capsule 50,000 unit PO QWEEK 06/28/21 [History Last Taken 07/17/21] clopidogrel 75 mg tablet 75 mg PO DAILY heart health #90 tabs 06/28/21 [Rx Last Taken 07/20/21] gabapentin 300 mg capsule 300 mg PO QHS 06/28/21 [History Last Taken 07/19/21] hydrochlorothiazide 12.5 mg capsule 12.5 mg PO DAILY BP #90 caps 06/28/21 [Rx Last Taken 07/19/21] losartan 100 mg tablet 100 mg PO DAILY BP #90 tabs 06/28/21 [Rx Last Taken 07/20/21] terazosin 1 mg tablet 1 mg PO QHS 06/28/21 [History Last Taken Unknown] carvedilol 12.5 mg tablet 6.25 mg PO BID bp #180 tabs 07/21/21 [Rx Last Taken 07/20/21] Allergy/AdvReac Type Severity Reaction Status Date / Time latex Allergy Hives Verified 06/28/21 10:40 Sulfa (Sulfonamide Allergy Hives Verified 06/28/21 10:40 Antibiotics) Family History (Updated 10/17/21 @ 09:[address] Jose Michelle DO) Mother CAD (coronary artery disease) Grandfather CAD (coronary artery disease) Surgical History History of coronary artery stent placement (07/20/21) History of left heart catheterization (07/18/21) Social History (Updated 10/17/21 @ 09:[address] Jose Michelle DO) Smoking Status: Light Smoker (<10/day) alcohol intake: current alcohol intake frequency: a few times a month substance use type: does not use ROS ROS Narrative No abdominal pain. No N/V. Slight left ankle swelling. All review of systems otherwise negative, except as mentioned above in HPI and ROS. Vital Signs Vital Signs Vital Signs: 10/17/21 06:33 10/17/21 06:54 10/17/21 07:36 Temperature 36.2 C L Temperature Source Temporal Pulse Rate 73 Respiratory Rate 16 Respiratory Effort Normal Non-Labored Respiratory Pattern Normal Blood Pressure 166/105 H Blood Pressure Mean 125 Pulse Ox 99 Oxygen Delivery Method Room Air Room Air 10/17/21 08:57 Temperature 36.6 C Temperature Source Temporal Pulse Rate 56 L Respiratory Rate 18 Respiratory Effort Respiratory Pattern Blood Pressure 174/108 H Blood Pressure Mean 130 Pulse Ox 99 Oxygen Delivery Method Room Air Weight Weight: 80.1 kg Body Mass Index (BMI) 22.0 Physical Exam Const alert and no apparent distress HEENT normocephalic and head/scalp atraumatic Neck no lymphadenopathy Resp normal respiratory effort, no retractions, no use of accessory muscles and clear to auscultation bilaterally Cardio regular rate, regular rhythm, S1 normal heart sound and S2 normal heart sound GI normal to inspection, nondistended, normoactive bowel sounds, soft to palpation, non-tender and non-distended Extremity normal to inspection Neuro oriented x3 and CN's II-XII intact bilaterally Sensorium / Orientation: awake and alert Psych affect normal Results Lab / Micro Data Result Diagrams: 10/17/21 06:45 10/17/21 06:45 Labs: Laboratory Results - last 24 hr 10/17/21 06:45: WBC 9.1, RBC 4.22 L, Hgb 13.4, Hct 40.9, MCV 96.9 H, MCH 31.8, MCHC 32.8, RDW Std Deviation 44.4 H, RDW Coeff of Zehra 12.5, Plt Count 196, MPV 12.1 H, Immature Gran % (Auto) 0.200, Neut % (Auto) 69.2, Lymph % (Auto) 18.3 L, Gordon % (Auto) 7.0, Eos % (Auto) 4.6, Baso % (Auto) 0.7, Absolute Neuts (auto) 6.3, Absolute Lymphs (auto) 1.66, Nucleated RBC % 0 10/17/21 06:45: Sodium 140, Potassium 3.7, Chloride 103, Carbon Dioxide 27.0, Anion Gap 10, BUN 18, Creatinine 1.27, Estim Creat Clear Calc 73.58, Est GFR (MDRD) Af Amer 75, Est GFR (MDRD) Non-Af 62, BUN/Creatinine Ratio 14.2, Glucose 117 H, Calcium 9.2, Troponin I High Sens 53 Radiology Impression Chest X-Ray 10/17/21 07:22 IMPRESSION: Borderline cardiomegaly. The lungs are clear. Electronically Signed: Herson Rivera MD at 8:00 EDT , Assessment & Plan Assessment/Plan (1) Unstable angina: PLAN: Troponins stable Known multivessel disease Stress test in June was abnormal, so high likelihood of it being abnormal again 3 months later. Consult Cardiology. DW Dr. Spivey for further eval. Will keep pt NPO for now for possible LHC today. Pt states that he has been compliant with medication. Continue ASA, clopidogrel, atorvastatin, carvedilol, losartan PLAN: Plan DM2: hold metformin. SSI HTN: continue losartan, amlodipine, HCTZ VTE prophylaxis: not indicated as he is low risk for now. Code Status: DW pt. Full Code. Charges/Coding Visit Charges OBSV E&M: 53169 Initial observation care L3
--- NOTE | 2021-10-17 09:19 | EKG12_ITS ---
Test Reason : Blood Pressure : / mmHG Vent. Rate : 050 BPM Atrial Rate : 050 BPM P-R Int : 184 ms QRS Dur : 100 ms QT Int : 478 ms P-R-T Axes : 056 -40 126 degrees QTc Int : 435 ms Sinus bradycardia Left axis deviation Left ventricular hypertrophy ST/T wave abnormality; Consider LVH with repolarization vs myocardial ischemia Abnormal ECG Confirmed by EMEKA CHATTERJEE, VALERIA ([id number]), make up editor JIMBO GONZALES ([id number]) on 10/19/2021 8:16:12 AM Referred By: [facility] Confirmed By:VALERIA HENDRICKSON MD
[2021-10-17 09:27] LABS: Reflex Troponin-HS? (from REC) Y
--- NOTE | 2021-10-17 09:32 | CASEMGMT ---
According to the [facility] website, the following are in-network tertiary facilities: [facility], [place], [facility], [facility], [facility], [facility], [facility], [place], [facility], and . [facility]
--- NOTE | 2021-10-17 09:39 | CON.PCM.CA_ITS ---
Assessment & Plan Assessment/Plan (1) Unstable angina: PLAN: The patient presents with findings compatible with unstable angina pectoris. This is superimposed upon his diagnosis of CAD status post recent multivessel PCI. His cardiac enzymes have varied but have remained negative. His ECG is as noted. His previous noninvasive and invasive studies were reviewed. At the present time it was felt reasonable to patient undergo further evaluation with repeat diagnostic cardiac catheterization. The procedure and risk were discussed with the patient. He was agreeable to this approach. (2) CAD (coronary artery disease): PLAN: The patient has a history of CAD as noted. He is undergone extensive noninvasive and invasive and interventional evaluation and care. Based upon his symptoms compatible with unstable angina pectoris it was thought reasonable he undergo repeat evaluation in the cardiac catheterization laboratory. Depending upon the findings he may or may not need further catheter-based or surgically based revascularization therapy. (3) History of coronary artery stent placement: PLAN: The patient has undergone recent multivessel PCI. Based upon his symptoms of unstable angina pectoris there would be a concern of possible in-stent restenosis. He will continue to be monitored. He will continue medical therapy. He will continue with the evaluation as noted above. (4) HLD (hyperlipidemia): PLAN: The patient should continue risk factor modification medical therapy including lipid-lowering therapy with statins as tolerated. (5) Essential hypertension: PLAN: The patient's blood pressure is elevated. This may be a contributing factor to his symptoms. He is on multiple medications. His medicines may need to be adjusted to try and bring his blood pressure under better control. Based upon his history of CAD he is also at increased risk for peripheral vascular disease. He may need further peripheral vascular evaluation for any obvious evidence of renal artery stenosis that may be contributing to his h ypertension. (6) Type 2 diabetes mellitus: PLAN: He will continue evaluation care per internal medicine. Addt'l Comments The above was discussed and reviewed with the patient. He was agreeable to this approach The patient's case has previously been discussed with Dr. Michelle. This note was generated using a voice recognition system and there may be incorrect words, spelling or punctuation that were not noted when reviewing the office note prior to saving. HPI Consult Data Date of Consult: 10/17/21 HPI Narrative HPI Narrative: JONO MURRY, is a 56 year old male who presents for concerns of unstable angina pectoris superimposed upon a history of CAD status post multivessel PCI, hyperlipidemia, hypertension, and hyperglycemia. He was recently evaluated in June and July of this year by Drs. Bah and Sharath with respect to similar concerns regarding his CAD process leading to multivessel PCI. He states he felt he was doing well until yesterday. Yesterday afternoon and evening he had nonexertional chest pressure similar to what he had prior to his most recent PCI procedure. He stated he had discomfort in his right neck/jaw area. He also experienced diaphoresis. He did not complain of ongoing nausea, emesis, or dyspnea. He noted his blood pressure was elevated and also experienced a headache. He did present to the emergency department for evaluation. There he underwent evaluation with delta high-sensitivity troponin I levels which demonstrated somewhat of a change but were both within normal limits. His ECG was reported as without acute changes. He was reportedly given the option to remain in the hospital for further evaluation and care versus being released home for continued outpatient evaluation. He initially chose to go home to continue outpatient follow-up. However he came back to the hospital because of recurrent similar type symptoms. A third high-sensitivity troponin I level remained negative. His ECG demonstrated sinus rhythm with a left axis deviation and possible left anterior fascicular block with voltage criteria for LVH and T wave changes potentially compatible with myocardial ischemia in the lateral dist ribution. He has denied orthopnea, PND, or peripheral pitting edema. There is been no report of near syncope or syncope. [facility] Medical History Alcohol intoxication Atherosclerotic heart disease of [place] coronary artery without angina pectoris Essential hypertension Non-STEMI (non-ST elevated myocardial infarction) (03/31/18) PVC's (premature ventricular contractions) Tobacco abuse Type 2 diabetes mellitus Home Medications nitroglycerin 0.4 mg sublingual tablet 0.4 mg sublingual Q5M PRN Cardiac/Chest Pain #30 tabs 04/02/18 [Rx Last Taken Unknown] aspirin 81 mg chewable tablet 81 mg PO DAILY@0800 health maintenance ##90 04/17/18 [Rx Last Taken 07/20/21] metformin 500 mg tablet 500 mg PO BID diabetes 12/02/19 [History Last Taken U nknown] amlodipine 10 mg tablet 10 mg PO DAILY blood pressure #90 tabs 06/28/21 [Rx Last Taken 07/20/21] atorvastatin 80 mg tablet 80 mg PO QHS #90 tabs 06/28/21 [Rx Last Taken 07/19/21] cholecalciferol (vitamin D3) 1,250 mcg (50,000 unit) capsule 50,000 unit PO QWEEK 06/28/21 [History Last Taken 07/17/21] clopidogrel 75 mg tablet 75 mg PO DAILY heart health #90 tabs 06/28/21 [Rx Last Taken 07/20/21] gabapentin 300 mg capsule 300 mg PO QHS 06/28/21 [History Last Taken 07/19/21] hydrochlorothiazide 12.5 mg capsule 12.5 mg PO DAILY BP #90 caps 06/28/21 [Rx Last Taken 07/19/21] losartan 100 mg tablet 100 mg PO DAILY BP #90 tabs 06/28/21 [Rx Last Taken 07/20/21] terazosin 1 mg tablet 1 mg PO QHS 06/28/21 [History Last Taken Unknown] carvedilol 12.5 mg tablet 6.25 mg PO BID bp #180 tabs 07/21/21 [Rx Last Taken 07/20/21] Allergy/AdvReac Type Severity Reaction Status Date / Time latex Allergy Hives Verified 06/28/21 10:40 Sulfa (Sulfonamide Allergy Hives Verified 06/28/21 10:40 Antibiotics) Family History (Updated 10/17/21 @ 09:[address] Jose Michelle DO) Mother CAD (coronary artery disease) Grandfather CAD (coronary artery disease) Surgical History History of coronary artery stent placement (07/20/21) History of left heart catheterization (07/18/21) Social History (Updated 10/17/21 @ 09:[address] Jose Michelle DO) Smoking Status: Light Smoker (<10/day) alcohol intake: current alcohol intake frequency: a few times a month substance use type: does not use ROS Constitutional Constitutional: Reports as per HPI Eyes Eyes: Reports as per HPI ENT HEENT: Reports as per HPI Cardiovascular Cardiovascular: Reports chest pain at rest and diaphoresis Respiratory/Chest Respiratory/Chest: Reports as per HPI Gastrointestinal Gastrointestinal: Reports as per HPI Genitourinary Genitourinary: Reports as per HPI Musculoskeletal Musculoskeletal: Reports as per HPI Integumentary Integumentary: Reports as per HPI Neurologic Neurologic: Reports as per HPI Psychiatric Psychiatric: Reports as per HPI Physical Exam Const alert, oriented x3 and no apparent distress Orientation / Consciousness: awake HEENT normocephalic, head/scalp atraumatic and hearing grossly normal bilaterally Eyes PERRL, EOMs intact bilaterally, conjunctivae normal and no scleral icterus Neck full ROM, supple and no JVD Carotids: normal carotid upstroke Resp normal respiratory effort and clear to auscultation bilaterally Cardio regular rate, regular rhythm, S1 normal heart sound and S2 normal heart sound GI normal to inspection, nondistended, normoactive bowel sounds Extremity no pedal edema Skin no rashes or lesions noted Psych mental status grossly normal Risk Stratification Risk Stratification Applicable: Yes Age >/= 65: No >/= 3 CAD Risk Factors (HTN, HLD, DM, family hx of CAD, or current smoker): Yes Aspirin Use in the Past 7 Days: Yes Severe Angina (>/= episodes in 24 hours): Yes EKG ST Changes >/= 0.5mm: No Positive Cardiac Marker: No VI Risk Stratification Score: 3 VI % Risk: 13% Risk Procedure Criteria Type of Procedure Procedure Type: Elective Elective Risks - COVID COVID Risk Discussion: The surgeon/proceduralist and patient have discussed in detail the risk of ex posure to and/or potential harm posed by the COVID-19 virus with having a surgery/procedure at this time versus the risk of delaying the surgery/procedure. It is not possible to know either the risk of delaying the surgery or procedure or chance of getting an infection with perfect accuracy, but a joint decision was made between the patient and the surgeon/proceduralist to proceed at this time with the scheduled surgery/procedure as indicated on the consent form. Objective Data Vital Signs: Vital Signs Temp Pulse Resp BP Pulse Ox O2 Del Method 97.7 F L 55 L 16 163/99 H 100 Room Air 10/17/21 09:34 10/17/21 09:34 10/17/21 09:34 10/17/21 09:34 10/17/21 09:34 10/17/21 09:34 Oxygen Delivery Method Room Air Weight: 175 lb 8 oz Body Mass Index (BMI) 21.9 Lab / Micro Data Result Diagrams: 10/17/21 06:45 10/17/21 06:45 Labs: Laboratory Results - last 24 hr 10/17/21 06:45: WBC 9.1, RBC 4.22 L, Hgb 13.4, Hct 40.9, MCV 96.9 H, MCH 31.8, MCHC 32.8, RDW Std Deviation 44.4 H, RDW Coeff of Zehra 12.5, Plt Count 196, MPV 12.1 H, Immature Gran % (Auto) 0.200, Neut % (Auto) 69.2, Lymph % (Auto) 18.3 L, Garden % (Auto) 7.0, Eos % (Auto) 4.6, Baso % (Auto) 0.7, Absolute Neuts (auto) 6.3, Absolute Lymphs (auto) 1.66, Nucleated RBC % 0 10/17/21 06:45: Sodium 140, Potassium 3.7, Chloride 103, Carbon Dioxide 27.0, Anion Gap 10, BUN 18, Creatinine 1.27, Estim Creat Clear Calc 73.58, Est GFR (MDRD) Af Amer 75, Est GFR (MDRD) Non-Af 62, BUN/Creatinine Ratio 14.2, Glucose 117 H, Calcium 9.2, Troponin I High Sens 53 Cardiology Labs/Tests 10/17/21 06:45: WBC 9.1, RBC 4.22 L, Hgb 13.4, Hct 40.9, MCV 96.9 H, MCH 31.8, MCHC 32.8, Plt Count 196, MPV 12.1 H, Immature Gran % (Auto) 0.200, Neut % (Auto) 69.2, Lymph % (Auto) 18.3 L, Garden % (Auto) 7.0, Eos % (Auto) 4.6, Baso % (Auto) 0.7, Absolute Neuts (auto) 6.3, Nucleated RBC % 0 10/17/21 06:45: Sodium 140, Potassium 3.7, Chloride 103, Carbon Dioxide 27.0, Anion Gap 10, BUN 18, Creatinine 1.27, Est GFR (MDRD) Af Amer 75, Est GFR (MDRD) Non-Af 62, BUN/Creatinine Ratio 14.2, Glucose 117 H, Calcium 9.2 Rhythm: Sinus rhythm EKG: As noted above ECHO: 04-01-2018 Interpretation Summary Severe concentric left ventricular hypertrophy. The estimated ejection fraction is 75 %. Stage 1 diastolic dysfunction. The left atrium is moderately enlarged. Trivial mitral valve insufficiency. Trivial tricuspid valve insufficiency. Right ventricular systolic pressure estimated to be 18 mmHg. Compared to echo report dated 04/13/2017, no appreciable changes noted. Stress Test: 07-07-2021 Stress Test Report Pharmacologic myocardial perfusion stress test. 56-year-old male with a history of chest pain. Stress protocol: Resting EKG demonstrates sinus bradycardia with a rate of 51 bpm T wave inversions are noted in lead II, V5 and V6.? 0.4 mg of regadenoson was infused per usual protocol followed by rapid intravenous saline flush injection continuous EKG monitoring was performed.? 0.4 mg of regadenoson was infused per usual protocol.? Continuous EKG monitoring was performed.? At rest T wave inversions were noted as above.? At peak infusion there was accentuation of the T wave inversions as noted above.? No chest pain was noted.? The resting blood pressure is 138/90 with a final blood pressure being the same. Myocardial perfusion protocol. 11.9 mCi of technetium 99m sestamibi was injected at rest.? 0.4 mg of regadenoso n was infused per usual protocol.? At peak infusion 32.2 mCi of technetium 99m sestamibi was injected stress images were obtained stress and rest images were reconstructed and compared in the short axis vertical long and horizontal long axis.? Gated images were also obtained. Perfusion SPECT analysis: Review of the stress images demonstrate a defect noted in the anterior septal wall and a small defect noted in the lateral wall.? The resting images demonstrate improvement of perfusion noted in the anterior septal wall and lateral wall suggestive of ischemia.? No previous infarct is noted. Gated SPECT analysis: The gated ejection fraction is 47%. Conclusion: Abnormal pharmacologic stress test with evidence of anteroseptal and lateral ischemia. Mild cardiomyopathy. Cardiac Cath: 07-18-2021 CONCLUSIONS Multivessel disease involving the circumflex artery and the diagonal vessel and moderate disease involving the mid left anterior descending artery and severe disease of the distal left anterior descending artery. RECOMMENDATIONS We will consider staged PCI as per patient's schedule.? We will consider FFR of the LAD. DESCRIPTION OF? PROCEDURE The patient arrived to the procedure lab. The risks and benefits of the procedure as well as a full description of our services here and current unavailability of surgical backup were fully explained to the patient and/or their significant other prior to the catheterization. The Timeout was completed, verifying the correct patient and procedure. The patient's procedural site was prepped and draped in the usual fashion. Local anesthetic was given subcutaneously to right radial region with Lidocaine 2%. Using a modified Madeline karla technique, arterial access was obtained via the right radial artery, a 6Fr sheath was inserted.? Left Coronary Artery selective angiography was performed in multiple views using a 5 Fr. 4.0 [place] catheter. Right Coronary Artery selective angiography was then performed in multiple views using a 5 Fr. 4.0 [place] catheter. Left Ventriculography was performed in BAIRES projection using a 5 Fr. Pigtail catheter. LV to AO pullback pressures were then recorded.The arterial sheath was pulled and a TR Band was applied for hemostasis w/ 11ml air CORONARY ANGIOGRAPHY DOMINANCE:? Right Dominant LEFT HEART ASSESSMENT Left Ventricular Ejection Fraction: by LV Gram 60 % Normal LV wall motion Normal Left Ventricular systolic function LEFT MAIN: Mild calcification, No significant disease noted LEFT ANTERIOR DESCENDING ARTERY: PROX LAD: 40 % Stenosis MID LAD: Moderate luminal irregularities up to 50% DISTAL LAD: 80 % Stenosis DIAGONAL 1: Mid - Previously placed stent has an instent 70 % restenosis CIRCUMFLEX ARTERY: PROX CIRC: 60 % Stenosis MID CIRC: 80 % Stenosis OM 1: Ostial - is occluded OM 3: Mid - 80 % Stenosis RIGHT CORONARY ARTERY: Previously placed stent has an instent 50 % restenosis COLLATERAL FLOW: Collateral flow from Left to Left COMPLICATIONS No Complications PCI: 07-20-2021 CONCLUSIONS Successful PCI of mid Diagonal 1 (ISR), proximal OM3 and mid LCx with CASSIE RECOMMENDATIONS DESCRIPTION OF? PROCEDURE The patient arrived to the procedure lab. The risks and benefits of the procedure as well as a full description of our services here and current unavailability of surgical backup were fully explained to the patient and/or their significant other prior to the catheterization. The Timeout was completed, verifying the correct patient and procedure. The patient's procedural site was prepped and draped in the usual fashion. Local anesthetic was given subcutaneo usly to right radial region with Lidocaine 2%. Using a modified Seldinger technique, arterial access was obtained via the right radial artery, a 6Fr sheath was inserted.. ? ? XB 3.0 Guide catheter was inserted and engaged into the LCA. Guide wire was inserted, FFR wire Emerge 2.00x12 Balloon catheter was inserted. PTCA balloon inflated at 10 atms for 20 secs. PTCA balloon inflated at 10 atms for 12 secs. Angiogram performed post balloon dilatation. Orsiro 2.25x9 Drug Eluting stent was inserted. Angiogram performed post balloon dilatation. BMW Guide wire was advanced to the Circumflex. Emerge 2.50x8 Balloon catheter was inserted. PTCA balloon inflated at 6 atms for 15 secs. Angiogram performed post balloon dilatation. Orsiro 2.5x13 Drug Eluting stent was inserted. Angiogram performed post stent deployment. Orsiro 4.0x18 Drug Eluting stent was inserted. Angiogram performed post stent deployment.? The arterial sheath was pulled and a TR Band was applied for hemostasis w/ 11ml air INTERVENTION INFORMATION LESION SITE: 1st Diagonal (Mid) Lesion Complexity: High/C, chronic total occlusion: No, lesion at bifurcation: Yes, thrombus present: No, lesion length: 8 mm, culprit lesion: Yes, Previously treated lesion: Yes, In-stent restenosis: Yes, Timeframe of previous treatment: Time unknown, In-stent Thrombosis: No, Previously treated with a stent: Yes Stent Type: with stent type unknown ?Pre Stenosis: 80 % Pre intervention VI flow: 3 PROCEDURE: Drug Eluting Stent with pre dilatation. Post Stenosis: 0 %? Post intervention VI flow: 3 Lesion Devices: Cardinal 6 Fr XB3.0 100cm Guide Catheter Fortumo [facility] MR 2.00x12 BALLOON [employer] [facility] MR CASSIE 2.25x9 LESION SITE: 3rd OM (Proximal) Lesion Complexity: High/C, chronic total occlusion: No, lesion at bifurcation: No, thrombus present: No, lesion length: 10 mm, culprit lesion: Yes, Previously treated lesion: No ?Pre Stenosis: 80 %? Pre intervention VI flow: 3 PROCEDURE: Drug Eluting Stent with pre dilatation. Post Stenosis: 0 %? Post intervention VI flow: 3 Lesion Devices: Cardinal 6 Fr XB3.0 100cm Guide Catheter Ledbetter .014 BMW [place] Straight 190cm Sylvester [employer] [facility] MR 2.50x08 BALLOON [employer] [facility] MR CASSIE 2.5x13 LESION SITE: Circumflex (Mid) Lesion Complexity: High/C, chronic total occlusion: No, lesion at bifurcation: No, thrombus present: No, lesion length: 15 mm, culprit lesion: Yes, Previously treated lesion: No ?Pre Stenosis: 80 %? Pre intervention VI flow: 3 PROCEDURE: Drug Eluting Stent ?0 %? Post intervention VI flow: 3 Lesion Devices: Cardinal 6 Fr XB3.0 100cm Guide Catheter Ledbetter .014 [employer] [place] Straight 190cm Biotronik Orsiro Strum MR CASSIE 4.0x18 Radiography Diagnostic Testing: Radiology Impression Chest X-Ray 10/17/21 07:22 IMPRESSION: Borderline cardiomegaly. The lungs are clear. Electronically Signed: Herson Rivera MD at 8:00 EDT ,
[2021-10-17] MEDS: Clopidogrel Bisulfate 75 MG Tablet PO (09:59)
[2021-10-17] MEDS: amLODIPine 10 MG Tablet PO (09:59)
[2021-10-17 10:08] LABS: Troponin-I HS 46 pg/mL (3.0-78.0)
[2021-10-17] MEDS: Losartan Potassium 100 MG Tablet PO (10:49)
[2021-10-17] MEDS: Carvedilol 6.25 MG Tablet PO ×2 (10:49→22:02)
[2021-10-17] MEDS: Nitroglycerin Oint 1 INCH PACKET TD (10:51)
[2021-10-17] MEDS: Acetaminophen 325 MG Tablet 650 MG PO (11:02)
[2021-10-17] MEDS: hydroCHLOROthiazide 25 MG Tablet PO (11:02)
[2021-10-17] MEDS: hydrALAZINE 25 MG Tablet PO (11:48)
[2021-10-17 13:15] LABS: Bedside Glucose 97 mg/dL (74-106)
--- NOTE | 2021-10-17 13:50 | CASEMGMT ---
Patient does not have a Healthcare Power of Adult Basic Education Teacher or Healthcare Living Will. Patient is not interested in completing documents. Marjan CHRISTINE
--- NOTE | 2021-10-17 15:00 | CL.D_ITS ---
Patient Name: JONO MURRY Study Date: 10/17/2021 Performing: Tariq Spivey MD Ht: 75 inches 190.5 cm : 1965 Wt: 175.7 lbs 79.61 kg Age: 56 Gender: male BSA: 2.08 PROCEDURE(S) PERFORMED DC01-(11982)LHC/COR/LV CLINICAL PROFILE AND INDICATIONS Indications: Worsening Angina, Suspected CAD Heart Failure: None Stress/Imaging Stress/Image Study Performed: No Angina Classification Anginal Classification w/in 2 Weeks: CCS IV CAD Presentations: Unstable angina. CONCLUSIONS Elevated Left Ventricular End Diastolic Pressure Normal LV size, wall motion,and systolic function LVEF: by LV gram 65 % [place] Multivessel CAD DX: stent: patent LCX: stent: patent OM3: stent: patent RCA: stent: patent Left to Left Collateral Flow RECOMMENDATIONS Risk factor modification Medical therapy DESCRIPTION OF PROCEDURE The patient arrived to the procedure lab. The risks and benefits of the procedure as well as a full description of our services here and current unavailability of surgical backup were fully explained to the patient and/or their significant other prior to the catheterization. The Timeout was completed, verifying the correct patient and procedure. The patient's procedural site was prepped and draped in the usual fashion. Local anesthetic was given subcutaneously to right radial region with Lidocaine 2%. Using a modified Seldinger technique, arterial access was obtained via the right radial artery, a 6Fr sheath was inserted. Left Coronary Artery selective angiography was performed in multiple views using a 5 Fr. 4.0 [place] catheter. Right Coronary Artery selective angiography was then performed in multiple views using a 5 Fr. JR 4 catheter. Left Ventriculography was performed in BAIRES projection using a 5 Fr. Pigtail catheter. LV to AO pullback pressures were then recorded.The arterial sheath was pulled and a TR Band was applied for hemostasis w/ 9ml air CORONARY ANGIOGRAPHY DOMINANCE: Right Dominant LEFT HEART ASSESSMENT Left Ventricular Ejection Fraction: by LV Gram 65 % Normal LV wall motion Elevated Left Ventricular End Diastolic Pressure LVEDP: 18 mmHg LEFT MAIN: Mild luminal irregularities LEFT ANTERIOR DESCENDING ARTERY: Mild luminal irregularities PROX LAD: 25 - 50 % Stenosis MID LAD: 25 % Stenosis DISTAL LAD: - apical: 75 % Stenosis DIAGONAL 1: Mid - Previously placed stent is patent CIRCUMFLEX ARTERY: Mild luminal irregularities, diffuse: 25 % Stenosis PROX CIRC: Previously placed stent is patent OM 3: Proximal - Previously placed stent is patent RIGHT CORONARY ARTERY: Mild luminal irregularities PROX RCA: 25 % Stenosis, Previously placed stent is patent MID RCA: Previously placed stent is patent RT PDA: Mid - 25 % Stenosis COLLATERAL FLOW: Collateral flow from Left to Left AORTIC ROOT: Angiographically normal COMPLICATIONS No Complications PROCEDURE MEDICATIONS Versed 1 mg IV Fentanyl 50 mcg IV Versed 1 mg IV Fentanyl 50 mcg IV Oxygen: 2 L/min via nasal cannula Heparin given IA 10/17/2021 14:11:02 Verapamil 2.5mg, Ntg 100mcgs, 3000 units of Heparin given IA 10/17/2021 14:11:02 SUMMARY OF HEMODYNAMIC DATA Time AIR REST ECG 13:50:33 Art 146/74 (96) 14:03:43 AO 128/72 (95) SA 14:13:09 LV 129/1, 20 14:30:31 LV 128/2, 18 14:30:37 LV 132/4, 19 14:31:18 LV 128/4, 18 14:31:24 LVp 131/-2, 20 14:31:29 AOp 126/58 (83) 14:31:34 Signed By Tariq Spivey MD On 10/17/2021 14:59:49 Tariq Spivey MD
--- NOTE | 2021-10-17 15:01 | ECHOD_ITS ---
Reason For Study: CAD/ASHD Procedure This was a 2D Doppler, Color Flow transthoracic echocardiogram. Myocardial strain analysis was performed in this exam to aid in the assessment of cardiac function. The exam was of adequate technical quality. Exam performed portable in patient room. Left Ventricle Normal LV size. Severe concentric left ventricular hypertrophy. Apical false tendon noted. Left ventricular systolic function is normal. The estimated ejection fraction is 65 %. The global longitudinal strain = -12% (abnormal). Diastolic function is indeterminate. No regional wall motion abnormalities noted. Right Ventricle Normal RV size. Normal systolic function. Atria Normal left atrium. Normal right atrium. No doppler evidence for ASD. Mitral Valve There is no mitral annular calcification. Normal mitral valve. Trivial mitral valve insufficiency. Tricuspid Valve Normal tricuspid valve. Trivial tricuspid valve insufficiency. Aortic Valve Trisinus/trileaflet aortic valve. Mild focal aortic valve calcification. Pulmonic Valve The pulmonic valve is not well visualized. Great Vessels The aortic root is not well visualized. Pericardium/Pleural Trivial pericardial effusion. There are no echocardiographic indications of cardiac tamponade. MMode/2D Measurements & Calculations LVIDd: 4.4 cm IVSd: 1.7 cm LA dimension: 4.1 cm LVIDs: 2.4 cm LVPWd: 2.0 cm RVDd: 3.7 cm FS: 46.2 % LAV(MOD-bp): 78.5 ml LA A4 area: 24.4 cm2 RA A4 area: 20.0 cm2 LAV(MOD-bp) Indexed: 37.9 ml/m2 LAV(MOD-sp2): 64.6 ml LAV(MOD-sp4): 80.3 ml Time Measurements MV dec time: 0.26 sec Doppler Measurements & Calculations MV E max yong: 57.0 cm/sec Lat Peak E' Yong: 5.3 cm/sec Med Peak E' Yong: 5.0 cm/sec MV A max yong: 66.7 cm/sec E/E' lat: 10.8 E/E' med: 11.3 MV E/A: 0.85 MV V2 max: 72.3 cm/sec MV P1/2t max yong: 66.6 cm/sec Ao V2 max: 154.2 cm/sec MV max P.1 mmHg MV P1/2t: 88.4 msec Ao max P.5 mmHg MV V2 mean: 38.9 cm/sec MV dec slope: 220.6 cm/sec2 Ao V2 mean: 103.2 cm/sec MV mean P.73 mmHg MVA(P1/2t): 2.5 cm2 Ao mean P.9 mmHg MV V2 VTI: 30.5 cm Ao V2 VTI: 37.5 cm LV V1 max: 93.6 cm/sec PA V2 max: 76.4 cm/sec LV V1 max P.5 mmHg LV V1 mean P.2 mmHg LV V1 mean: 70.1 cm/sec LV V1 VTI: 22.7 cm ECHO/Echo Complete Interpretation Summary Left ventricular systolic function is normal. The estimated ejection fraction is 65 %. The global longitudinal strain = -12% (abnormal). Severe concentric left ventricular hypertrophy. Apical false tendon noted. Trivial mitral valve insufficiency. Trivial tricuspid valve insufficiency. Mild focal aortic valve calcification. Trivial pericardial effusion. There are no echocardiographic indications of cardiac tamponade. Diastolic function is indeterminate. Ordering Physician: Tariq Spivey Referring Physician: Shweta Amador Performed By: Wiley Holt RCS
[2021-10-17] MEDS: 0.9% Normal Saline 1,000 ML 75 ML IV (15:02)
[2021-10-17] MEDS: Isosorbide Mononitrate 30 MG Tablet PO (15:11)
[2021-10-17 18:15] LABS: Bedside Glucose 107 mg/dL (74-106)
[2021-10-17] MEDS: Doxazosin 1 MG Tablet PO (22:02)
[2021-10-17] MEDS: Atorvastatin Calcium 80 MG Tablet PO (22:02)
[2021-10-17] MEDS: Gabapentin 300 MG Capsule PO (22:02)
[2021-10-18] VITALS (7 sets, daily range): BP systolic 123–136; BP diastolic 75–82; PULSE 49–61; RESP 16; TEMP 36.3–36.6; O2SAT 94–99
[2021-10-18] MEDS: 0.9% Normal Saline 1,000 ML 75 ML IV (04:45)
[2021-10-18 05:57] LABS: Absolute Lymphocyte Count 1.36 X10^3/uL (0.83-4.51); Absolute Neutrophil Count 6.2 X10^3/uL (2.0-7.7); Basophil# 0.04 X10^3/uL; Basophil% 0.5 % (0-1); Eosinophil# 0.28 X10^3/uL; Eosinophils% 3.3 % (0-5); Hematocrit 38.3 % (40-54); Lymphocyte # 1.36 X10^3/ul (0.83-4.51); Lymphocyte % 16.1 % (19-41); Mean Corp Hgb Conc 33.9 g/dL (32-36); Mean Corpuscular Hgb 32.7 pg (27.0-32.0); Mean Corpuscular Volume 96.5 fL (80-94); Mean Platelet Vol. 11.7 fl (6.2-12.0); Monocyte# 0.54 X10^3/uL; Monocyte% 6.4 % (0-10); NRBC Flagged by Analyzer 0 % (0-5); Neutrophil # 6.23 X10^3/uL (2.7-7.7); Neutrophil % 73.6 % (47-70); Platelet Count 170 K/mm3 (150-450); RBC Distribution Width CV 12.3 % (11.6-14.6); RBC Distribution Width SD 43.3 fl (35.1-43.9); Red Blood Count 3.97 M/mm3 (4.6-6.2); White Blood Count 8.5 K/mm3 (4.4-11.0)
[2021-10-18 06:46] LABS: Anion Gap 7 (5-15); BUN 21 mg/dL (7-18); BUN/Creat Ratio 16.2 RATIO (10-20); Calcium,Total 8.5 mg/dL (8.5-10.1); Chloride 103 mmol/L (98-107); Cholesterol 153 mg/dL (200); EST Glomerular Filtration Rate 61 mL/min (>60); Est Glom Filt Rate - Afr Amer 73 mL/min (>60); Estimated Creatinine Clearance 71.44 ml/min; Glucose 122 mg/dL (74-106); High Density Lipoprotein 45 mg/dL; Potassium 3.5 mmol/L (3.5-5.1); Sodium Level 137 mmol/L (136-145); Triglycerides 66 mg/dL; Very Low Density Lipoprotein 13 mg/dL (5-40)
[2021-10-18] MEDS: Acetaminophen 325 MG Tablet 650 MG PO (07:47)
[2021-10-18] MEDS: Aspirin 81 MG TAB.CHEW PO (07:47)
--- NOTE | 2021-10-18 07:49 | PCM.PN.HOSP ---
Subjective Subjective Feels well. Objective Data Objective Data Vital Signs: Vital Signs Temp Pulse Resp BP Pulse Ox O2 Del Method 36.3 C L 49 L 16 136/82 H 94 Room Air 10/18/21 04:00 10/18/21 06:53 10/18/21 04:00 10/18/21 05:52 10/18/21 07:46 10/18/21 07:46 Oxygen Delivery Method Room Air Weight: 79.605 kg Body Mass Index (BMI) 21.9 Intake & Output: Intake and Output for Last 24 Hours 10/16/21 10/17/21 10/18/21 23:59 23:59 23:59 Intake Total 650 / 650 1000 / 1000 Output Total 100 / 100 0 / 0 Balance 550 / 550 1000 / 1000 Lab / Micro Data Result Diagrams: 10/18/21 05:37 10/18/21 05:37 Labs: Laboratory Results - last 24 hr 10/17/21 09:42: Troponin I High Sens 46 10/17/21 11:53: POC Glucose 97 10/17/21 16:01: POC Glucose 107 H 10/18/21 05:37: Sodium 137, Potassium 3.5, Chloride 103, Carbon Dioxide 27.0, Anion Gap 7, BUN 21 H, Creatinine 1.30, Estim Creat Clear Calc 71.44, Est GFR (MDRD) Af Amer 73, Est GFR (MDRD) Non-Af 61, BUN/Creatinine Ratio 16.2, Glucose 122 H, Calcium 8.5, Triglycerides 66, Cholesterol 153, LDL Cholesterol 95, VLDL Cholesterol 13, HDL Cholesterol 45 10/18/21 05:37: WBC 8.5, RBC 3.97 L, Hgb 13.0, Hct 38.3 L, MCV 96.5 H, MCH 32.7 H, MCHC 33.9, RDW Std Deviation 43.3, RDW Coeff of Zehra 12.3, Plt Count 170, MPV 11.7, Immature Gran % (Auto) 0.100, Neut % (Auto) 73.6 H, Lymph % (Auto) 16.1 L, [place] % (Auto) 6.4, Eos % (Auto) 3.3, Baso % (Auto) 0.5, Absolute Neuts (auto) 6.2, Absolute Lymphs (auto) 1.36, Nucleated RBC % 0 Radiography Diagnostic Testing: Radiology Impression Chest X-Ray 10/17/21 07:22 IMPRESSION: Borderline cardiomegaly. The lungs are clear. Electronically Signed: Herson Rivera MD at 8:00 EDT , Echocardiogram 10/17/21 15:01 Interpretation Summary Left ventricular systolic function is normal. The estimated ejection fraction is 65 %. The global longitudinal strain = -12% (abnormal). Severe concentric left ventricular hypertrophy. Apical false tendon noted. Trivial mitral valve insufficiency. Trivial tricuspid valve insufficiency. Mild focal aortic valve calcification. Trivial pericardial effusion. There are no echocardiographic indications of cardiac tamponade. Diastolic function is indeterminate. Ordering Physician: Tariq Spivey Referring Physician: Shweta Amador Performed By: Wiley Holt RCS Physical Exam Const alert and no apparent distress Resp normal respiratory effort, no retractions, no use of accessory muscles and clear to auscultation bilaterally Cardio regular rate, regular rhythm, S1 normal heart sound and S2 normal heart sound GI normal to inspection, nondistended, normoactive bowel sounds, soft to palpation, non-tender and non-distended Assessment & Plan Assessment/Plan (1) Unstable angina: PLAN: Troponins stable Known multivessel disease Heart cath showed no acute process. Chest pain may have been related with his high blood pressure which is improved. Consult Cardiology. DW Dr. Spivey for further eval. Will keep pt NPO for now for possible LHC today. Pt states that he has been compliant with medication. Continue ASA, clopidogrel, atorvastatin, carvedilol, losartan (2) Hypertensive urgency: PLAN: Improved On amlodipine 10 mg, carvedilol 6.25 mg twice daily, losartan 100, HCTZ 25, hydralazine 25 3 times daily, isosorbide 30 daily PLAN: Plan DM2: hold metformin. SSI HTN: continue losartan, amlodipine, HCTZ VTE prophylaxis: not indicated as he is low risk for now. Code Status: DW pt. Full Code.
[2021-10-18 08:41] LABS: Bedside Glucose 108 mg/dL (74-106)
[2021-10-18] MEDS: Carvedilol 6.25 MG Tablet PO (08:56)
[2021-10-18] MEDS: Clopidogrel Bisulfate 75 MG Tablet PO (08:56)
[2021-10-18] MEDS: Losartan Potassium 100 MG Tablet PO (08:56)
[2021-10-18] MEDS: hydroCHLOROthiazide 25 MG Tablet PO (08:56)
[2021-10-18] MEDS: amLODIPine 10 MG Tablet PO (10:09)
[2021-10-18] MEDS: Isosorbide Mononitrate 30 MG Tablet PO (10:09)
--- NOTE | 2021-10-18 11:02 | PCM.DC ---
Discharge Instructions Diet Discharge Diet: 1999 Calorie Control Diet Activity Return to work on:: 10/19/21 Dressing / Incision Call your doctor if you observe: Shortness of breath, Fainting spells and Chest pain Follow Up Care Test Results: Test results from this visit will be discussed in further detail at your follow-up appointment, if applicable. Discharge Plan Admission Admit Date/Time: 10/17/21 09:00 Primary Reason for Your Visit: Hypertensive urgency Attending Provider: Jose Michelle Primary Care Provider: Shweta Amador NP Consulting Providers: Tariq Spivey Discharge Orders/Prescriptions Prescriptions: New hydrochlorothiazide 25 mg Tablet 25 mg PO DAILY Qty: 30 0RF hydralazine 25 mg Tablet 25 mg PO TID Qty: 90 0RF isosorbide mononitrate 30 mg Tablet Extended Release 24 Hr 30 mg PO DAILY Qty: 30 0RF Continued aspirin 81 mg tablet,chewable 81 mg PO DAILY@0800 Qty: 90 3RF terazosin 1 mg tablet 1 mg PO QHS gabapentin 300 mg capsule 300 mg PO QHS cholecalciferol (vitamin D3) 1,250 mcg (50,000 unit) capsule 50,000 unit PO QWEEK losartan 100 mg tablet 100 mg PO DAILY Qty: 90 3RF clopidogrel 75 mg tablet 75 mg PO DAILY Qty: 90 3RF amlodipine 10 mg tablet 10 mg PO DAILY Qty: 90 3RF atorvastatin 80 mg tablet 80 mg PO QHS Qty: 90 3RF carvedilol 12.5 mg tablet 6.25 mg PO BID Qty: 180 3RF Held metformin 500 mg tablet 500 mg PO BID Hold Instructions: Resume on 10/22/21. Discontinued hydrochlorothiazide 12.5 mg capsule 12.5 mg PO DAILY Qty: 90 3RF nitroglycerin 0.4 MG tablet 0.4 mg SUBLINGUAL Q5M PRN (Reason: Cardiac/Chest Pain) Qty: 30 0RF Referrals / Follow Up: Shweta Amador NP, SHOW CARD WRITER-C [Primary Care Provider] - Within 2 Weeks Dali Lewis PA [Med Staff - [facility] Practice Prof] - Within 1 Month Disposition Disposition (needs filled in before D/C Order can be placed): Home, Self Care
--- NOTE | 2021-10-18 11:06 | PCM.DC.SUM ---
Providers Date of Admission: 10/17/21 Primary Care Physician: MALA Holm Consultations 10/17/21 09:19 Consult: Cardiology Routine Consulting Provider: Tariq Spivey Reason for Consult: Chest Pain EMERGENT Consult: No MD Notified: Yes Date Notified: 10/17/21 Time Notified: 09:04 Method of Notification: Verbal Reason For Visit: UNSTABLE ANGINA Diagnosis Discharge Diagnosis (1) Unstable angina: Status: Acute Code(s): I20.0 - Unstable angina Plan: Likely 2/2 hypertensive urgency Troponins stable Known multivessel disease Heart cath showed no acute process. Chest pain may have been related with his high blood pressure which is improved. Consult Cardiology. DW Dr. Spivey for further eval. Will keep pt NPO for now for possible LHC today. Pt states that he has been compliant with medication. Continue ASA, clopidogrel, atorvastatin, carvedilol, losartan (2) Hypertensive urgency: Status: Acute Code(s): I16.0 - Hypertensive urgency Plan: Improved On amlodipine 10 mg, carvedilol 6.25 mg twice daily, losartan 100, HCTZ 25, hydralazine 25 3 times daily, isosorbide 30 daily Plan DM2: resume metformin 5 days post catheterization HTN: continue losartan, amlodipine, HCTZ VTE prophylaxis: not indicated as he is low risk for now. Code Status: DW pt. Full Code. Medications at Discharge Home Medications aspirin 81 mg chewable tablet 81 mg PO DAILY@0800 health maintenance ##90 04/17/18 metformin 500 mg tablet 500 mg PO BID diabetes 12/02/19 amlodipine 10 mg tablet 10 mg PO DAILY blood pressure #90 tabs 06/28/21 atorvastatin 80 mg tablet 80 mg PO QHS #90 tabs 06/28/21 cholecalciferol (vitamin D3) 1,250 mcg (50,000 unit) capsule 50,000 unit PO QWEEK 06/28/21 clopidogrel 75 mg tablet 75 mg PO DAILY [facility] #90 tabs 06/28/21 gabapentin 300 mg capsule 300 mg PO QHS 06/28/21 losartan 100 mg tablet 100 mg PO DAILY BP #90 tabs 06/28/21 terazosin 1 mg tablet 1 mg PO QHS 06/28/21 carvedilol 12.5 mg tablet 6.25 mg PO BID bp #180 tabs 07/21/21 hydralazine 25 mg tablet 25 mg PO TID #90 tabs 10/18/21 hydrochlorothiazide 25 mg tablet 25 mg PO DAILY #30 tabs 10/18/21 isosorbide mononitrate 30 mg tablet,extended release 24 hr 30 mg PO DAILY #30 tabs 10/18/21 Hospital Course Operations None Procedures Cardiac catheterization Summary of Care Provided Minutes Spent on Discharge: 32 Hospital Course: 56-year-old male presents with chest pain while at work. Patient has extensive history of coronary artery disease requiring stents and symptoms felt similar to prior events. Patient's troponins were negative. Patient blood pressure was elevated upon arrival as well. Patient underwent a left heart catheterization that showed no obstructive coronary disease. Patient's blood pressure medications were adjusted patient would continue with his amlodipine, losartan, carvedilol at current dose, his hydrochlorothiazide to be increased from 12 and half to 25 daily, and he was added hydralazine 25 3 times a day as well as isosorbide 30 mg daily. Patient has tolerated that well. And his blood pressure has improved as well. Patient will be discharged home today. Patient asked me to speak with his boss at work to give verbal okay to return to work. I spoke with his boss and informed him. Patient will be able to return to work on October 19. Weight / BMI Weight Weight: 79.605 kg Body Mass Index (BMI) 21.9 ABG / Lab / Microbiology Data Result Diagrams: 10/18/21 05:37 10/18/21 05:37 Laboratory: Laboratory Results - last 24 hr 10/17/21 11:53: POC Glucose 97 10/17/21 16:01: POC Glucose 107 H 10/18/21 05:37: Sodium 137, Potassium 3.5, Chloride 103, Carbon Dioxide 27.0, Anion Gap 7, BUN 21 H, Creatinine 1.30, Estim Creat Clear Calc 71.44, Est GFR (MDRD) Af Amer 73, Est GFR (MDRD) Non-Af 61, BUN/Creatinine Ratio 16.2, Glucose 122 H, Calcium 8.5, Triglycerides 66, Cholesterol 153, LDL Cholesterol 95, VLDL Cholesterol 13, HDL Cholesterol 45 10/18/21 05:37: WBC 8.5, RBC 3.97 L, Hgb 13.0, Hct 38.3 L, MCV 96.5 H, MCH 32.7 H, MCHC 33.9, RDW Std Deviation 43.3, RDW Coeff of Zehra 12.3, Plt Count 170, MPV 11.7, Immature Gran % (Auto) 0.100, Neut % (Auto) 73.6 H, Lymph % (Auto) 16.1 L, [place] % (Auto) 6.4, Eos % (Auto) 3.3, Baso % (Auto) 0.5, Absolute Neuts (auto) 6.2, Absolute Lymphs (auto) 1.36, Nucleated RBC % 0 10/18/21 07:37: POC Glucose 108 H Radiography Diagnostic Testing: Radiology Impression Echocardiogram 10/17/21 15:01 Interpretation Summary Left ventricular systolic function is normal. The estimated ejection fraction is 65 %. The global longitudinal strain = -12% (abnormal). Severe concentric left ventricular hypertrophy. Apical false tendon noted. Trivial mitral valve insufficiency. Trivial tricuspid valve insufficiency. Mild focal aortic valve calcification. Trivial pericardial effusion. There are no echocardiographic indications of cardiac tamponade. Diastolic function is indeterminate. Ordering Physician: Tariq Spivey Referring Physician: Shweta Amador Performed By: Wiley Holt [facility] D/C Instructions Discharge Diet: 2000 Calorie Control Diet Return to work on: 10/19/21 Call your doctor if you observe: Shortness of breath, Fainting spells and Chest pain Meaningful Use Info Meaningful Use Diagnoses (Choose all that apply): None applicable Discharge Plan Admission Admit Date/Time: 10/17/21 09:00 Primary Reason for Your Visit: Hypertensive urgency Attending Provider: Jose Michelle Primary Care Provider: Shweta Amador SCALPING MACHINE OPERATOR Consulting Providers: Tariq Spivey Discharge Orders/Prescriptions Prescriptions: New hydrochlorothiazide 25 mg Tablet 25 mg PO DAILY Qty: 30 0RF hydralazine 25 mg Tablet 25 mg PO TID Qty: 90 0RF isosorbide mononitrate 30 mg Tablet Extended Release 24 Hr 30 mg PO DAILY Qty: 30 0RF Continued aspirin 81 mg tablet,chewable 81 mg PO DAILY@0800 Qty: 90 3RF terazosin 1 mg tablet 1 mg PO QHS gabapentin 300 mg capsule 300 mg PO QHS cholecalciferol (vitamin D3) 1,250 mcg (50,000 unit) capsule 50,000 unit PO QWEEK losartan 100 mg tablet 100 mg PO DAILY Qty: 90 3RF clopidogrel 75 mg tablet 75 mg PO DAILY Qty: 90 3RF amlodipine 10 mg tablet 10 mg PO DAILY Qty: 90 3RF atorvastatin 80 mg tablet 80 mg PO QHS Qty: 90 3RF carvedilol 12.5 mg tablet 6.25 mg PO BID Qty: 180 3RF Held metformin 500 mg tablet 500 mg PO BID Hold Instructions: Resume on 10/22/21. Discontinued hydrochlorothiazide 12.5 mg capsule 12.5 mg PO DAILY Qty: 90 3RF nitroglycerin 0.4 MG tablet 0.4 mg SUBLINGUAL Q5M PRN (Reason: Cardiac/Chest Pain) Qty: 30 0RF Referrals / Follow Up: Shweta Amador NP, SCALPING MACHINE OPERATOR-C [Primary Care Provider] - Within 2 Weeks Dali Lewis PA [Med Staff - [facility] Practice Prof] - Within 1 Month Disposition Disposition (needs filled in before D/C Order can be placed): Home, Self Care Charges/Coding Visit Charges OBSV E&M: 79004 Observation care discharge
--- NOTE | 2021-10-18 11:14 | CASEMGMT ---
Pt up in room independently and no concerns with going home today. SStforrest RN CM
[2021-10-18 11:40] LABS: Bedside Glucose 118 mg/dL (74-106)
--- NOTE | 2021-10-18 12:57 | PN.CARD_ITS ---
Subjective Subjective The patient is awake and alert. He states he feels much better than on his original presentation. He has no new acute symptoms. Objective Data Vital Signs: Vital Signs Temp Pulse Resp BP Pulse Ox O2 Del Method 97.8 F 61 16 127/80 H 99 Room Air 10/18/21 08:50 10/18/21 08:50 10/18/21 08:50 10/18/21 10:08 10/18/21 08:50 10/18/21 08:50 Oxygen Delivery Method Room Air Weight: 175 lb 8 oz Body Mass Index (BMI) 21.9 Intake & Output: Intake and Output for Last 24 Hours 10/16/21 10/17/21 10/18/21 23:59 23:59 23:59 Intake Total 650 / 650 1480 / 1480 Output Total 100 / 100 0 / 0 Balance 550 / 550 1480 / 1480 Lab / Micro Data Result Diagrams: 10/18/21 05:37 10/18/21 05:37 Labs: Laboratory Results - last 24 hr 10/17/21 11:53: POC Glucose 97 10/17/21 16:01: POC Glucose 107 H 10/18/21 05:37: Sodium 137, Potassium 3.5, Chloride 103, Carbon Dioxide 27.0, Anion Gap 7, BUN 21 H, Creatinine 1.30, Estim Creat Clear Calc 71.44, Est GFR (MDRD) Af Amer 73, Est GFR (MDRD) Non-Af 61, BUN/Creatinine Ratio 16.2, Glucose 122 H, Calcium 8.5, Triglycerides 66, Cholesterol 153, LDL Cholesterol 95, VLDL Cholesterol 13, HDL Cholesterol 45 10/18/21 05:37: WBC 8.5, RBC 3.97 L, Hgb 13.0, Hct 38.3 L, MCV 96.5 H, MCH 32.7 H, MCHC 33.9, RDW Std Deviation 43.3, RDW Coeff of Zehra 12.3, Plt Count 170, MPV 11.7, Immature Gran % (Auto) 0.100, Neut % (Auto) 73.6 H, Lymph % (Auto) 16.1 L, [place] % (Auto) 6.4, Eos % (Auto) 3.3, Baso % (Auto) 0.5, Absolute Neuts (auto) 6.2, Absolute Lymphs (auto) 1.36, Nucleated RBC % 0 08/31/22 07:37: POC Glucose 108 H 10/18/21 11:16: POC Glucose 118 H Cardiology Labs/Tests 10/18/21 05:37: Sodium 137, Potassium 3.5, Chloride 103, Carbon Dioxide 27.0, Anion Gap 7, BUN 21 H, Creatinine 1.30, Est GFR (MDRD) Af Amer 73, Est GFR (MDRD) Non-Af 61, BUN/Creatinine Ratio 16.2, Glucose 122 H, Calcium 8.5, Triglycerides 66, Cholesterol 153, LDL Cholesterol 95, VLDL Cholesterol 13, HDL Cholesterol 45 10/18/21 05:37: WBC 8.5, RBC 3.97 L, Hgb 13.0, Hct 38.3 L, MCV 96.5 H, MCH 32.7 H, MCHC 33.9, Plt Count 170, MPV 11.7, Immature Gran % (Auto) 0.100, Neut % (Auto) 73.6 H, Lymph % (Auto) 16.1 L, [place] % (Auto) 6.4, Eos % (Auto) 3.3, Baso % (Auto) 0.5, Absolute Neuts (auto) 6.2, Nucleated RBC % 0 Rhythm: Sinus rhythm/sinus bradycardia Radiography Diagnostic Testing: Radiology Impression Echocardiogram 10/17/21 15:01 Interpretation Summary Left ventricular systolic function is normal. The estimated ejection fraction is 65 %. The global longitudinal strain = -12% (abnormal). Severe concentric left ventricular hypertrophy. Apical false tendon noted. Trivial mitral valve insufficiency. Trivial tricuspid valve insufficiency. Mild focal aortic valve calcification. Trivial pericardial effusion. There are no echocardiographic indications of cardiac tamponade. Diastolic function is indeterminate. Ordering Physician: Tariq Spivey Referring Physician: Shweta Amador Performed By: Wiley Holt RCS Physical Exam Const alert, oriented x3 and no apparent distress HEENT normocephalic, head/scalp atraumatic and hearing grossly normal bilaterally Eyes PERRL, EOMs intact bilaterally and conjunctivae normal Neck full ROM, supple and no JVD Carotids: normal carotid upstroke Resp normal respiratory effort, no retractions, no use of accessory muscles and clear to auscultation bilaterally Cardio regular rate, regular rhythm, S1 normal heart sound and S2 normal heart sound GI normal to inspection, nondistended, normoactive bowel sounds, soft to palpation, non-tender and non-distended Extremity no pedal edema Skin no rashes or lesions noted Psych mental status grossly normal Assessment & Plan Assessment/Plan (1) Unstable angina: PLAN: The patient presents with findings compatible with unstable angina pectoris. This is superimposed upon his diagnosis of CAD status post recent multivessel PCI. His cardiac enzymes have varied but have remained negative. His ECG is as noted. He has undergone additional evaluation with diagnostic cardiac catheterization. The results did not lead to additional PCI. At the present time his symptoms may have been exacerbated by his marked hypertension. Thus his medications have been adjusted to bring his blood press ure under better control. (2) CAD (coronary artery disease): PLAN: The patient has a history of CAD as noted. As noted above he did undergo additional evaluation with diagnostic cardiac catheterization. His previous PCI sites were patent. He did not require additional evaluation/care with PCI. Thus he will continue medical therapy and follow-up. (3) History of coronary artery stent placement: PLAN: The patient has undergone recent multivessel PCI. Based upon his cardiac catheterization procedure he did not appear to demonstrate evidence of in-stent restenosis. He will continue medical therapy. (4) HLD (hyperlipidemia): PLAN: The patient should continue risk factor modification medical therapy including lipid-lowering therapy with statins as tolerated. (5) Essential hypertension: PLAN: The patient's blood pressure was markedly elevated. This may be a contributing factor to his symptoms. His medicines have been adjusted and his blood pressure does appear to be much improved at this time. His blood pressure improved so has his symptoms. He will need to continue medical therapy and follow-up. (6) Type 2 diabetes mellitus: PLAN: He will continue evaluation care per internal medicine. Addt'l Comments The above was discussed and reviewed with the patient. This note was generated using a voice recognition system and there may be incorrect words, spelling or punctuation that were not noted when reviewing the office note prior to saving. Procedure Criteria Type of Procedure Procedure Type: Elective Elective Risks - COVID COVID Risk Discussion: The surgeon/proceduralist and patient have discussed in detail the risk of exposure to and/or potential harm posed by the COVID-19 virus with having a surgery/procedure at this time versus the risk of delaying the murillo rgery/procedure. It is not possible to know either the risk of delaying the surgery or procedure or chance of getting an infection with perfect accuracy, but a joint decision was made between the patient and the surgeon/proceduralist to proceed at this time with the scheduled surgery/procedure as indicated on the consent form.
== END 2021-10-18 11:06 | disposition home or self-care (01) ==
LOC: ED 08:41 → PCU 09:02
PROVIDERS: Internal Medicine Cardiovascular Disease; Emergency Provider Emergency Medicine; PCP Nurse Practitioner Family
DX: I16.0 Hypertensive urgency (principal); I25.110 Atherosclerotic heart disease of native coronary artery with unstable angina pectoris; E11.9 Type 2 diabetes mellitus without complications; Z79.84 Long term (current) use of oral hypoglycemic drugs; E78.5 Hyperlipidemia, unspecified; I44.4 Left anterior fascicular block; Z79.02 Long term (current) use of antithrombotics/antiplatelets; R42 Dizziness and giddiness; F17.210 Nicotine dependence, cigarettes, uncomplicated; R00.2 Palpitations; I10 Essential (primary) hypertension; Z79.82 Long term (current) use of aspirin; Z79.899 Other long term (current) drug therapy; I25.2 Old myocardial infarction
CPT/HCPCS: C1769; C1894; 36415; 71045; 80048; 80061; 82962; 84484; 85025; 93005; 93306; 93458; 96360; 96361; 99152; 99153; 99218; 99285; 99406; J7030; Q9967; A4216; G0378

== ENCOUNTER 2021-12-17 02:32 | Emergency (ER) | payer OTHER, MEDICAID, SELFPAY ==
[2021-06-23 09:18] VITALS: BMI 26.8
[2021-12-17 02:33] VITALS: BP 163/104; PULSE 69; RESP 18; TEMP 36.7; O2SAT 99; BMI 22.2
--- NOTE | 2021-12-17 02:51 | EX.ED.UPPERE ---
HPI History of Present Illness Chief Complaint: Upper Extremity Injury Informant: patient Onset/Context/Timing Onset: Today Narrative Narrative: [id number] male presents ED from work for evaluation left middle finger injury 1 hour prior to arrival. 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 He took off his glove his middle finger distal was bent and unable to straight. No paresthesias or pain. Denies stubbing the finger. No history of similar. He is on antiplatelets due to history of coronary disease. Prior similar symptoms: No PFSH PFSH Medical History Alcohol intoxication Atherosclerotic heart disease of [place] coronary artery without angina pectoris CAD (coronary artery disease) Essential hypertension HLD (hyperlipidemia) Non-STEMI (non-ST elevated myocardial infarction) (03/31/18) PVC's (premature ventricular contractions) Tobacco abuse Type 2 diabetes mellitus Home Medications aspirin 81 mg chewable tablet 81 mg PO DAILY@0800 health maintenance ##90 04/17/18 [Rx Last Taken 07/20/21] metformin 500 mg tablet 500 mg PO BID diabetes 12/02/19 [History Last Taken Unknown] amlodipine 10 mg tablet 10 mg PO DAILY blood pressure #90 tabs 06/28/21 [Rx Last Taken 07/20/21] atorvastatin 80 mg tablet 80 mg PO QHS #90 tabs 06/28/21 [Rx Last Taken 07/19/21] cholecalciferol (vitamin D3) 1,250 mcg (50,000 unit) capsule 50,000 unit PO QWEEK 06/28/21 [History Last Taken 07/17/21] clopidogrel 75 mg tablet 75 mg PO DAILY heart health #90 tabs 06/28/21 [Rx Last Taken 07/20/21] gabapentin 300 mg capsule 300 mg PO QHS 06/28/21 [History Last Taken 07/19/21] losartan 100 mg tablet 100 mg PO DAILY BP #90 tabs 06/28/21 [Rx Last Taken 07/20/21] terazosin 1 mg tablet 1 mg PO QHS 06/28/21 [History Last Taken Unknown] carvedilol 12.5 mg tablet 6.25 mg PO BID bp #180 tabs 07/21/21 [Rx Last Taken 07/20/21] hydralazine 25 mg tablet 25 mg PO TID #90 tabs 10/18/21 [Rx Last Taken Unknown] hydrochlorothiazide 25 mg tablet 25 mg PO DAILY #30 tabs 10/18/21 [Rx Last Taken Unknown] isosorbide mononitrate 30 mg tablet,extended release 24 hr 30 mg PO DAILY #30 tabs 10/18/21 [Rx Last Taken Unknown] Allergy/AdvReac Type Severity Reaction Status Date / Time latex Allergy Hives Verified 06/28/21 10:40 Sulfa (Sulfonamide Allergy Hives Verified 06/28/21 10:40 Antibiotics) Family History Mother CAD (coronary artery disease) Grandfather CAD (coronary artery disease) Surgical History History of coronary artery stent placement (07/20/21) History of left heart catheterization (07/18/21) Social History Smoking Status: Light Smoker (<10/day) alcohol intake: current alcohol intake frequency: a few times a month substance use type: does not use ROS ROS ED Constitutional Constitutional ED: Denies chills, fever(s) or sweats Eyes Eyes: Denies change in vision ENT ENT ED: Denies dysphagia or sore throat Cardiovascular Cardiovascular: Denies chest pain, leg edema, palpitations or racing heartbeat Respiratory/Chest Respiratory/Chest: Denies cough, dyspnea or dyspnea on exertion Gastrointestinal Gastrointestinal: Denies abdominal pain, diarrhea, nausea or vomiting Genitourinary Genitourinary ED: Denies dysuria, hematuria or urinary frequency Musculoskeletal Musculoskeletal: Reports other Details: Left middle finger injury ; Denies back pain or neck pain Integumentary Denies rash or wounds Neurologic Neurologic: Denies headache(s), paresthesias or weakness EXAM Physical Exam Const Vital Signs: 12/17/21 02:33 Temperature 98.0 F Temperature Source Oral Pulse Rate 69 Respiratory Rate 18 Blood Pressure 163/104 H Blood Pressure Mean 123 Pulse Ox 99 Oxygen Delivery Method Room Air Positive well nourished and well developed General Appearance ED: well developed and NAD HEENT Reports moist mucous membranes normocephalic and atraumatic Eyes PERRL, EOMs intact bilaterally and conjunctivae normal General Eye ED: Yes normal appearance of both eyes Neck no lymphadenopathy and supple General: Negative for tenderness Chest Wall Chest: Negative for tenderness Resp normal respiratory effort and normal air movement Effort and Inspection: symmetric chest movement; Negative for respiratory distress Cardio regular rate, regular rhythm and no murmurs Peripheral Pulses: pulses 2+ throughout GI normal to inspection, nondistended, normoactive bowel sounds and non-tender Palpation: Negative for guarding or rebound tenderness present Back/Spine no CVA tenderness and no thoracic nor lumbar tenderness Extremity Extremity Narrative: Left upper extremity: Hand examination middle finger: PIP joint was in flexion and able to extend. Negative varus and valgus. No pain. Skin intact. Neuro vas intact distally. General Extremety ED: Negative for edema or tenderness General Extremity: Negative for edema Neuro oriented x3 and no sensory deficits noted Sensorium / Orientation: awake and alert Skin no rashes or lesions noted and no wounds MDM MDM MDM Narrative Medical decision making narrative: Patient exam concerns for mallet finger left middle. There is no pain. Three-view x-ray left middle finger reviewed by myself negative for any fractures. He is placed in AlumaFoam splint to maintain straightening at this time. Discussed leaving this on to help with healing process. He will follow-up with occupational health along with given orthopedics for an outpatient. All questions were answered. Discharge Plan Triage Chief Complaint: Upper Extremity Injury ED Provider: Colt Dash Dx/Rx/DC Orders Clinical Impression: Mallet deformity of left middle finger, Injury of left middle finger Instructions: ED Mallet Finger, ED Tendon Rupture, Finger Prescriptions: No Action aspirin 81 mg tablet,chewable 81 mg PO DAILY@0800 Qty: 90 3RF metformin 500 mg tablet 500 mg PO BID Hold Instructions: Resume on 10/22/21. terazosin 1 mg tablet 1 mg PO QHS gabapentin 300 mg capsule 300 mg PO QHS cholecalciferol (vitamin D3) 1,250 mcg (50,000 unit) capsule 50,000 unit PO QWEEK losartan 100 mg tablet 100 mg PO DAILY Qty: 90 3RF clopidogrel 75 mg tablet 75 mg PO DAILY Qty: 90 3RF amlodipine 10 mg tablet 10 mg PO DAILY Qty: 90 3RF atorvastatin 80 mg tablet 80 mg PO QHS Qty: 90 3RF carvedilol 12.5 mg tablet 6.25 mg PO BID Qty: 180 3RF hydrochlorothiazide 25 mg Tablet 25 mg PO DAILY Qty: 30 0RF hydralazine 25 mg Tablet 25 mg PO TID Qty: 90 0RF isosorbide mononitrate 30 mg Tablet Extended Release 24 Hr 30 mg PO DAILY Qty: 30 0RF Primary Care Provider: Shweta Amador NP Referrals: Chris Syed DO [Med Staff - Active Staff] - 3-5 Days Shweta Amador NP, [employer] [Primary Care Provider] - Activity Restrictions/Additional Instructions: Keep splint on finger at all times. Disposition Disposition: Home, Self Care Discharge Date/Time: 12/17/21 03:58
--- NOTE | 2021-12-17 02:56 | RAD_ITS ---
STUDY: X-RAY - LEFT HAND, ATTENTION THIRD FINGER REASON FOR EXAM: Male, 56 years old. injury -- middle finger TECHNIQUE: 3 view(s) of the finger were obtained. COMPARISON: None. FINDINGS: Normal metacarpal head. Normal metacarpophalangeal joint. Normal proximal phalanx. Normal middle phalanx. Normal distal phalanx. Normal proximal interphalangeal joint. Fixed flexion in the distal interphalangeal joint suggesting extensor tendon tear. RAD/Finger(s) Min 2 Views IMPRESSION: No acute bone injury of the finger. Fixed flexion in the distal interphalangeal joint suggesting extensor tendon tear. Electronically Signed: Tosha Tijerina MD at 3:15 EDT ,
== END 2021-12-17 03:58 | disposition home or self-care (01) ==
PROVIDERS: Emergency Provider Emergency Medicine; PCP Nurse Practitioner Family; Visit Provider Emergency Medicine
DX: S69.82XA Other specified injuries of left wrist, hand and finger(s), initial encounter (principal); E11.9 Type 2 diabetes mellitus without complications; I25.10 Atherosclerotic heart disease of native coronary artery without angina pectoris; E78.5 Hyperlipidemia, unspecified; I10 Essential (primary) hypertension; M20.012 Mallet finger of left finger(s); X58.XXXA Exposure to other specified factors, initial encounter; Y93.F9 Activity, other caregiving; Y99.0 Civilian activity done for income or pay
CPT/HCPCS: 73140; 99283

== ENCOUNTER 2022-07-01 06:12 | Inpatient (IN) | payer MEDICAID, SELFPAY ==
[2021-06-23 09:18] VITALS: BMI 26.8
[2022-07-01] VITALS (13 sets, daily range): BP systolic 122–160; BP diastolic 73–95; PULSE 55–77; RESP 12–16; TEMP 36.4–36.7; O2SAT 97–100; BMI 23.8; BMI 23.6
--- NOTE | 2022-07-01 06:16 | RAD_ITS ---
EXAM: XR CHEST, 1 VIEW CLINICAL INDICATION: chest pain TECHNIQUE: Frontal view of the chest. COMPARISON: October 17, 2021. April 12, 2017. FINDINGS: LUNGS AND PLEURAL SPACES: Unremarkable. No consolidation or edema. No pneumothorax. No effusion. HEART: Unremarkable. Stable borderline cardiomegaly. MEDIASTINUM: Central airways and mediastinal contour are unremarkable. BONES/JOINTS: Unremarkable. SOFT TISSUES: Unremarkable. RAD/Chest 1 View (Portable) IMPRESSION: Stable borderline cardiomegaly. No acute intrathoracic abnormality. Electronically Signed: Donya Martinez MD at 6:47 EDT ,
--- NOTE | 2022-07-01 06:16 | EKG12_ITS ---
Test Reason : CP Blood Pressure : / mmHG Vent. Rate : 074 BPM Atrial Rate : 074 BPM P-R Int : 202 ms QRS Dur : 110 ms QT Int : 390 ms P-R-T Axes : 057 -45 112 degrees QTc Int : 432 ms Normal sinus rhythm Left anterior fascicular block Minimal voltage criteria for LVH, may be normal variant ( [place] product ) T wave abnormality, consider lateral ischemia Abnormal ECG Confirmed by RAMILA CHATTERJEE, ARIELLE ([id number]), clinical editor JIMBO GONZALES ([id number]) on 07/03/2022 10:32:22 AM Referred By: CURTIS Confirmed By:ARIELLE MCGRATH MD
--- NOTE | 2022-07-01 06:23 | ED.VIS.CHEST ---
HPI History of Present Illness Chief Complaint: Chest Pain Detail of Chief Complaint: Midsternal left-sided chest pain. Informant: patient Onset/Context/Timing Onset: Weeks Activity at onset: gradual Timing: Intermittent Quality: Positive for Dull and Heaviness Location: Substernal and Left Chest Current Severity: Mild Maximum Severity: Moderate Worsened By: Exertion Relieved By: Rest Associated Symptoms: Negative for Nausea, Acid Reflux or Palpitations Narrative Narrative: 57-year-old male history of CAD states an ID in September. At that time he had a cardiac catheterization. He is 7 known stents. He is also diabetic and on Plavix. States that he has been having increasing shortness of breath with exertion and chest pain over the last several months. Worse with exertion better if he rests. Tonight at work he had 2 episodes where he took several nitroglycerin which helped his pain but then it returned. He is currently having chest discomfort. No history of DVT or PE. No leg pain or swelling. No hemoptysis. Pain is not pleuritic. He has had no recent travel surgery or immobilization. Prior Similar Symptoms: Yes Recent Illness/Hospitalization: No CVD Risk Factors: Positive for Hypertension, Diabetes, Hypercholesterolemia and Smoking PE Risk Factors: Negative for Recent Travel/Surgery, Recent Immobilization, Prior DVT or PE, Cancer or OCP + Smoking + >/=35 TAD Risk Factors: Negative for Marfan's Syndrome [facility] Medical History Alcohol intoxication Atherosclerotic heart disease of [place] coronary artery without angina pectoris CAD (coronary artery disease) Essential hypertension HLD (hyperlipidemia) Non-STEMI (non-ST elevated myocardial infarction) (03/31/18) PVC's (premature ventricular contractions) Tobacco abuse Type 2 diabetes mellitus Home Medications aspirin 81 mg chewable tablet 81 mg PO DAILY@0800 health maintenance ##90 04/17/18 [Rx Last Taken 07/20/21] metformin 500 mg tablet 500 mg PO BID diabetes 12/02/19 [History Last Taken Unknown] amlodipine 10 mg tablet 10 mg PO DAILY blood pressure #90 tabs 06/28/21 [Rx Last Taken 07/20/21] atorvastatin 80 mg tablet 80 mg PO QHS #90 tabs 06/28/21 [Rx Last Taken 07/19/21] cholecalciferol (vitamin D3) 1,250 mcg (50,000 unit) capsule 50,000 unit PO QWEEK 06/28/21 [History Last Taken 07/17/21] gabapentin 300 mg capsule 300 mg PO QHS 06/28/21 [History Last Taken 07/19/21] losartan 100 mg tablet 100 mg PO DAILY BP #90 tabs 06/28/21 [Rx Last Taken 07/20/21] hydrochlorothiazide 25 mg tablet 25 mg PO DAILY #30 tabs 10/18/21 [Rx Last Taken Unknown] carvedilol 25 mg tablet 25 mg PO BID 06/12/22 [History Last Taken Unknown] famotidine 40 mg tablet (Pepcid) 40 mg PO DAILY #30 tabs 06/12/22 [Rx Last Taken Unknown] isosorbide mononitrate 30 mg tablet,extended release 24 hr 30 mg PO DAILY #30 tabs 06/12/22 [Rx Last Taken Unknown] Blood Pressure Monitor #1 ea 06/13/22 [Rx Last Taken Unknown] nitroglycerin 0.4 mg sublingual tablet 0.4 mg sublingual Q5-15M #25 tabs 06/27/22 [Rx Last Taken Unknown] Allergy/AdvReac Type Severity Reaction Status Date / Time latex Allergy Hives Verified 06/12/22 14:46 Sulfa (Sulfonamide Allergy Hives Verified 06/12/22 14:46 Antibiotics) Family History Mother CAD (coronary artery disease) Grandfather CAD (coronary artery disease) Surgical History History of coronary artery stent placement (07/20/21) History of left heart catheterization (07/18/21) Social History Smoking Status: Former smoker how long ago did patient quit smokin.5 months alcohol intake: current alcohol intake frequency: a few times a month substance use type: does not use 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 No recent illness. Review of Systems ROS Unobtainable: Denies due to encephalopathy Constitutional Constitutional ED: Denies chills or fever(s) Eyes Eyes: Reports none ENT ENT ED: Denies ear pain Cardiovascular Cardiovascular: Reports as per HPI and chest pain; Denies palpitations or racing heartbeat Respiratory/Chest Respiratory/Chest: Reports dyspnea and dyspnea on exertion; Denies cough Gastrointestinal Gastrointestinal: Denies abdominal pain Genitourinary Genitourinary ED: Denies dysuria Musculoskeletal Musculoskeletal: Denies arthralgias Integumentary Denies abscess Neurologic Neurologic: Denies headache(s) Psychiatric Psychiatric: Denies anxiety Endocrine Endocrinology: Denies cold intolerance Hematologic/Lymphatic Hematologic/Lymphatic: Denies easy bleeding Allergic/Immunologic Allergic/Immunologic ED: Denies mouth swelling or tongue swelling EXAM Physical Exam Narrative Exam Narrative: The same male no acute distress vital signs stable afebrile. Pulse ox 97% room air no hypoxia. He is having discomfort. He does not look diaphoretic. He is not dyspneic. H EENT exam unremarkable. Neck nontender no JVD. Lungs clear to auscultation bilaterally. Heart regular rate and rhythm rate about 80 no murmur. Chest wall nontender. Abdomen soft nontender. Moving all 4 extremities. Calves are nontender without edema or cords. Equal symmetrical radial pulses. Neurologically is awake and alert with no focal motor deficits. Const Vital Signs: 07/01/22 06:13 07/01/22 06:16 07/01/22 06:18 Temperature 97.9 F Temperature Source Oral Pulse Rate 77 Respiratory Rate 16 Respiratory Pattern Normal Blood Pressure 150/92 H Blood Pressure Mean 111 Pulse Ox 97 97 Oxygen Delivery Method Room Air Room Air Positive well nourished and well developed; Negative for obese, cachectic, contractures or unkempt General Appearance ED: well developed and NAD; Negative for unkempt, cachectic, contractures or pallor Nutritional Appearance: Negative for cachectic or obese HEENT Reports moist mucous membranes normocephalic and atraumatic; Negative for trauma or tenderness Eyes PERRL and EOMs intact bilaterally General Eye ED: Negative for pale conjunctiva or scleral icterus Neck no lymphadenopathy, supple and no JVD Chest Wall inspection of chest normal and palpation of chest normal Chest: Negative for tenderness Resp normal respiratory effort and clear to auscultation bilaterally Effort and Inspection: Negative for respiratory distress Auscultation: Negative for rales, rhonchi or wheezes Cardio regular rate, regular rhythm, S1 normal heart sound, S2 normal heart sound and no murmurs Peripheral Pulses: pulses 2+ throughout GI normal to inspection, nondistended, normoactive bowel sounds, soft to palpation, non-tender, non-distended and no masses Auscultation: Negative for hyperactive bowel sounds Palpation: Negative for splenomegaly Back/Spine no CVA tenderness and no thoracic nor lumbar tenderness General Back: Negative for CVA tenderness Cervical Spine: Negative for cervical spine tenderness Extremity normal to inspection General Extremety ED: Negative for edema or pulses abnormal General Extremity: Negative for edema or pulses abnormal Neuro oriented x3 and CN's II-XII intact bilaterally Sensorium / Orientation: awake, alert, oriented to person, oriented to place and oriented to time; Negative for confused, lethargic or stuporous Motor Exam: strength 5/5 throughout Psych mental status grossly normal Appearance: Negative for unkempt Attitude: No agitated Mood & Affect: Negative for depressed or anxious Skin no rashes or lesions noted and no wounds General Skin Exam: Negative for jaundice or pallor Rashes: No rashes noted Trauma: Negative for abrasion or laceration Heart Score History: Highly Suspicious ECG: Normal Age: >45 - <65 years Risk Factors: >/= 3 Risk Factors or History of CAD Troponin: </= Normal Limit Score: 5 MDM MDM MDM Narrative Medical decision making narrative: 57-year-old male known cardiac history, prior ID with 7 stents. Having increasing more frequently and worse duration and intensity exertional chest pain. Undergo cardiac work-up. Sublingual nitroglycerin aspirins. Most likely will need to be admitted for further cardiac evaluation. Repeat exam patient doing well at 7:30 AM. Currently chest pain-free. He did not want a nitroglycerin and never received any. I spoke to the hospitalist he will be admitted. Patient is comfortable to plan. History & Record Review Discussion w/independent historian: Patient Additional record(s) reviewed:: Prior inpatient record, Prior outpatient record and Prior labs Lab Data Attestation: I reviewed the patient's lab results. Lab results narrative: CBC shows a white count 7.8. H&H 11.36. Platelets 183. Electrolytes unremarkable. Gap is 7. BUN and creatinine 21.54. Glucose 113. Initial troponin is 53. Labs: Laboratory Results - last 24 hr 07/01/22 07/01/22 06:15 06:15 WBC 7.8 RBC 3.72 L Hgb 11.8 L Hct 36.3 L MCV 97.6 H MCH 31.7 MCHC 32.5 RDW Std Deviation 44.7 H RDW Coeff of Zehra 12.5 Plt Count 183 MPV 10.9 Immature Gran % (Auto) 0.300 Neut % (Auto) 61.2 Lymph % (Auto) 27.0 [place] % (Auto) 7.8 Eos % (Auto) 3.1 Baso % (Auto) 0.6 Absolute Neuts (auto) 4.8 Absolute Lymphs (auto) 2.11 Nucleated RBC % 0 Sodium 140 Potassium 4.0 Chloride 105 Carbon Dioxide 28.0 Anion Gap 7 BUN 28 H Creatinine 1.54 H Estim Creat Clear Calc 63.25 Est GFR (MDRD) Af Amer 60 Est GFR (MDRD) Non-Af 50 L BUN/Creatinine Ratio 18.2 Glucose 113 H Calcium 9.1 Troponin I High Sens 53 Radiography Chest X-Ray - ED: 1 View, Read by ED Physician, Lungs, Mediastinum, Bony Structures, No Acute Disease, Chronic Changes and Cardiomegaly Diagnostic Testing: Clinical Impression(s) from Imaging Studies Chest X-Ray 07/01/22 06:16 IMPRESSION: Stable borderline cardiomegaly. No acute intrathoracic abnormality. Electronically Signed: Donya Martinez MD at 6:47 EDT Reading Location ID and State: [facility] / [place] Tel , Service support , Chest x-ray shows borderline cardiomegaly otherwise no acute process. Single view interpreted both by myself and the radiologist. Rhythm Strip Rhythm Strip: Sinus Rhythm Rate: 74 Ectopy: None EKG Initial EKG: Attestation: I personally reviewed and interpreted this EKG as follows: Interpretation: Sinus Rhythm and No Acute Injury Pattern Comments: NSR with a rate of 74. No acute signs of ID or ischemia. Discharge Plan Triage Chief Complaint: Chest Pain ED Provider: Vladislav Kauffman Dx/Rx/DC Orders Clinical Impression: Chest pain, History of heart artery stent, Accelerating angina, History of ID (myocardial infarction), History of diabetes mellitus Prescriptions: No Action aspirin 81 mg tablet,chewable 81 mg PO DAILY@0800 Qty: 90 3RF metformin 500 mg tablet 500 mg PO BID Hold Instructions: Resume on 10/22/21. gabapentin 300 mg capsule 300 mg PO QHS cholecalciferol (vitamin D3) 1,250 mcg (50,000 unit) capsule 50,000 unit PO QWEEK losartan 100 mg tablet 100 mg PO DAILY Qty: 90 3RF amlodipine 10 mg tablet 10 mg PO DAILY Qty: 90 3RF atorvastatin 80 mg tablet 80 mg PO QHS Qty: 90 3RF carvedilol 25 mg tablet 25 mg PO BID isosorbide mononitrate 30 mg tablet extended release 24 hr 30 mg PO DAILY Qty: 30 3RF famotidine [Pepcid] 40 mg tablet 40 mg PO DAILY Qty: 30 2RF hydrochlorothiazide 25 mg Tablet 25 mg PO DAILY Qty: 30 0RF (DME) Blood Pressure Monitor See Rx Instructions .Route .MEDSUPPLY Qty: 1 0RF Rx Instructions: As directed nitroglycerin 0.4 mg tablet, sublingual 0.4 mg sublingual Q5-15M Qty: 25 3RF Primary Care Provider: Shweta Amador NP Referrals: Shweta Amador NP, [employer] [Primary Care Provider] - Disposition Disposition: Acute Care Hospital [facility]
[2022-07-01] MEDS: Aspirin 81 MG TAB.CHEW 324 MG PO (06:26)
[2022-07-01 06:36] LABS: Absolute Lymphocyte Count 2.11 X10^3/uL (0.83-4.51); Absolute Neutrophil Count 4.8 X10^3/uL (2.0-7.7); Basophil# 0.05 X10^3/uL; Basophil% 0.6 % (0-1); Eosinophil# 0.24 X10^3/uL; Eosinophils% 3.1 % (0-5); Hematocrit 36.3 % (40-54); Hemoglobin 11.8 g/dL (13.0-16.5); Lymphocyte # 2.11 X10^3/ul (0.83-4.51); Mean Corp Hgb Conc 32.5 g/dL (32-36); Mean Corpuscular Hgb 31.7 pg (27.0-32.0); Mean Corpuscular Volume 97.6 fL (80-94); Mean Platelet Vol. 10.9 fl (6.2-12.0); Monocyte# 0.61 X10^3/uL; Monocyte% 7.8 % (0-10); NRBC Flagged by Analyzer 0 % (0-5); Neutrophil # 4.79 X10^3/uL (2.7-7.7); Neutrophil % 61.2 % (47-70); Platelet Count 183 K/mm3 (150-450); RBC Distribution Width CV 12.5 % (11.6-14.6); RBC Distribution Width SD 44.7 fl (35.1-43.9); Red Blood Count 3.72 M/mm3 (4.6-6.2); White Blood Count 7.8 K/mm3 (4.4-11.0)
[2022-07-01 06:46] LABS: Anion Gap 7 (5-15); BUN 28 mg/dL (7-18); BUN/Creat Ratio 18.2 RATIO (10-20); Calcium,Total 9.1 mg/dL (8.5-10.1); Chloride 105 mmol/L (98-107); Creatinine, Serum 1.54 mg/dL (0.70-1.30); EST Glomerular Filtration Rate 50 mL/min (>60); Est Glom Filt Rate - Afr Amer 60 mL/min (>60); Estimated Creatinine Clearance 63.25 ml/min; Glucose 113 mg/dL (74-106); Sodium Level 140 mmol/L (136-145); Troponin-I HS (w/2H Reflex) 53 pg/mL (3.0-78.0)
--- NOTE | 2022-07-01 08:25 | HP.PCM.HOS_ITS ---
HPI - General General Date of Admission: 07/01/22 Date of Service: 07/01/22 Chief Complaint: Chest pain HPI Narrative JONO MURRY, is a 57 M who presents to the emergency room at [facility] with complaints of precordial chest pain which is left-sided predominantly, he states that it came on while he was at work, he took several nitroglycerin that he had without relief of the chest pain. Patient has a history of coronary artery disease and has several stents inserted, his last cardiac catheterization was September of last year and the stents were patent. Patient denies any nausea. Work-up in the emergency room included an EKG which showed no evidence of acute ischemic changes, chest x-ray was unremarkable, tro ponin was normal. Patient's chest pain went away while he was in the emergency room. Patient will be placed in observation status on PCU, cardiac enzymes will be cycled, he will undergo nuclear stress test tomorrow if his enzymes remain normal. [facility] Medical History Alcohol intoxication Atherosclerotic heart disease of [place] coronary artery without angina pectoris CAD (coronary artery disease) Essential hypertension HLD (hyperlipidemia) Non-STEMI (non-ST elevated myocardial infarction) (03/31/18) PVC's (premature ventricular contractions) Tobacco abuse Type 2 diabetes mellitus Home Medications aspirin 81 mg chewable tablet 81 mg PO DAILY@0800 health maintenance ##90 04/17/18 [Rx Last Taken 07/20/21] metformin 500 mg tablet 500 mg PO BID diabetes 12/02/19 [History Last Taken Unknown] amlodipine 10 mg tablet 10 mg PO DAILY blood pressure #90 tabs 06/28/21 [Rx Last Taken 07/20/21] atorvastatin 80 mg tablet 80 mg PO QHS #90 tabs 06/28/21 [Rx Last Taken 07/19/21] cholecalciferol (vitamin D3) 1,250 mcg (50,000 unit) capsule 50,000 unit PO QWEEK 06/28/21 [History Last Taken 06/24/22] gabapentin 300 mg capsule 300 mg PO QHS 06/28/21 [History Last Taken 07/19/21] losartan 100 mg tablet 100 mg PO DAILY BP #90 tabs 06/28/21 [Rx Last Taken 07/20/21] hydrochlorothiazide 25 mg tablet 25 mg PO DAILY #30 tabs 10/18/21 [Rx Last Taken Unknown] carvedilol 25 mg tablet 25 mg PO BID 06/12/22 [History Last Taken Unknown] famotidine 40 mg tablet (Pepcid) 40 mg PO DAILY #30 tabs 06/12/22 [Rx Last Taken Unknown] isosorbide mononitrate 30 mg tablet,extended release 24 hr 30 mg PO DAILY #30 tabs 06/12/22 [Rx Last Taken Unknown] Blood Pressure Monitor #1 ea 06/13/22 [Rx Last Taken Unknown] nitroglycerin 0.4 mg sublingual tablet 0.4 mg sublingual Q5-15M #25 tabs 06/27/22 [Rx Last Taken Unknown] Allergy/AdvReac Type Severity Reaction Status Date / Time latex Allergy Hives Verified 06/12/22 14:46 Sulfa (Sulfonamide Allergy Hives Verified 06/12/22 14:46 Antibiotics) Family History Mother CAD (coronary artery disease) Grandfather CAD (coronary artery disease) Surgical History History of coronary artery stent placement (07/20/21) History of left heart catheterization (07/18/21) Social History Smoking Status: Former smoker how long ago did patient quit smokin.5 months alcohol intake: current alcohol intake frequency: a few times a month substance use type: does not use caffeine: Yes (works night shifts) ROS Constitutional Constitutional: Denies anorexia, change in weight, fever(s), night sweats or weakness Eyes Eyes: Denies blurry vision, change in vision, discharge from eye(s) or eye pain Cardiovascular Cardiovascular: Reports chest pain; Denies claudication, dyspnea on exertion, edema, lightheadedness, orthopnea or palpitations Respiratory/Chest Respiratory/Chest: Denies cough, dyspnea, hemoptysis, productive cough, shortness of breath at rest, shortness of breath with exertion or wheezing Gastrointestinal Gastrointestinal: Denies abdominal pain, coffee ground emesis, constipation, diarrhea, hematemesis, hematochezia, melena, nausea or vomiting Genitourinary Genitourinary: Denies dysuria, hematuria, urinary frequency, urinary hesitancy, urinary incontinence or urinary urgency Musculoskeletal Musculoskeletal: Denies back pain, joint pain, joint stiffness, joint swelling, myalgias or neck pain Neurologic Neurologic: Denies abnormal gait, abnormal speech, confusion, disequilibrium, dizziness, focal weakness, headache(s), loss of vision, numbness, other visual disturbances, paresthesias, syncope or tingling Psychiatric Psychiatric: Denies anxiety, cognitive impairment, depression, irritability, mood swings or suicidal ideation Endocrine Endocrinology: Denies change in body appearance, cold intolerance, excessive sweating, heat intolerance, polydipsia or polyuria Hematologic/Lymphatic Hematologic/Lymphatic: Denies none, anemia, easy bleeding, easy bruising or lymphadenopathy Allergic/Immunologic Allergic/Immunologic: Denies rhinitis, urticaria, eczemia or asthma Vital Signs Vital Signs Vital Signs: 07/01/22 06:13 07/01/22 06:16 07/01/22 06:18 Temperature 97.9 F Temperature Source Oral Pulse Rate 77 Respiratory Rate 16 Respiratory Pattern Normal Blood Pressure 150/92 H Blood Pressure Mean 111 Pulse Ox 97 97 Oxygen Delivery Method Room Air Room Air 07/01/22 07:12 07/01/22 07:50 Temperature 97.9 F Temperature Source Oral Pulse Rate 61 61 Respiratory Rate 12 14 Respiratory Pattern Blood Pressure 153/91 H 157/95 H Blood Pressure Mean 111 115 Pulse Ox 99 99 Oxygen Delivery Method Room Air Room Air Weight Weight: 86.3 kg Body Mass Index (BMI) 23.8 Physical Exam Const alert, oriented x3, no apparent distress, average body habitus and healthy appearing General Appearance: cooperative, well kempt and well developed Orientation / Consciousness: awake, oriented to person, oriented to place and oriented to time HEENT normocephalic, head/scalp atraumatic, hearing grossly normal bilaterally and moist oral mucous membranes Eyes PERRL, EOMs intact bilaterally and conjunctivae normal Neck supple, no JVD, thyroid normal and no carotid bruits General: trachea midline Resp normal respiratory effort, no retractions, no use of accessory muscles and clear to auscultation bilaterally Auscultation: Negative for rales, rhonchi or wheezes Cardio regular rate, regular rhythm, S1 normal heart sound, S2 normal heart sound, no murmurs, no rub and no gallops GI normal to inspection, nondistended, normoactive bowel sounds, soft to palpation, non-tender and non-distended Extremity no clubbing, cyanosis or edema Skin no rashes or lesions noted General Skin Exam: no breakdown Neuro oriented x3, CN's II-XII intact bilaterally, moves all extremities, no focal motor deficits and no sensory deficits noted Sensorium / Orientation: awake and alert Speech: speech normal Psych Psych Narrative: Patient is quiet, he does not engage in conversation easily. Results Lab / Micro Data Result Diagrams: 07/01/22 06:15 07/01/22 06:15 Labs: Laboratory Results - last 24 hr 07/01/22 06:15: WBC 7.8, RBC 3.72 L, Hgb 11.8 L, Hct 36.3 L, MCV 97.6 H, MCH 31.7, MCHC 32.5, RDW Std Deviation 44.7 H, RDW Coeff of Zehra 12.5, Plt Count 183, MPV 10.9, Immature Gran % (Auto) 0.300, Neut % (Auto) 61.2, Lymph % (Auto) 27.0, [place] % (Auto) 7.8, Eos % (Auto) 3.1, Baso % (Auto) 0.6, Absolute Neuts (auto) 4.8, Absolute Lymphs (auto) 2.11, Nucleated RBC % 0 07/01/22 06:15: Sodium 140, Potassium 4.0, Chloride 105, Carbon Dioxide 28.0, Anion Gap 7, BUN 28 H, Creatinine 1.54 H, Estim Creat Clear Calc 63.25, Est GFR (MDRD) Af Amer 60, Est GFR (MDRD) Non-Af 50 L, BUN/Creatinine Ratio 18.2, Glucose 113 H, Calcium 9.1, Troponin I High Sens 53 Rhythm Strip Rhythm Strip: Sinus Rhythm Rate: 74 Ectopy: None Radiology Impression Chest X-Ray 07/01/22 06:16 IMPRESSION: Stable borderline cardiomegaly. No acute intrathoracic abnormality. Electronically Signed: Donya Martinez MD at 6:47 EDT , Assessment & Plan Assessment/Plan (1) Chest pain: PLAN: Plan 1. Chest pain-possibly anginal in nature, patient will be placed in observation status on PCU, he will remain on his home medications, cardiac enzymes will be cycled, if these remain normal he will undergo a treadmill nuclear stress test tomorrow. I talked briefly with cardiology by phone today, they would like to proceed with a stress test if the enzymes remain normal rather than perform a catheterization. I have elected to increase the patient's Imdur. #2 coronary artery disease-plan as outlined above, keep patient on present medications, I have increased his Imdur #3 hyperlipidemia-patient will remain on a statin #4 type 2 diabetes-patient's blood sugars appear to be under control on oral m edications, I have elected not to have fingerstick blood sugars performed while he is in the hospital. #5 essential hypertension-patient's blood pressure will be monitored, he will remain on his home medications #6 elevated creatinine-patient is taking hydrochlorothiazide, his previous creatinines have been normal. Clinical time spent by myself addressing patient's medical issues, reviewing all of the data, and collaborating with patient's care team: 55 minutes Charges/Coding Visit Charges Inpatient E&M: 80042 Init Hosp L2
[2022-07-01 08:26] LABS: Reflex Troponin-HS? (from REC) Y
[2022-07-01 08:59] LABS: Troponin-I HS 54 pg/mL (3.0-78.0)
[2022-07-01] MEDS: hydroCHLOROthiazide 25 MG Tablet PO (09:27)
[2022-07-01] MEDS: Famotidine 20 MG Tablet 40 MG PO (09:27)
[2022-07-01] MEDS: Carvedilol 25 MG Tablet PO ×2 (09:27→20:27)
[2022-07-01] MEDS: amLODIPine 10 MG Tablet PO (09:27)
[2022-07-01] MEDS: Losartan Potassium 100 MG Tablet PO (09:48)
[2022-07-01] MEDS: Isosorbide Mononitrate 60 MG Tablet PO (09:48)
[2022-07-01 12:54] LABS: Troponin-I HS 48 pg/mL (3.0-78.0)
[2022-07-01] MEDS: metFORMIN HCl 500 MG Tablet PO (16:54)
[2022-07-01 17:16] LABS: Bedside Glucose 119 mg/dL (74-106)
[2022-07-01] MEDS: Gabapentin 300 MG Capsule PO (20:26)
[2022-07-01] MEDS: Atorvastatin Calcium 80 MG Tablet PO (20:27)
[2022-07-01] MEDS: Acetaminophen 325 MG Tablet 650 MG PO (20:27)
[2022-07-02] VITALS (11 sets, daily range): BP systolic 119–145; BP diastolic 69–89; PULSE 48–66; RESP 16–18; TEMP 36.1–36.9; O2SAT 96–100
--- NOTE | 2022-07-02 07:52 | PCM.DC ---
Discharge Instructions Diet Discharge Diet: 2000 mg Sodium Diet Activity Discharge Activity: Return to Normal Activity Weight Bearing Status: Weight bearing as tolerated Dressing / Incision Call your doctor if you observe: Fever of 101 or Higher, Coldness, Increased Pain, Numbness or Tingling, Change in Color, Inability to urinate, Inability to have a bowel movement, Shortness of breath, Dizziness, Fainting spells, Swelling in the ankles, Chest pain, Prolonged hiccupping, Increased palpitations (irregular heartbeat) and Calf discomfort Follow Up Care When: IN 2 WEEKS Test Results: Test results from this visit will be discussed in further detail at your follow-up appointment, if applicable. Discharge Plan Admission Admit Date/Time: 07/01/22 08:11 Primary Reason for Your Visit: Atypical chest pain. ACS ruled out Attending Provider: Gurdeep Schmidt Primary Care Provider: Shweta Amador NP Consulting Providers: Marlon Childress Discharge Orders/Prescriptions Prescriptions: Continued aspirin 81 mg tablet,chewable 81 mg PO DAILY@0800 Qty: 90 3RF gabapentin 300 mg capsule 300 mg PO QHS cholecalciferol (vitamin D3) 1,250 mcg (50,000 unit) capsule 50,000 unit PO QWEEK losartan 100 mg tablet 100 mg PO DAILY Qty: 90 3RF amlodipine 10 mg tablet 10 mg PO DAILY Qty: 90 3RF carvedilol 25 mg tablet 25 mg PO BID atorvastatin 80 mg tablet 80 mg PO QHS famotidine [Pepcid] 40 mg tablet 40 mg PO DAILY isosorbide mononitrate 30 mg tablet extended release 24 hr 30 mg PO DAILY nitroglycerin 0.4 mg tablet, sublingual 0.4 mg sublingual Q5-15M cyclobenzaprine 10 mg Tablet 10 mg PO TID PRN (Reason: neck pain) (DME) Blood Pressure Monitor See Rx Instructions .Route .MEDSUPPLY Qty: 1 0RF Rx Instructions: As directed Held hydrochlorothiazide 25 mg tablet 25 mg PO DAILY Hold Instructions: Hold for 5 days and repeat serum creatinine, follow-up with PCP, probably resume at lower dose 12.5 mg daily No Action metformin 500 mg tablet 500 mg PO BID Hold Instructions: Resume on 10/22/21. Referrals / Follow Up: Shweta Amador NP, ADVERTISING WRITER-C [Primary Care Provider] - Disposition Disposition (needs filled in before D/C Order can be placed): Home, Self Care
[2022-07-02] MEDS: Famotidine 20 MG Tablet 40 MG PO (10:15)
[2022-07-02] MEDS: amLODIPine 10 MG Tablet PO (10:16)
[2022-07-02] MEDS: hydroCHLOROthiazide 25 MG Tablet PO (10:16)
[2022-07-02] MEDS: Carvedilol 25 MG Tablet PO ×2 (10:16→22:36)
[2022-07-02] MEDS: Aspirin 81 MG TAB.CHEW PO (10:16)
[2022-07-02] MEDS: Isosorbide Mononitrate 60 MG Tablet PO (10:16)
[2022-07-02] MEDS: Losartan Potassium 100 MG Tablet PO (10:16)
--- NOTE | 2022-07-02 13:03 | PCM.DC.SUM ---
Providers Date of Admission: 07/01/22 Date of Discharge: 07/02/22 Primary Care Physician: Shweta Amador, MALA Reason For Visit: CHEST PAIN Diagnosis Discharge Diagnosis (1) Chest pain: Status: Acute Code(s): R07.9 - Chest pain, unspecified Medications at Discharge Home Medications aspirin 81 mg chewable tablet 81 mg PO DAILY@0800 health maintenance ##90 04/17/18 metformin 500 mg tablet 500 mg PO BID diabetes 12/02/19 amlodipine 10 mg tablet 10 mg PO DAILY blood pressure #90 tabs 06/28/21 cholecalciferol (vitamin D3) 1,250 mcg (50,000 unit) capsule 50,000 unit PO QWEEK vitamin 06/28/21 gabapentin 300 mg capsule 300 mg PO QHS nerve pain 06/28/21 losartan 100 mg tablet 100 mg PO DAILY BP #90 tabs 06/28/21 carvedilol 25 mg tablet 25 mg PO BID bp 06/12/22 Blood Pressure Monitor #1 ea 06/13/22 atorvastatin 80 mg tablet 80 mg PO QHS cholesterol 07/01/22 cyclobenzaprine 10 mg tablet 10 mg PO TID PRN neck pain 07/01/22 famotidine 40 mg tablet (Pepcid) 40 mg PO DAILY gerd 07/01/22 hydrochlorothiazide 25 mg tablet 25 mg PO DAILY bp 07/01/22 isosorbide mononitrate 30 mg tablet,extended release 24 hr 30 mg PO DAILY bp 07/01/22 nitroglycerin 0.4 mg sublingual tablet 0.4 mg sublingual Q5-15M chest pain 07/01/22 Weight / BMI Weight Weight: 189 lb Body Mass Index (BMI) 23.6 ABG / Lab / Microbiology Data Result Diagrams: 07/01/22 06:15 07/01/22 06:15 Laboratory: Laboratory Results - last 24 hr 07/01/22 16:52: POC Glucose 119 H D/C Instructions Discharge Diet: 2000 mg Sodium Diet Weight Bearing Status: Weight bearing as tolerated Call your doctor if you observe: Fever of 101 or Higher, Coldness, Increased Pain, Numbness or Tingling, Change in Color, Inability to urinate, Inability to have a bowel movement, Shortness of breath, Dizziness, Fainting spells, Swelling in the ankles, Chest pain, Prolonged hiccupping, Increased palpitations (irregular heartbeat) and Calf discomfort When: IN 2 WEEKS Discharge Plan Admission Admit Date/Time: 07/01/22 08:11 Primary Reason for Your Visit: Atypical chest pain. ACS ruled out Attending Provider: Gurdeep Schmidt Primary Care Provider: Shweta Amador NP Consulting Providers: Marlon Childress Discharge Orders/Prescriptions Prescriptions: Continued aspirin 81 mg tablet,chewable 81 mg PO DAILY@0800 Qty: 90 3RF gabapentin 300 mg capsule 300 mg PO QHS cholecalciferol (vitamin D3) 1,250 mcg (50,000 unit) capsule 50,000 unit PO QWEEK losartan 100 mg tablet 100 mg PO DAILY Qty: 90 3RF amlodipine 10 mg tablet 10 mg PO DAILY Qty: 90 3RF carvedilol 25 mg tablet 25 mg PO BID atorvastatin 80 mg tablet 80 mg PO QHS famotidine [Pepcid] 40 mg tablet 40 mg PO DAILY isosorbide mononitrate 30 mg tablet extended release 24 hr 30 mg PO DAILY nitroglycerin 0.4 mg tablet, sublingual 0.4 mg sublingual Q5-15M cyclobenzaprine 10 mg Tablet 10 mg PO TID PRN (Reason: neck pain) (DME) Blood Pressure Monitor See Rx Instructions .Route .MEDSUPPLY Qty: 1 0RF Rx Instructions: As directed Held hydrochlorothiazide 25 mg tablet 25 mg PO DAILY Hold Instructions: Hold for 5 days and repeat serum creatinine, follow-up with PCP, probably resume at lower dose 12.5 mg daily No Action metformin 500 mg tablet 500 mg PO BID Hold Instructions: Resume on 10/22/21. Referrals / Follow Up: Shweta Amador NP, INFORMATICA DEVELOPER-C [Primary Care Provider] - Disposition Disposition (needs filled in before D/C Order can be placed): Home, Self Care
--- NOTE | 2022-07-02 13:15 | PCM.PN.HOSP ---
Reason for Visit Reason for Visit: Diagnoses Chest pain, unspecified (07/01/22) Follow-up for abnormal stress test. Objective Data Objective Data Vital Signs: Vital Signs Temp Pulse Resp BP Pulse Ox O2 Del Method 97 F L 55 L 16 129/77 H 96 Room Air 07/02/22 10:10 07/02/22 10:10 07/02/22 10:10 07/02/22 10:10 07/02/22 10:10 07/02/22 10:10 Oxygen Delivery Method Room Air Weight: 189 lb Body Mass Index (BMI) 23.6 Intake & Output: Intake and Output for Last 24 Hours 06/30/22 07/01/22 07/02/22 23:59 23:59 23:59 Intake Total 1550 / 1550 560 / 560 Balance 1550 / 1550 560 / 560 Lab / Micro Data Result Diagrams: 07/01/22 06:15 07/01/22 06:15 Labs: Laboratory Results - last 24 hr 07/01/22 16:52: POC Glucose 119 H Rhythm Strip Rhythm Strip: Sinus Rhythm Rate: 74 Ectopy: None Physical Exam Narrative Seen and examined. Patient does not have active chest pain. He had chest pain along with left lower chest anteriorly around the costal margin. No shortness of breath. Denies shortness of breath dizzy lightheaded during stress test. Physical exam General: Alert, Oriented x3, Cooperative HEENT: Atraumatic, PERRLA, EOMI, Normocephalic Oral: Oral mucosa moist. No Gingival or Mucosal Lesions/ Ulcerations Neck: Supple, No JVD, Negative Carotid Bruits Lungs: Air entry diminished in bilateral lung bases. No crepitation/rhonchi Cardiovascular: Regular rate, Regular Rhythm, Normal S1, Normal S2, No murmurs Abdomen: Bowel Sounds Present, Soft, Non Tender, Non-Distended : No renal angle tenderness. No suprapubic tenderness. Extremities: No edema, Capillary Refill Less than 3 Seconds Skin: No rashes, No breakdown Musculoskeletal: No Tenderness to Palpation of Joints or Extremities Neurological: Cranial nerves II-XII grossly intact, DTR 2+/4 and Symmetrical, Neuro grossly intact Psych/Mental Status: Normal Affect, Appropriate. Assessment & Plan Assessment/Plan (1) Chest pain: PLAN: Plan 1. Atypical chest pain, unstable angina with abnormal stress test: Patient is being admitted in PCU. Serial troponins enzymes were negative. Pharmacological stress test reported as abnormal therefore patient is taken to Hydraulic [facility]. Discussed with the forming and assembling supervisor. Continue optimal guideline directed medications including baby aspirin, carvedilol, high intensity atorvastatin, Imdur 60 mg daily. Metformin losartan and HCTZ held due to creatinine 1.5. #2 coronary artery disease status post stent in July 2021: Patient used to follow with Dr. Spivey. Imdur dose was increased rest as mentioned above. Last seen by Dr. Spivey in September 2021 #3 hyperlipidemia-patient will remain on a statin #4 type 2 diabetes mellitus: Accu-Chek before meals and at bedtime coverage Humalog sliding scale. Metformin on hold. #5 essential hypertension-patient's blood pressure will be monitored, he will remain on his home medications #6. MARIA DEL CARMEN on CKD stage II: Baseline creatinine runs around 1.2 to 1.3. Admitted with creatinine 1.54. Hold nephrotoxic medications as mentioned above. Repeat labs ordered. Charges/Coding Visit Charges Inpatient E&M: 75321 Subs Hosp L2
--- NOTE | 2022-07-02 13:17 | STRESSREP_ITS ---
Stress Test Report Pharmacologic myocardial perfusion stress test. 57-year-old male with a history of chest pain Resting EKG demonstrates sinus bradycardia with a rate of 52 bpm T wave inversions are noted in lead I to aVL V5 and V6. Resting blood pressure is 158/90 mmHg. 0.4 mg of regadenoson was infused per usual protocol followed by rapid intravenous saline flush injection. Continuous EKG monitoring was performed. The maximum heart rate was 70 bpm which was 42% of max impacted heart rate the maximum workload was 1 metabolic equivalent. At rest there were no ST or T wave changes noted to suggest ischemia and at peak infusion nonspecific ST changes were noted which did not meet the criteria for ischemia. No clinical angina is noted. The final blood pressure was 140/74 mmHg. Myocardial perfusion protocol. 12.0 mCi of technetium 99m sestamibi was injected at rest. 0.4 mg of regadenoson was infused per usual protocol. At peak infusion 34.6 mCi of technetium 99m sestamibi was injected stress images were obtained stress and rest images were reconstructed and compared in the short axis vertical long and horizontal long axis. Gated images were also obtained. Perfusion SPECT analysis: Review of the stress images demonstrate normal uptake of tracer noted in all areas of the myocardium except for the distal anterolateral wall with a m oderate-sized perfusion defect. The resting images similar demonstrated normal uptake of tracer noted in all areas of the myocardium. The above is suggestive of anterolateral ischemia and a moderate-sized zone. Gated SPECT analysis: The gated ejection fraction is 40%. Conclusion: Abnormal pharmacologic myocardial perfusion stress test. Anterolateral ischemia present Mildly reduced ejection fraction.
[2022-07-02] MEDS: 0.9% Normal Saline 1,000 ML 15 ML IV (13:25)
--- NOTE | 2022-07-02 13:36 | NURSING ---
1327-Report called to Ramos SWEET labor relations teacher.
[2022-07-02 13:47] LABS: Anion Gap 4 (5-15); BUN 22 mg/dL (7-18); BUN/Creat Ratio 14.4 RATIO (10-20); Calcium,Total 8.9 mg/dL (8.5-10.1); Chloride 102 mmol/L (98-107); Creatinine, Serum 1.53 mg/dL (0.70-1.30); EST Glomerular Filtration Rate 50 mL/min (>60); Est Glom Filt Rate - Afr Amer 61 mL/min (>60); Estimated Creatinine Clearance 63.67 ml/min; Glucose 101 mg/dL (74-106); Potassium 3.6 mmol/L (3.5-5.1); Sodium Level 138 mmol/L (136-145)
--- NOTE | 2022-07-02 15:06 | CON.PCM.CA_ITS ---
Assessment & Plan Assessment/Plan (1) Chest pain: PLAN: This discomfort and an abnormal stress test. He therefore underwent a cardiac catheterization which demonstrated evidence of proximal and mid left anterior descending artery stenosis, and a subtotally occluded obtuse marginal branch with diffuse disease involving the circumflex artery and the right coronary artery with diffuse disease as well. It was felt that he should be mauro luated by cardiac surgery for further evaluation. This may be scheduled as an outpatient. (2) History of coronary artery stent placement: PLAN: He is status post previous angioplasty and stenting as noted above. The plan is to continue the current medical therapy and be evaluated for possible cardiac surgery for bypass and revascularization. (3) Essential hypertension: PLAN: His blood pressure appears to be under good control I would not recommend that we make any changes. (4) HLD (hyperlipidemia): PLAN: He will continue with aggressive risk factor modification. HPI Consult Data Date of Consult: 07/02/22 HPI Narrative HPI Narrative: JONO MURRY, is a 57 M who presents to the hospital with chest discomfort which was thought to be atypical. He is a gentleman with a history of known coronary artery disease status post previous multiple PCI's involving the c ircumflex artery and the right coronary artery remotely. He was admitted to the hospital in September 2021 during which time he underwent a cardiac catheterization. At that time it demonstrated patency of his stents with moderate disease and it was felt that medical therapy would suffice. He present ed this time with atypical chest discomfort and underwent a pharmacologic myocardial perfusion stress test which demonstrated evidence of anterolateral ischemia. He was therefore scheduled to see us for evaluation. He denies any dizziness or diaphoresis near syncope or syncope. He has had some chest discomfort which he says is reproducible. [facility] Medical History Alcohol intoxication Atherosclerotic heart disease of [place] coronary artery without angina pectoris CAD (coronary artery disease) Diabetes Essential hypertension HLD (hyperlipidemia) Non-STEMI (non-ST elevated myocardial infarction) (03/31/18) PVC's (premature ventricular contractions) TIA (transient ischemic attack) Tobacco abuse Type 2 diabetes mellitus Home Medications aspirin 81 mg chewable tablet 81 mg PO DAILY@0800 health maintenance ##90 04/17/18 [Rx Last Taken 06/30/22] metformin 500 mg tablet 500 mg PO BID diabetes 12/02/19 [History Last Taken 06/30/22] amlodipine 10 mg tablet 10 mg PO DAILY blood pressure #90 tabs 06/28/21 [Rx Last Taken 06/30/22] cholecalciferol (vitamin D3) 1,250 mcg (50,000 unit) capsule 50,000 unit PO QWEEK vitamin 06/28/21 [History Last Taken 06/24/22] gabapentin 300 mg capsule 300 mg PO QHS nerve pain 06/28/21 [History Last Taken 06/30/22] losartan 100 mg tablet 100 mg PO DAILY BP #90 tabs 06/28/21 [Rx Last Taken 06/30/22] carvedilol 25 mg tablet 25 mg PO BID bp 06/12/22 [History Last Taken 06/28/22] Blood Pressure Monitor #1 ea 06/13/22 [Rx Last Taken Unknown] atorvastatin 80 mg tablet 80 mg PO QHS cholesterol 07/01/22 [History Last Taken 06/29/22] cyclobenzaprine 10 mg tablet 10 mg PO TID PRN neck pain 07/01/22 [History Last Taken 07/01/22] famotidine 40 mg tablet (Pepcid) 40 mg PO DAILY gerd 07/01/22 [History Last Ta escobar 06/30/22] hydrochlorothiazide 25 mg tablet 25 mg PO DAILY bp 07/01/22 [History Last Taken 06/30/22] isosorbide mononitrate 30 mg tablet,extended release 24 hr 30 mg PO DAILY bp 07/01/22 [History Last Taken 06/30/22] nitroglycerin 0.4 mg sublingual tablet 0.4 mg sublingual Q5-15M chest pain 07/01 [History Last Taken 06/30/22] Allergy/AdvReac Type Severity Reaction Status Date / Time latex Allergy Hives Verified 06/12/22 14:46 Sulfa (Sulfonamide Allergy Hives Verified 06/12/22 14:46 Antibiotics) Family History Mother CAD (coronary artery disease) Grandfather CAD (coronary artery disease) Surgical History History of coronary artery stent placement (07/20/21) History of left heart catheterization (07/18/21) Social History Smoking Status: Former smoker how long ago did patient quit smokin.5 months alcohol intake: current alcohol intake frequency: a few times a month substance use type: does not use caffeine: Yes (works night shifts) ROS Constitutional Constitutional: Denies fever(s) or weight loss Eyes Eyes: Reports systems reviewed and no addt'l complaints, except as documented ENT HEENT: Reports systems reviewed and no addt'l complaints, except as documented Cardiovascular Cardiovascular: Denies chest pain at rest, chest pain with activity, dyspnea at rest, dyspnea on exertion, edema, palpitations or paroxysmal nocturnal dyspnea Respiratory/Chest Respiratory/Chest: Denies dyspnea on exertion, productive cough, shortness of breath at rest or shortness of breath with exertion Gastrointestinal Gastrointestinal: Denies change in bowel habits, nausea, vomiting or weight changes Genitourinary Genitourinary: Denies difficulty urinating Musculoskeletal Musculoskeletal: Denies joint stiffness or muscle weakness Integumentary Integumentary: Denies lesions Neurologic Neurologic: Denies dizziness or syncope Psychiatric Psychiatric: Denies anxiety Endocrine Endocrinology: Denies excessive sweating or fatigue Hematologic/Lymphatic Hematologic/Lymphatic: Denies anemia Allergic/Immunologic Allergic/Immunologic: Denies seasonal rhinorrhea Physical Exam Const alert, oriented x3 and no apparent distress General Appearance: cooperative HEENT hearing grossly normal bilaterally Head and Scalp: atraumatic Eyes EOMs intact bilaterally Neck General: normal visual inspection Chest inspection of chest normal and palpation of chest normal Resp normal respiratory effort Auscultation: clear to auscultation bilaterally Cardio regular rate, regular rhythm, S1 normal heart sound and S2 normal heart sound Jugular Venous Distention: JVD GI normal to inspection, nondistended, normoactive bowel sounds Extremity normal capillary refill and no pedal edema Peripheral Pulses: Yes pulses 2+ throughout and femoral pulses present Skin no rashes or lesions noted Neuro oriented x3 and CN's II-XII intact bilaterally Psych Appearance: grossly normal and appropriate Risk Stratification Risk Stratification Applicable: Yes Age >/= 65: No >/= 3 CAD Risk Factors (HTN, HLD, DM, family hx of CAD, or current smoker): Yes Aspirin Use in the Past 7 Days: Yes Severe Angina (>/= episodes in 24 hours): No EKG ST Changes >/= 0.5mm: No Positive Cardiac Marker: No VI Risk Stratification Score: 2 VI % Risk: 8% Risk Objective Data Vital Signs: Vital Signs Temp Pulse Resp BP Pulse Ox O2 Del Method 97 F L 55 L 16 129/77 H 96 Room Air 07/02/22 10:10 07/02/22 10:10 07/02/22 10:10 07/02/22 10:10 07/02/22 10:10 07/02/22 10:10 Oxygen Delivery Method Room Air Weight: 189 lb Body Mass Index (BMI) 23.6 Intake & Output: Intake and Output for Last 24 Hours 06/30/22 07/01/22 07/02/22 23:59 23:59 23:59 Intake Total 1550 / 1550 560 / 560 Balance 1550 / 1550 560 / 560 Lab / Micro Data Result Diagrams: 07/01/22 06:15 07/02/22 13:14 Labs: Laboratory Results - last 24 hr 07/01/22 16:52: POC Glucose 119 H 07/02/22 13:14: Sodium 138, Potassium 3.6, Chloride 102, Carbon Dioxide 32.0, An ion Gap 4 L, BUN 22 H, Creatinine 1.53 H, Estim Creat Clear Calc 63.67, Est GFR (MDRD) Af Amer 61, Est GFR (MDRD) Non-Af 50 L, BUN/Creatinine Ratio 14.4, Glucose 101, Calcium 8.9 Rhythm Strip Rhythm Strip: Sinus Rhythm Rate: 74 Ectopy: None Cardiology Labs/Tests 07/02/22 13:14: Sodium 138, Potassium 3.6, Chloride 102, Carbon Dioxide 32.0, Anion Gap 4 L, BUN 22 H, Creatinine 1.53 H, Est GFR (MDRD) Af Amer 61, Est GFR (MDRD) Non-Af 50 L, BUN/Creatinine Ratio 14.4, Glucose 101, Calcium 8.9 Rhythm: EKG: ECHO: Stress Test: Cardiac Cath: PCI: CT Surgery: Holter monitor: EPS: PPM: CXR: Chest CT Scan:
--- NOTE | 2022-07-02 15:49 | CASEMGMT ---
Tertiary facilities in-network with patient's insurance: Liz Wesley, Arlen Hernandez, HOANG, , Elda King, Kaushik Starr, SWATHI
[2022-07-02] MEDS: Insulin Lispro 100 UNIT/ML INSULN.PEN SC (17:53)
[2022-07-02 18:05] LABS: Bedside Glucose 180 mg/dL (74-106)
[2022-07-02 21:36] LABS: Bedside Glucose 106 mg/dL (74-106)
[2022-07-02] MEDS: Acetaminophen 325 MG Tablet 650 MG PO (22:04)
[2022-07-02] MEDS: Atorvastatin Calcium 80 MG Tablet PO (22:04)
[2022-07-02] MEDS: Gabapentin 300 MG Capsule PO (22:04)
[2022-07-03 03:30] VITALS: BP 146/91; PULSE 54; RESP 16; TEMP 36.4; O2SAT 97
[2022-07-03 06:55] LABS: Bedside Glucose 131 mg/dL (74-106)
[2022-07-03 07:37] LABS: Anion Gap 7 (5-15); BUN 22 mg/dL (7-18); BUN/Creat Ratio 13.8 RATIO (10-20); Calcium,Total 8.6 mg/dL (8.5-10.1); Chloride 101 mmol/L (98-107); Creatinine, Serum 1.59 mg/dL (0.70-1.30); EST Glomerular Filtration Rate 48 mL/min (>60); Est Glom Filt Rate - Afr Amer 58 mL/min (>60); Estimated Creatinine Clearance 61.26 ml/min; Glucose 127 mg/dL (74-106); Potassium 3.8 mmol/L (3.5-5.1); Sodium Level 137 mmol/L (136-145)
--- NOTE | 2022-07-03 07:40 | PCM.PN.CARD ---
Subjective Subjective Patient seen and evaluated. Appears to be doing well. Discussed findings of the cardiac cath with the patient Objective Data Vital Signs: Vital Signs Temp Pulse Resp BP Pulse Ox O2 Del Method 97.6 F L 54 L 16 146/91 H 97 Room Air 07/03/22 03:30 07/03/22 03:30 07/03/22 03:30 07/03/22 03:30 07/03/22 03:30 07/03/22 03:30 Oxygen Delivery Method Room Air Weight: 189 lb Body Mass Index (BMI) 23.6 Intake & Output: Intake and Output for Last 24 Hours 07/01/22 07/02/22 07/03/22 23:59 23:59 23:59 Intake Total 1550 / 1550 1520 / 1520 240 / 240 Balance 1550 / 1550 1520 / 1520 240 / 240 Lab / Micro Data Result Diagrams: 07/01/22 06:15 07/03/22 06:46 Labs: Laboratory Results - last 24 hr 07/02/22 13:14: Sodium 138, Potassium 3.6, Chloride 102, Carbon Dioxide 32.0, Anion Gap 4 L, BUN 22 H, Creatinine 1.53 H, Estim Creat Clear Calc 63.67, Est GFR (MDRD) Af Amer 61, Est GFR (MDRD) Non-Af 50 L, BUN/Creatinine Ratio 14.4, Glucose 101, Calcium 8.9 07/02/22 17:30: POC Glucose 180 H 07/02/22 21:07: POC Glucose 106 07/03/22 06:33: POC Glucose 131 H 07/03/22 06:46: Sodium 137, Potassium 3.8, Chloride 101, Carbon Dioxide 29.0, Anion Gap 7, BUN 22 H, Creatinine 1.59 H, Estim Creat Clear Calc 61.26, Est GFR (MDRD) Af Amer 58 L, Est GFR (MDRD) Non-Af 48 L, BUN/Creatinine Ratio 13.8, Glucose 127 H, Calcium 8.6 Rhythm Strip Rhythm Strip: Sinus Rhythm Rate: 74 Ectopy: None Cardiology Labs/Tests 07/02/22 13:14: Sodium 138, Potassium 3.6, Chloride 102, Carbon Dioxide 32.0, Anion Gap 4 L, BUN 22 H, Creatinine 1.53 H, Est GFR (MDRD) Af Amer 61, Est GFR (MDRD) Non-Af 50 L, BUN/Creatinine Ratio 14.4, Glucose 101, Calcium 8.9 07/03/22 06:46: Sodium 137, Potassium 3.8, Chloride 101, Carbon Dioxide 29.0, Anion Gap 7, BUN 22 H, Creatinine 1.59 H, Est GFR (MDRD) Af Amer 58 L, Est GFR (MDRD) Non-Af 48 L, BUN/Creatinine Ratio 13.8, Glucose 127 H, Calcium 8.6 Rhythm: EKG: ECHO: Stress Test: Cardiac Cath: PCI: CT Surgery: Holter monitor: EPS: PPM: CXR: Chest CT Scan: Physical Exam Const alert, oriented x3 and no apparent distress General Appearance: cooperative HEENT hearing grossly normal bilaterally Head and Scalp: atraumatic Eyes EOMs intact bilaterally Neck General: normal visual inspection Chest inspection of chest normal and palpation of chest normal Resp normal respiratory effort Auscultation: clear to auscultation bilaterally Cardio regular rate, regular rhythm, S1 normal heart sound and S2 normal heart sound Jugular Venous Distention: JVD GI normal to inspection, nondistended, normoactive bowel sounds Extremity normal capillary refill and no pedal edema Peripheral Pulses: Yes pulses 2+ throughout and femoral pulses present Skin no rashes or lesions noted Neuro oriented x3 and CN's II-XII intact bilaterally Psych Appearance: grossly normal and appropriate Assessment & Plan Assessment/Plan (1) Chest pain: PLAN: This discomfort and an abnormal stress test. He therefore underwent a cardiac catheterization which demonstrated evidence of proximal and mid left anterior descending artery stenosis, and a subtotally occluded obtuse marginal branch with diffuse disease involving the circumflex artery and the right coronary artery with diffuse disease as well. It was felt that he should be evaluated by cardiac surgery for further evaluation. I discussed this with the cardiac surgeon yesterday. The patient will be called as an outpatient and scheduled. (2) History of coronary artery stent placement: PLAN: He is status post previous angioplasty and stenting as noted above. The plan is to continue the current medical therapy and be evaluated for possible cardiac surgery for bypass and revascularization. (3) Essential hypertension: PLAN: His blood pressure appears to be under good control I would not recommend that we make any changes. (4) HLD (hyperlipidemia): PLAN: He will continue with aggressive risk factor modification.
--- NOTE | 2022-07-03 08:03 | CL.D_ITS ---
Patient Name: JONO MURRY Study Date: 07/02/2022 Performing: Osbaldo Bah MD Ht: 75 inches 190.5 cm : 1965 Wt: 189.2 lbs 85.73 kg Age: 57 Gender: male BSA: 2.14 PROCEDURE(S) PERFORMED [id number])LHC/COR/LV CLINICAL PROFILE AND INDICATIONS Indications: Suspected CAD Heart Failure: None Stress/Imaging Stress/Image Study Performed: No CAD Presentations: Unstable angina. CONCLUSIONS Diffuse coronary disease with multiple stents and high-grade proximal and mid LAD and moderate circumflex disease. RECOMMENDATIONS Will refer to surgeon for consideration of coronary artery bypass surgery. DESCRIPTION OF PROCEDURE The patient arrived to the procedure lab. The risks and benefits of the procedure as well as a full description of our services here and current unavailability of surgical backup were fully explained to the patient and/or their significant other prior to the catheterization. The Timeout was completed, verifying the correct patient and procedure. The patient's procedural site was prepped and draped in the usual fashion. Local anesthetic was given subcutaneously to right radial region with Lidocaine 2%. Using a modified Seldinger technique, arterial access was obtained via the right radial artery, a 6Fr sheath was inserted. Left Coronary Artery selective angiography was performed in multiple views using a 5 Fr. 4.0 [place] catheter. Right Coronary Artery selective angiography was then performed in multiple views using a 5 Fr. 4.0 [place] catheter. Left Ventriculography was performed in BAIRES projection using a 5 Fr. Pigtail catheter. LV to AO pullback pressures were then recorded.The arterial sheath was pulled and a TR Band was applied for hemostasis. 10cc of air applied. sheath was flushed and aspirated before removal CORONARY ANGIOGRAPHY DOMINANCE: Right Dominant LEFT HEART ASSESSMENT Left Ventricular Ejection Fraction: by LV Gram 55 % Normal Left Ventricular systolic function LEFT MAIN: Mild calcification, Left main appears to taper mildly but with no high-grade stenosis LEFT ANTERIOR DESCENDING ARTERY: Proximal area of 80% stenosis in mid segment of long 80% stenosis and distal tip at the apex with 90% stenosis noted. First diagonal vessel which is medium size and diffusely diseased. CIRCUMFLEX ARTERY: Large vessel previously stented with first obtuse marginal branch subtotally occluded in the vessel continuing with the midsegment with diffuse disease and AV groove branch with 80% stenosis. RIGHT CORONARY ARTERY: Dominant vessel previously stented. Moderate in-stent stenosis noted distal 60% stenosis present. COMPLICATIONS No Complications PROCEDURE MEDICATIONS Fentanyl 50 mcg IV Versed 1 mg IV Oxygen: 2 L/min via nasal cannula Heparin given IA 07/02/2022 14:06:25 SUMMARY OF HEMODYNAMIC DATA Time AIR REST ECG 13:46:06 AO 120/70 (90) SA 14:09:01 LV 120/9, 18 14:16:34 LV 120/9, 15 14:16:42 LV 119/9, 19 14:17:16 LVp 118/9, 21 14:17:20 AOp 130/71 (96) 14:17:27 Signed By Osbaldo Bah MD On 07/03/2022 08:02:16 Osbaldo Bah MD
[2022-07-03 08:20] VITALS: BP 139/83; PULSE 57; RESP 14; TEMP 36.1; O2SAT 98
[2022-07-03] MEDS: Aspirin 81 MG TAB.CHEW PO (08:24)
[2022-07-03] MEDS: Carvedilol 25 MG Tablet PO (08:24)
[2022-07-03] MEDS: amLODIPine 10 MG Tablet PO (08:25)
[2022-07-03] MEDS: Isosorbide Mononitrate 60 MG Tablet PO (08:25)
[2022-07-03] MEDS: Famotidine 20 MG Tablet 40 MG PO (08:25)
--- NOTE | 2022-07-03 08:43 | PCM.DC ---
Discharge Instructions Diet Discharge Diet: 2000 mg Sodium Diet Activity Discharge Activity: - (No exertional heavy works/pulling or pushing or lifting.) Weight Bearing Status: Weight bearing as tolerated Dressing / Incision Call your doctor if you observe: Fever of 101 or Higher, Coldness, Increased Pain, Numbness or Tingling, Change in Color, Inability to urinate, Inability to have a bowel movement, Shortness of breath, Dizziness, Fainting spells, Swelling in the ankles, Chest pain, Prolonged hiccupping, Increased palpitations (irregular heartbeat) and Calf discomfort Follow Up Care When: IN 2 WEEKS Test Results: Test results from this visit will be discussed in further detail at your follow-up appointment, if applicable. Discharge Plan Admission Admit Date/Time: 07/02/22 13:17 Primary Reason for Your Visit: Unstable angina. Multivessel coronary artery disease Attending Provider: Gurdeep Schmidt Primary Care Provider: Shweta Amador NP Consulting Providers: Marlon Childress ; Osbaldo Bah Instructions Additional Instructions / Restrictions: cardiac surgeon Dr. Khan appointment at 11 AM on July 11, 2022. Repeat BMP in in 1 week and follow-up with PCP. Discharge Orders/Prescriptions Prescriptions: New isosorbide mononitrate 60 mg Tablet Extended Release 24 Hr 60 mg PO DAILY 30 Days Qty: 30 2RF Rx Instructions: Hold for SBP less than 110 mmHg, dizziness or lightheadedness. Continued aspirin 81 mg tablet,chewable 81 mg PO DAILY@0800 Qty: 90 3RF gabapentin 300 mg capsule 300 mg PO QHS cholecalciferol (vitamin D3) 1,250 mcg (50,000 unit) capsule 50,000 unit PO QWEEK amlodipine 10 mg tablet 10 mg PO DAILY Qty: 90 3RF carvedilol 25 mg tablet 25 mg PO BID atorvastatin 80 mg tablet 80 mg PO QHS famotidine [Pepcid] 40 mg tablet 40 mg PO DAILY nitroglycerin 0.4 mg tablet, sublingual 0.4 mg sublingual Q5-15M cyclobenzaprine 10 mg Tablet 10 mg PO TID PRN (Reason: neck pain) (DME) Blood Pressure Monitor See Rx Instructions .Route .MEDSUPPLY Qty: 1 0RF Rx Instructions: As directed Held metformin 500 mg tablet 500 mg PO BID Hold Instructions: Hold for 7 days losartan 100 mg tablet 100 mg PO DAILY Qty: 90 3RF Hold Instructions: Hold for 7 days hydrochlorothiazide 25 mg tablet 25 mg PO DAILY Hold Instructions: Hold for 5 days and repeat serum creatinine, follow-up with PCP, probably resume at lower dose 12.5 mg daily Discontinued isosorbide mononitrate 30 mg tablet extended release 24 hr 30 mg PO DAILY Referrals / Follow Up: Osbaldo Bah MD [Med Staff - Active Staff] - Within 1 Month (After cardiac bypass surgery.) Shweta Amador NP, [employer] [Primary Care Provider] - Within 1 Week Disposition Disposition (needs filled in before D/C Order can be placed): Home, Self Care
[2022-07-03] MEDS: 0.9% Normal Saline 1,000 ML 100 ML IV (09:13)
[2022-07-03] MEDS: 0.9% Saline Lock 10 ML Syringe IV (09:14)
--- NOTE | 2022-07-03 10:55 | CASEMGMT ---
RN DAVID Face to Face with patient for initial transition planning/care coordination assessment. RN CM introduced self and role at [facility]. Patient lying in bed, alert and oriented. Patient willing to participate in assessment and is able to answer all questions appropriately. Care providers, pharmacy, and demographics verified. Patient wishes to discharge home, denies need for home health at this time. Patient states he has no further needs or concerns at this time. CM to follow for discharge planning needs that may arise. PCP: Perry SALDIVAR Specialists: Olvin die polisher Preferred Pharmacy: [facility] Insurance: Rao Prescription Benefit: yes Living Will/HPOA: none LNOK: Aunt Living Arrangements: Patient lives with roommates in a 2 story boarding house. Patient is independent and able to ambulate stairs Transportation: self, friedn DME/HHC: Patient denies DME in the home. No previous HHC or SNF Disposition Plan: Patient to discharge home with family support and follow-up plans in place. Isi CORBETTN, RN, CM
[2022-07-03 11:45] VITALS: BP 137/85; PULSE 58; RESP 12; TEMP 36.2; O2SAT 100
[2022-07-03 12:45] LABS: Bedside Glucose 126 mg/dL (74-106)
--- NOTE | 2022-07-03 16:09 | PCM.DC.SUM ---
Providers Date of Admission: 07/02/22 Date of Discharge: 07/03/22 Primary Care Physician: MALA Holm Consultations 07/02/22 13:52 Consult: Cardiology Routine Consulting Provider: Osbaldo Bah Reason for Consult: unstable angina, abnormal stress test EMERGENT Consult: No MD Notified: Yes Date Notified: 07/02/22 Time Notified: 13:00 Method of Notification: Verbal Reason For Visit: CHEST PAIN Diagnosis Discharge Diagnosis (1) Chest pain: Status: Acute Code(s): R07.9 - Chest pain, unspecified (2) History of coronary artery stent placement: Status: Acute Code(s): Z95.5 - Presence of coronary angioplasty implant and graft (3) Essential hypertension: Status: Acute Code(s): I10 - Essential (primary) hypertension (4) HLD (hyperlipidemia): Status: Acute Code(s): E78.5 - Hyperlipidemia, unspecified Plan 1. Atypical chest pain, unstable angina with abnormal stress test: Patient is being admitted in PCU. Serial troponins enzymes were negative. Pharmacological stress test reported as abnormal therefore patient is taken to [facility]. Discussed with the biological science technician. Continue optimal guideline directed medications including baby aspirin, carvedilol, high intensity atorvastatin, Imdur 60 mg daily. Metformin losartan and HCTZ held due to creatinine 1.5. 07/03: Patient had cardiac cath which shows triple-vessel disease, proximal and mid LAD 80% diffuse with a distal involving 90%. Circumflex with first OM subtotally occluded with diffuse disease 80%. RCA moderate in-stent stenosis with distal 60%. Overall with the diffuse involvement of 3 vessels, needs cardiac surgery evaluation for coronary bypass surgery. As the patient does not have ongoing angina and troponins are normal therefore decided for outpatient evaluation by Dr. Khan, cardiac surgeon in [facility], appointment made at 11 AM on July 11, 2022. Patient advised not to do any exertional work pushing pulling or lifting and needs home Markoff excuse papers. 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 #2 coronary artery disease status post stent in July 2021: Patient used to follow with Dr. Spivey. Imdur dose was increased rest as mentioned above. Last seen by Dr. Spivey in September 2021 #3 hyperlipidemia-patient will remain on a statin #4 type 2 diabetes mellitus: Accu-Chek before meals and at bedtime coverage Humalog sliding scale. Metformin on hold. #5 essential hypertension-patient's blood pressure will be monitored, he will remain on his home medications #6. MARIA DEL CARMEN on CKD stage II: Baseline creatinine runs around 1.2 to 1.3. Admitted with creatinine 1.54. Hold nephrotoxic medications as mentioned above. 07/03: Repeat creatinine in the morning shows 22/1.59. Patient 1 L of normal saline ordered. Repeat shows slight improvement 1.50, baseline prior to patient admission. Advised to hold nephrotoxic medications including metformin, HCTZ and lisinopril for 7 days and repeat BMP in 1 week and follow with PCP. Discharge medication reconciliation done. Discharge follow-up instructions completed. Discharge process discussed with the patient and all questions were answered to patient's satisfaction. Total time spent, exact 35 minutes on discharge meds reconciliation, examination, coordination of care with nurses and ancillary staff, review of imaging and blood test and discussion with the patient on follow-up instructions. Medications at Discharge Home Medications aspirin 81 mg chewable tablet 81 mg PO DAILY@0800 health maintenance ##90 04/17/18 metformin 500 mg tablet 500 mg PO BID diabetes 12/02/19 amlodipine 10 mg tablet 10 mg PO DAILY blood pressure #90 tabs 06/28/21 cholecalciferol (vitamin D3) 1,250 mcg (50,000 unit) capsule 50,000 unit PO QWEEK vitamin 06/28/21 gabapentin 300 mg capsule 300 mg PO QHS nerve pain 06/28/21 losartan 100 mg tablet 100 mg PO DAILY BP #90 tabs 06/28/21 carvedilol 25 mg tablet 25 mg PO BID bp 06/12/22 Blood Pressure Monitor #1 ea 06/13/22 atorvastatin 80 mg tablet 80 mg PO QHS cholesterol 07/01/22 cyclobenzaprine 10 mg tablet 10 mg PO TID PRN neck pain 07/01/22 famotidine 40 mg tablet (Pepcid) 40 mg PO DAILY gerd 07/01/22 hydrochlorothiazide 25 mg tablet 25 mg PO DAILY bp 07/01/22 nitroglycerin 0.4 mg sublingual tablet 0.4 mg sublingual Q5-15M chest pain 07/01/22 isosorbide mononitrate 60 mg tablet,extended release 24 hr 60 mg PO DAILY 30 days #30 tabs 07/03/22 Weight / BMI Weight Weight: 189 lb Body Mass Index (BMI) 23.6 ABG / Lab / Microbiology Data Result Diagrams: 07/01/22 06:15 07/03/22 15:10 Laboratory: Laboratory Results - last 24 hr 07/02/22 17:30: POC Glucose 180 H 07/02/22 21:07: POC Glucose 106 07/03/22 06:33: POC Glucose 131 H 07/03/22 06:46: Sodium 137, Potassium 3.8, Chloride 101, Carbon Dioxide 29.0, Anion Gap 7, BUN 22 H, Creatinine 1.59 H, Estim Creat Clear Calc 61.26, Est GFR (MDRD) Af Amer 58 L, Est GFR (MDRD) Non-Af 48 L, BUN/Creatinine Ratio 13.8, Glucose 127 H, Calcium 8.6 07/03/22 11:48: POC Glucose 126 H D/C Instructions Discharge Diet: 2000 mg Sodium Diet Weight Bearing Status: Weight bearing as tolerated Call your doctor if you observe: Fever of 101 or Higher, Coldness, Increased Pain, Numbness or Tingling, Change in Color, Inability to urinate, Inability to have a bowel movement, Shortness of breath, Dizziness, Fainting spells, Swelling in the ankles, Chest pain, Prolonged hiccupping, Increased palpitations (irregular heartbeat) and Calf discomfort When: IN 2 WEEKS Meaningful Use Info Meaningful Use Diagnoses (Choose all that apply): None applicable Discharge Plan Admission Admit Date/Time: 07/02/22 13:17 Primary Reason for Your Visit: Unstable angina. Multivessel coronary artery disease Attending Provider: Gurdeep Schmidt Primary Care Provider: Shweta Amador NP Consulting Providers: Marlon Childress ; Osbaldo Bah Instructions Additional Instructions / Restrictions: cardiac surgeon Dr. Khan appointment at 11 AM on July 11, 2022. Repeat BMP in in 1 week and follow-up with PCP. Discharge Orders/Prescriptions Prescriptions: New isosorbide mononitrate 60 mg Tablet Extended Release 24 Hr 60 mg PO DAILY 30 Days Qty: 30 2RF Rx Instructions: Hold for SBP less than 110 mmHg, dizziness or lightheadedness. Continued aspirin 81 mg tablet,chewable 81 mg PO DAILY@0800 Qty: 90 3RF gabapentin 300 mg capsule 300 mg PO QHS cholecalciferol (vitamin D3) 1,250 mcg (50,000 unit) capsule 50,000 unit PO QWEEK amlodipine 10 mg tablet 10 mg PO DAILY Qty: 90 3RF carvedilol 25 mg tablet 25 mg PO BID atorvastatin 80 mg tablet 80 mg PO QHS famotidine [Pepcid] 40 mg tablet 40 mg PO DAILY nitroglycerin 0.4 mg tablet, sublingual 0.4 mg sublingual Q5-15M cyclobenzaprine 10 mg Tablet 10 mg PO TID PRN (Reason: neck pain) (DME) Blood Pressure Monitor See Rx Instructions .Route .MEDSUPPLY Qty: 1 0RF Rx Instructions: As directed Held metformin 500 mg tablet 500 mg PO BID Hold Instructions: Hold for 7 days losartan 100 mg tablet 100 mg PO DAILY Qty: 90 3RF Hold Instructions: Hold for 7 days hydrochlorothiazide 25 mg tablet 25 mg PO DAILY Hold Instructions: Hold for 5 days and repeat serum creatinine, follow-up with PCP, probably resume at lower dose 12.5 mg daily Discontinued isosorbide mononitrate 30 mg tablet extended release 24 hr 30 mg PO DAILY Referrals / Follow Up: Osbaldo Bah MD [Med Staff - Active Staff] - Within 1 Month (After cardiac bypass surgery.) Shweta Amador NP, [employer] TECHNICIAN-[facility] [Primary Care Provider] - Within 1 Week Disposition Disposition (needs filled in before D/C Order can be placed): Home, Self Care Charges/Coding Visit Charges Inpatient E&M: 32440 Disch Hosp >30min
[2022-07-03 16:38] LABS: EST Glomerular Filtration Rate 51 mL/min (>60); Est Glom Filt Rate - Afr Amer 62 mL/min (>60); Estimated Creatinine Clearance 64.94 ml/min
== END 2022-07-03 18:44 | disposition home or self-care (01) | DRG 192 ==
LOC: ED 07:33 → PCU 08:44
PROVIDERS: Admitting Provider Internal Medicine; Emergency Provider Emergency Medicine; PCP Nurse Practitioner Family; Visit Provider Internal Medicine
DX: T82.855A Stenosis of coronary artery stent, initial encounter (principal); N17.9 Acute kidney failure, unspecified; I25.110 Atherosclerotic heart disease of native coronary artery with unstable angina pectoris; E11.22 Type 2 diabetes mellitus with diabetic chronic kidney disease; N18.2 Chronic kidney disease, stage 2 (mild); E78.00 Pure hypercholesterolemia, unspecified; I12.9 Hypertensive chronic kidney disease with stage 1 through stage 4 chronic kidney disease, or unspecified chronic kidney disease; I25.2 Old myocardial infarction; Z79.82 Long term (current) use of aspirin; Z79.84 Long term (current) use of oral hypoglycemic drugs; Z79.899 Other long term (current) drug therapy; Z95.5 Presence of coronary angioplasty implant and graft; Z87.891 Personal history of nicotine dependence
CPT/HCPCS: 36415; 71045; 78452; 80048; 82565; 82962; 84484; 85025; 93005; 93017; 93458; 99152; 99153; 99284; A9500; J7030; Q9967; A4216; C1769; C1894; J2785

== ENCOUNTER → 2022-08-24 | Outpatient (CLI) | payer MEDICAID, SELFPAY ==
[2021-06-23 09:18] VITALS: BMI 26.8
--- NOTE | 2022-08-24 14:36 | VDLE_ITS ---
Reason For Study: Lt Leg Swelling RIGHT LEFT CFV is compressible, spontaneous, phasic, Recent HX of GSV [place] for CABG. Hematomas competent and demonstrates normal noted in prox to dist thigh with compressible augmentation. portions of GSV remaining. No flow seen in Procedure color or pulsed wave doppler. This is a venous duplex using B-mode, color CFV is compressible, spontaneous, phasic, flow and spectral Doppler. competent, and demonstrates normal Exam performed in department. augmentation. The exam was diagnostic. FV is compressible, spontaneous, phasic, A preliminary report was called and/or faxed competent and demonstrates normal to Dali Lewis. augmentation. POP V is compressible, spontaneous, phasic, competent and demonstrates normal augmentation. T/P Trunk is compressible. PTV is compressible. LT PerV is compressible. VL/Venous Duplex US, Unilateral Interpretation Summary There is no evidence of left lower extremity deep vein thrombosis. Postoperativ e changes subcutaneous tissue at great saphenous vein harvest site with suspected postope rative hematoma in the subcutaneous tissues with difficulty in determining possible remnant great saphenous vein. Normal flow patterns right common femoral vein Ordering Physician: Dali Lewis Referring Physician: Dali Lewis Performed By: Chepe Anne RVJody
== END | disposition home or self-care (01) ==
PROVIDERS: PCP Nurse Practitioner Family; Referring Provider Physician Assistant Medical; Visit Provider Physician Assistant Medical
DX: M79.606 Pain in leg, unspecified (principal); R22.42 Localized swelling, mass and lump, left lower limb
CPT/HCPCS: 93971

== ENCOUNTER → 2022-09-19 | Outpatient (CLI) | payer MEDICAID, SELFPAY ==
[2021-06-23 09:18] VITALS: BMI 26.8
--- NOTE | 2022-09-19 14:12 | PCM.CR.HP2 ---
CR - History & Physical General Arrival date:: 09/19/22 Arrival time:: 14:13 Date of Referral:: 08/27/22 Date of CR Evaluation:: 09/19/22 Referring Physician: Dr. Osbaldo Bah Primary Diagnosis: CABG History of Present Cardiac Event Onset Date Coronary Artery Bypass Graft:: Yes (07/30/22) Vessel: COY to LAD, MARTY to OM1, SVG to PDA, SVG to th diagonal Medications Ambulatory Orders Medication Instructions Recorded aspirin 81 mg chewable tablet 81 mg PO DAILY@0800 health 04/17/18 maintenance ##90 metformin 500 mg tablet 500 mg PO BID diabetes 12/02/19 cholecalciferol (vitamin D3) 1,250 50,000 unit PO QWEEK vitamin 06/28/21 mcg (50,000 unit) capsule gabapentin 300 mg capsule 300 mg PO QHS nerve pain 06/28/21 carvedilol 25 mg tablet 25 mg PO BID bp 06/12/22 Blood Pressure Monitor #1 ea 06/13/22 nitroglycerin 0.4 mg sublingual 0.4 mg sublingual Q5-15M chest pain 07/01/22 tablet amlodipine 10 mg tablet 10 mg PO DAILY blood pressure #90 07/10/22 tabs atorvastatin 80 mg tablet 80 mg PO QHS cholesterol #90 tabs 07/10/22 losartan 100 mg tablet 100 mg PO DAILY BP #90 tabs 07/11/22 Allergies Allergies latex Allergy (Verified 08/24/22 13:03) Hives Sulfa (Sulfonamide Antibiotics) Allergy (Verified 08/24/22 13:03) Hives Sleep Disorder Evaluation Hx of Sleep Apnea: No Do you snore loudly (louder than talking or can be heard through closed doors)?: No Do you often feel tired/ fatigued/ sleepy during daytime?: No Has anyone observed you stop breathing during sleep?: No History of Hypertension (for STOP score): Yes STOP Results: Negative Advanced Directives Advanced Directives Power of Student Records Specialist: No Living Will: No Advance Directives Information Provided: Yes Advance Directives on File: No DNR Order?:: No Past Medical History Covid-19 Screening Physicial Symptoms Other Clinical Concerns Exposure Risk Pertinent Comorbidities Has a serious heart condition:: Yes Diabetic:: Yes Past Medical Illness Past Medical History (Updated 08/26/22 @ 13:34 by Dali FARRAR, PA) Alcohol intoxication F10.929 Atherosclerotic heart disease of [place] coronary artery without angina pectoris I25.10 PCI-Stent RCA 07/2010; EBS-RDC-Bijf LPLB w/ 2.5 x 16 mm and 2.5 x 8 mm Promus Synergy Stent 04/01/2018; AQP-DRTO-aih PL branch of RCA, CASSIE ostial RPDA w/ 2.25 x 12 mm Promus Synergy, CASSIE-distal RCA with a 2.5 x 24mm Promus Synergy Stent 04/23/2018; PCI-CASSIE-Mid D1 w/ 2.25 X 32 mm Promus Synergy Stent and POBA-to inferior branch of D1 02/24/2019; PCI-CASSIE-ISR Mid D1 w/ 2.25 x 9 mm Orsiro Chinle Stent, CASSIE-OM3 w/ 2.5 x 13 mm Orsiro Chinle Stent, and CASSIE-Mid LCx w/ 4.0 x 18 mm Orsiro Chinle Stent 07/20/2021;COY to the LAD, MARTY to the OM1, SVG to the PDA, SVG to the diagonal 07/2022 CAD (coronary artery disease) I25.10 Diabetes E11.9 Essential hypertension I10 HLD (hyperlipidemia) E78.5 Non-STEMI (non-ST elevated myocardial infarction) (03/31/18) I21.4 PVC's (premature ventricular contractions) I49.3 TIA (transient ischemic attack) G45.9 Tobacco abuse Z72.0 Type 2 diabetes mellitus E11.9 Past Surgical History Past Surgical History (Updated 08/26/22 @ 13:31 by Dali FARRAR, PA) History of coronary artery stent placement (07/20/21) Z95.5 PCI-Stent RCA 07/2010; GHZ-ENC-Nczi LPLB w/ 2.5 x 16 mm and 2.5 x 8 mm Promus Synergy Stent 04/01/2018; JEL-CLCX-fye PL branch of RCA, CASSIE ostial RPDA w/ 2.25 x 12 mm Promus Synergy, CASSIE-distal RCA with a 2.5 x 24mm Promus Synergy Stent 04/23/2018; PCI-CASSIE-Mid D1 w/ 2.25 X 32 mm Promus Synergy Stent and POBA-to inferior branch of D1 02/24/2019; PCI-CASSIE-ISR Mid D1 w/ 2.25 x 9 mm Seedf[employer] Chinle Stent, CASSIE-OM3 w/ 2.5 x 13 mm Orsiro Chinle Stent, and CASSIE-Mid LCx w/ 4.0 x 18 mm [employer] Stent 07/20/2021 History of left heart catheterization (07/18/21) Z98.890 S/P CABG x 4 Z95.1 COY to the LAD, MARTY to the OM1, SVG to the PDA, SVG to the diagonal, Surgical History: - Family History Summary Family History Mother CAD (coronary artery disease) Grandfather CAD (coronary artery disease) Social History Smoking History Smoking Status: Former smoker Years Smokin Hx Tobacco Use: Yes (stopped 3 months ago) Alcohol Use Alcohol Usage: Yes (socially) Occupation Occupation (List type of work in comments):: Employed Hours worked per day:: 8 Returned to work on:: 11/11/22 Hobbies, Recreation, Social Activities Hobbies: Sports and Walking Recreational Activities: I am able to engage in all my recreational activities Social Environment Status Marital Status: Current Living Arrangements Living Environment:: Alone Children How many children do you have?: 2 Do any of your children live nearby?: No Safety Do you feel safe in your surroundings?: Yes Assistance Do you need any assistance at home?: no Review of Systems Review of Systems Hints Review of Present Symptoms: Reports Shortness of Breath with Exertion, Operative Discomfort, Dizziness/Lightheadedness, Fatigue, Heart Arrhythmia/Irregularities, Appetite - Normal and Sleep - Normal; Denies Shortness of Breath at Rest, PVD, Angina, Wound Healing, Appetite - Special Diet or Sexual Changes Pain Is Patient Pain Free?: Yes Risk Factor Assessment Vital Signs Pulse Ox: 99 Blood Pressure: 131/90 Pulse Pulse Rate: 69 Hypertension How long have you been treated?: 10 years Diabetes Diabetic History: Type II Obesity Height: 6 ft 3 in Weight:: 183 lb Weight in Pounds: 183.0 lbs Body Mass Index (BMI): 22.8 Nutritional Referral for Obesity: No Physical Inactivity Physical Inactivity: Reg Exercise 30 min/day Risk Stratification Risk Guidelines: Lowest Risk: Risk Factor for Obesity, Moderate Risk: Risk Factor for Sedentary Lifestyle and Risk Factor for Depression and Highest Risk: Risk Factor for Smoking, Risk Factor for Dyslipidemia, Risk Factor for Diabetes and Risk Factor for Hypertension For Smoking Smoking Risk Guidelines For Dyslipidemia Dyslipidemia Risk Guidelines For Diabetes Mellitus Diabetes Risk Guidelines For Obesity/Overweight Obesity/Overweight Risk Guidelines For Hypertension Hypertension Risk Guidelines For Sedentary Lifestyle Sedentary Lifestyle Risk Guidelines For Depression Depression Risk Guidelines Family History Family History Mother CAD (coronary artery disease) Grandfather CAD (coronary artery disease) Motivation Motivation to Participate On a scale of 1 to 10, how prepared are you to commit to attending program?: 10 What do you see as barriers to successfully being able to complete the program?: nothing What do you see as the benefits of succesfully completing the program? In other words, what do you hope to get out of participating in the program?: more energy Are there issues you are dealing with that will interfere with completing the program?: no Do you have a spouse or signficant other, family or friends who will help support you to complete the program?: no family in the area
[2022-09-19 14:22] VITALS: BP 131/90; PULSE 69; O2SAT 99
--- NOTE | 2022-09-19 14:23 | CR.ITP_ITS ---
Diagnosis General Information Admitting Diagnosis: CABG Personal Learning Style:: Audio/Visual Stage of change r/t lifestyle modifications:: Contemplation Gave educational material for:: Treating Heart Disease, How The Heart Works, What it means to have Heart Disease, How Coronary Artery Disease is Diagnosed, Heart Procedures, What Heart Medications Do, Risk Factors & Modifications, Living an Active Life, Nutrition, Emotions & Heart Disease, Stress Management & Relaxation and Sleep Disorders & Heart Disease Education/Goals Cardiac Rehabilitation Goals Personal Goals: Initial Assessment: Quit smoking (participate in smoking cessation, Improve management of stress and emotions, Improve energy level, Participate in home exercise program, Get back to work, or to resume activities faster, Improve knowledge of cardiac disease, Improve muscle strength and endurance, Improve diet and eating habits (eat healthier), Control risk factors (learn risk factor modification) and Other goal: (breath better) Scale for measuring improvement of personal goals Diagnosis & Disease Process Outcomes/Goals: Pt IDs own risk factors & lifestyle modifications by Session 10, Verbalizes symptoms of angina & response by session 3., Pt independently manages and Other Additional Outcomes/Goals: Plan/Interventions: Assist Pt to ID & engage in lifestyle modification to reduce CVD risk, Instruct on individual risk factors, Review symptoms of angina & emergency actions, Review secondary diagnosis & identify educational needs. and Other see comment 30 day Reassessments:: Not Met 30 day Reassessments:: Not Met 30 day Reassessments:: Not Met 30 day Reassessments:: Not Met Final Reassessments:: Not Met Safety Referral to Physical Therapy: No Referral to [facility] Case Management: No Fall Risk Assessed:: Yes Assistive Devices:: None Exercise - Initial Assessment Visit Date of Eval: 09/19/22 (initial eval ) Mets: Pre-: >3 METS for 30 minutes by discharge, >5 METS for 30 minutes by discharge, >7 METS for 30 minutes by discharge and Unable to meet goal due to: (see comment below) Physician Prescribed Exercise Modalities: Treadmill, Airdyne, NuStep, SciFit and Lateral [place] Frequency: 3x/week for 12 weeks [36 sessions] Intensity: 60-80% of age predicted maximum heart rate reserve Duration: 30 - 45 minutes Target Heart Rate:: 105-123 Resting Blood Pressure: 131/90 EKG Type: SR w/ 1st degree AV block Outcomes & Goals Goals:: Verbalizes understanding of THR, RPE & goal METS by session 6, Documents in home exercise log/reports 30 min aerobic 5 day/wk by DC, Demonstrates accurate pulse taking by DC and Other additional outcome/goals: see below Intervention & Plan Exercise Program Goals: Instruct on personal THR & RPE, Instruct on MET level & personal MET goal, Show patient to take own pulse /validate performance until accurate, Instruct on home exercise and Other additional plan/int Physical Activity Home Exercise Physical Activity - Home Exercise: Safe Exercise, Warm-up, Self-monitoring, Cool-Down, Home Exercise > 30 min Daily and Sitting Time <3 hours/daily Outcomes & Goals Outcomes/Goals: Demonstrates correct Warm-up/exercise Cool-Down (S3) if = 2.5 METs, Verbalizes symptoms of exercise intolerance by Session 3 (S3), Demonstrate safe equipment use (S3) & follows exercise prescrition (6) and Other: See below Intervention & Plan Plan/Intervention: Instruct warm-up & cool-down if exercising at > 2 METs, Instruct on symptoms of exercise intolerance & actions to take, Instruct & monitor on saf, Assess intial functional capacity & safety risk and Other See below Nutrition - Initial Assessment Program Goals Nutrition Program Goals Patient has diagnosis of Hyperlipidemia (ICD E78)?: Yes Visit Date of Eval: 09/19/22 (initial eval ) Cholesterol/Lipids (Other Core Measures) Determine presence & major risk factors that modify LDL goal: Cigarette smoking, Hypertension or hypertensive medication, Low HDL cholesterol <40 mg/dL*, Family history of premature CHD in Male < 55 years: female <65 yearsFa and Age men > 45 years; women >/= 55 years Outcomes/Goals: Pt IDs own risk factors & lifestyle modifications by Session 10, Verbalizes symptoms of angina & response by session 3., Pt independently manages and Other Additional Outcomes/Goals: Intervention/Plan: Advocate for lipid panel cholesterol medication if applicable, Instruct on personal lipid levels & lipid goals/NCEP guidelines, Instruct on cholesterol and Other additional plan/int Referral to dietitian:: Yes Diabetes (Other Core Measures) Diabetes Type: Diagnosis Type II ICD-10 E11 Insulin dependent injection/pump?: No Non-Insulin Dependent?: Yes Do you monitor your blood sugar at home?: Yes Referral to Diabetic Clinic:: Yes Outcomes/Goals:: Able to state symptoms of, Able to state, Able to state and Other additional Weight Mgt (Other Care) Height: 6 ft 3 in Weight:: 183 lb BMI: 22.8 Diagnosis Overweight/Obesity BMI> 30% ICD-10 E66: No Diagnosis High BMI/Morbid Obesity BMI> 35% ICD-10 Z68: No Outcomes/Goals: Pt sets, maintains & shows weight loss goal & trend during rehab and Other additional outcomes/goals Intervention/Plan: Instruct on ideal BMI & set weight loss goal w/patient, Assist pt to ID & incorporate diet changes for weight loss by S9, Refer to Structured Weight Loss program as appropriate, Encourage goal of using 250- 300dcal per session for weight loss and Other additional plan/interventions Healthy Eating Habits Outcomes/Goals:: Consume diet rich in vegs,fruits,whole grain/high fiber,fish,lean meat, Limit sat/trans fats,cholesterol & added salts & sugars and Other additional outcome/goals: Intervention/Plan:: Assess current eating habits and Other Additional plan/interventions Education Gave educational materials for:: Signs & symptoms of hypoglycemia, Signs & symptoms of hyperglycemia, Relate diabetes to coronary artery disease and Healthy eating Core - Initial Assessment Visit Date of Eval: 09/19/22 (initial eval ) Medication Compliance Preventative Medication(s):: Aspirin, PADDY inhibitor, Statin/lipid, Beta ileana and ARB (Angiotensi Rcap) H/O mental health issues: depression, anxiety, or addiction?: No Doesn?t believe in the benefits of treatment?: No Believes medications are unnecessary or harmful?: No Has a concern about medication side effects?: No Expresses concern over the cost of medications?: No Outcomes/Goals: Verbalizes medications,desired effect & common side effects @ DC, Pt self-reports following medication regimen, Keeps card in wallet w/medica tions listed by DC and Other additional outcome/goals: Interventions/plans: Instruct on medication effects & side effects, Review medication list w/patient every two weeks, Instruct importance of taking meds as ordered & assist problem solving and Other additional Tobacco Use Tobacco Use: Non-smoker (stopped 3 months ago per pt) How long ago did you quit using tobacco products?: Less than 6 months ago Years Smokin Do you use smokeless tobacco?: No Hypertension Hypertension Diagnosis:: Hypertension ICD-10 I10 Resting Blood Pressure:: 131/90 [place] [employer] Hypertension Guidelines Outcomes/Goals: Able to verbalize/achieve optimal blood pressure <130/80, Incorporates diet changes & exercise for blood pressure control by DC and Other additional outcomes/goals Interventions/plan: Instruct on optimal blood pressure, hypertension & medications, Instruct on effects of sodium, alcohol, stress, exercise &hypertension and Other additional plan/interventions Tobacco Cessation Referral Smoking Cessation Referral:: No Individual Education/Counseling:: No Education Schedule Given:: Yes Psychosocial - Initial Assess VIsit Date of Eval: 09/19/22 (initial eval ) History of previous Mental disease:: No Target Goals Target Goals Patient Health Questionnaire PHQ-9 Screening Initial Assessment: 1. Little interest or pleasure in doing things: More than half the days 2. Feeling down, depressed, or hopeless: More than half the days 3. Trouble falling or staying asleep, or sleeping too much: Nearly every day 4. Feeling tired or having little energy: Nearly every day 5. Poor appetite or overeating: Nearly every day 6. Feeling bad about yourself -- or that you are a failure or have let yourself or your family down: Not at all 7. Trouble concentrating on things, such as reading the newspaper or watching television: Not at all 8. Moving or speaking so slowly that other people could have noticed. Or the opposite - being so fidgety or restless that you have been moving around a lot more than usual: Several days 9. Thoughts that you would be better off , or of hurting yourself in some way: Not at all How difficult have these problems made it for you to do your work, take care of things at home, or get along with other people?: Somewhat difficult Total Score: 14 ARELY-Q SV Test Statements CAD is a disease of the arteries in the heart: False Examples of risk factors for heart disease: I Don't Know Angina is chest pain or discomfort: True The benefits of resistance training include: I Don't Know Eating more meat and dairy products: I Don't Know Anti-platelet medications such as aspirin are important: True The only effective way to manage stress: I Don't Know An exercise warm-up slowly increases heart rate: I Don't Know Prepared, processed foods usually have high sodium: True Depression is common after a heart attack: I Don't Know The statin medications lower cholesterol: I Don't Know To control blood pressure, lower the amount of sodium: True If someone gets chest discomfort during walking: False Transfats are partially hydrogenated vegetable oils: True Sleep apnea that is not treated increases the risk: I Don't Know To control cholesterol, one should become a vegetarian: I Don't Know Someone knows if he/she is exercising at the right level: I Don't Know Diabetes cannot be prevented with exercise & health eating: True Stress is a large risk for heart attack: True A diet that can help lower blood pressure is rich in: True Total Score Total Correct Responses: 9 Self-Efficacy 6-Item Scale Initial Assessment: We would like to know how confident you are in doing certain activities. Please select your confidence level for: Fatigue Select Number: 3 Physical Discomfort or Pain Select Number: 3 Emotional Distress Select Number: 3 Other Symptoms or Health Problems Select Number: 3 Different Tasks and Activities Select Number: 3 Medication Select Number: 3 Total Score:: 3 Nutrition Survey Nutrition Survey Instructions Scoring Instructions Nutrition Survey Initial: Have you lost >10 lbs over the past 2 months without trying?: Yes Are you following a special diet at home for diabetes, low fat, or low salt?: No Are you interested in meeting with a dietitian for help understanding your diet?: Yes Do you eat less than 3 meals a day?: Yes Do you eat fatty meats (renee, sausage, ribs, etc), fried foods, desserts, large amounts of salad dressings, margarine, butter, or cheese most days?: No Do you have food allergies? [Enter types in comment field]: No Do you eat in restaurants more than 3 times a week?: Yes Do you season food with salt, seasoning salt, or garlic salt?: No Do you used canned, boxed, frozen meals, or soups, seasoning packets?: No Total Score:: 4 Exercise - Final/Discharge Physician Prescribed Exercise Modalities: Treadmill, Airdyne, NuStep, SciFit and Lateral Line Service Att[employer] Frequency: 3x/week for 12 weeks [36 sessions] Intensity: 60-80% of age predicted maximum heart rate reserve Target Heart Rate:: 105-123 Nutrition - 30-Day Assessment Weight Mgt (Other Care) Height: 6 ft 3 in Weight:: 183 lb BMI: 22.8 Nutrition - 60-Day Assessment Weight Mgt (Other Care) Height: 6 ft 3 in Weight:: 183 lb BMI: 22.8 Core - 30-Day Assessment Tobacco Use Years Smokin Core - Final Assessment Hypertension Resting Blood Pressure:: 131/90 [place] [employer] Hypertension Guidelines Core - 60-Day Assessment Hypertension Resting Blood Pressure:: 131/90 [place] [employer] Hypertension Guidelines Psychosocial - 30-Day Assess Target Goals Target Goals Psychosocial - 60-Day Assess Target Goals Target Goals Psychosocial - 90-Day Assess Target Goals Target Goals Psychosocial - Final Assessmen Target Goals Target Goals Nutrition - 90-Day Assessment Weight Mgt (Other Care) Height: 6 ft 3 in Weight:: 183 lb BMI: 22.8 Nutrition - Final Assessment Program Goals Patient has diagnosis of Hyperlipidemia (ICD E78)?: Yes Weight Mgt (Other Care) Height: 6 ft 3 in Weight:: 183 lb BMI: 22.8
[2022-09-19 14:28] VITALS: BP 131/90
[2022-09-19 14:38] VITALS: BMI 22.8
[2022-09-19 14:58] VITALS: BMI 22.8
[2022-09-19 15:10] VITALS: BP 131/90
== END | disposition home or self-care (01) ==
LOC: CR 13:59
PROVIDERS: PCP Nurse Practitioner Family; Referring Provider Internal Medicine Cardiovascular Disease; Visit Provider Internal Medicine Cardiovascular Disease
DX: Z95.1 Presence of aortocoronary bypass graft (principal); I21.4 Non-ST elevation (NSTEMI) myocardial infarction; E11.9 Type 2 diabetes mellitus without complications; I10 Essential (primary) hypertension; I25.10 Atherosclerotic heart disease of native coronary artery without angina pectoris; E78.5 Hyperlipidemia, unspecified; I49.3 Ventricular premature depolarization; G45.9 Transient cerebral ischemic attack, unspecified; Z95.5 Presence of coronary angioplasty implant and graft; Z87.891 Personal history of nicotine dependence; R06.02 Shortness of breath; R42 Dizziness and giddiness; R53.83 Other fatigue

== ENCOUNTER 2022-10-17 13:00 | Outpatient (RCR) | payer MEDICAID, SELFPAY ==
[2022-09-19 14:58] VITALS: BMI 22.8
== END 2022-10-18 23:59 ==
LOC: CR 13:00
PROVIDERS: PCP Nurse Practitioner Family; Referring Provider Internal Medicine Cardiovascular Disease; Visit Provider Internal Medicine Cardiovascular Disease
DX: Z95.1 Presence of aortocoronary bypass graft (principal)
CPT/HCPCS: 93798

== ENCOUNTER 2022-11-14 13:00 | Outpatient (RCR) | payer MEDICAID, SELFPAY ==
[2022-09-19 14:58] VITALS: BMI 22.8
--- NOTE | 2022-11-12 08:20 | PCM.CR.ITP ---
Nutrition - Initial Assessment Weight Mgt (Other Care) Height: 6 ft 3 in Weight:: 186 lb BMI: 23.2 Psychosocial - Initial Assess Target Goals Target Goals Referral to Behavioral Health PS - Interventions: Yes: Attend Stress Management Classes and No: Referral to Behavioral Health if PHQ-9 score >9:, No: Referral to [facility] and No: Referral to Physician if PHQ-9 if score is 5-9: Patient Health Questionnaire PHQ-9 Screening 60-Day Re-eval Assessment: 1. Little interest or pleasure in doing things: Not at all 2. Feeling down, depressed, or hopeless: Not at all 3. Trouble falling or staying asleep, or sleeping too much: Several days 4. Feeling tired or having little energy: Several days 5. Poor appetite or overeating: Several days 6. Feeling bad about yourself -- or that you are a failure or have let yourself or your family down: Not at all 7. Trouble concentrating on things, such as reading the newspaper or watching television: Not at all 8. Moving or speaking so slowly that other people could have noticed. Or the opposite - being so fidgety or restless that you have been moving around a lot more than usual: Not at all 9. Thoughts that you would be better off , or of hurting yourself in some way: Not at all How difficult have these problems made it for you to do your work, take care of things at home, or get along with other people?: Not difficult at all Total Score: 3 Self-Efficacy 6-Item Scale 60-Day Re-eval Assessment: We would like to know how confident you are in doing certain activities. Please select your confidence level for: Fatigue Select Number: 7 Physical Discomfort or Pain Select Number: 7 Emotional Distress Select Number: 8 Other Symptoms or Health Problems Select Number: 7 Different Tasks and Activities Select Number: 9 Medication Select Number: 10 Total Score:: 8 Nutrition Survey Nutrition Survey Instructions Scoring Instructions Exercise - 60-day Assessment Visit Date of Eval: 11/12/22 Session #:: 18 Comments:: JAIME HAS MISSED ONLY 2 SCHEDULED APPOINTMENTS Physician Prescribed Exercise Modalities: Treadmill, Airdyne and NuStep Frequency: 3x/week for 12 weeks [36 sessions] Intensity: 60-80% of age predicted maximum heart rate reserve Duration: 30 - 45 minutes Current METSs:: 5.0 Target Heart Rate:: 105-123 Current RPE:: 12-14 Maximum Excercise HR:: 136 Resting Blood Pressure: 108/62 Maximum Exercise Blood Pressure: 158/84 EKG Type: NSr to sinus tach first degree AV block, occasional PACs and PVCs, Outcomes & Goals Goals:: Verbalizes understanding of THR, RPE & goal METS by session 6, Documents in home exercise log/reports 30 min aerobic 5 day/wk by DC and Demonstrates accurate pulse taking by DC Intervention & Plan Exercise Program Goals: Instruct on personal THR & RPE, Instruct on MET level & personal MET goal, Show patient to take own pulse /validate performance until accurate and Instruct on home exercise 30-day Reassessments 30 day Reassessments:: Met Physical Activity Home Exercise Physical Activity - Home Exercise: Safe Exercise, Warm-up, Self-monitoring, Cool-Down, Home Exercise > 30 min Daily and Sitting Time <3 hours/daily Outcomes & Goals Outcomes/Goals: Demonstrates correct Warm-up/exercise Cool-Down (S3) if = 2.5 METs, Verbalizes symptoms of exercise intolerance by Session 3 (S3) and Demonstrate safe equipment use (S3) & follows exercise prescrition (6) Intervention & Plan Plan/Intervention: Instruct warm-up & cool-down if exercising at > 2 METs, Instruct on symptoms of exercise intolerance & actions to take, Instruct & monitor on saf and Assess intial functional capacity & safety risk 30-day Reassessments 30 day Reassessments:: Met Nutrition - 30-Day Assessment Weight Mgt (Other Care) Height: 6 ft 3 in Weight:: 186 lb BMI: 23.2 Nutrition - 60-Day Assessment Program Goals Nutrition Program Goals Patient has diagnosis of Hyperlipidemia (ICD E78)?: Yes Visit Date of Eval: 11/12/22 Session #:: 18 Cholesterol/Lipids (Other Core Measures) Total Triglycerides (mg/dL): 66 Total Cholesterol: 153 LDL Cholesterol (mg/dL): 95 HDL Cholesterol (mg/dL): 45 Determine presence & major risk factors that modify LDL goal: Hypertension or hypertensive medication and Age men > 45 years; women >/= 55 years Outcomes/Goals: Pt IDs own risk factors & lifestyle modifications by Session 10, Verbalizes symptoms of angina & response by session 3. and Pt independently manages Intervention/Plan: Instruct on personal lipid levels & lipid goals/NCEP guidelines and Instruct on cholesterol Referral to dietitian:: Yes 30-day Reassessments:: Progressing Diabetes (Other Core Measures) Diabetes Type: Diagnosis Type II ICD-10 E11 Insulin dependent injection/pump?: No Non-Insulin Dependent?: Yes (MEtformin 500mg BID.) Do you monitor your blood sugar at home?: No Referral to Diabetic Clinic:: Yes Outcomes/Goals:: Able to state symptoms of, Able to state and Able to state Intervention/Plan:: Instruct on, Refer to and Instruct on 30-day Reassessments:: Progressing Weight Mgt (Other Care) Height: 6 ft 3 in Weight:: 186 lb BMI: 23.2 Diagnosis Overweight/Obesity BMI> 30% ICD-10 E66: No Diagnosis High BMI/Morbid Obesity BMI> 35% ICD-10 Z68: No Outcomes/Goals: Pt sets, maintains & shows weight loss goal & trend during rehab Intervention/Plan: Instruct on ideal BMI & set weight loss goal w/patient 30 day Reassessments:: Met Healthy Eating Habits Outcomes/Goals:: Consume diet rich in vegs,fruits,whole grain/high fiber,fish,lean meat and Limit sat/trans fats,cholesterol & added salts & sugars Intervention/Plan:: Assess current eating habits 30-day Reassessments:: Met Education Gave educational materials for:: Signs & symptoms of hypoglycemia, Signs & symptoms of hyperglycemia, Relate diabetes to coronary artery disease and Healthy eating Core - 60-Day Assessment Visit Date of Eval: 11/12/22 Session #:: 18 Medication Compliance Preventative Medication(s):: Aspirin, Clopidogrel/P2Y12 inhibit, Statin/lipid and Beta ileana H/O mental health issues: depression, anxiety, or addiction?: No Doesn?t believe in the benefits of treatment?: No Believes medications are unnecessary or harmful?: No Has a concern about medication side effects?: No Expresses concern over the cost of medications?: No Outcomes/Goals: Verbalizes medications,desired effect & common side effects @ DC, Pt self-reports following medication regimen and Keeps card in wallet w/medications listed by DC Interventions/plans: Instruct on medication effects & side effects, Review medication list w/patient every two weeks and Instruct importance of taking meds as ordered & assist problem solving 30-day Reassessments:: Met Tobacco Use Tobacco Use: Non-smoker Hypertension Hypertension Diagnosis:: Hypertension ICD-10 I10 Resting Blood Pressure:: 108/62 [place] [employer] Hypertension Guidelines Peak Exercise Blood Pressure:: 158/84 Outcomes/Goals: Able to verbalize/achieve optimal blood pressure <130/80 and Incorporates diet changes & exercise for blood pressure control by DC Interventions/plan: Instruct on optimal blood pressure, hypertension & medications and Instruct on effects of sodium, alcohol, stress, exercise &hypertension 30 day Reassessments:: Met Tobacco Cessation Referral Smoking Cessation Referral:: No Individual Education/Counseling:: No Education Schedule Given:: Yes Psychosocial - 30-Day Assess Target Goals Target Goals Referral to Behavioral Health PS - Interventions: Yes: Attend Stress Management Classes and No: Referral to Behavioral Health if PHQ-9 score >9:, No: Referral to [facility] and No: Referral to Physician if PHQ-9 if score is 5-9: Outcomes/Goals: See list Psychosocial Outcomes/Goals:: ID's personal stressors & 2 strategies to manage stress by discharge Psychosocial - 60-Day Assess VIsit Date of Eval: 11/12/22 Session #:: 18 Not Applicable: Yes History of previous Mental disease:: No Target Goals Target Goals Psychosocial Test Tool Used:: PHQ-9 Questionnaire phq-9 Severity Referral to Behavioral Health PS - Interventions: Yes: Attend Stress Management Classes and No: Referral to Behavioral Health if PHQ-9 score >9:, No: Referral to [facility] and No: Referral to Physician if PHQ-9 if score is 5-9: Outcomes/Goals: See list Psychosocial Outcomes/Goals:: ID's personal stressors & 2 strategies to manage stress by discharge Intervention/Plan: See List Interventions/Plan:: Assess stressors,coping strategies & signs of derpression on admission, Instruct/assist pt to develop coping & personal stress Mgt strategies, Instruct patient to recognize signs & symptoms of depression and Instruct patient to recog 30-day Reassessments: 30 day Reassessments:: Met Psychosocial - 90-Day Assess Target Goals Target Goals Referral to Behavioral Health PS - Interventions: Yes: Attend Stress Management Classes and No: Referral to Behavioral Health if PHQ-9 score >9:, No: Referral to [facility] and No: Referral to Physician if PHQ-9 if score is 5-9: Psychosocial - Final Assessmen Target Goals Target Goals Referral to Behavioral Health PS - Interventions: Yes: Attend Stress Management Classes and No: Referral to Behavioral Health if PHQ-9 score >9:, No: Referral to [facility] and No: Referral to Physician if PHQ-9 if score is 5-9: Nutrition - 90-Day Assessment Weight Mgt (Other Care) Height: 6 ft 3 in Weight:: 186 lb BMI: 23.2 Nutrition - Final Assessment Weight Mgt (Other Care) Height: 6 ft 3 in Weight:: 186 lb BMI: 23.2
[2022-11-12 08:29] VITALS: BP 108/62; BMI 23.2
== END 2022-11-17 23:59 ==
LOC: CR 13:00
PROVIDERS: PCP Nurse Practitioner Family; Referring Provider Internal Medicine Cardiovascular Disease; Visit Provider Internal Medicine Cardiovascular Disease
DX: Z95.1 Presence of aortocoronary bypass graft (principal)
CPT/HCPCS: 93798

== ENCOUNTER 2022-11-30 19:56 | Observation (INO) | payer MEDICAID, SELFPAY ==
[2022-11-19 13:59] VITALS: BMI 23.6
[2022-11-30] VITALS (7 sets, daily range): BP systolic 162–185; BP diastolic 103–117; PULSE 68–81; RESP 12–16; TEMP 36.1; O2SAT 97; BMI 23.7
--- NOTE | 2022-11-30 20:11 | CT_ITS ---
We are attempting to reach an attending provider to discuss findings. An addendum with communication details will be sent when the communication is complete. EXAM: CT ANGIOGRAPHY HEAD AND NECK WITHOUT AND WITH INTRAVENOUS CONTRAST CLINICAL INDICATION: dizziness TECHNIQUE: [place]/head and neck CT angiography protocol performed without and with intravenous contrast. This CT exam was performed using one or more of the following dose reduction techniques: automated exposure control, adjustment of the mA and/or kV according to patient size, and/or use of iterative reconstruction technique. MIP reconstructed images were created and reviewed. CONTRAST: isovue 370 100 ml COMPARISON: CT head, 07/03/2020 FINDINGS: HEAD: RIGHT ANTERIOR CEREBRAL ARTERY: No significant abnormality. No significant stenosis at the visualized segments. Anterior communicating artery is present. No aneurysm. RIGHT MIDDLE CEREBRAL ARTERY: No significant abnormality. No significant stenosis at the visualized segments. No aneurysm. RIGHT POSTERIOR CEREBRAL ARTERY: No significant abnormality. No occlusion or significant stenosis. No aneurysm. RIGHT INTRACRANIAL INTERNAL CAROTID ARTERY: Arteriosclerosis of the cavernous and supracavernous right internal carotid artery. Mild stenosis of the supracavernous right internal carotid artery. No dissection or occlusion. RIGHT INTRACRANIAL VERTEBRAL ARTERY: No significant abnormality. No significant stenosis. No dissection or occlusion. LEFT ANTERIOR CEREBRAL ARTERY: No significant abnormality. No significant stenosis at the visualized segments. No aneurysm. LEFT MIDDLE CEREBRAL ARTERY: No significant abnormality. No significant stenosis at the visualized segments. No aneurysm. LEFT POSTERIOR CEREBRAL ARTERY: No significant abnormality. No occlusion or significant stenosis. No aneurysm. LEFT INTRACRANIAL INTERNAL CAROTID ARTERY: Moderate to severe stenosis of the supracavernous left internal carotid artery. Arteriosclerosis of the cavernous and supracavernous left internal carotid artery. No dissection or occlusion. LEFT INTRACRANIAL VERTEBRAL ARTERY: No significant abnormality. No significant stenosis. No dissection or occlusion. BASILAR ARTERY: No significant abnormality. No significant stenosis. No aneurysm. OTHER VASCULATURE: See findings above and below. BRAIN AND EXTRA-AXIAL SPACES: Small foci of low attenuation in the bilateral basal ganglia and young radiata consistent with chronic lacunar type infarcts. There is non-specific periventricular hypoattenuation which is most commonly related to chronic microvascular ischemic disease in a patient of this age. There is no mass, mass-effect, or shift of the midline structures. No evidence of acute infarct or acute intracranial hemorrhage. There is no evidence of pathologic extra-axial fluid. There is no hydrocephalus. Patent basal cisterns. Posterior fossa structures are unremarkable. SINUSES: Normal as visualized. Clear. MASTOID AIR CELLS: Normal as visualized. Clear. ORBITS: Visualized globes, extraocular muscles, optic nerves and retrobulbar fat appear unremarkable. NECK: RIGHT COMMON CAROTID ARTERY: No significant abnormality. No significant stenosis. No dissection or occlusion. RIGHT EXTRACRANIAL INTERNAL CAROTID ARTERY: Atherosclerosis of the right carotid bifurcation and carotid bulb with approximately 50% stenosis of the right internal carotid artery by NASCET criteria. No dissection or occlusion. RIGHT EXTERNAL CAROTID ARTERY: No significant abnormality. No occlusion. RIGHT EXTRACRANIAL VERTEBRAL ARTERY: No significant abnormality. No significant stenosis. No dissection or occlusion. LEFT COMMON CAROTID ARTERY: No significant abnormality. No significant stenosis. No dissection or occlusion. LEFT EXTRACRANIAL INTERNAL CAROTID ARTERY: Atherosclerosis of the left carotid bifurcation and carotid bulb with less than 50% stenosis of the left internal carotid artery by NASCET criteria. No dissection or occlusion. LEFT EXTERNAL CAROTID ARTERY: No significant abnormality. No occlusion. LEFT EXTRACRANIAL VERTEBRAL ARTERY: No significant abnormality. No significant stenosis. No dissection or occlusion. BRACHIOCEPHALIC AND SUBCLAVIAN ARTERIES: Normal as visualized. No occlusion or significant stenosis. AORTA: Atherosclerosis of the aorta is partially visualized. LUNG APICES: Normal as visualized. HEAD and NECK: BONES/JOINTS: Status post median sternotomy. Degenerative changes in the cervical spine. No discrete lytic or blastic abnormalities. SOFT TISSUES: No significant abnormality. CAROTID STENOSIS REFERENCE USING NASCET CRITERIA: % ICA stenosis = (1 - narrowest ICA diameter/diameter of distal cervical ICA) x 100. Mild - <50% stenosis. Moderate - 50-69% stenosis. Severe - 70-94% stenosis. Near occlusion - 95-99% stenosis. Occluded - 100% stenosis. CT/CTA Head AND Neck W/ Contrast IMPRESSION: 1. Chronic ischemic changes. No distinct evidence of acute infarct or acute intracranial hemorrhage. 2. Moderate to severe stenosis of the supracavernous left internal carotid artery. 3. Mild stenosis of the supracavernous right internal carotid artery. 4. Atherosclerosis of the right carotid bifurcation and carotid bulb with approximately 50% stenosis of the right internal carotid artery by NASCET criteria. Less than 50% stenosis of the left internal carotid artery. 5. No additional large vessel occlusion or critical stenosis in the head or neck. Electronically Signed: Kenton Pandey DO at 21:58 EDT ,
--- NOTE | 2022-11-30 20:11 | EKG12_ITS ---
Test Reason : DYSRHYTHMIA Blood Pressure : / mmHG Vent. Rate : 080 BPM Atrial Rate : 080 BPM P-R Int : 192 ms QRS Dur : 092 ms QT Int : 414 ms P-R-T Axes : 062 -51 112 degrees QTc Int : 477 ms Normal sinus rhythm Possible Left atrial enlargement Left anterior fascicular block Inferior infarct , age undetermined T wave abnormality, consider lateral ischemia Abnormal ECG Confirmed by ARIELLE MCGRATH MD ([id number]), general expeditor REBEKAH MCPHERSON ([id number]) on 12/04/2022 7:44:03 AM Referred By: Confirmed By:ARIELLE MCGRATH MD
--- NOTE | 2022-11-30 20:22 | EDS_ITS ---
HPI History of Present Illness Chief Complaint: Dizziness Informant: patient Narrative Narrative: Presents by private vehicle increasing vertigo symptoms after waking this morning. States the room was spinning. Belk nauseated. Persistent throughout the day, when evaluated patient had emesis on the ground. No history of similar. He is status post four-vessel CABG this past July up to [facility]. He is followed down here by cardiology. No chest pains. Yesterday he felt fine. He states symptoms seem to worse with laying down on the left side. Denies headache. Denies hemiparesis. Denies paresthesias. Prior similar symptoms: No PFSH PFSH Medical History Alcohol intoxication Atherosclerotic heart disease of [place] coronary artery without angina pectoris CAD (coronary artery disease) Diabetes Essential hypertension HLD (hyperlipidemia) Non-STEMI (non-ST elevated myocardial infarction) (03/31/18) PVC's (premature ventricular contractions) TIA (transient ischemic attack) Tobacco abuse Type 2 diabetes mellitus Home Medications aspirin 81 mg chewable tablet 81 mg PO DAILY@0800 health maintenance ##90 04/17/18 [Rx Last Taken 06/30/22] metformin 500 mg tablet 500 mg PO BID diabetes 12/02/19 [History Last Taken 06/30/22] cholecalciferol (vitamin D3) 1,250 mcg (50,000 unit) capsule 50,000 unit PO QWEEK vitamin 06/28/21 [History Last Taken 06/24/22] gabapentin 300 mg capsule 300 mg PO QHS nerve pain 06/28/21 [History Last Taken 06/30/22] Blood Pressure Monitor #1 ea 06/13/22 [Rx Last Taken Unknown] atorvastatin 80 mg tablet 80 mg PO QHS cholesterol #90 tabs 07/10/22 [Rx Last Taken Unknown] carvedilol 25 mg tablet 12.5 mg PO BID bp 10/09/22 [History Last Taken Unknown] clopidogrel 75 mg tablet 75 mg PO DAILY heart health #90 tabs 10/09/22 [Rx Last Taken Unknown] duloxetine 30 mg capsule,delayed release 30 mg PO DAILY 11/30/22 [History Last Taken Unknown] terazosin 1 mg capsule 2 mg PO QHS 11/30/22 [History Last Taken Unknown] losartan 100 mg tablet 50 mg (1/2 x 100 mg) PO DAILY BP #90 tabs 12/01/22 [Rx Last Taken Unknown] meclizine 12.5 mg tablet 12.5 mg PO 4X/DAY PRN PRN Vertigo #30 tabs 12/01/22 [Rx Last Taken Unknown] Allergy/AdvReac Type Severity Reaction Status Date / Time latex Allergy Hives Verified 11/30/22 19:58 Sulfa (Sulfonamide Allergy Hives Verified 11/30/22 19:58 Antibiotics) Family History Mother CAD (coronary artery disease) Grandfather CAD (coronary artery disease) Surgical History History of coronary artery stent placement (07/20/21) History of left heart catheterization (07/18/21) S/P CABG x 4 Social History household members: friend(s) current occupational status: employed history of recent travel: No Smoking Status: Never smoker how long ago did patient quit smokin.5 months alcohol intake: current alcohol intake frequency: a few times a month substance use type: does not use caffeine: Yes (works night shifts) ROS ROS ED Constitutional Constitutional ED: Denies chills, fever(s) or sweats Eyes Eyes: Denies change in vision ENT ENT ED: Denies dysphagia or sore throat Cardiovascular Cardiovascular: Denies chest pain, leg edema, palpitations or racing heartbeat Respiratory/Chest Respiratory/Chest: Denies cough, dyspnea or dyspnea on exertion Gastrointestinal Gastrointestinal: Reports nausea and vomiting; Denies abdominal pain or diarrhea Genitourinary Genitourinary ED: Denies dysuria, hematuria or urinary frequency Musculoskeletal Musculoskeletal: Denies back pain, extremity pain or neck pain Integumentary Denies rash or wounds Neurologic Neurologic: Reports other Details: Vertigo ; Denies headache(s), paresthesias or weakness EXAM Physical Exam Const Vital Signs: 11/30/22 19:58 11/30/22 20:00 Temperature 97.0 F L 97.0 F L Temperature Source Temporal Temporal Pulse Rate 79 79 Respiratory Rate 16 16 Blood Pressure 162/109 H 162/109 H Blood Pressure Mean 126 126 Positive well nourished and well developed General Appearance ED: well developed and NAD HEENT Reports moist mucous membranes normocephalic and atraumatic Eyes PERRL, EOMs intact bilaterally and conjunctivae normal Eyes Narrative: No nystagmus. Normal General Eye ED: Yes normal appearance of both eyes Neck no lymphadenopathy and supple General: Negative for tenderness Chest Wall Chest: Negative for tenderness Resp normal respiratory effort and normal air movement Effort and Inspection: symmetric chest movement; Negative for respiratory distress Cardio regular rate, regular rhythm and no murmurs Peripheral Pulses: pulses 2+ throughout GI normal to inspection, nondistended, normoactive bowel sounds and non-tender Palpation: Negative for guarding or rebound tenderness present Back/Spine no CVA tenderness and no thoracic nor lumbar tenderness Extremity normal to inspection General Extremety ED: Negative for edema or tenderness General Extremity: Negative for edema Neuro oriented x3, CN's II-XII intact bilaterally and no sensory deficits noted Neuro Narrative: NIH 0. Patient ambulated with no truncal ataxia. Sensorium / Orientation: awake and alert Skin no rashes or lesions noted and no wounds MDM MDM MDM Narrative Medical decision making narrative: Interventions / MDM: Differential diagnosis: Vertigo, CVA Diagnosis considered but do not suspect: N/A My EKG interpretation: Sinus rate of 80. No ST changes T wave inversions leads I and aVL. Imaging independently reviewed and interpreted by myself: CTA head and neck: Remote infarcts noted basal ganglia and young radiata, nonocclusive calcifications however discussion with radiologist may obscure findings. There is no acute bleeds. External documents reviewed: N/A Test considered but not ordered:N/A ED course: Patient with symptomatic vertigo symptoms. Vomiting in the room. Symptoms started more than 12 hours ago. IV established. IV Reglan, CT angiogram ordered. EKG sinus rhythm Labs stable CT and no endings. Reevaluation mild symptoms however improving. However discussion with CT with radiologist, recommended MRI if concerns. Symptoms are new for him he is a vasculopath. I discussed with hospitalist for admission. Re-evaluation: stable Disposition discussed with patient/family/significant other: Case discussed with consulting clinician: Hospitalist, Dr. Meredith This note was generated with [employer] dictation software. It may contain incorrect words, spelling, and punctuation that were not noted in checking the note before signing. Radiography Diagnostic Testing: Clinical Impression(s) from Imaging Studies Head/Neck CTA 11/30/22 20:11 IMPRESSION: 1. Chronic ischemic changes. No distinct evidence of acute infarct or acute intracranial hemorrhage. 2. Moderate to severe stenosis of the supracavernous left internal carotid artery. 3. Mild stenosis of the supracavernous right internal carotid artery. 4. Atherosclerosis of the right carotid bifurcation and carotid bulb with approximately 50% stenosis of the right internal carotid artery by NASCET criteria. Less than 50% stenosis of the left internal carotid artery. 5. No additional large vessel occlusion or critical stenosis in the head or neck. Electronically Signed: Kenton Pandey DO at 21:58 EDT , ADDENDUM: 11/30/22 2239 IMPRESSION: 1. Chronic ischemic changes. No distinct evidence of acute infarct or acute intracranial hemorrhage. 2. Moderate to severe stenosis of the supracavernous left internal carotid artery. 3. Mild stenosis of the supracavernous right internal carotid artery. 4. Atherosclerosis of the right carotid bifurcation and carotid bulb with approximately 50% stenosis of the right internal carotid artery by NASCET criteria. Less than 50% stenosis of the left internal carotid artery. 5. No additional large vessel occlusion or critical stenosis in the head or neck. N.B. : The above Results were Read Back by Kenton Pandey DO to Colt Dash DO, and understanding confirmed on 11/30/2022 22:32:19 (ET). Electronically Signed: Kenton Pandey DO at 21:58 EDT , Discharge Plan Disposition Disposition: Acute Care Hospital [facility] Discharge Date/Time: 12/01/22 00:01
[2022-11-30] MEDS: Metoclopramide 10 MG/2 ML Vial 5 MG IV (20:31)
[2022-11-30] MEDS: 0.9% Normal Saline (1000mL) 1,000 ML 1000 ML IV (20:31)
[2022-11-30 20:37] LABS: Absolute Lymphocyte Count 1.35 X10^3/uL (0.83-4.51); Absolute Neutrophil Count 7.7 X10^3/uL (2.0-7.7); Basophil# 0.06 X10^3/uL; Basophil% 0.6 % (0-1); Eosinophil# 0.05 X10^3/uL; Eosinophils% 0.5 % (0-5); Hematocrit 44.1 % (40-54); Hemoglobin 14.3 g/dL (13.0-16.5); Lymphocyte # 1.35 X10^3/ul (0.83-4.51); Mean Corp Hgb Conc 32.4 g/dL (32-36); Mean Corpuscular Hgb 30.9 pg (27.0-32.0); Mean Corpuscular Volume 95.2 fL (80-94); Mean Platelet Vol. 10.6 fl (6.2-12.0); Monocyte# 0.44 X10^3/uL; Monocyte% 4.6 % (0-10); NRBC Flagged by Analyzer 0 % (0-5); Neutrophil # 7.72 X10^3/uL (2.7-7.7); Platelet Count 256 K/mm3 (150-450); RBC Distribution Width CV 13.9 % (11.6-14.6); RBC Distribution Width SD 48.7 fl (35.1-43.9); Red Blood Count 4.63 M/mm3 (4.6-6.2); White Blood Count 9.7 K/mm3 (4.4-11.0)
[2022-11-30 20:48] LABS: International Normalized Ratio 0.9; Prothrombin Time (Protime)PT. 12.5 SECONDS (11.7-14.9)
[2022-11-30 20:49] LABS: Partial Thromboplast Time 32.3 Seconds (24.1-36.2)
[2022-11-30 20:50] LABS: Anion Gap 6 (5-15); BUN 16 mg/dL (7-18); BUN/Creat Ratio 11.5 RATIO (10-20); Calcium,Total 9.1 mg/dL (8.5-10.1); Chloride 101 mmol/L (98-107); Creatinine, Serum 1.39 mg/dL (0.70-1.30); EST Glomerular Filtration Rate 56 mL/min (>60); Est Glom Filt Rate - Afr Amer 68 mL/min (>60); Estimated Creatinine Clearance 70.08 ml/min; Glucose 167 mg/dL (74-106); Potassium 3.9 mmol/L (3.5-5.1); Sodium Level 136 mmol/L (136-145)
--- NOTE | 2022-11-30 23:21 | PCM.HP.STD ---
HPI - General General Date of Admission: 11/30/22 Date of Service: 11/30/22 Chief Complaint: Vertigo HPI Narrative JONO MURRY, is a 57 M with a significant history of CAD status post CABG in July 2022; and 9 prior coronary stents medical hypertension; diabetes mellitus and hyperlipidemia who presents emergency department who presents to the emergency department with Vertigo that started on the same day of presentation. Associated with his symptoms is nausea and vomiting. Reportedly his symptoms improved with antiemetics given at the emergency department. Patient denies any focal weakness. [facility] Medical History Alcohol intoxication Atherosclerotic heart disease of [place] coronary artery without angina pectoris CAD (coronary artery disease) Diabetes Essential hypertension HLD (hyperlipidemia) Non-STEMI (non-ST elevated myocardial infarction) (03/31/18) PVC's (premature ventricular contractions) TIA (transient ischemic attack) Tobacco abuse Type 2 diabetes mellitus Home Medications aspirin 81 mg chewable tablet 81 mg PO DAILY@0800 health maintenance ##90 04/17/18 [Rx Last Taken 06/30/22] metformin 500 mg tablet 500 mg PO BID diabetes 12/02/19 [History Last Taken 06/30/22] cholecalciferol (vitamin D3) 1,250 mcg (50,000 unit) capsule 50,000 unit PO QWEEK vitamin 06/28/21 [History Last Taken 06/24/22] gabapentin 300 mg capsule 300 mg PO QHS nerve pain 06/28/21 [History Last Taken 06/30/22] Blood Pressure Monitor #1 ea 06/13/22 [Rx Last Taken Unknown] amlodipine 10 mg tablet 10 mg PO DAILY blood pressure #90 tabs 07/10/22 [Rx Last Taken Unknown] atorvastatin 80 mg tablet 80 mg PO QHS cholesterol #90 tabs 07/10/22 [Rx Last Taken Unknown] losartan 100 mg tablet 100 mg PO DAILY BP #90 tabs 07/11/22 [Rx Last Taken Unknown] carvedilol 25 mg tablet 12.5 mg PO BID bp 10/09/22 [History Last Taken Unknown] clopidogrel 75 mg tablet 75 mg PO DAILY heart health #90 tabs 10/09/22 [Rx Last Taken Unknown] duloxetine 30 mg capsule,delayed release 30 mg PO DAILY 11/30/22 [History Last Taken Unknown] terazosin 1 mg capsule 2 mg PO QHS 11/30/22 [History Last Taken Unknown] Allergy/AdvReac Type Severity Reaction Status Date / Time latex Allergy Hives Verified 11/30/22 19:58 Sulfa (Sulfonamide Allergy Hives Verified 11/30/22 19:58 Antibiotics) Family History Mother CAD (coronary artery disease) Grandfather CAD (coronary artery disease) Surgical History History of coronary artery stent placement (07/20/21) History of left heart catheterization (07/18/21) S/P CABG x 4 Social History household members: friend(s) service: No current occupational status: employed history of recent travel: No Smoking Status: Never smoker how long ago did patient quit smokin.5 months alcohol intake: current alcohol intake frequency: a few times a month substance use type: does not use caffeine: Yes (works night shifts) ROS ROS Narrative Pertinent positives and pertinent negatives as noted in HPI. All other systems were reviewed and are negative Vital Signs Vital Signs Vital Signs: 11/30/22 19:58 11/30/22 20:00 11/30/22 20:25 Temperature 97.0 F L 97.0 F L Temperature Source Temporal Temporal Pulse Rate 79 79 Respiratory Rate 16 16 Respiratory Pattern Normal Blood Pressure 162/109 H 162/109 H Blood Pressure Mean 126 126 Pulse Ox Oxygen Delivery Method 11/30/22 20:33 11/30/22 21:00 11/30/22 22:05 Temperature Temperature Source Pulse Rate 81 76 68 Respiratory Rate 12 14 13 Respiratory Pattern Blood Pressure 185/117 H 180/113 H 184/106 H Blood Pressure Mean 139 135 132 Pulse Ox 97 97 Oxygen Delivery Method Room Air Room Air 11/30/22 22:45 Temperature Temperature Source Pulse Rate 74 Respiratory Rate 15 Respiratory Pattern Blood Pressure 167/103 H Blood Pressure Mean 124 Pulse Ox 97 Oxygen Delivery Method Room Air Weight Weight: 86 kg Body Mass Index (BMI) 23.7 Physical Exam Narrative Physical exam: General: Well-nourished, well-developed. Head: Normocephalic, atraumatic, no tenderness Eyes: Vision is grossly intact. EOMI ENT, no trauma, moist mucous membranes, no rhinorrhea Neck: Nontender, No thyromegaly. CVS: Regular rate and rhythm. S1-S2 present. No murmur, gallop or rub. Respiratory : clear to auscultation bilaterally, chest wall nontender Abdomen: Soft, nontender, nondistended, normal bowel sounds, no masses : Deferred Back: Nontender, no CVA tenderness, no midline spinal tenderness, deformities, step-offs Extremities: Nontender full range of motion, no trauma Skin: Normal color, no trauma, abrasions Neuro: Alert, oriented, cranial nerves II through XII grossly intact. No dysmetria with [id number] test or maldonado to heel test. No hyperreflexia in bilateral elbow flexors or bilateral knee reflexes. Psychiatry: Normal mood. Normal affect. Not depressed. Not anxious. Results Lab / Micro Data 11/30/22 20:26 11/30/22 20:26 Labs: Laboratory Results - last 24 hr 11/30/22 20:26: WBC 9.7, RBC 4.63, Hgb 14.3, Hct 44.1, MCV 95.2 H, MCH 30.9, MCHC 32.4, RDW Std Deviation 48.7 H, RDW Coeff of Zehra 13.9, Plt Count 256, MPV 10.6, Immature Gran % (Auto) 0.300, Neut % (Auto) 80.0 H, Lymph % (Auto) 14.0 L, [place] % (Auto) 4.6, Eos % (Auto) 0.5, Baso % (Auto) 0.6, Absolute Neuts (auto) 7.7, Absolute Lymphs (auto) 1.35, Nucleated RBC % 0, PT 12.5, INR 0.9, APTT 32.3, Sodium 136, Potassium 3.9, Chloride 101, Carbon Dioxide 29.0, Anion Gap 6, BUN 16, Creatinine 1.39 H, Estim Creat Clear Calc 70.08, Est GFR (MDRD) Af Amer 68, Est GFR (MDRD) Non-Af 56 L, BUN/Creatinine Ratio 11.5, Glucose 167 H, Calcium 9.1 Radiology Impression Head/Neck CTA 11/30/22 20:11 IMPRESSION: 1. Chronic ischemic changes. No distinct evidence of acute infarct or acute intracranial hemorrhage. 2. Moderate to severe stenosis of the supracavernous left internal carotid artery. 3. Mild stenosis of the supracavernous right internal carotid artery. 4. Atherosclerosis of the right carotid bifurcation and carotid bulb with approximately 50% stenosis of the right internal carotid artery by NASCET criteria. Less than 50% stenosis of the left internal carotid artery. 5. No additional large vessel occlusion or critical stenosis in the head or neck. Electronically Signed: Kenton Pandey DO at 21:58 EDT , ADDENDUM: 11/30/222238 IMPRESSION: 1. Chronic ischemic changes. No distinct evidence of acute infarct or acute intracranial hemorrhage. 2. Moderate to severe stenosis of the supracavernous left internal carotid artery. 3. Mild stenosis of the supracavernous right internal carotid artery. 4. Atherosclerosis of the right carotid bifurcation and carotid bulb with approximately 50% stenosis of the right internal carotid artery by NASCET criteria. Less than 50% stenosis of the left internal carotid artery. 5. No additional large vessel occlusion or critical stenosis in the head or neck. N.B. : The above Results were Read Back by Kenton Pandey DO to Colt Dash DO, and understanding confirmed on 11/30/2022 22:32:19 (ET). Electronically Signed: Kenton Pandey DO at 21:58 EDT , Assessment & Plan Assessment/Plan (1) Vertigo: PLAN: Plan Vertigo Etiology includes posterior circulation stroke Head and neck CTA with mild to moderate significant stenosis. We will get MRI of brain. Pleasant as needed ordered. PT and OT consult. Continue home dual antiplatelet therapy and NINDS and NIH scale ordered. IV antiemetics for nausea and vomiting Check lipids and A1c. CAD status post stents Stable Dual antiplatelet therapy continued. DVT prophylaxis: SCDs ordered Charges/Coding Visit Charges Inpatient E&M: 66755 Init Hosp L3
[2022-12-01] VITALS (8 sets, daily range): BP systolic 134–174; BP diastolic 76–118; PULSE 70–95; RESP 14–16; TEMP 36.6–36.9; O2SAT 96–99; BMI 22.9
--- NOTE | 2022-12-01 00:06 | ECHOD_ITS ---
Reason For Study: TIA/CVA Procedure This was a 2D Doppler, Color Flow transthoracic echocardiogram. Myocardial strain analysis was performed in this exam to aid in the assessment of cardiac function. Exam performed portable in patient room. Left Ventricle Normal LV size. Severe concentric left ventricular hypertrophy. Apical false tendon noted. Left ventricular systolic function is normal. The estimated ejection fraction is 65 %. No regional wall motion abnormalities noted. Right Ventricle Normal RV size. Normal systolic function. Atria Normal left atrium. Normal right atrium. Bubble contrast study negative for right to left interatrial shunt. Mitral Valve Normal mitral valve. Tricuspid Valve Normal tricuspid valve. Trivial tricuspid valve insufficiency. Aortic Valve Trisinus/trileaflet aortic valve. Moderate focal aortic valve thickening. Pulmonic Valve Normal pulmonic valve. Great Vessels Normal aortic root. The pulmonary artery is normal size. Normal inferior vena cava. Pericardium/Pleural No pericardial effusion. Medication Performed a rapid injection of agitated mix of 9 cc saline and 1cc air to assess for atrial septal defect. MMode/2D Measurements & Calculations LVIDd: 4.0 cm IVSd: 1.8 cm Ao root diam: 2.9 cm LVIDs: 2.6 cm LVPWd: 1.8 cm RVDd: 3.2 cm FS: 35.7 % LAV(MOD-bp): 42.2 ml LVAd ap4: 26.9 cm2 SV(MOD-sp4): 41.8 ml LAV(MOD-bp) Indexed: 19.7 ml/m2 LVLd ap4: 9.0 cm LAV(MOD-sp2): 46.8 ml EDV(MOD-sp4): 67.3 ml LAV(MOD-sp4): 35.0 ml EDV(sp4-el): 68.3 ml LVAs ap4: 14.9 cm2 LVLs ap4: 7.7 cm ESV(MOD-sp4): 25.5 ml ESV(sp4-el): 24.2 ml EF(MOD-sp4): 62.1 % EF(sp4-el): 64.6 % SV(sp4-el): 44.1 ml LA A4 area: 14.4 cm2 LA dimension(2D): 3.8 cm RA A4 area: 12.6 cm2 TAPSE: 1.4 cm Time Measurements MV dec time: 0.27 sec Doppler Measurements & Calculations MV E max yong: 54.7 cm/sec Lat Peak E' Yong: 5.1 cm/sec Med Peak E' Yong: 3.3 cm/sec MV A max yong: 62.4 cm/sec E/E' lat: 10.8 E/E' med: 16.5 MV E/A: 0.88 MV dec slope: 202.1 cm/sec2 Ao V2 max: 171.1 cm/sec LV V1 max: 128.4 cm/sec Ao max P.7 mmHg LV V1 max P.6 mmHg Ao V2 mean: 112.0 cm/sec LV V1 mean P.3 mmHg Ao mean P.0 mmHg LV V1 mean: 82.2 cm/sec Ao V2 VTI: 29.9 cm LV V1 VTI: 22.0 cm AV (velocity ratio): 0.73 PA V2 max: 86.7 cm/sec ECHO/Echo Complete Interpretation Summary Normal LV size. Severe concentric left ventricular hypertrophy. Left ventricular systolic function is normal. The estimated ejection fraction is 65 %. Bubble contrast study negative for right to left interatrial shunt. The global longitudinal strain is severely abnormal. The global longitudinal st rain = -8% (abnormal). Ordering Physician: Chris Meredith Referring Physician: Shweta Amador Performed By: Scarlett Chaudhary, OBINNA, RVT
--- NOTE | 2022-12-01 00:06 | MRI_ITS ---
HISTORY: CVA, dizziness upon standing or ambulating, vertigo s/p turn head to left, TIA, HTN, denies GARCÍA or hemiparesis. TECHNIQUE: Multiplanar and multisequence MR images of the brain were obtained without contrast. 286 images. COMPARISON: CT prior day. FINDINGS: BRAIN PARENCHYMA: Mild foci and small zones of increased T2 FLAIR signal in the bilateral cerebral white matter and juanita. Chronic lacunar infarcts in the basal ganglia. No abnormal focus of restricted diffusion. No acute intracranial hemorrhage identified. CSF SPACES: Cerebral ventricles, cortical sulci, and other extra-axial CSF spaces within normal limits in size for age. No significant midline shift or other mass effect.No extra-axial fluid collection. VASCULAR SYSTEM: Major intracranial flow voids are maintained. PARANASAL SINUSES AND MASTOID AIR CELLS: No significant air fluid levels. ORBITS: Symmetric contents. MRI/Brain without Contrast IMPRESSION: No evidence for acute infarct. Chronic involutional and white matter changes. Electronically Signed: Niki Mcconnell MD at 12:10 EDT ,
[2022-12-01] MEDS: Doxazosin 1 MG Tablet 2 MG PO (00:46)
[2022-12-01] MEDS: Atorvastatin Calcium 80 MG Tablet PO (00:47)
[2022-12-01] MEDS: Gabapentin 300 MG Capsule PO (00:51)
[2022-12-01] MEDS: Meclizine 12.5 MG Tablet PO ×2 (00:51→14:38)
[2022-12-01 01:23] LABS: Bedside Glucose 126 mg/dL (74-106)
[2022-12-01] MEDS: 0.9% Normal Saline (1000mL) 1,000 ML 100 ML IV (02:45)
--- NOTE | 2022-12-01 07:58 | PCM.PN.HOSP ---
Objective Data Objective Data Vital Signs: Vital Signs Temp Pulse Resp BP Pulse Ox O2 Del Method 98.3 F 70 16 135/91 H 96 Room Air 12/01/22 06:00 12/01/22 06:00 12/01/22 06:00 12/01/22 06:00 12/01/22 07:56 12/01/22 07:56 Oxygen Delivery Method Room Air Weight: 83.2 kg Body Mass Index (BMI) 22.9 Intake & Output: Intake and Output for Last 24 Hours 11/29/22 11/30/22 12/01/22 23:59 23:59 23:59 Intake Total 1000 / 1000 0 / 0 Output Total 0 / 0 Balance 1000 / 1000 0 / 0 Lab / Micro Data 11/30/22 20:26 11/30/22 20:26 Labs: Laboratory Results - last 24 hr 11/30/22 20:26: WBC 9.7, RBC 4.63, Hgb 14.3, Hct 44.1, MCV 95.2 H, MCH 30.9, MCHC 32.4, RDW Std Deviation 48.7 H, RDW Coeff of Zehra 13.9, Plt Count 256, MPV 10.6, Immature Gran % (Auto) 0.300, Neut % (Auto) 80.0 H, Lymph % (Auto) 14.0 L, [place] % (Auto) 4.6, Eos % (Auto) 0.5, Baso % (Auto) 0.6, Absolute Neuts (auto) 7.7, Absolute Lymphs (auto) 1.35, Nucleated RBC % 0, PT 12.5, INR 0.9, APTT 32.3, Sodium 136, Potassium 3.9, Chloride 101, Carbon Dioxide 29.0, Anion Gap 6, BUN 16, Creatinine 1.39 H, Estim Creat Clear Calc 70.08, Est GFR (MDRD) Af Amer 68, Est GFR (MDRD) Non-Af 56 L, BUN/Creatinine Ratio 11.5, Glucose 167 H, Calcium 9.1 12/01/22 01:01: POC Glucose 126 H Radiography Diagnostic Testing: Radiology Impression Head/Neck CTA 11/30/22 20:11 IMPRESSION: 1. Chronic ischemic changes. No distinct evidence of acute infarct or acute intracranial hemorrhage. 2. Moderate to severe stenosis of the supracavernous left internal carotid artery. 3. Mild stenosis of the supracavernous right internal carotid artery. 4. Atherosclerosis of the right carotid bifurcation and carotid bulb with approximately 50% stenosis of the right internal carotid artery by NASCET criteria. Less than 50% stenosis of the left internal carotid artery. 5. No additional large vessel occlusion or critical stenosis in the head or neck. Electronically Signed: Kenton Pandey DO at 21:58 EDT , ADDENDUM: 11/30/222238 IMPRESSION: 1. Chronic ischemic changes. No distinct evidence of acute infarct or acute intracranial hemorrhage. 2. Moderate to severe stenosis of the supracavernous left internal carotid artery. 3. Mild stenosis of the supracavernous right internal carotid artery. 4. Atherosclerosis of the right carotid bifurcation and carotid bulb with approximately 50% stenosis of the right internal carotid artery by NASCET criteria. Less than 50% stenosis of the left internal carotid artery. 5. No additional large vessel occlusion or critical stenosis in the head or neck. N.B. : The above Results were Read Back by Kenton Pandey DO to Colt Dash DO, and understanding confirmed on 11/30/2022 22:32:19 (ET). Electronically Signed: Kenton Pandey DO at 21:58 EDT , Physical Exam Narrative Physical exam: General: Well-nourished, well-developed. Head: Normocephalic, atraumatic, no tenderness Eyes: Vision is grossly intact. EOMI ENT, no trauma, moist mucous membranes, no rhinorrhea Neck: Nontender, No thyromegaly. CVS: Regular rate and rhythm. S1-S2 present. No murmur, gallop or rub. Respiratory : clear to auscultation bilaterally, chest wall nontender Abdomen: Soft, nontender, nondistended, normal bowel sounds, no masses : Deferred Back: Nontender, no CVA tenderness, no midline spinal tenderness, deformities, step-offs Extremities: Nontender full range of motion, no trauma Skin: Normal color, no trauma, abrasions Neuro: Alert, oriented, cranial nerves II through XII grossly intact. No dysmetria with [id number] test or maldonado to heel test. No hyperreflexia in bilateral elbow flexors or bilateral knee reflexes. Psychiatry: Normal mood. Normal affect. Not depressed. Not anxious. Assessment & Plan Assessment/Plan (1) Vertigo: PLAN: Plan Ago, nausea and vomiting Cannot rule out posterior circulation stroke with a calcification and moderate to severe stenosis of cerebral vessels. Insert stroke orders.
[2022-12-01 08:18] LABS: Cholesterol 174 mg/dL (200); High Density Lipoprotein 55 mg/dL; Triglycerides 81 mg/dL; Very Low Density Lipoprotein 16 mg/dL (5-40)
[2022-12-01 08:26] LABS: Hemoglobin A1c 5.1 % (3.8-5.6)
[2022-12-01] MEDS: Aspirin 81 MG TAB.CHEW PO (09:02)
[2022-12-01] MEDS: DULoxetine Hcl 30 MG Capsule PO (09:02)
[2022-12-01] MEDS: Clopidogrel Bisulfate 75 MG Tablet PO (09:02)
--- NOTE | 2022-12-01 12:29 | PCM.DC.SUM ---
Providers Date of Admission: 11/30/22 Date of Discharge: 12/01/22 Primary Care Physician: MALA Holm Reason For Visit: VERTIGO Diagnosis Discharge Diagnosis (1) Vertigo: Status: Acute Code(s): R42 - Dizziness and giddiness Medications at Discharge Home Medications aspirin 81 mg chewable tablet 81 mg PO DAILY@0800 health maintenance ##90 04/17/18 metformin 500 mg tablet 500 mg PO BID diabetes 12/02/19 cholecalciferol (vitamin D3) 1,250 mcg (50,000 unit) capsule 50,000 unit PO QWEEK vitamin 06/28/21 gabapentin 300 mg capsule 300 mg PO QHS nerve pain 06/28/21 Blood Pressure Monitor #1 ea 06/13/22 atorvastatin 80 mg tablet 80 mg PO QHS cholesterol #90 tabs 07/10/22 carvedilol 25 mg tablet 12.5 mg PO BID bp 10/09/22 clopidogrel 75 mg tablet 75 mg PO DAILY Terarecon #90 tabs 10/09/22 duloxetine 30 mg capsule,delayed release 30 mg PO DAILY 11/30/22 terazosin 1 mg capsule 2 mg PO QHS 11/30/22 losartan 100 mg tablet 50 mg (1/2 x 100 mg) PO DAILY BP #90 tabs 12/01/22 meclizine 12.5 mg tablet 12.5 mg PO 4X/DAY PRN PRN Vertigo #30 tabs 12/01/22 Hospital Course Summary of Care Provided Minutes Spent on Discharge: 35 Hospital Course: Patient is a 57-year-old gentleman who presented with acute vertigo ? 1. Dizziness -suspected to be orthostatic hypotension. Patient was found to have positive orthostasis. He was was placed on a monitored bed ruled out posterior circulation CVA with a negative MRI. Requested for PT/OT eval and treatment. Prescription written for meclizine on discharge 2. Coronary artery disease ? With previous CO status post CABG multiple stents. Patient is on guideline directed medical therapy 3. Hypertension - Blood pressure stable, with patient being orthostatic blood pressure medications adjusted on discharge 4. Dyslipidemia -Patient is on statin therapy, continued at home dose 5. Diabetes mellitus type 2 ? On metformin held on admission placed on Accu-Cheks before meals and at bedtime with sliding scale coverage Physical Exam Narrative GENERAL: cooperative HEENT: Atraumatic; normocephalic EYES; Anicteric, Normal Conjunctiva NECK; supple, normal thyroid, RESPIRATORY: Diminished to auscultation CARDIOVASCULAR: Regular S1 S2, GI: soft, normoactive bowel sounds, : No Renal angle tenderness; EXTREMITIES: No edema, no clubbing, MUSCULOSKELETAL: no muscle wasting NEURO: Awake; no lateralizing signs. SKIN: No Rash PSYCH; Flat affect Weight / BMI Weight Weight: 83.2 kg Body Mass Index (BMI) 22.9 ABG / Lab / Microbiology Data 11/30/22 20:26 11/30/22 20:26 Laboratory: Laboratory Results - last 24 hr 11/30/22 20:26: WBC 9.7, RBC 4.63, Hgb 14.3, Hct 44.1, MCV 95.2 H, MCH 30.9, MCHC 32.4, RDW Std Deviation 48.7 H, RDW Coeff of Zehra 13.9, Plt Count 256, MPV 10.6, Immature Gran % (Auto) 0.300, Neut % (Auto) 80.0 H, Lymph % (Auto) 14.0 L, [place] % (Auto) 4.6, Eos % (Auto) 0.5, Baso % (Auto) 0.6, Absolute Neuts (auto) 7.7, Absolute Lymphs (auto) 1.35, Nucleated RBC % 0, PT 12.5, INR 0.9, APTT 32.3, Sodium 136, Potassium 3.9, Chloride 101, Carbon Dioxide 29.0, Anion Gap 6, BUN 16, Creatinine 1.39 H, Estim Creat Clear Calc 70.08, Est GFR (MDRD) Af Amer 68, Est GFR (MDRD) Non-Af 56 L, BUN/Creatinine Ratio 11.5, Glucose 167 H, Calcium 9.1 12/01/22 01:01: POC Glucose 126 H 12/01/22 07:13: Hemoglobin A1c 5.1, Triglycerides 81, Cholesterol 174, LDL Cholesterol 103, VLDL Cholesterol 16, HDL Cholesterol 55 Radiography Diagnostic Testing: Radiology Impression Head/Neck CTA 11/30/22 20:11 IMPRESSION: 1. Chronic ischemic changes. No distinct evidence of acute infarct or acute intracranial hemorrhage. 2. Moderate to severe stenosis of the supracavernous left internal carotid artery. 3. Mild stenosis of the supracavernous right internal carotid artery. 4. Atherosclerosis of the right carotid bifurcation and carotid bulb with approximately 50% stenosis of the right internal carotid artery by NASCET criteria. Less than 50% stenosis of the left internal carotid artery. 5. No additional large vessel occlusion or critical stenosis in the head or neck. Electronically Signed: Kenton Pandey DO at 21:58 EDT , ADDENDUM: 11/30/222238 IMPRESSION: 1. Chronic ischemic changes. No distinct evidence of acute infarct or acute intracranial hemorrhage. 2. Moderate to severe stenosis of the supracavernous left internal carotid artery. 3. Mild stenosis of the supracavernous right internal carotid artery. 4. Atherosclerosis of the right carotid bifurcation and carotid bulb with approximately 50% stenosis of the right internal carotid artery by NASCET criteria. Less than 50% stenosis of the left internal carotid artery. 5. No additional large vessel occlusion or critical stenosis in the head or neck. N.B. : The above Results were Read Back by Kenton Pandey DO to Colt Dash DO, and understanding confirmed on 11/30/2022 22:32:19 (ET). Electronically Signed: Kenton Pandey DO at 21:58 EDT , Brain MRI 12/01/22 00:06 IMPRESSION: No evidence for acute infarct. Chronic involutional and white matter changes. Electronically Signed: Niki Mcconnell MD at 12:10 EDT , Echocardiogram 12/01/22 00:06 Interpretation Summary Normal LV size. Severe concentric left ventricular hypertrophy. Left ventricular systolic function is normal. The estimated ejection fraction is 65 %. Bubble contrast study negative for right to left interatrial shunt. The global longitudinal strain is severely abnormal. The global longitudinal strain = -8% (abnormal). Ordering Physician: Chris Meredith Referring Physician: Shweta Amador Performed By: Scarlett Chaudhary, OBINNA, RVT D/C Instructions Discharge Diet: Low fat / Low cholesterol and 1800 Calorie Control Diet Discharge Activity: Return to Normal Activity Call your doctor if you observe: Fever of 101 or Higher, Shortness of breath, Fainting spells and Chest pain Meaningful Use Info Meaningful Use Diagnoses (Choose all that apply): None applicable Discharge Plan Admission Admit Date/Time: 11/30/22 23:24 Attending Provider: Lionel Gilbert Primary Care Provider: Shweta Amador [employer] Providers: Chris Meredith Discharge Orders/Prescriptions Prescriptions: New meclizine 12.5 mg Tablet 12.5 mg PO 4X/DAY PRN PRN (Reason: Vertigo) Qty: 30 0RF Continued aspirin 81 mg tablet,chewable 81 mg PO DAILY@0800 Qty: 90 3RF metformin 500 mg tablet 500 mg PO BID Hold Instructions: Hold for 7 days gabapentin 300 mg capsule 300 mg PO QHS cholecalciferol (vitamin D3) 1,250 mcg (50,000 unit) capsule 50,000 unit PO QWEEK carvedilol 25 mg tablet 12.5 mg PO BID clopidogrel 75 mg tablet 75 mg PO DAILY Qty: 90 3RF duloxetine 30 mg capsule,delayed release(DR/EC) 30 mg PO DAILY terazosin 1 mg capsule 2 mg PO QHS (DME) Blood Pressure Monitor See Rx Instructions .Route .MEDSUPPLY Qty: 1 0RF Rx Instructions: As directed atorvastatin 80 mg tablet 80 mg PO QHS Qty: 90 3RF Changed losartan 100 mg tablet 50 mg PO DAILY Qty: 90 3RF Discontinued amlodipine 10 mg tablet 10 mg PO DAILY Qty: 90 3RF Referrals / Follow Up: Shweta Amador NP, [employer] [Primary Care Provider] - Disposition Disposition (needs filled in before D/C Order can be placed): Home, Self Care Charges/Coding Visit Charges Inpatient E&M: 49845 Disch Hosp >30min
[2022-12-01 17:33] LABS: Bedside Glucose 124 mg/dL (74-106)
== END 2022-12-01 18:05 | disposition home or self-care (01) ==
LOC: ED 20:53 → PCU 12-01 00:37
PROVIDERS: Admitting Provider Hospitalist; Emergency Provider Emergency Medicine; PCP Nurse Practitioner Family; Visit Provider Internal Medicine
DX: R42 Dizziness and giddiness (principal); E11.9 Type 2 diabetes mellitus without complications; E78.5 Hyperlipidemia, unspecified; Z79.82 Long term (current) use of aspirin; I10 Essential (primary) hypertension; Z79.84 Long term (current) use of oral hypoglycemic drugs; I25.10 Atherosclerotic heart disease of native coronary artery without angina pectoris; R11.2 Nausea with vomiting, unspecified; Z79.02 Long term (current) use of antithrombotics/antiplatelets; Z79.899 Other long term (current) drug therapy; Z95.1 Presence of aortocoronary bypass graft; I25.2 Old myocardial infarction; I44.4 Left anterior fascicular block; R94.31 Abnormal electrocardiogram [ECG] [EKG]; I36.1 Nonrheumatic tricuspid (valve) insufficiency
CPT/HCPCS: 36415; 70496; 70498; 70551; 80048; 80061; 82962; 83036; 85025; 85610; 85730; 93005; 93306; 96361; 96374; 97162; 97165; 97802; 99221; 99285; J7030; Q9967; A4216; G0378

== ENCOUNTER 2022-12-17 13:00 | Outpatient (RCR) | payer MEDICAID, SELFPAY ==
[2022-11-12 08:29] VITALS: BMI 23.2
[2022-11-18 00:38] VITALS: BP 108/62
--- NOTE | 2022-11-19 13:46 | CR.ITP_ITS ---
Nutrition - Initial Assessment Weight Mgt (Other Care) Height: 6 ft 3 in Weight:: 189 lb BMI: 23.6 Psychosocial - Initial Assess Target Goals Target Goals Patient Health Questionnaire PHQ-9 Screening 60-Day Re-eval Assessment: 1. Little interest or pleasure in doing things: Not at all 2. Feeling down, depressed, or hopeless: Not at all 3. Trouble falling or staying asleep, or sleeping too much: Several days 4. Feeling tired or having little energy: Several days 5. Poor appetite or overeating: Several days 6. Feeling bad about yourself -- or that you are a failure or have let yourself or your family down: Not at all 7. Trouble concentrating on things, such as reading the newspaper or watching television: Not at all 8. Moving or speaking so slowly that other people could have noticed. Or the opposite - being so fidgety or restless that you have been moving around a lot more than usual: Not at all 9. Thoughts that you would be better off , or of hurting yourself in some way: Not at all How difficult have these problems made it for you to do your work, take care of things at home, or get along with other people?: Not difficult at all Total Score: 3 Self-Efficacy 6-Item Scale 60-Day Re-eval Assessment: We would like to know how confident you are in doing certain activities. Please select your confidence level for: Fatigue Select Number: 7 Physical Discomfort or Pain Select Number: 7 Emotional Distress Select Number: 8 Other Symptoms or Health Problems Select Number: 7 Different Tasks and Activities Select Number: 9 Medication Select Number: 10 Total Score:: 8 Nutrition Survey Nutrition Survey Instructions Scoring Instructions Exercise - 60-day Assessment Visit Date of Eval: 11/19/22 Session #:: 22 Physician Prescribed Exercise Modalities: Treadmill, Airdyne and NuStep Frequency: 3x/week for 12 weeks [36 sessions] Intensity: 60-80% of age predicted maximum heart rate reserve Duration: 30 - 45 minutes Current METSs:: 5 Target Heart Rate:: 123-138 Current RPE:: 12-13 Maximum Excercise HR:: 133 Resting Blood Pressure: 150/88 Maximum Exercise Blood Pressure: 150/88 EKG Type: NSRW/1st degree AV block, intermittent T wave inversion, occas pvc, occas p Outcomes & Goals Goals:: Verbalizes understanding of THR, RPE & goal METS by session 6, Documents in home exercise log/reports 30 min aerobic 5 day/wk by DC, Demonstrates accurate pulse taking by DC and Other additional outcome/goals: see below Intervention & Plan Exercise Program Goals: Instruct on personal THR & RPE, Instruct on MET level & personal MET goal, Show patient to take own pulse /validate performance until accurate, Instruct on home exercise and Other additional plan/int 30-day Reassessments 30 day Reassessments:: Met Physical Activity Home Exercise Physical Activity - Home Exercise: Safe Exercise, Warm-up, Self-monitoring, Cool-Down, Home Exercise > 30 min Daily and Sitting Time <3 hours/daily Outcomes & Goals Outcomes/Goals: Demonstrates correct Warm-up/exercise Cool-Down (S3) if = 2.5 METs, Verbalizes symptoms of exercise intolerance by Session 3 (S3), Demonstrate safe equipment use (S3) & follows exercise prescrition (6) and Other: See below Intervention & Plan Plan/Intervention: Instruct warm-up & cool-down if exercising at > 2 METs, Instruct on symptoms of exercise intolerance & actions to take, Instruct & monitor on saf, Assess intial functional capacity & safety risk and Other See below 30-day Reassessments 30 day Reassessments:: Met Nutrition - 30-Day Assessment Weight Mgt (Other Care) Height: 6 ft 3 in Weight:: 189 lb BMI: 23.6 Nutrition - 60-Day Assessment Program Goals Nutrition Program Goals Patient has diagnosis of Hyperlipidemia (ICD E78)?: Yes Visit Date of Eval: 11/19/22 Session #:: 22 Cholesterol/Lipids (Other Core Measures) Determine presence & major risk factors that modify LDL goal: Hypertension or hypertensive medication, Low HDL cholesterol <40 mg/dL*, Family history of premature CHD in Male < 55 years: female <65 yearsFa and Age men > 45 years; women >/= 55 years Outcomes/Goals: Pt IDs own risk factors & lifestyle modifications by Session 10, Verbalizes symptoms of angina & response by session 3., Pt independently manages and Other Additional Outcomes/Goals: Intervention/Plan: Advocate for lipid panel cholesterol medication if applicable, Instruct on personal lipid levels & lipid goals/NCEP guidelines, Instruct on cholesterol and Other additional plan/int 30-day Reassessments:: Met Diabetes (Other Core Measures) Diabetes Type: Diagnosis Type II ICD-10 E11 Insulin dependent injection/pump?: No Non-Insulin Dependent?: Yes Do you monitor your blood sugar at home?: No Outcomes/Goals:: Able to state symptoms of, Able to state, Able to state and Other additional Intervention/Plan:: Instruct on, Refer to, Instruct on and Other 30-day Reassessments:: Not Met Weight Mgt (Other Care) Height: 6 ft 3 in Weight:: 189 lb BMI: 23.6 Diagnosis Overweight/Obesity BMI> 30% ICD-10 E66: No Diagnosis High BMI/Morbid Obesity BMI> 35% ICD-10 Z68: No Outcomes/Goals: Pt sets, maintains & shows weight loss goal & trend during rehab and Other additional outcomes/goals Intervention/Plan: Instruct on ideal BMI & set weight loss goal w/patient, Assist pt to ID & incorporate diet changes for weight loss by S9, Refer to Structured Weight Loss program as appropriate, Encourage goal of using 250- 300dcal per session for weight loss and Other additional plan/interventions 30 day Reassessments:: Met Healthy Eating Habits Will attend diet classes:: Yes Outcomes/Goals:: Consume diet rich in vegs,fruits,whole grain/high fiber,fish,lean meat, Limit sat/trans fats,cholesterol & added salts & sugars and Other additional outcome/goals: Intervention/Plan:: Assess current eating habits and Other Additional plan/interventions 30-day Reassessments:: Met Education Gave educational materials for:: Signs & symptoms of hypoglycemia, Signs & symptoms of hyperglycemia, Relate diabetes to coronary artery disease and Healthy eating Core - 60-Day Assessment Visit Date of Eval: 11/19/22 Session #:: 22 Medication Compliance Preventative Medication(s):: Aspirin, Clopidogrel/P2Y12 inhibit, Statin/lipid and Beta ileana H/O mental health issues: depression, anxiety, or addiction?: No Doesn?t believe in the benefits of treatment?: No Believes medications are unnecessary or harmful?: No Has a concern about medication side effects?: No Expresses concern over the cost of medications?: No Outcomes/Goals: Verbalizes medications,desired effect & common side effects @ DC, Pt self-reports following medication regimen, Keeps card in wallet w/medications listed by DC and Other additional outcome/goals: Interventions/plans: Instruct on medication effects & side effects, Review medication list w/patient every two weeks, Instruct importance of taking meds as ordered & assist problem solving and Other additional 30-day Reassessments:: Met Tobacco Use Tobacco Use: Non-smoker Hypertension Hypertension Diagnosis:: Hypertension ICD-10 I10 Resting Blood Pressure:: 150/88 [place] [employer] Hypertension Guidelines Peak Exercise Blood Pressure:: 150/88 Outcomes/Goals: Able to verbalize/achieve optimal blood pressure <130/80, Incorporates diet changes & exercise for blood pressure control by DC and Other additional outcomes/goals Interventions/plan: Instruct on optimal blood pressure, hypertension & medications, Instruct on effects of sodium, alcohol, stress, exercise &hypertension and Other additional plan/interventions 30 day Reassessments:: Progressing Reassessment Notes & Comments:: pt encouraged to take his meds Tobacco Cessation Referral Smoking Cessation Referral:: No Individual Education/Counseling:: No Education Schedule Given:: Yes Psychosocial - 30-Day Assess Target Goals Target Goals Psychosocial - 60-Day Assess VIsit Date of Eval: 11/19/22 Session #:: 22 History of previous Mental disease:: No Target Goals Target Goals Psychosocial - 90-Day Assess Target Goals Target Goals Psychosocial - Final Assessmen Target Goals Target Goals Nutrition - 90-Day Assessment Weight Mgt (Other Care) Height: 6 ft 3 in Weight:: 189 lb BMI: 23.6 Nutrition - Final Assessment Weight Mgt (Other Care) Height: 6 ft 3 in Weight:: 189 lb BMI: 23.6
[2022-11-19 13:59] VITALS: BP 150/88; BMI 23.6
== END 2022-12-18 23:59 ==
LOC: CR 13:00
PROVIDERS: PCP Nurse Practitioner Family; Referring Provider Internal Medicine Cardiovascular Disease; Visit Provider Internal Medicine Cardiovascular Disease
DX: Z95.1 Presence of aortocoronary bypass graft (principal)
CPT/HCPCS: 93798

== ENCOUNTER 2023-01-04 13:00 | Outpatient (RCR) | payer MEDICAID, SELFPAY ==
[2022-11-19 13:59] VITALS: BMI 23.6
[2022-12-19 00:47] VITALS: BP 150/88
--- NOTE | 2022-12-19 12:51 | CR.ITP_ITS ---
Nutrition - Initial Assessment Weight Mgt (Other Care) Height: 6 ft 3 in Weight:: 189 lb 8 oz BMI: 23.6 Psychosocial - Initial Assess Target Goals Target Goals Patient Health Questionnaire PHQ-9 Screening 90-Day Re-eval Assessment: 1. Little interest or pleasure in doing things: Not at all 2. Feeling down, depressed, or hopeless: Not at all 3. Trouble falling or staying asleep, or sleeping too much: Several days 4. Feeling tired or having little energy: Several days 5. Poor appetite or overeating: Several days 6. Feeling bad about yourself -- or that you are a failure or have let yourself or your family down: Not at all 7. Trouble concentrating on things, such as reading the newspaper or watching television: Not at all 8. Moving or speaking so slowly that other people could have noticed. Or the opposite - being so fidgety or restless that you have been moving around a lot more than usual: Not at all 9. Thoughts that you would be better off , or of hurting yourself in some way: Not at all How difficult have these problems made it for you to do your work, take care of things at home, or get along with other people?: Not difficult at all Total Score: 3 Self-Efficacy 6-Item Scale 90-Day Re-eval Assessment: We would like to know how confident you are in doing certain activities. Please select your confidence level for: Fatigue Select Number: 7 Physical Discomfort or Pain Select Number: 7 Emotional Distress Select Number: 8 Other Symptoms or Health Problems Select Number: 7 Different Tasks and Activities Select Number: 9 Medication Select Number: 10 Total Score:: 8 Nutrition Survey Nutrition Survey Instructions Scoring Instructions Exercise - 90-day Assessment Visit Date of Eval: 12/19/22 Session #:: 34 Physician Prescribed Exercise Modalities: Treadmill, Airdyne and NuStep Frequency: 3x/week for 12 weeks [36 sessions] Intensity: 60-80% of age predicted maximum heart rate reserve Duration: 30 - 45 minutes Current METSs:: 5 Target Heart Rate:: 123-138 Current RPE:: 13-14 Maximum Excercise HR:: 136 Resting Blood Pressure: 140/84 Maximum Exercise Blood Pressure: 142/78 EKG Type: NSR to ST with rare PAC, rare/occas PVC. One vent couplet Outcomes & Goals Goals:: Verbalizes understanding of THR, RPE & goal METS by session 6, Documents in home exercise log/reports 30 min aerobic 5 day/wk by DC, Demonstrates accurate pulse taking by DC and Other additional outcome/goals: see below Intervention & Plan Exercise Program Goals: Instruct on personal THR & RPE, Instruct on MET level & personal MET goal, Show patient to take own pulse /validate performance until accurate, Instruct on home exercise and Other additional plan/int 30-day Reassessments 30 day Reassessments:: Met Physical Activity Home Exercise Physical Activity - Home Exercise: Safe Exercise, Warm-up, Self-monitoring, Cool-Down, Home Exercise > 30 min Daily and Sitting Time <3 hours/daily Outcomes & Goals Outcomes/Goals: Demonstrates correct Warm-up/exercise Cool-Down (S3) if = 2.5 METs, Verbalizes symptoms of exercise intolerance by Session 3 (S3), Demonstrate safe equipment use (S3) & follows exercise prescrition (6) and Other: See below Intervention & Plan Plan/Intervention: Instruct warm-up & cool-down if exercising at > 2 METs, Instruct on symptoms of exercise intolerance & actions to take, Instruct & monitor on saf, Assess intial functional capacity & safety risk and Other See below 30-day Reassessments 30 day Reassessments:: Met Nutrition - 30-Day Assessment Weight Mgt (Other Care) Height: 6 ft 3 in Weight:: 189 lb 8 oz BMI: 23.6 Nutrition - 60-Day Assessment Weight Mgt (Other Care) Height: 6 ft 3 in Weight:: 189 lb 8 oz BMI: 23.6 Core - 90 Day Assessment Visit Date of Eval: 12/19/22 Session #:: 34 Medication Compliance Preventative Medication(s):: Aspirin, Clopidogrel/P2Y12 inhibit, Statin/lipid and Beta ileana H/O mental health issues: depression, anxiety, or addiction?: No Doesn?t believe in the benefits of treatment?: No Believes medications are unnecessary or harmful?: No Has a concern about medication side effects?: No Expresses concern over the cost of medications?: No Outcomes/Goals: Verbalizes medications,desired effect & common side effects @ DC, Pt self-reports following medication regimen, Keeps card in wallet w/medications listed by DC and Other additional outcome/goals: Interventions/plans: Instruct on medication effects & side effects, Review medication list w/patient every two weeks, Instruct importance of taking meds as ordered & assist problem solving and Other additional 30-day Reassessments:: Met Tobacco Use Tobacco Use: Non-smoker Hypertension Hypertension Diagnosis:: Hypertension ICD-10 I10 Resting Blood Pressure:: 140/84 [place] [employer] Hypertension Guidelines Peak Exercise Blood Pressure:: 142/78 Outcomes/Goals: Able to verbalize/achieve optimal blood pressure <130/80, Inco rporates diet changes & exercise for blood pressure control by DC and Other additional outcomes/goals Interventions/plan: Instruct on optimal blood pressure, hypertension & med ications, Instruct on effects of sodium, alcohol, stress, exercise &hypertension and Other additional plan/interventions 30 day Reassessments:: Met Tobacco Cessation Referral Smoking Cessation Referral:: No Individual Education/Counseling:: No Education Schedule Given:: Yes Psychosocial - 30-Day Assess Target Goals Target Goals Psychosocial - 60-Day Assess Target Goals Target Goals Psychosocial - 90-Day Assess VIsit Date of Eval: 12/19/22 Session #:: 34 History of previous Mental disease:: No Target Goals Target Goals Psychosocial - Final Assessmen Target Goals Target Goals Nutrition - 90-Day Assessment Program Goals Nutrition Program Goals Patient has diagnosis of Hyperlipidemia (ICD E78)?: Yes Visit Date of Eval: 12/19/22 Session #:: 34 Cholesterol/Lipids (Other Core Measures) Determine presence & major risk factors that modify LDL goal: Cigarette smoking, Hypertension or hypertensive medication, Low HDL cholesterol <40 mg/dL*, Family history of premature CHD in Male < 55 years: female <65 yearsFa and Age men > 45 years; women >/= 55 years Outcomes/Goals: Pt IDs own risk factors & lifestyle modifications by Session 10, Verbalizes symptoms of angina & response by session 3., Pt independently manages and Other Additional Outcomes/Goals: Intervention/Plan: Advocate for lipid panel cholesterol medication if applicable, Instruct on personal lipid levels & lipid goals/NCEP guidelines, Instruct on cholesterol and Other additional plan/int Diabetes (Other Core Measures) Diabetes Type: Diagnosis Type II ICD-10 E11 Insulin dependent injection/pump?: No Non-Insulin Dependent?: Yes Do you monitor your blood sugar at home?: No Outcomes/Goals:: Able to state symptoms of, Able to state, Able to state and Other additional Intervention/Plan:: Instruct on, Refer to, Instruct on and Other 30-day Reassessments:: Met Weight Mgt (Other Care) Height: 6 ft 3 in Weight:: 189 lb 8 oz BMI: 23.6 Diagnosis Overweight/Obesity BMI> 30% ICD-10 E66: No Diagnosis High BMI/Morbid Obesity BMI> 35% ICD-10 Z68: No Outcomes/Goals: Pt sets, maintains & shows weight loss goal & trend during rehab and Other additional outcomes/goals Intervention/Plan: Instruct on ideal BMI & set weight loss goal w/patient, Assist pt to ID & incorporate diet changes for weight loss by S9, Refer to Structured Weight Loss program as appropriate, Encourage goal of using 250- 300dcal per session for weight loss and Other additional plan/interventions 30 day Reassessments:: Met Healthy Eating Habits Will attend diet classes:: Yes Outcomes/Goals:: Consume diet rich in vegs,fruits,whole grain/high fiber,fish,lean meat, Limit sat/trans fats,cholesterol & added salts & sugars and Other additional outcome/goals: Intervention/Plan:: Assess current eating habits and Other Additional plan/interventions 30-day Reassessments:: Met Education Gave educational materials for:: Signs & symptoms of hypoglycemia, Signs & symptoms of hyperglycemia, Relate diabetes to coronary artery disease and Healthy eating Nutrition - Final Assessment Weight Mgt (Other Care) Height: 6 ft 3 in Weight:: 189 lb 8 oz BMI: 23.6
[2022-12-19 13:01] VITALS: BP 140/84; BMI 23.6
== END 2023-01-17 23:59 ==
LOC: CR 13:00
PROVIDERS: PCP Nurse Practitioner Family; Referring Provider Internal Medicine Cardiovascular Disease; Visit Provider Internal Medicine Cardiovascular Disease
DX: Z95.1 Presence of aortocoronary bypass graft (principal)
CPT/HCPCS: 93798

== ENCOUNTER → 2023-01-18 | Outpatient (CLI) | payer MEDICAID, SELFPAY ==
[2022-12-19 13:01] VITALS: BMI 23.6
[2023-01-18 16:05] LABS: Absolute Lymphocyte Count 1.64 X10^3/uL (0.83-4.51); Absolute Neutrophil Count 5.4 X10^3/uL (2.0-7.7); Basophil# 0.05 X10^3/uL; Basophil% 0.6 % (0-1); Eosinophil# 0.24 X10^3/uL; Hematocrit 43.9 % (40-54); Hemoglobin 14.6 g/dL (13.0-16.5); Lymphocyte # 1.64 X10^3/ul (0.83-4.51); Lymphocyte % 20.7 % (19-41); Mean Corp Hgb Conc 33.3 g/dL (32-36); Mean Corpuscular Hgb 31.9 pg (27.0-32.0); Mean Corpuscular Volume 96.1 fL (80-94); Mean Platelet Vol. 11.1 fl (6.2-12.0); Monocyte# 0.59 X10^3/uL; Monocyte% 7.4 % (0-10); NRBC Flagged by Analyzer 0 % (0-5); Neutrophil # 5.38 X10^3/uL (2.7-7.7); Platelet Count 240 K/mm3 (150-450); RBC Distribution Width CV 12.6 % (11.6-14.6); RBC Distribution Width SD 44.9 fl (35.1-43.9); Red Blood Count 4.57 M/mm3 (4.6-6.2); White Blood Count 7.9 K/mm3 (4.4-11.0)
[2023-01-18 16:28] LABS: Anion Gap 4 (5-15); BUN 22 mg/dL (7-18); BUN/Creat Ratio 15.3 RATIO (10-20); Calcium,Total 9.1 mg/dL (8.5-10.1); Chloride 105 mmol/L (98-107); Creatinine, Serum 1.44 mg/dL (0.70-1.30); EST Glomerular Filtration Rate 54 mL/min (>60); Est Glom Filt Rate - Afr Amer 65 mL/min (>60); Glucose 105 mg/dL (74-106); Potassium 4.1 mmol/L (3.5-5.1); Sodium Level 139 mmol/L (136-145)
[2023-01-18 16:29] LABS: BNP,B-Type NATRIURETIC PEPTIDE 144.5 pg/mL (0-100)
== END | disposition home or self-care (01) ==
LOC: LAB 15:00
PROVIDERS: PCP Nurse Practitioner Family; Referring Provider Nurse Practitioner Gerontology; Visit Provider Nurse Practitioner Gerontology
DX: R06.00 Dyspnea, unspecified (principal)
CPT/HCPCS: 36415; 80048; 83880; 85025

== ENCOUNTER → 2023-02-08 | Outpatient (CLI) | payer MEDICAID, SELFPAY ==
[2022-12-19 13:01] VITALS: BMI 23.6
[2023-02-08 17:04] LABS: Absolute Neutrophil Count 5.4 X10^3/uL (2.0-7.7); Basophil# 0.05 X10^3/uL; Basophil% 0.7 % (0-1); Eosinophil# 0.26 X10^3/uL; Eosinophils% 3.5 % (0-5); Hematocrit 43.9 % (40-54); Hemoglobin 14.2 g/dL (13.0-16.5); Lymphocyte % 17.3 % (19-41); Mean Corp Hgb Conc 32.3 g/dL (32-36); Mean Corpuscular Hgb 31.2 pg (27.0-32.0); Mean Corpuscular Volume 96.5 fL (80-94); Mean Platelet Vol. 11.8 fl (6.2-12.0); Monocyte# 0.49 X10^3/uL; Monocyte% 6.5 % (0-10); NRBC Flagged by Analyzer 0 % (0-5); Neutrophil # 5.41 X10^3/uL (2.7-7.7); Neutrophil % 71.9 % (47-70); Platelet Count 201 K/mm3 (150-450); RBC Distribution Width CV 12.5 % (11.6-14.6); RBC Distribution Width SD 44.7 fl (35.1-43.9); Red Blood Count 4.55 M/mm3 (4.6-6.2); White Blood Count 7.5 K/mm3 (4.4-11.0)
[2023-02-08 17:57] LABS: Anion Gap 2 (5-15); BUN 23 mg/dL (7-18); Calcium,Total 9.2 mg/dL (8.5-10.1); Chloride 104 mmol/L (98-107); Creatinine, Serum 1.64 mg/dL (0.70-1.30); EST Glomerular Filtration Rate 46 mL/min (>60); Est Glom Filt Rate - Afr Amer 56 mL/min (>60); Glucose 140 mg/dL (74-106); Magnesium 2.1 mg/dL (1.6-2.6); Potassium 4.4 mmol/L (3.5-5.1); Sodium Level 136 mmol/L (136-145); Thyroid Stim Hormone (TSH) 1.74 uIU/mL (0.358-3.74)
== END | disposition home or self-care (01) ==
LOC: LAB 15:24
PROVIDERS: PCP Nurse Practitioner Family; Referring Provider Physician Assistant Medical; Visit Provider Physician Assistant Medical
DX: I47.29 Other ventricular tachycardia (principal)
CPT/HCPCS: 36415; 80048; 83735; 84443; 85025

== ENCOUNTER → 2023-05-15 | Outpatient (CLI) | payer MEDICAID, SELFPAY ==
[2022-12-19 13:01] VITALS: BMI 23.6
--- NOTE | 2023-05-15 11:46 | STRESSREP ---
Stress Test Report Exercise myocardial perfusion stress test. 58-year-old man with a history of chest pain status post coronary bypass surgery Stress protocol: Resting EKG demonstrates normal sinus rhythm with a rate of 54 bpm resting blood pressure is 130/86 mmHg. The patient exercised according to the regular Bravo protocol for a total duration of 6 minutes attaining a maximum heart rate of 133 bpm which was 82% of maximum predicted heart rate; the maximum workload was 7 metabolic equivalents. At rest there were no ST or T wave changes noted to suggest ischemia and at peak exercise upsloping ST changes only were noted which did not meet the criteria for ischemia. No clinical angina was noted the test was terminated due to the target heart rate being achieved/fatigue. The peak blood pressure was 180/74 mmHg. Rate-pressure product was 23,500. Myocardial perfusion protocol. 14.3 mCi of technetium 99m sestamibi was injected at rest. The patient exercised according to regular Bravo protocol for total duration of 6 minutes and at peak exercise 42.9 mCi of technetium 99m sestamibi was injected stress images were obtained stress and rest images were reconstructed in comparing the short axis vertical long and horizontal long axis. Gated images were also obtained. Perfusion SPECT analysis: Review of the stress images demonstrate normal uptake of tracer noted in all areas of the myocardium. The resting images similarly demonstrate normal uptake of tracer noted in all areas of the myocardium. No areas of reversibility are noted to suggest ischemia no previous infarct was noted. Gated SPECT analysis: The gated ejection fraction is 54%. Conclusion: Normal exercise myocardial perfusion stress test at a moderate workload Preserved ejection fraction.
== END | disposition home or self-care (01) ==
PROVIDERS: PCP Nurse Practitioner Family; Referring Provider Physician Assistant Medical; Visit Provider Physician Assistant Medical
DX: Z95.1 Presence of aortocoronary bypass graft (principal); I20.0 Unstable angina
CPT/HCPCS: 78452; 93017; A9500; A4216

== ENCOUNTER → 2023-12-31 | Outpatient (CLI) | payer MEDICAID, SELFPAY ==
[2022-12-19 13:01] VITALS: BMI 23.6
== END | disposition home or self-care (01) ==
LOC: CVS 13:52
PROVIDERS: PCP Nurse Practitioner Family; Referring Provider Physician Assistant Medical; Visit Provider Physician Assistant Medical
DX: I51.7 Cardiomegaly (principal); I10 Essential (primary) hypertension
CPT/HCPCS: 93306

== ENCOUNTER → 2024-01-02 | Outpatient (CLI) | payer MEDICAID, SELFPAY ==
[2022-12-19 13:01] VITALS: BMI 23.6
[2024-01-07 16:10] LABS: Albumin 4.1 g/dL (2.9-4.4); Alpha-1-Globulins 0.2 g/dL (0.0-0.4); Alpha-2-Globulins 0.6 g/dL (0.4-1.0); Free Kappa Light Chains 36.7 mg/L (3.3-19.4); Gamma Globulin 1.3 g/dL (0.4-1.8); Immunoglobulin A 376 mg/dL (90-386); Immunoglobulin G 1437 mg/dL (603-1613); Immunoglobulin M 48 mg/dL (20-172); PROEL- TOTAL PROTEIN 7.3 g/dL (6.0-8.5); PROELU- Albumin, Urine 22.4 % (.); PROELU- Alpha-1-Globulin,Ur 3.4 % (.); PROELU- Alpha-2-Globulin,Ur 21.6 % (.); PROELU- Beta Globulin, Ur 30.6 % (.); Total Protein, Ur 13.1 mg/dL (Not Estab.)
== END | disposition home or self-care (01) ==
LOC: LAB 14:35
PROVIDERS: PCP Nurse Practitioner Family; Referring Provider Physician Assistant Medical; Visit Provider Physician Assistant Medical
DX: R06.00 Dyspnea, unspecified (principal); R93.1 Abnormal findings on diagnostic imaging of heart and coronary circulation; I51.7 Cardiomegaly
CPT/HCPCS: 36415; 82784; 83883; 84165; 84166; 86334

== ENCOUNTER → 2024-06-05 | Outpatient (CLI) | payer MEDICAID, SELFPAY ==
[2022-12-19 13:01] VITALS: BMI 23.6
[2024-06-05 11:49] LABS: Anion Gap 10 (5-15); BUN 18 mg/dL (4-19); BUN/Creat Ratio 11.4 RATIO (10-20); Calcium,Total 9.2 mg/dL (7.6-11.0); Carbon Dioxide 25.1 mmol/L (21.0-32.0); Chloride 101 mmol/L (98-108); Creatinine, Serum 1.54 mg/dL (0.70-1.20); EST Glomerular Filtration Rate 52 (>60); Glucose 133 mg/dL (70-99); Potassium 4.3 mmol/L (3.3-5.1); Sodium Level 136 mmol/L (133-145)
[2024-06-05 12:21] LABS: AST(SGOT) 17 U/L (<=37); Alanine Aminotransfer ALT/SGPT 17 U/L (<=46); Albumin, Serum 4.3 g/dL (3.5-5.0); Alkaline Phosphatase 106 U/L (40-129); Bilirubin, Direct 0.18 mg/dL (0.00-0.30); Globulin 3.1 g/dL (2.2-4.2); Protein, Total 7.4 g/dL (5.9-8.4); Total Bilirubin 0.48 mg/dL (0.00-1.30)
[2024-06-05 13:42] LABS: Cholesterol 225 mg/dL (<=200); High Density Lipoprotein 42 mg/dL; Low Density Lipoprotein Calc. 167 mg/dL; Triglycerides 80 mg/dL; Very Low Density Lipoprotein 16 mg/dL (5-40); cholesterol:hdl ratio screen 5.33
== END | disposition home or self-care (01) ==
LOC: LAB 10:24
PROVIDERS: PCP Nurse Practitioner Family; Referring Provider Student in an Organized Health Care Education/Training Program; Visit Provider Student in an Organized Health Care Education/Training Program
DX: Z01.818 Encounter for other preprocedural examination (principal); E78.5 Hyperlipidemia, unspecified
CPT/HCPCS: 36415; 80048; 80061; 80076

== ENCOUNTER 2024-08-22 15:41 | Emergency (ER) | payer MEDICAID, SELFPAY ==
[2022-12-19 13:01] VITALS: BMI 23.6
[2024-08-22 15:42] VITALS: BP 150/61; PULSE 88; RESP 18; TEMP 35.7; O2SAT 99
[2024-08-22 16:13] VITALS: BMI 25.0
[2024-08-22 16:32] VITALS: BP 150/61; PULSE 88; RESP 16; TEMP 35.7; O2SAT 99
== END 2024-08-22 16:45 | disposition home or self-care (01) ==
LOC: ED 16:42
PROVIDERS: Emergency Provider Emergency Medicine; PCP Nurse Practitioner Family; Visit Provider Emergency Medicine
DX: M17.11 Unilateral primary osteoarthritis, right knee (principal); E11.9 Type 2 diabetes mellitus without complications; Z87.891 Personal history of nicotine dependence; I10 Essential (primary) hypertension; M25.469 Effusion, unspecified knee; I25.10 Atherosclerotic heart disease of native coronary artery without angina pectoris; Z95.5 Presence of coronary angioplasty implant and graft; E78.5 Hyperlipidemia, unspecified; Z95.1 Presence of aortocoronary bypass graft; Z79.02 Long term (current) use of antithrombotics/antiplatelets; Z79.82 Long term (current) use of aspirin; Z86.73 Personal history of transient ischemic attack (TIA), and cerebral infarction without residual deficits; I25.2 Old myocardial infarction; Z79.84 Long term (current) use of oral hypoglycemic drugs; Z79.899 Other long term (current) drug therapy
CPT/HCPCS: 73564; 99282

== ENCOUNTER → 2024-09-15 | Outpatient (CLI) | payer MEDICAID, SELFPAY ==
[2022-12-19 13:01] VITALS: BMI 23.6
[2024-09-15 10:30] LABS: AST(SGOT) 16 U/L (<=37); Alanine Aminotransfer ALT/SGPT 14 U/L (<=46); Albumin, Serum 4.2 g/dL (3.5-5.0); Alkaline Phosphatase 94 U/L (40-129); Bilirubin, Direct 0.19 mg/dL (0.00-0.30); Cholesterol 227 mg/dL (<=200); Globulin 3.1 g/dL (2.2-4.2); Low Density Lipoprotein Calc. 159 mg/dL; Triglycerides 74 mg/dL; Very Low Density Lipoprotein 15 mg/dL (5-40); cholesterol:hdl ratio screen 4.28
== END | disposition home or self-care (01) ==
LOC: LAB 09:16
PROVIDERS: Student in an Organized Health Care Education/Training Program; PCP Nurse Practitioner Family; Referring Provider Physician Assistant Medical; Visit Provider Physician Assistant Medical
DX: E78.5 Hyperlipidemia, unspecified (principal)
CPT/HCPCS: 36415; 80061; 80076